=== PATIENT | female | born 1945 | race Caucasian/White ===

== ENCOUNTER → 2016-12-14 | Outpatient (CLI) | payer OTHER ==
[~2016-12-14] MED LIST: ATOR10TA88 PO; BENA-4 PO; CLX20 PO; HMLI SC; IBUP-1050 PO; INSUINJ SC; MELO7.5T5 PO; METF500T PO; ULT50 PO
--- NOTE | 2016-12-14 10:20 | DIAGNOSTIC IMAGING REPORT ---
CT OF THE ABDOMEN AND PELVIS WITHOUT CONTRAST CLINICAL HISTORY: Right flank pain. COMPARISON STUDY: CT of the abdomen and pelvis February 24, 2014 and right upper quadrant ultrasound July 19, 2015. TECHNIQUE: Axial images of the abdomen and pelvis were obtained without IV contrast. Images were reviewed in the axial, sagittal, and coronal planes. FINDINGS: A 5 mm perifissural nodule within the right middle lobe shown on image 10 of 516 is likely benign. No pneumatosis, free air or portal venous gas is present. Several left renal calculi measure up to 1.4 cm. The course of the ureters is difficult to follow on this exam but no ureteral calculi are identified. There is no hydronephrosis or hydroureter. Unenhanced images of liver, spleen, adrenal glands and pancreas are normal. There is no evidence for a bowel obstruction. There is extensive colonic diverticulosis. There is mild infiltration and a trace amount of fluid adjacent to the mid sigmoid colon, located within the right lower quadrant. There is no abscess or free air. The appendix is not visualized. Skeletal structures are unremarkable. IMPRESSION: 1. Mild acute sigmoid diverticulitis. No free air or abscess. 2. Left-sided nephrolithiasis. No ureteral calculi. Electronically signed by: Mirza Penn M.D. 12/14/2016 10:18 AM Dictated Date/Time: 12/14/2016 10:10 AM
== END | disposition home or self-care (01) ==
LOC: C.CTS 09:56
PROVIDERS: ATTEND Internal Medicine
DX: N20.0 Calculus of kidney (principal)

== ENCOUNTER → 2016-12-19 | Outpatient (CLI) | payer OTHER ==
[2016-12-19 13:45] LABS: ESTIMATED AVERAGE GLUCOSE 177 mg/dl; HA1C FLAG Normal (Normal)
[2016-12-19 13:50] LABS: ALT/SGPT 46 U/L (12-78); BLOOD UREA NITROGEN 17 mg/dl (7-18); BUN/CREATININE RATIO 15.5 (10-20); CALCIUM 9.3 mg/dl (8.5-10.1); CARBON DIOXIDE 25 mmol/L (21-32); CHLORIDE 105 mmol/L (98-107); CHOLESTEROL 133 mg/dl (0-200); GLUCOSE 128 mg/dl (70-99); POTASSIUM 3.4 mmol/L (3.5-5.1); SODIUM 142 mmol/L (136-145); TRIGLYCERIDES 175 mg/dl (0-150); VERY LOW DENSITY LIPOPROT CALC 35 mg/dl
[2016-12-19 14:01] LABS: ALB/GLOB RATIO 1.2 (0.9-2); ALKALINE PHOSPHATASE 81 U/L (45-117); AST/SGOT 40 U/L (15-37); CHOLESTEROL/HDL RATIO 3.3; HDL CHOLESTEROL 40 mg/dl; LDL CHOLESTEROL CALCULATED 58 mg/dl
== END | disposition home or self-care (01) ==
LOC: C.LABPBG 08:13
PROVIDERS: ATTEND Internal Medicine
DX: E11.42 Type 2 diabetes mellitus with diabetic polyneuropathy (principal)

== ENCOUNTER → 2017-06-15 | Outpatient (CLI) | payer OTHER ==
[2017-06-16 14:17] LABS: URINE APPEARANCE CLEAR (CLEAR); URINE BILIRUBIN NEG (NEG); URINE COLOR YELLOW; URINE EPITHELIAL CELL AUTO 20-30 /lpf (0-5); URINE NITRITE NEG (NEG); URINE SPECIFIC GRAVITY 1.025 (1.000-1.030); UROBILINOGEN NEG (NEG)
[2017-06-16 14:23] LABS: MANUAL MICROSCOPIC REQUIRED? NO; REVIEW REQ? YES
== END | disposition home or self-care (01) ==
LOC: C.LABSPEC 12:17
PROVIDERS: ATTEND Physician Assistant Medical
DX: R10.31 Right lower quadrant pain (principal)

== ENCOUNTER → 2017-06-26 | Outpatient (CLI) | payer OTHER ==
[2017-06-26 12:57] LABS: HEMATOCRIT 38.2 % (37-47); MEAN CELL VOLUME 91.8 fL (80-100); MEAN CORPUSCULAR HEMOGLOBIN 28.8 pg (25-34); MEAN CORPUSCULAR HGB CONC 31.4 g/dl (32-36); MEAN PLATELET VOLUME 10.1 fL (7.4-10.4); PLATELET COUNT 299 K/uL (130-400); RED BLOOD COUNT 4.16 M/uL (4.2-5.4); WHITE BLOOD COUNT 6.63 K/uL (4.8-10.8)
[2017-06-26 13:12] LABS: ALT/SGPT 33 U/L (12-78); AST/SGOT 19 U/L (15-37); BLOOD UREA NITROGEN 22 mg/dl (7-18); BUN/CREATININE RATIO 16.8 (10-20); CALCIUM 9.4 mg/dl (8.5-10.1); CARBON DIOXIDE 26 mmol/L (21-32); CHLORIDE 105 mmol/L (98-107); CHOLESTEROL 160 mg/dl (0-200); GLUCOSE 161 mg/dl (70-99); POTASSIUM 3.9 mmol/L (3.5-5.1); SODIUM 140 mmol/L (136-145); TRIGLYCERIDES 257 mg/dl (0-150); VERY LOW DENSITY LIPOPROT CALC 51 mg/dl
[2017-06-26 13:14] LABS: ALKALINE PHOSPHATASE 77 U/L (45-117); CHOLESTEROL/HDL RATIO 4.7; HDL CHOLESTEROL 34 mg/dl; LDL CHOLESTEROL CALCULATED 75 mg/dl
[2017-06-26 13:18] LABS: ESTIMATED AVERAGE GLUCOSE 194 mg/dl; HA1C FLAG Normal (Normal)
== END | disposition home or self-care (01) ==
LOC: C.LABPBG 08:14
PROVIDERS: ATTEND Physician Assistant Medical
DX: E11.9 Type 2 diabetes mellitus without complications (principal); E78.5 Hyperlipidemia, unspecified; I10 Essential (primary) hypertension

== ENCOUNTER → 2017-06-29 | Outpatient (CLI) | payer OTHER ==
[2017-06-29 13:05] LABS: BLOOD UREA NITROGEN 22 mg/dl (7-18); BUN/CREATININE RATIO 16.8 (10-20); CALCIUM 9.2 mg/dl (8.5-10.1); CARBON DIOXIDE 27 mmol/L (21-32); CHLORIDE 106 mmol/L (98-107); GLUCOSE 172 mg/dl (70-99); POTASSIUM 3.9 mmol/L (3.5-5.1); SODIUM 138 mmol/L (136-145)
== END | disposition home or self-care (01) ==
LOC: C.LABPBG 07:50
PROVIDERS: ATTEND Physician Assistant Medical
DX: R79.9 Abnormal finding of blood chemistry, unspecified (principal)

== ENCOUNTER → 2017-07-13 | Outpatient (CLI) | payer OTHER ==
[2017-07-13 18:01] LABS: BLOOD UREA NITROGEN 18 mg/dl (7-18); CARBON DIOXIDE 26 mmol/L (21-32); CHLORIDE 112 mmol/L (98-107); GLUCOSE 124 mg/dl (70-99); POTASSIUM 4.4 mmol/L (3.5-5.1); SODIUM 140 mmol/L (136-145)
== END | disposition home or self-care (01) ==
LOC: C.LABPBG 15:43
PROVIDERS: ATTEND Internal Medicine
DX: R79.9 Abnormal finding of blood chemistry, unspecified (principal)

== ENCOUNTER → 2017-09-08 | Outpatient (CLI) | payer OTHER ==
--- NOTE | 2017-09-08 15:57 | MAMMOGRAPHY REPORT ---
BILATERAL DIGITAL SCREENING MAMMOGRAM WITH CAD: 09/08/2017 CLINICAL HISTORY: Routine screening. TECHNIQUE: Current study was also evaluated with a Computer Aided Detection (CAD) system. Bilateral CC and MLO views were obtained. COMPARISON: Comparison is made to exams dated: 12/09/2015 mammogram - [facility], 1 12/14/2012 mammogram, 07/17/2012 mammogram, 01/13/2010 mammogram, and 01/12/2009 mammogram - [facility]. BREAST COMPOSITION: There are scattered areas of fibroglandular density in both breasts. FINDINGS: No suspicious masses, calcifications, or areas of architectural distortion are noted in ei ther breast. There has been no significant interval change compared to prior exams. Scattered bilater al benign-appearing calcifications are again noted. IMPRESSION: ACR BI-RADS CATEGORY 2: BENIGN There is no mammographic evidence of malignancy. A 1 year screening mammogram is recommended. The pa tient will receive written notification of the results. Approximately 10% of breast cancers are not detected with mammography. A negative mammographic report should not delay biopsy if a clinically suggestive mass is present. Macie Conde M.D. ah/:09/08/2017 15:19:10 Production Tool Engineer: Jonathan MCNULTY(Jenny)(M), [facility] letter sent: Normal 1/2 BI-RADS Code: ACR BI-RADS Category 2: Benign
== END | disposition home or self-care (01) ==
LOC: C.MAMM 14:14
PROVIDERS: ATTEND Internal Medicine
DX: Z12.31 Encounter for screening mammogram for malignant neoplasm of breast (principal)

== ENCOUNTER → 2018-01-05 | Outpatient (CLI) | payer OTHER ==
[~2018-01-05] MED LIST changes: +ATOR10TA82 PO; -ATOR10TA88 PO; +AZIT250T PO; -BENA-4 PO; +BENA20TA13 PO; +CITA40TA4 PO; -CLX20 PO; -HMLI SC; +HMLIS SC; +HYDR-4313 PO; +HYDR12.55 PO; -IBUP-1050 PO; +INSHNI SC; +INSU100I2 SC; -INSUINJ SC; -MELO7.5T5 PO; -METF500T PO; +METF500T5 PO; -ULT50 PO; +VLT/75 PO
[2018-01-05 13:30] LABS: HEMOGLOBIN A1C 8.5 % (4.5-5.6)
[2018-01-05 14:15] LABS: ALBUMIN 3.6 gm/dl (3.4-5.0); ALT/SGPT 39 U/L (12-78); AST/SGOT 22 U/L (15-37); BLOOD UREA NITROGEN 20 mg/dl (7-18); CALCIUM 9.2 mg/dl (8.5-10.1); CARBON DIOXIDE 25 mmol/L (21-32); CREATININE 1.24 mg/dl (0.60-1.20); GLUCOSE 227 mg/dl (70-99); POTASSIUM 3.4 mmol/L (3.5-5.1); SODIUM 136 mmol/L (136-145)
[2018-01-05 14:20] LABS: ALKALINE PHOSPHATASE 100 U/L (45-117); CHOLESTEROL 179 mg/dl (0-200); LDL CHOLESTEROL CALCULATED 72 mg/dl; TOTAL PROTEIN 7.5 gm/dl (6.4-8.2)
== END | disposition home or self-care (01) ==
LOC: C.LABPBG 08:26
PROVIDERS: ATTEND Physician Assistant Medical
DX: E11.42 Type 2 diabetes mellitus with diabetic polyneuropathy (principal); E78.5 Hyperlipidemia, unspecified

== ENCOUNTER 2018-03-27 16:49 | Inpatient (IN) | payer OTHER ==
[~2018-03-27] VITALS: Ht 157.5 cm; Wt 90.3 kg
[2018-03-27] MEDS ORDERED: ONDANSETRON INJ 2 MG/ML 2 ML VIAL IV STA (17:20)
[2018-03-27] MEDS ORDERED: SODIUM CHLORIDE 0.9% 1000ML 1,000 ML IV STA ×3 (17:20→20:17)
--- NOTE | 2018-03-27 17:38 | DIAGNOSTIC IMAGING REPORT ---
CHEST ONE VIEW PORTABLE CLINICAL HISTORY: vomiting nausea COMPARISON STUDY: 09/29/2017 FINDINGS: Mild stable cardiomegaly. Chronic elevation right hemidiaphragm. Lungs are clear. IMPRESSION: Mild stable cardiomegaly. No acute process. The above report was generated using voice recognition software. It may contain grammatical, syntax or spelling errors. Electronically signed by: Damien Sandy M.D. 03/27/2018 5:37 PM Dictated Date/Time: 03/27/2018 5:36 PM
--- NOTE | 2018-03-27 17:47 | EMERGENCY ROOM VISIT NOTE ---
History Report prepared by Ben: Rosas Hernandez Under the Supervision of: Mary MurphyO. First contact with patient: 17:10 Chief Complaint: VOMITING Stated Complaint: VOMITING, FEVER- DIABETIC History of Present Illness The patient is a 72 year old female who presents to the Emergency Room with complaints of persistent nausea and dry heaving starting last night that is worse with eating and drinking. The patient states that last night she started to get a fever, and then during the night she would get hot and then the chills , and she would be shaking and teeth chattering. She notes that she has been continuing to shake today. She states that she has tried to drink fluids, though she has been unable to drink much since she would immediately start dry heaving. She denies any diarrhea, abdominal pain, change in diet or medications , sick contacts, and trouble urinating. The patient states that she was feeling a little light headed this morning as well, and she has had a runny nose recently. She denies any cough or sore throat as well. The patient notes that she is a diabetic, though she states that her sugars have been doing well recently, and she has not taken any insulin this morning. Source of History: patient Onset: last night Position: other (global) Quality: other (nausea and dry heaving) Timing: other (persistent) Modifying Factors (Worsening): eating, drinking Associated Symptoms: + fevers, + chills, No sorethroat, No cough, No abdominal pain, No diarrhea Note: Associated symptoms: light headed Review of Systems See HPI for pertinent positives & negatives. A total of 10 systems reviewed and were otherwise negative. Past Medical & Surgical Medical Problems: (1) Bladder infection (2) Diabetes (3) Hypercholesteremia (4) Hypertension (5) Hypoxia (6) Kidney stones (7) Pneumonia (8) Sepsis due to urinary tract infection Surgical Problems: (1) S/P appendectomy Family History Cancer Diabetes mellitus Heart disease Hypertension Seizures Social History Smoking Status: Never Smoker Alcohol Use: none Marital Status: Housing Status: lives alone Occupation Status: retired Current/Historical Medications Scheduled Atorvastatin (Lipitor), 10 MG PO DAILY Atorvastatin (Lipitor), 20 MG PO DAILY Benazepril Hcl (Lotensin), 20 MG PO BID Citalopram (Citalopram Hydrobromide), 40 MG PO DAILY Diclofenac Sod (Diclofenac Sodium Dr), 75 MG PO BID Dulaglutide (Trulicity), 0.75 MG INJ WK Hydrochlorothiazide (Hydrochlorothiazide), 12.5 MG PO BID Insulin Human Lispro (Humalog Kwikpen), 20 UNITS SC DAILYBB Insulin Human NPH (Novolin N), 30-40 UNITS SQ QPM Insulin Lispro (Human) (Humalog Kwikpen), 25 UNITS SC DAILYBD Allergies Coded Allergies: No Known Allergies (Unverified , 09/01/16) Physical Exam Vital Signs Date Time Temp Pulse Resp B/P (MAP) Pulse Ox O2 Delivery O2 Flow Rate FiO2 03/27/18 21:57 98 20 113/62 94 Room Air 03/27/18 21:32 96 03/27/18 19:55 91 20 105/59 91 Room Air 03/27/18 18:33 94 91/49 90 Room Air 03/27/18 17:29 96 03/27/18 16:55 37.2 100 20 98/63 96 Room Air Physical Exam GENERAL: alert, well appearing, well nourished, no distress, non-toxic EYE EXAM: normal conjunctiva, PERRL and EOM's grossly intact OROPHARYNX: no exudate, no erythema, lips, buccal mucosa, and tongue normal and mucous membranes are dry NECK: supple, no nuchal rigidity, no adenopathy, non-tender LUNGS: Clear to auscultation. Normal chest wall mechanics, no w/r/r HEART: no murmurs, S1 normal and S2 normal ABDOMEN: abdomen soft, non-tender, normo-active bowel sounds, no masses, no rebound or guarding. BACK: Back is symmetrical on inspection and there is no deformity, no midline tenderness, no CVA tenderness. SKIN: no rashes and no bruising UPPER EXTREMITIES: upper extremities are grossly normal. FROM, nml pulses. LOWER EXTREMITIES: No pitting edema. FROM, nml pulses. NEURO EXAM: Normal sensorium, cranial nerves II-XII grossly intact, normal speech, no gross weakness of arms, no gross weakness of legs. Medical Decision & Procedures ER Provider Diagnostic Interpretation: Radiology results have been interpreted by the radiologist and reviewed by me. CHEST ONE VIEW PORTABLE CLINICAL HISTORY: vomiting nausea COMPARISON STUDY: 09/29/2017 FINDINGS: Mild stable cardiomegaly. Chronic elevation right hemidiaphragm. Lungs are clear. IMPRESSION: Mild stable cardiomegaly. No acute process. The above report was generated using voice recognition software. It may contain grammatical, syntax or spelling errors. Electronically signed by: Damien Sandy M.D. 03/27/2018 5:37 PM Dictated Date/Time: 03/27/2018 5:36 PM ANGIO ABD/PELVIS WITH CONTRAST CLINICAL HISTORY: 72 years-old Female with WITH ONLY PER DR SPENCE acute vomiting with history of atherosclerotic vascular disease. COMPARISON STUDY: CT abdomen and pelvis 12/14/2016 TECHNIQUE: Following the IV administration of 120 cc of Optiray 320, CT angiogram of the abdomen and pelvis was performed from the lung bases the proximal femora. Images are reviewed in the axial, sagittal, and coronal planes. 3-D MIPS images are created and assessed. IV contrast was administered without complication. All measurements were obtained according to NASCET criteria. A dose lowering technique was utilized adhering to the principles of ALARA. CT DOSE: 668.90 mGy.cm FINDINGS: CTA: Heart is normal in size with mitral annular calcifications noted. The opacified pulmonary artery is unremarkable. Aorta is mildly tortuous with mild degree of mixed atheromatous and atherosclerotic plaquing extends into the iliac bifurcation. No aortic aneurysm or dissection. The common, external and internal iliac arteries are widely patent. The common femoral and imaged superficial femoral arteries are widely patent as well. The inferior and inferior mesenteric arteries are widely patent. There is 50% luminal narrowing involving the origin of the celiac trunk with mild poststenotic dilation nicely seen on image 59 of series 302. The imaged bilateral renal arteries are widely patent. CT ABDOMEN/PELVIS: Mild dependent subsegmental bibasilar atelectasis. No pneumatosis or pneumoperitoneum identified. Hepatic steatosis with hepatomegaly. No intrahepatic biliary ductal dilation. 3 mm calcification of the hepatic dome. Spleen is mildly enlarged, 14.5 cm. Gallbladder, and pancreas are unremarkable. There is mild thickening of the adrenal glands bilaterally suggesting adrenal hyperplasia. 7 mm low attenuating lesion of the superior pole right kidney suggests renal cyst. There is moderate left-sided perinephric stranding with slightly decreased enhancement of the left kidney. No significant hydronephrosis, however there is mild dilation of the left ureter without ureteral calculus identified. There is a large calculus of the inferior pole left kidney measuring up to 1.4 x 0.9 x 1.4 cm. Additional punctate calculi of the inferior pole left kidney and superior pole are noted. No bladder calculus. Bladder, uterus and adnexa are unremarkable. Scattered nonenlarged periaortic lymph nodes measure up to 5 mm, nonspecific and likely physiologic. No bowel obstruction or focal bowel wall thickening. Colonic diverticulosis without CT evidence of acute diverticulitis. Soft tissues are unremarkable. Bones appear intact. Multilevel facet arthrosis of the lumbar spine. Chondrocalcinosis of the pubic symphysis. IMPRESSION: 1. Moderate left-sided perinephric inflammatory stranding with delayed left-sided nephrogram is noted in addition to mild dilation of the left ureter without significant hydronephrosis. These findings suggest sequela of recently passed calculus or ascending ureteritis with pyelonephritis. Correlate with urinalysis and patient symptoms. 2. Nonobstructing left-sided nephrolithiasis with 1.4 cm calculus of the inferior pole left kidney. 3. Unremarkable CTA without aneurysm, high-grade stenosis, dissection or proximal branch occlusion. 4. 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 5. Colonic diverticulosis without CT evidence of acute diverticulitis. 6. Hepatosplenomegaly with hepatic steatosis. The above report was generated using voice recognition software. It may contain grammatical, syntax or spelling errors. Electronically signed by: Dimitry Jain M.D. 03/27/2018 8:01 PM Dictated Date/Time: 03/27/2018 7:48 PM Laboratory Results 03/27/18 17:46 Red Blood Count 3.57, Mean Corpuscular Volume 90.5, Mean Corpuscular Hemoglobin 31.1, Mean Corpuscular Hemoglobin Concent 34.4, Mean Platelet Volume 10.4, Neutrophils (%) (Auto) 82.6, Lymphocytes (%) (Auto) 3.2, Monocytes (%) (Auto) 13.4, Eosinophils (%) (Auto) 0.1, Basophils (%) (Auto) 0.1, Neutrophils # (Auto ) 13.59, Lymphocytes # (Auto) 0.52, Monocytes # (Auto) 2.20, Eosinophils # (Auto ) 0.01, Basophils # (Auto) 0.02 03/27/18 17:46 Test 03/27/18 10:46 03/27/18 17:46 03/27/18 17:48 03/27/18 20:00 Influenza Type A Antigen Neg for Influ A (NEG) Influenza Type B Antigen Neg for Influ B (NEG) White Blood Count 16.44 K/uL (4.8-10.8) Red Blood Count 3.57 M/uL (4.2-5.4) Hemoglobin 11.1 g/dL (12.0-16.0) Hematocrit 32.3 % (37-47) Mean Corpuscular Volume 90.5 fL (80-100) Mean Corpuscular Hemoglobin 31.1 pg (25-34) Mean Corpuscular Hemoglobin Concent 34.4 g/dl (32-36) Platelet Count 186 K/uL (130-400) Mean Platelet Volume 10.4 fL (7.4-10.4) Neutrophils (%) (Auto) 82.6 % Lymphocytes (%) (Auto) 3.2 % Monocytes (%) (Auto) 13.4 % Eosinophils (%) (Auto) 0.1 % Basophils (%) (Auto) 0.1 % Neutrophils # (Auto) 13.59 K/uL (1.4-6.5) Lymphocytes # (Auto) 0.52 K/uL (1.2-3.4) Monocytes # (Auto) 2.20 K/uL (0.11-0.59) Eosinophils # (Auto) 0.01 K/uL (0-0.5) Basophils # (Auto) 0.02 K/uL (0-0.2) RDW Standard Deviation 62.9 fL (36.4-46.3) RDW Coefficient of Variation 19.4 % (11.5-14.5) Immature Granulocyte % (Auto) 0.6 % Immature Granulocyte # (Auto) 0.10 K/uL (0.00-0.02) Nucleated RBC Absolute Count (auto) 0.04 K/uL (0-0) Nucleated Red Blood Cells % 0.3 % Ovalocytes 1+ Prothrombin Time 11.4 SECONDS (9.0-12.0) Prothromb Time International Ratio 1.1 (0.9-1.1) Anion Gap 10.0 mmol/L (3-11) Est Creatinine Clear Calc Drug Dose 31.5 ml/min Estimated GFR () 35.3 Estimated GFR (Non- 30.5 BUN/Creatinine Ratio 11.8 (10-20) Calcium Level 9.1 mg/dl (8.5-10.1) Magnesium Level 1.5 mg/dl (1.8-2.4) Total Bilirubin 1.4 mg/dl (0.2-1) Aspartate Amino Transf (AST/SGOT) 25 U/L (15-37) Alanine Aminotransferase (ALT/SGPT) 36 U/L (12-78) Alkaline Phosphatase 100 U/L (45-117) Troponin I < 0.015 ng/ml (0-0.045) Pro-B-Type Natriuretic Peptide 1194 pg/ml (0-900) Total Protein 7.0 gm/dl (6.4-8.2) Albumin 3.3 gm/dl (3.4-5.0) Globulin 3.7 gm/dl (2.5-4.0) Albumin/Globulin Ratio 0.9 (0.9-2) Lipase 72 U/L (73-393) Thyroid Stimulating Hormone (TSH) 1.920 uIu/ml (0.300-4.500) Hepatitis C Antibody Screen NEG (NEG) Bedside Lactic Acid Venous 3.16 mmol/L (0.90-1.70) Urine Color YELLOW Urine Appearance CLOUDY (CLEAR) Urine pH 5.0 (4.5-7.5) Urine Specific [place] 1.032 (1.000-1.030) Urine Protein 2+ (NEG) Urine Glucose (UA) 3+ (NEG) Urine Ketones TRACE (NEG) Urine Occult Blood 1+ (NEG) Urine Nitrite POS (NEG) Urine Bilirubin NEG (NEG) Urine Urobilinogen NEG (NEG) Urine Leukocyte Esterase MODERATE (NEG) Urine WBC (Auto) >30 /hpf (0-5) Urine RBC (Auto) 0-4 /hpf (0-4) Urine Hyaline Casts (Auto) 1-5 /lpf (0-5) Urine Epithelial Cells (Auto) 5-10 /lpf (0-5) Urine Bacteria (Auto) 4+ (NEG) Laboratory results per my review. Medications Administered Medications (Trade) Dose Ordered Sig/Haresh Route Start Time Stop Time Status Last Admin Dose Admin Sodium Chloride 1,000 ml @ 999 mls/hr Q1H1M STAT IV 5/1/18 17:20 03/27/18 18:20 DC 03/27/18 17:40 999 MLS/HR Ondansetron HCl (Zofran Inj) 4 mg NOW STAT IV 03/27/18 17:20 03/27/18 17:22 DC 03/27/18 17:40 4 MG Sodium Chloride 1,000 ml @ 999 mls/hr Q1H1M STAT IV 03/27/18 18:38 03/27/18 19:38 DC 03/27/18 18:40 999 MLS/HR Piperacillin Sod/ Tazobactam Sod (Zosyn Iv) 3.375 gm NOW STAT IV 03/27/18 18:42 03/27/18 18:44 DC 03/27/18 19:50 3.375 GM Magnesium Sulfate (Magnesium Sulfate 1gm / D5W) 2 gm NOW STAT IV 03/27/18 18:42 03/27/18 18:44 DC 03/27/18 19:48 2 GM Sodium Chloride 1,000 ml @ 999 mls/hr Q1H1M STAT IV 03/27/18 20:17 03/27/18 21:17 DC 03/27/18 20:40 999 MLS/HR Acetaminophen (Tylenol Tab) 1,000 mg NOW STAT PO 03/27/18 21:06 03/27/18 21:07 DC 03/27/18 21:18 1,000 MG ECG Per My Interpretation Indication: nausea Rate (beats per minute): 92 Rhythm: sinus rhythm Findings: no acute ischemic change, left axis deviation, other (Normal QRS and QTc, Abberant baseline ) ED Course 0: The patient was evaluated in room C9. A complete history and physical exam was performed. 2105: I reevaluated the patient, and she was doing well. She will be evaluated for further management by the hospitalist. 2152: I reviewed the patient's case with Dr. Selina Burrell [facility] [place]. He will evaluate the patient for further management. Medical Decision Differential diagnosis: Etiologies such as gastroenteritis, food borne illness, infections, appendicitis , diverticulitis, inflammatory bowel disease, obstruction, GI bleed, biliary pathology, as well as others were entertained. Concerned given patient's description of fevers chills nausea and weakness. Patient concerned she may have contracted influenza. No other recent sick contacts or new foods. Patient with no other overt GI or symptoms, but had noticed hyperglycemia recently. Patient found to have an elevated white blood cell count as well as lactic acid, and given that she was a diabetic, was sent for CAT scan to rule out additional occult pathology. Patient initially found to be hypotensive but appeared clinically dehydrated, did respond to IV fluids and reported feeling improved. Patient covered with Zosyn after blood cultures were drawn prior to CAT scan due to concern for occult GI pathology. After this is found to be negative and UA found to be positive, EMR reviewed. No prior urine cultures available to check for sensitivities. Given local patterns of resistance, Zosyn should cover most typical organisms. Additional coverage may need to be added and this was discussed with the patient. Patient' s blood pressure was maintaining, did did briefly when patient's magnesium was repleted with IV mag sulfate. This was likely secondary to medication. Patient continued to report improvement with additional IV fluids and medication. Patient did have episode of chills again here and was given Tylenol. Discussed with patient my concern for evolving sepsis likely from a urinary tract infection, and she was agreeable with plan for additional evaluation. Pt received 3 L nss in the ER which is more than her calculated 30 mL/KG sepsis dosing. Case discussed with hospitalist for additional evaluation and treatment. Medication Reconcilliation Current Medication List: was personally reviewed by me Blood Pressure Screening Patient's blood pressure: Normal blood pressure Consults Time Called: 2105 Consulting Physician: Dr. Selina SANTANA Hospitalist Returned Call: 2152 I reviewed the patient's case with Dr. Selina SANTANA Hospitalist. He will evaluate the patient for further management. Impression Primary Impression: Sepsis Additional Impressions: UTI (urinary tract infection) Acute kidney injury Elevated brain natriuretic peptide (BNP) level Hypomagnesemia Hyperglycemia Critical Care I have personally spent greater than 40 minutes of critical care time in the direct management of this patient. This includes bedside care, interpretation of diagnostic studies, and testing, discussion with consultants, patient, and family members, and other required patient management activities. This 40 minutes is in excess of all separately billable procedures. Scribe Attestation The scribe's documentation has been prepared under my direction and personally reviewed by me in its entirety. I confirm that the note above accurately reflects all work, treatment, procedures, and medical decision making performed by me. Departure Information Dispostion Being Evaluated By Hospitalist Referrals Joaquin Esparza M.D. (PCP) Patient Instructions [facility] Problem Qualifiers Primary Impression: Sepsis Sepsis type: sepsis due to unspecified organism Qualified Codes: A41.9 - Sepsis, unspecified organism Additional Impressions: UTI (urinary tract infection) Urinary tract infection type: acute cystitis Hematuria presence: with hematuria Qualified Codes: N30.01 - Acute cystitis with hematuria
[2018-03-27 17:55] LABS: HEMATOCRIT 32.3 % (37-47); HEMOGLOBIN 11.1 g/dL (12.0-16.0); MEAN CELL VOLUME 90.5 fL (80-100); MEAN CORPUSCULAR HEMOGLOBIN 31.1 pg (25-34); MEAN CORPUSCULAR HGB CONC 34.4 g/dl (32-36); MEAN PLATELET VOLUME 10.4 fL (7.4-10.4); NUCLEATED RED BLOOD CELL ABS 0.04 K/uL (0-0); PLATELET COUNT 186 K/uL (130-400); RED CELL DISTRIBUTION WIDTH CV 19.4 % (11.5-14.5); RED CELL DISTRIBUTION WIDTH SD 62.9 fL (36.4-46.3); WHITE BLOOD COUNT 16.44 K/uL (4.8-10.8)
[2018-03-27 18:02] LABS: INR 1.1 (0.9-1.1)
[2018-03-27 18:11] LABS: ALBUMIN 3.3 gm/dl (3.4-5.0); ALT/SGPT 36 U/L (12-78); AST/SGOT 25 U/L (15-37); BLOOD UREA NITROGEN 20 mg/dl (7-18); CALCIUM 9.1 mg/dl (8.5-10.1); CARBON DIOXIDE 24 mmol/L (21-32); CREATININE 1.68 mg/dl (0.60-1.20); GLUCOSE 279 mg/dl (70-99); LIPASE 72 U/L (73-393); POTASSIUM 3.4 mmol/L (3.5-5.1); SODIUM 135 mmol/L (136-145)
[2018-03-27 18:13] LABS: BASO % 0.1 %; BASO ABS # 0.02 K/uL (0-0.2); EOS % 0.1 %; EOS ABS # 0.01 K/uL (0-0.5); LYMPH % 3.2 %; LYMPH ABS # 0.52 K/uL (1.2-3.4); MONO % 13.4 %; NEUT % 82.6 %; NEUT ABS # 13.59 K/uL (1.4-6.5)
[2018-03-27 18:21] LABS: ALKALINE PHOSPHATASE 100 U/L (45-117)
[2018-03-27 18:37] LABS: INFLUENZA B ANTIGEN Neg for Influ B (NEG)
[2018-03-27] MEDS ORDERED: PIPERACILLIN/TAZOBACTAM 3.375 GM/100ML D5W IV STA (18:42)
[2018-03-27] MEDS ORDERED: MAGNESIUM SULFATE 1GM / D5W 1 GM BAG IV STA (18:42)
[2018-03-27] MEDS ORDERED: OPTIRAY 320 IV PRN (18:45)
[2018-03-27] MEDS ORDERED: NVLNI SQ (19:59)
[2018-03-27] MEDS ORDERED: DULA1INJ INJ (19:59)
[2018-03-27] MEDS ORDERED: ATOR-22 PO (20:00)
--- NOTE | 2018-03-27 20:02 | DIAGNOSTIC IMAGING REPORT ---
ANGIO ABD/PELVIS WITH CONTRAST CLINICAL HISTORY: 72 years-old Female with WITH ONLY PER DR SPENCE acute vomiting with history of atherosclerotic vascular disease. COMPARISON STUDY: CT abdomen and pelvis 12/14/2016 TECHNIQUE: Following the IV administration of 120 cc of Optiray 320, CT angiogram of the abdomen and pelvis was performed from the lung bases the proximal femora. Images are reviewed in the axial, sagittal, and coronal planes. 3-D MIPS images are created and assessed. IV contrast was administered without complication. All measurements were obtained according to NASCET criteria. A dose lowering technique was utilized adhering to the principles of ALARA. CT DOSE: 668.90 mGy.cm FINDINGS: CTA: Heart is normal in size with mitral annular calcifications noted. The opacified pulmonary artery is unremarkable. Aorta is mildly tortuous with mild degree of mixed atheromatous and atherosclerotic plaquing extends into the iliac bifurcation. No aortic aneurysm or dissection. The common, external and internal iliac arteries are widely patent. The common femoral and imaged superficial femoral arteries are widely patent as well. The inferior and inferior mesenteric arteries are widely patent. There is 50% luminal narrowing involving the origin of the celiac trunk with mild poststenotic dilation nicely seen on image 59 of series 302. The imaged bilateral renal arteries are widely patent. CT ABDOMEN/PELVIS: Mild dependent subsegmental bibasilar atelectasis. No pneumatosis or pneumoperitoneum identified. Hepatic steatosis with hepatomegaly. No intrahepatic biliary ductal dilation. 3 mm calcification of the hepatic dome. Spleen is mildly enlarged, 14.5 cm. Gallbladder, and pancreas are unremarkable. There is mild thickening of the adrenal glands bilaterally suggesting adrenal hyperplasia. 7 mm low attenuating lesion of the superior pole right kidney suggests renal cyst. There is moderate left-sided perinephric stranding with slightly decreased enhancement of the left kidney. No significant hydronephrosis, however there is mild dilation of the left ureter without ureteral calculus identified. There is a large calculus of the inferior pole left kidney measuring up to 1.4 x 0.9 x 1.4 cm. Additional punctate calculi of the inferior pole left kidney and superior pole are noted. No bladder calculus. Bladder, uterus and adnexa are unremarkable. Scattered nonenlarged periaortic lymph nodes measure up to 5 mm, nonspecific and likely physiologic. No bowel obstruction or focal bowel wall thickening. Colonic diverticulosis without CT evidence of acute diverticulitis. Soft tissues are unremarkable. Bones appear intact. Multilevel facet arthrosis of the lumbar spine. Chondrocalcinosis of the pubic symphysis. IMPRESSION: 1. Moderate left-sided perinephric inflammatory stranding with delayed left-sided nephrogram is noted in addition to mild dilation of the left ureter without significant hydronephrosis. These findings suggest sequela of recently passed calculus or ascending ureteritis with pyelonephritis. Correlate with urinalysis and patient symptoms. 2. Nonobstructing left-sided nephrolithiasis with 1.4 cm calculus of the inferior pole left kidney. 3. Unremarkable CTA without aneurysm, high-grade stenosis, dissection or proximal branch occlusion. 4. 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 5. Colonic diverticulosis without CT evidence of acute diverticulitis. 6. Hepatosplenomegaly with hepatic steatosis. The above report was generated using voice recognition software. It may contain grammatical, syntax or spelling errors. Electronically signed by: Dimitry Jain M.D. 03/27/2018 8:01 PM Dictated Date/Time: 03/27/2018 7:48 PM
[2018-03-27] MEDS ORDERED: ACETAMINOPHEN 500 MG TAB PO STA (21:06)
[2018-03-27] MEDS ORDERED: VANCOMYCIN IV 1,000 MG in SODIUM CHLORIDE 0.9% 250ML 250 ML IV STA (22:58)
[2018-03-27] MEDS ORDERED: PIPERACILL/TAZOBAC CONSULT ACTIVE PRN (23:00)
[2018-03-27] MEDS ORDERED: VANCOMYCIN CONSULT ACTIVE PRN (23:00)
[2018-03-27] MEDS ORDERED: ONDANSETRON INJ 2 MG/ML 2 ML VIAL IV PRN (23:00)
--- NOTE | 2018-03-27 23:02 | History and Physical ---
History & Physical Date & Time of Service: March 27, 2018 at 23:01 Chief Complaint: Vomiting, Fever- Diabetic Primary Care Physician: Joaquin Esparza M.D. History of Present Illness Source: patient, hospital records The patient is a 72-year-old female who presents to the emergency department with nausea, dry heaving, generalized fatigue with intermittent fevers and chills that began the previous evening. She has not had any recent travels or sick exposures. She denies any questionable food intake. She did not take her insulin this morning due to poor oral intake anticipated today. She does have some generalized muscle aches, and was concerned that she might have the flu. Past Medical/Surgical History Medical Problems: (1) Acute bronchitis (2) Acute kidney injury (3) Anemia (4) Bladder infection (5) Diabetes (6) Fever (7) Hypercholesteremia (8) Hypertension (9) Hypoxia (10) Kidney stones (11) Near syncope (12) Orthostasis (13) Pneumonia (14) Pre-syncope (15) Right hip pain (16) Right hip pain (17) Sepsis due to urinary tract infection (18) UTI (urinary tract infection) Surgical Problems: (1) S/P appendectomy Family History Cancer Diabetes mellitus Heart disease Hypertension Seizures Social History Smoking Status: Never Smoker Smokeless Tobacco Use: No Alcohol Use: none Drug Use: none Marital Status: Housing status: lives alone Occupational Status: retired Immunizations History of Influenza Vaccine: Unknown History of Tetanus Vaccine?: Unknown History of Pneumococcal: Unknown History of Hepatitis B Vaccine: Unknown Allergies Coded Allergies: No Known Allergies (Unverified , 09/01/16) Home Medications Scheduled Atorvastatin (Lipitor), 10 MG PO DAILY Atorvastatin (Lipitor), 20 MG PO DAILY Benazepril Hcl (Lotensin), 20 MG PO BID Citalopram (Citalopram Hydrobromide), 40 MG PO DAILY Diclofenac Sod (Diclofenac Sodium Dr), 75 MG PO BID Dulaglutide (Trulicity), 0.75 MG INJ WK Hydrochlorothiazide (Hydrochlorothiazide), 12.5 MG PO BID Insulin Human Lispro (Humalog Kwikpen), 20 UNITS SC DAILYBB Insulin Human NPH (Novolin N), 30-40 UNITS SQ QPM Insulin Lispro (Human) (Humalog Kwikpen), 25 UNITS SC DAILYBD Review of Systems The patient denies chest pain, palpitations, shortness of breath, dyspnea on exertion, cough, lower extremity swelling, sore throat, diarrhea , constipation, abdominal pain, pelvic pain, blood in urine or stool, dysuria, urinary frequency or urgency, headache, memory loss, loss of consciousness, rash, abnormal bruising or bleeding, imbalance, focal weakness, numbness or tingling in arms or legs, back or neck pain, or night sweats. The review of systems is otherwise negative other than for that already noted above, and at least 10 systems have been reviewed. Physical Exam Vital Signs Date Time Temp Pulse Resp B/P (MAP) Pulse Ox O2 Delivery O2 Flow Rate FiO2 03/27/18 21:57 98 20 113/62 94 Room Air 03/27/18 21:32 96 03/27/18 19:55 91 20 105/59 91 Room Air 03/27/18 18:33 94 91/49 90 Room Air 03/27/18 17:29 96 03/27/18 16:55 37.2 100 20 98/63 96 Room Air The patient is awake, alert and oriented 3, normocephalic and atraumatic, looks unusually disheveled for her, lying in bed and in mild acute distress. HEENT--PERRL, EOMI, mucous membranes and oropharynx dry. Neck--supple. No JVD. No bruits. Thyroid normal, trachea midline, no adenopathy. Heart--normal S1 and S2. No murmurs, rubs or gallops. Lungs--decreased breath sounds at the bases bilaterally, no respiratory distress , no accessory muscle use. Abdomen--normal bowel sounds and soft. Nontender. Nondistended, no hernias or masses, no organomegaly. Extremities--no cyanosis or clubbing. No edema. There are good distal pulses b/ l. Dermatologic--normal skin turgor, normal color, no abnormal lymph nodes, no rash. Neurologic--cranial nerves II through XII grossly intact. Rheumatologic--normal range of motion. Psychiatric--normal affect. Diagnostics Laboratory Results Results Past 24 Hours Test 03/27/18 10:46 03/27/18 17:46 03/27/18 17:48 03/27/18 20:00 Range/Units Influenza Type A Antigen Neg for Influ A NEG Influenza Type B Antigen Neg for Influ B NEG White Blood Count 16.44 4.8-10.8 K/uL Red Blood Count 3.57 4.2-5.4 M/uL Hemoglobin 11.1 12.0-16.0 g/dL Hematocrit 32.3 37-47 % Mean Corpuscular Volume 90.5 80-100 fL Mean Corpuscular Hemoglobin 31.1 25-34 pg Mean Corpuscular Hemoglobin Concent 34.4 32-36 g/dl Platelet Count 186 130-400 K/uL Mean Platelet Volume 10.4 7.4-10.4 fL Neutrophils (%) (Auto) 82.6 % Lymphocytes (%) (Auto) 3.2 % Monocytes (%) (Auto) 13.4 % Eosinophils (%) (Auto) 0.1 % Basophils (%) (Auto) 0.1 % Neutrophils # (Auto) 13.59 1.4-6.5 K/uL Lymphocytes # (Auto) 0.52 1.2-3.4 K/uL Monocytes # (Auto) 2.20 0.11-0.59 K/uL Eosinophils # (Auto) 0.01 0-0.5 K/uL Basophils # (Auto) 0.02 0-0.2 K/uL RDW Standard Deviation 62.9 36.4-46.3 fL RDW Coefficient of Variation 19.4 11.5-14.5 % Immature Granulocyte % (Auto) 0.6 % Immature Granulocyte # (Auto) 0.10 0.00-0.02 K/uL Nucleated RBC Absolute Count (auto) 0.04 0-0 K/uL Nucleated Red Blood Cells % 0.3 % Ovalocytes 1+ Prothrombin Time 11.4 9.0-12.0 SECONDS Prothromb Time International Ratio 1.1 0.9-1.1 Sodium Level 135 136-145 mmol/L Potassium Level 3.4 3.5-5.1 mmol/L Chloride Level 101 98-107 mmol/L Carbon Dioxide Level 24 21-32 mmol/L Anion Gap 10.0 3-11 mmol/L Blood Urea Nitrogen 20 7-18 mg/dl Creatinine 1.68 0.60-1.20 mg/dl Est Creatinine Clear Calc Drug Dose 31.5 ml/min Estimated GFR () 35.3 Estimated GFR (Non- 30.5 BUN/Creatinine Ratio 11.8 10-20 Random Glucose 279 70-99 mg/dl Calcium Level 9.1 8.5-10.1 mg/dl Magnesium Level 1.5 1.8-2.4 mg/dl Total Bilirubin 1.4 0.2-1 mg/dl Aspartate Amino Transf (AST/SGOT) 25 15-37 U/L Alanine Aminotransferase (ALT/SGPT) 36 12-78 U/L Alkaline Phosphatase 100 45-117 U/L Troponin I < 0.015 0-0.045 ng/ml Pro-B-Type Natriuretic Peptide 1194 0-900 pg/ml Total Protein 7.0 6.4-8.2 gm/dl Albumin 3.3 3.4-5.0 gm/dl Globulin 3.7 2.5-4.0 gm/dl Albumin/Globulin Ratio 0.9 0.9-2 Lipase 72 73-393 U/L Thyroid Stimulating Hormone (TSH) 1.920 0.300-4.500 uIu/ml Bedside Lactic Acid Venous 3.16 0.90-1.70 mmol/L Urine Color YELLOW Urine Appearance CLOUDY CLEAR Urine pH 5.0 4.5-7.5 Urine Specific [place] 1.032 1.000-1.030 Urine Protein 2+ NEG Urine Glucose (UA) 3+ NEG Urine Ketones TRACE NEG Urine Occult Blood 1+ NEG Urine Nitrite POS NEG Urine Bilirubin NEG NEG Urine Urobilinogen NEG NEG Urine Leukocyte Esterase MODERATE NEG Urine WBC (Auto) >30 0-5 /hpf Urine RBC (Auto) 0-4 0-4 /hpf Urine Hyaline Casts (Auto) 1-5 0-5 /lpf Urine Epithelial Cells (Auto) 5-10 0-5 /lpf Urine Bacteria (Auto) 4+ NEG Microbiology Results 03/27/18 Blood Culture, Received Pending 03/27/18 Blood Culture, Received Pending 03/27/18 Urine Culture, Received Pending Diagnostic Radiology Patient Name: SARATH WANG Unit Number: [id number] Dictated: 03/27/181735 Transcribed: 03/27/181735 MS Printed Date/Time: [~ rep prt dt]/[~ rep prt tm] [~ rep ct labl] - [~ rep ct ivnm] [facility] [place] [address] Dictated: 05/01/18 1736 Transcribed: 03/27/18 1736 MS Printed Date/Time: [~ rep prt dt]/[~ rep prt tm] [~ rep ct labl] - [~ rep ct ivnm] [~ rep ct add3]] CHEST ONE VIEW PORTABLE CLINICAL HISTORY: vomiting nausea COMPARISON STUDY: 09/29/2017 FINDINGS: Mild stable cardiomegaly. Chronic elevation right hemidiaphragm. Lungs are clear. IMPRESSION: Mild stable cardiomegaly. No acute process. The above report was generated using voice recognition software. It may contain grammatical, syntax or spelling errors. Electronically signed by: Damien Sandy M.D. 03/27/2018 5:37 PM Dictated Date/Time: 03/27/2018 5:36 PM The status of this report is Signed. Draft = Not yet reviewed or approved by Radiologist. Signed = Reviewed and approved by Radiologist. <AttendingPhy></AttendingPhy> <FamilyPhy>Joaquin Esparza M.D.</FamilyPhy> < PrimaryPhy>Joaquin Esparza M.D.</PrimaryPhy> <UnitNumber>[id number]</UnitNumber > <VisitNumber>[id number]</VisitNumber> <PatientName>SARATH WANG</PatientName > <DateOfBirth>1945</DateOfBirth> <Location>[facility]</Location> <ServiceDate> 03/27/18</ServiceDate> <MNE>ESINDI</MNE> <OrderingPhy>Nila Specne DO</ OrderingPhy> <OrderingPhyMNE>f rep ord dr moe</OrderingPhyMNE> <DictatingPhyMNE> f rep dict dr moe</DictatingPhyMNE> <CCListMNE>f rep ct mne</CCListMNE> < AdmittingPhyMNE>f pt admit dr moe</AdmittingPhyMNE> <AttendingPhyMNE>f pt attend dr moe</AttendingPhyMNE> <ConsultingPhyMNE>f pt consult dr moe</ConsultingPhyMNE> <FamilyPhyMNE>f pt fam dr moe</FamilyPhyMNE> <OtherPhyMNE>f pt other dr moe</OtherPhyMNE> < PrimaryPhyMNE>f pt prim care dr moe</PrimaryPhyMNE> <ReferringPhyMNE>f pt referring dr moe</ReferringPhyMNE> Patient Name: SARATH WANG Unit Number: [id number] Dictated: 03/27/181947 Transcribed: 03/27/181947 JRB Printed Date/Time: [~ rep prt dt]/[~ rep prt tm] [~ rep ct labl] - [~ rep ct ivnm] [facility] Radiology Department [place], [place] [id number] Dictated: 03/27/181947 Transcribed: 03/27/181947 JRB Printed Date/Time: [~ rep prt dt]/[~ rep prt tm] [~ rep ct labl] - [~ rep ct ivnm] [~ rep ct add3]] ANGIO ABD/PELVIS WITH CONTRAST CLINICAL HISTORY: 72 years-old Female with WITH ONLY PER DR SPENCE acute vomiting with history of atherosclerotic vascular disease. COMPARISON STUDY: CT abdomen and pelvis 12/14/2016 TECHNIQUE: Following the IV administration of 120 cc of Optiray 320, CT angiogram of the abdomen and pelvis was performed from the lung bases the proximal femora. Images are reviewed in the axial, sagittal, and coronal planes. 3-D MIPS images are created and assessed. IV contrast was administered without complication. All measurements were obtained according to NASCET criteria. A dose lowering technique was utilized adhering to the principles of ALARA. CT DOSE: 668.90 mGy.cm FINDINGS: CTA: Heart is normal in size with mitral annular calcifications noted. The opacified pulmonary artery is unremarkable. Aorta is mildly tortuous with mild degree of mixed atheromatous and atherosclerotic plaquing extends into the iliac bifurcation. No aortic aneurysm or dissection. The common, external and internal iliac arteries are widely patent. The common femoral and imaged superficial femoral arteries are widely patent as well. The inferior and inferior mesenteric arteries are widely patent. There is 50% luminal narrowing involving the origin of the celiac trunk with mild poststenotic dilation nicely seen on image 59 of series 302. The imaged bilateral renal arteries are widely patent. CT ABDOMEN/PELVIS: Mild dependent subsegmental bibasilar atelectasis. No pneumatosis or pneumoperitoneum identified. Hepatic steatosis with hepatomegaly. No intrahepatic biliary ductal dilation. 3 mm calcification of the hepatic dome. Spleen is mildly enlarged, 14.5 cm. Gallbladder, and pancreas are unremarkable. There is mild thickening of the adrenal glands bilaterally suggesting adrenal hyperplasia. 7 mm low attenuating lesion of the superior pole right kidney suggests renal cyst. There is moderate left-sided perinephric stranding with slightly decreased enhancement of the left kidney. No significant hydronephrosis, however there is mild dilation of the left ureter without ureteral calculus identified. There is a large calculus of the inferior pole left kidney measuring up to 1.4 x 0.9 x 1.4 cm. Additional punctate calculi of the inferior pole left kidney and superior pole are noted. No bladder calculus. Bladder, uterus and adnexa are unremarkable. Scattered nonenlarged periaortic lymph nodes measure up to 5 mm, nonspecific and likely physiologic. No bowel obstruction or focal bowel wall thickening. Colonic diverticulosis without CT evidence of acute diverticulitis. Soft tissues are unremarkable. Bones appear intact. Multilevel facet arthrosis of the lumbar spine. Chondrocalcinosis of the pubic symphysis. IMPRESSION: 1. Moderate left-sided perinephric inflammatory stranding with delayed left-sided nephrogram is noted in addition to mild dilation of the left ureter without significant hydronephrosis. These findings suggest sequela of recently passed calculus or ascending ureteritis with pyelonephritis. Correlate with urinalysis and patient symptoms. 2. Nonobstructing left-sided nephrolithiasis with 1.4 cm calculus of the inferior pole left kidney. 3. Unremarkable CTA without aneurysm, high-grade stenosis, dissection or proximal branch occlusion. 4. 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 5. Colonic diverticulosis without CT evidence of acute diverticulitis. 6. Hepatosplenomegaly with hepatic steatosis. The above report was generated using voice recognition software. It may contain grammatical, syntax or spelling errors. Electronically signed by: Dimitry Jain M.D. 03/27/2018 8:01 PM Dictated Date/Time: 03/27/2018 7:48 PM The status of this report is Signed. Draft = Not yet reviewed or approved by Radiologist. Signed = Reviewed and approved by Radiologist. <AttendingPhy></AttendingPhy> <FamilyPhy>Joaquin Esparza M.D.</FamilyPhy> < PrimaryPhy>Joaquin Esparza M.D.</PrimaryPhy> <UnitNumber>[id number]</UnitNumber > <VisitNumber>[id number]</VisitNumber> <PatientName>SARATH WANG</PatientName > <DateOfBirth>1945</DateOfBirth> <Location>[facility]</Location> <ServiceDate> 03/27/18</ServiceDate> <MNE>ESINDI</MNE> <OrderingPhy>PheNila brooks S DO</ OrderingPhy> <OrderingPhyMNE>f rep ord dr moe</OrderingPhyMNE> <DictatingPhyMNE> f rep dict dr moe</DictatingPhyMNE> <CCListMNE>f rep ct mne</CCListMNE> < AdmittingPhyMNE>f pt admit dr moe</AdmittingPhyMNE> <AttendingPhyMNE>f pt attend dr moe</AttendingPhyMNE> <ConsultingPhyMNE>f pt consult dr moe</ConsultingPhyMNE> <FamilyPhyMNE>f pt fam dr moe</FamilyPhyMNE> <OtherPhyMNE>f pt other dr moe</OtherPhyMNE> < PrimaryPhyMNE>f pt prim care dr moe</PrimaryPhyMNE> <ReferringPhyMNE>f pt referring dr moe</ReferringPhyMNE> EKG SARATH WANG ID:[id number] 27-MAR-2018 17:52:09 [facility] Normal sinus rhythm Left axis deviation Low voltage QRS Cannot rule out Anterior infarct , age undetermined Marked ST abnormality, possible lateral subendocardial injury Abnormal ECG When compared with ECG of 29-SEP-2017 13:18, ST now depressed in Lateral leads T wave inversion now evident in Inferior leads 25mm/s 10mm/mV 150Hz 8.0 SP2 12SL 241 VENESSA: 13 Referred by: Referred Self Unconfirmed Vent. rate 92 BPM GA interval 162 ms QRS duration 90 ms QT/QTc 372/460 ms P-R-T axes 119 -36 143 1945 (72 yr) Female 1lb Room: Loc:15 Vehicle Return Associate:ZACK PAGE The computer is performing an over read due to baseline noise and PACs. The EKG shows normal sinus rhythm at 92 bpm, left axis deviation, PA-C, interpretation affected by noise and PACs. Impression Assessment and Plan Sepsis due to complicated UTI/left sided ascending ureteritis with pyelonephritis-- CT suggests the possibility of a recently passed stone however, the patient has had no abdominal or flank pain complaints. Her symptoms more suggestive of a lower urinary tract infection progressing to an upper urinary tract infection. The patient is also somewhat hypoxic secondary to her sepsis syndrome. Placed on vancomycin IV and Zosyn IV. Follow urine culture and sensitivity and blood cultures and sensitivities. NSS at 100 mils per hour. Zofran 4 mg IV every 6 hours as needed. Pantoprazole 40 mg IV daily. Hypoxia/question early pneumonia associated with atelectasis-- Antibiotics as above. Xopenex Atrovent nebulizers every 6 hours while awake and every 2 hours as needed. Nasal cannula 2 L oxygen titrate to keep pulse ox greater than recorded 92% Acute kidney injury/hypomagnesemia/hypertension-- Creatinine 1.68 upon admission with baseline 1.19. Normal saline at 100 mils per hour. Hold benazepril, HCTZ and diclofenac. Serial BMP and magnesium levels. She has already received 3 L of normal saline in the ED. For magnesium level of 1.5 she did receive 2 g of magnesium IV in the ED. Diabetes mellitus-- She has not given herself any insulin today, which is led to some mild hyper glycemia with glucose of 278. Reduce her usual NPH from 30-30/40 units every evening to 20 units every evening. Hold her standing order for Humalog of 20 units with breakfast and 25 units with dinner. Placed on Accu-Cheks before meals and at bedtime with NovoLog coverage per scale. Hold Trulicity. Hyperlipidemia-- Continue atorvastatin 30 mg daily. Anxiety with depression-- Continue citalopram 40 mg daily. Arthritis-- Hold diclofenac 75 mg p.o. twice daily due to acute kidney injury. Hepatomegaly/fatty liver-- Normal liver enzymes, likely secondary to diabetes, hyperlipidemia and weight. Advanced Directives Existing Advance Directive: No Existing Living Will: No Existing Power of Buffer Chrome: No Resuscitation Status VTE Prophylaxis Will order VTE Prophylaxis: Yes Social Service Consult None Apply
[2018-03-27] MEDS ORDERED: CARBOHYDRATES FOR HYPOGLYCEMIA PO PRN (23:30)
[2018-03-27] MEDS ORDERED: GLUCAGON FOR INJ 1 MG VIAL IM PRN (23:30)
[2018-03-27] MEDS ORDERED: GLUCOSE 10 TABS/TUBE PO PRN (23:30)
[2018-03-27] MEDS ORDERED: LEVALBUTEROL 1.25MG/0.5ML NEB INH PRN (23:30)
[2018-03-27] MEDS ORDERED: IPRATROPIUM BROMIDE NEB SOLN 0.02% 2.5 ML VIAL INH PRN (23:30)
[2018-03-27] MEDS ORDERED: DEXTROSE 50% 50 ML SYR IV PRN (23:30)
[2018-03-27] MEDS ORDERED: VANCOMYCIN IV 1,750 MG in SODIUM CHLORIDE 0.9% 500ML 500 ML IV SCH (23:30)
[2018-03-27] MEDS ORDERED: GLUCOSE 40% GEL 15 GM TUBE PO PRN (23:30)
[2018-03-27 23:40] VITALS: BP_SYST 101; BP_SYST 87; BP_DIAS 53; BP_DIAS 64; PULSE 85; TEMP 37.6; O2SAT 88; BMI 35.6
[2018-03-27] MEDS: SODIUM CHLORIDE 0.9% 1000ML 1,000 ML IV SCH (23:48)
[2018-03-28] VITALS (13 sets, daily range): BP systolic 91–153; BP diastolic 54–65; PULSE 71–97; TEMP 37–39.1; O2SAT 90–95; Ht 157.5 cm; Wt 90.3 kg
[2018-03-28] MEDS ORDERED: INSULIN HUMAN NPH SQ STA (01:05)
[2018-03-28] MEDS ORDERED: INSULIN ASPART 100 UNITS/ML 3 ML PEN SC STA ×2 (01:07→05:09)
[2018-03-28] MEDS ORDERED: PHARMACY GLYCEMIC MGMT CONSULT PRN (01:15)
[2018-03-28] MEDS: LEVALBUTEROL 1.25MG/0.5ML NEB INH SCH ×4 (01:45→18:48)
[2018-03-28] MEDS: IPRATROPIUM BROMIDE NEB SOLN 0.02% 2.5 ML VIAL INH SCH ×4 (01:45→18:48)
[2018-03-28] MEDS: ACETAMINOPHEN 325 MG TAB PO PRN ×3 (01:50→15:40)
[2018-03-28] MEDS ORDERED: LEVALBUTEROL/IPRATROPIUM NEB INH SCH (03:00)
[2018-03-28] MEDS: PIPERACILL/TAZOBAC IV 3.375 GM in DEXTROSE 5% 100ML 100 ML IV SCH ×4 (03:16→23:52)
[2018-03-28] MEDS ORDERED: INSULIN ASPART 100 UNITS/ML 3 ML PEN SC ONE (04:00)
[2018-03-28 04:02] LABS: CREATININE 1.8 mg/dl (0.60-1.20)
[2018-03-28] MEDS ORDERED: PHARMACY GLYCEMIC MGMT CONSULT STA (04:58)
[2018-03-28] MEDS ORDERED: INSULIN HUMAN REGULAR PER UNIT 5 UNITS in SYRINGE 4.95 ML IV SCH (05:15)
[2018-03-28 06:17] LABS: HEMOGLOBIN A1C 8.4 % (4.5-5.6)
[2018-03-28 06:45] LABS: HEMOGLOBIN 9.2 g/dL (12.0-16.0); MEAN CELL VOLUME 92.1 fL (80-100); MEAN CORPUSCULAR HEMOGLOBIN 30.3 pg (25-34); MEAN PLATELET VOLUME 9.6 fL (7.4-10.4); NUCLEATED RED BLOOD CELL ABS 0.03 K/uL (0-0); PLATELET COUNT 155 K/uL (130-400); RED CELL DISTRIBUTION WIDTH CV 19.9 % (11.5-14.5); RED CELL DISTRIBUTION WIDTH SD 66.2 fL (36.4-46.3); WHITE BLOOD COUNT 15.02 K/uL (4.8-10.8)
[2018-03-28 06:54] LABS: MEAN CORPUSCULAR HGB CONC 32.9 g/dl (32-36)
[2018-03-28] MEDS ORDERED: INSULIN ASPART 100 UNITS/ML 3 ML PEN SC SCH (07:30)
[2018-03-28] MEDS: ATORVASTATIN 20 MG TAB PO SCH (08:35)
[2018-03-28] MEDS: CITALOPRAM 40 MG TAB PO SCH (08:35)
[2018-03-28] MEDS: ATORVASTATIN 10 MG TAB PO SCH (08:35)
[2018-03-28] MEDS: INSULIN HUMAN NPH SQ SCH ×2 (08:47→18:16)
[2018-03-28] MEDS: HEPARIN SOD 5000 UNIT/0.5 ML CARP SQ SCH ×2 (08:48→21:00)
[2018-03-28 09:59] LABS: ALBUMIN 2.5 gm/dl (3.4-5.0); CALCIUM 7.8 mg/dl (8.5-10.1); CREATININE 1.69 mg/dl (0.60-1.20); POTASSIUM 3.5 mmol/L (3.5-5.1); TOTAL PROTEIN 5.9 gm/dl (6.4-8.2)
--- NOTE | 2018-03-28 10:16 | Pharmacy Progress Note ---
Glycemic Control Intl Consult Date of Service March 28, 2018. Scope Glycemic Pharmacist consulted by Dr Aguillon on 03/28/18 for glycemic control and to write orders per [facility] inpatient glycemic control protocol Objective Weight (Kilograms): 88.400 Accuchecks BSG (last 24hrs): Test 03/27/18 17:46 03/27/18 23:55 03/27/18 23:57 03/28/18 04:37 Random Glucose 279 mg/dl (70-99) Bedside Glucose 327 mg/dl (70-90) 326 mg/dl (70-90) 352 mg/dl (70-90) Test 03/28/18 06:27 03/28/18 06:28 03/28/18 06:33 03/28/18 07:46 Bedside Glucose 268 mg/dl (70-90) 259 mg/dl (70-90) 242 mg/dl (70-90) Random Glucose 232 mg/dl (70-99) Laboratory Data (last 24hrs) Test 03/27/18 17:46 03/28/18 03:31 03/28/18 06:28 03/28/18 06:33 Anion Gap 10.0 mmol/L 7.0 mmol/L BUN/Creatinine Ratio 11.8 12.3 Blood Urea Nitrogen 20 mg/dl 21 mg/dl Creatinine 1.68 mg/dl 1.80 mg/dl 1.69 mg/dl Potassium Level 3.4 mmol/L 3.5 mmol/L Sodium Level 135 mmol/L 133 mmol/L White Blood Count 16.44 K/uL 15.02 K/uL Red Blood Count 3.57 M/uL Hemoglobin 11.1 g/dL Hematocrit 32.3 % Mean Corpuscular Volume 90.5 fL Mean Corpuscular Hemoglobin 31.1 pg Mean Corpuscular Hemoglobin Concent 34.4 g/dl Platelet Count 186 K/uL Mean Platelet Volume 10.4 fL Neutrophils (%) (Auto) 82.6 % Lymphocytes (%) (Auto) 3.2 % Monocytes (%) (Auto) 13.4 % Eosinophils (%) (Auto) 0.1 % Basophils (%) (Auto) 0.1 % Neutrophils # (Auto) 13.59 K/uL Lymphocytes # (Auto) 0.52 K/uL Monocytes # (Auto) 2.20 K/uL Eosinophils # (Auto) 0.01 K/uL Basophils # (Auto) 0.02 K/uL Hemoglobin A1c 8.4 % HbA1c Test 03/28/18 03:31 Hemoglobin A1c 8.4 % (4.5-5.6) H Recent Pertinent Medications Outpatient Anti-diabetic Regimen: * Humalog 20 units w/ breakfast, 25 units w/ dinner * Humulin N 30-40 units qPM * Trulicity 0.75 mg once weekly The patient is currently receiving: * Basal insulin: NPH 20 units x 1 last night * Correctional Insulin: Novolog Correction per scale ACHS Goal Range: Low 120 mg/dL - High 160 mg/dL Correction Factor: 15 mg/dL/unit * Prandial insulin: Per carb ratio of 1 unit per 8 grams CHO consumed Risk Factors for Insulin Resistance: * Infection: on vanc/Zosyn for sepsis * Diet: type 2 diabetes Assessment & Plan ASSESSMENT: * 72 y/o female admitted with sepsis, maintained on basal/bolus insulin and GLP- 1 as an outpatient. A1c indicates acceptable outpatient control. * BSGs elevated due to infection and missed insulin yesterday AM * NPH + Novolog was initiated last evening, will continue with this but adjust regimen using total daily outpatient dose of ~85 units * Will substitute GLP-1 agent with bolus insulin as an inpatient PLAN FOR INPATIENT GLYCEMIC CONTROL: * Basal insulin with NPH 20 units SQ BID * Correctional Insulin with NOVOLOG per scale ACHS or Q6hrs while NPO * Goal Range: Low 120 mg/dL - High 160 mg/dL * Correction Factor: 15 mg/dL/unit this was loosened to 30 w/ breakfast today since Novolog was just given at 0530 * Nutritional / Prandial insulin per carb ratio of 1 unit per 6 grams CHO consumed Discharge recommendations: * A1c acceptable for patient age/comorbidities * Resume outpatient regimen on discharge Thank you.
[2018-03-28] MEDS: SODIUM CHLORIDE 0.9% 1000ML 1,000 ML IV SCH ×2 (10:36→19:59)
--- NOTE | 2018-03-28 11:11 | Pharmacy Progress Note ---
Pharmacy Abx Initial Consult Date of Service March 28, 2018. Pharmacy Dosing Scope Date of Consult: 03/28/18 Consultation requested by: Dr. Marks Pharmacy is consulted to initiate Vancomycin and Zosyn IV dosing therapy, order appropriate labs and adjust drug dose/frequency. Subjective The patient is a 72 year old female admitted on March 27, 2018 at 22:53. Objective Height (Feet): 5 Height (Inches): 2.00 Weight (Kilograms): 88.400 (BMI 35.6) Vital Signs (Past 12Hrs) Vital Signs Past 12 Hours Date Time Temp Pulse Resp B/P (MAP) Pulse Ox O2 Delivery O2 Flow Rate FiO2 03/28/18 08:05 37.6 97 22 153/65 (94) 91 Nasal Cannula 2.0 03/28/18 07:02 87 22 90 Nasal Cannula 2.0 03/28/18 04:00 Nasal Cannula 2.0 03/28/18 03:46 37.3 94 20 91/54 (66) 92 Nasal Cannula 2.0 03/28/18 01:48 71 20 91 Nasal Cannula 2.0 03/27/18 23:40 37.6 85 24 87/53 88 Room Air 101/64 03/27/18 23:28 89 20 92/61 93 Nasal Cannula 2.0 Lab Results (24Hrs) Laboratory Tests (24 Hours) Test 03/27/18 17:46 03/28/18 03:31 03/28/18 06:28 White Blood Count 16.44 K/uL (4.8-10.8) H 15.02 K/uL (4.8-10.8) H Red Blood Count 3.57 M/uL (4.2-5.4) L Hemoglobin 11.1 g/dL (12.0-16.0) L Hematocrit 32.3 % (37-47) L Mean Corpuscular Volume 90.5 fL (80-100) Mean Corpuscular Hemoglobin 31.1 pg (25-34) Mean Corpuscular Hemoglobin Concent 34.4 g/dl (32-36) Platelet Count 186 K/uL (130-400) Mean Platelet Volume 10.4 fL (7.4-10.4) Neutrophils (%) (Auto) 82.6 % Lymphocytes (%) (Auto) 3.2 % Monocytes (%) (Auto) 13.4 % Eosinophils (%) (Auto) 0.1 % Basophils (%) (Auto) 0.1 % Neutrophils # (Auto) 13.59 K/uL (1.4-6.5) H Lymphocytes # (Auto) 0.52 K/uL (1.2-3.4) L Monocytes # (Auto) 2.20 K/uL (0.11-0.59) H Eosinophils # (Auto) 0.01 K/uL (0-0.5) Basophils # (Auto) 0.02 K/uL (0-0.2) Lactic Acid Level 4.0 mmol/L (0.4-2.0) *H Micro Results Date/Time Source Procedure Growth Status 03/27/18 19:03 Blood Blood Culture Pending Received 03/27/18 18:52 Blood Blood Culture Pending Received 03/27/18 20:00 Urine , Clean Catch Urine Culture - Preliminary Gram Negative Bacilli Resulted Risk Factors for Resistance * Patient is diabetic Assessment & Plan Assessment 72 year old female for Vancomycin and Zosyn dosing based on renal function. Estimated p'kinetics: [place] ~0.031 hr-1; t1/2 ~ 22 hr; Vd ~0.7 L/kg Plan MRSA nasal swab pending for possible deescalation. Vancomycin & Zosyn for treatment of UTI complicated with ? pneumonia Vancomycin IV * Loading dose: 1750 mg ~ (20 mg/kg) * Maintenance dose: 1250 mg IV ~ (14 mg/kg) every 24 hours * Goal trough level for UTI/? pneumonia : 15 to 20 mcg/mL * Trough level ordered for 03/29/18 @1930 Piperacillin/tazobactam * 3.375 g bolus administered over 30 minutes, then 3.375 g IV extended infusion every 8 hours for CrCl greater than 20 mL/min OR every 12 hours for CrCl 20 mL/ min or less and dialysis. Pharmacy will continue to follow and will adjust dose/frequency as necessary. Thank you.
--- NOTE | 2018-03-28 12:39 | Family Medicine Progress Note ---
Progress Note Date of Service March 28, 2018. Subjective Pt evaluation today including: conversation w/ patient, physical exam, chart review, lab review Pain: myalgias reported PO Intake: not tolerating diet due to n/v Voiding: no voiding problems This AM pt reports f/c that started on monday along with hot spells. Then developed myalgias, nausea and dry heaves. Also vomited last night after having some lisandro aye. Unable to eat/drink anything aside from water due to n/v sensation. Associated with increased urinary freq. Denies any sob, cp, abdominal pain, dysuria, hematuria. Constitutional: + fever, + chills, + problem reported (myalgias) Respiratory: No shortness of breath Cardiovascular: No chest pain Abdomen: + nausea, No pain Female : + urinary frequency, No dysuria, No hematuria Medications Current Inpatient Medications Medications (Trade) Dose Ordered Sig/Haresh Route Start Time Stop Time Status Last Admin Dose Admin Ioversol (Optiray 320) 100 ml UD PRN IV 03/27/18 18:45 03/31/18 18:44 Heparin Sodium (Porcine) (Heparin Sq 5000 Unit/0.5ml) 5,000 unit Q12 SQ 03/28/18 09:00 04/27/18 08:59 03/28/18 08:48 5,000 UNIT Sodium Chloride 1,000 ml @ 100 mls/hr Q10H IV 03/27/18 23:59 04/26/18 23:58 03/28/18 10:36 100 MLS/HR Acetaminophen (Tylenol Tab) 650 mg Q4H PRN PO 03/27/18 23:00 04/26/18 22:59 03/28/18 15:40 650 MG Atorvastatin Calcium (Lipitor Tab) 10 mg DAILY PO 03/28/18 09:00 04/27/18 08:59 03/28/18 08:35 10 MG Atorvastatin Calcium (Lipitor Tab) 20 mg DAILY PO 03/28/18 09:00 04/27/18 08:59 03/28/18 08:35 20 MG Citalopram Hydrobromide (celeXA TAB) 40 mg DAILY PO 03/28/18 09:00 04/27/18 08:59 03/28/18 08:35 40 MG Piperacillin Sod/ Tazobactam Sod 3.375 gm/Dextrose 115 ml @ 28 mls/hr Q8H IV 03/28/18 00:00 04/07/18 00:00 03/28/18 08:35 28 MLS/HR Miscellaneous Information (Consult) 1 ea UD PRN N/A 03/27/18 23:00 04/26/18 22:59 Ipratropium [place] (Atrovent 0.02% 0.5MG/2.5ML Neb) 0.5 mg Q6R INH 03/28/18 03:00 04/27/18 02:59 03/28/18 07:02 0.5 MG Levalbuterol (Xopenex 1.25MG/ 0.5ML Neb) 1.25 mg Q6R INH 03/28/18 03:00 04/27/18 02:59 03/28/18 07:02 1.25 MG Ipratropium [place] (Atrovent 0.02% 0.5MG/2.5ML Neb) 0.5 mg Q2H PRN INH 03/27/18 23:30 04/26/18 23:29 Levalbuterol (Xopenex 1.25MG/ 0.5ML Neb) 1.25 mg Q2H PRN INH 03/27/18 23:30 04/26/18 23:29 Glucose (Glucose 40% Gel) 15-30 GRAMS 15 GRAMS... UD PRN PO 03/27/18 23:30 04/26/18 23:29 Glucose (Glucose Chew Tab) 4-8 Tablets 4 Tabl... UD PRN PO 03/27/18 23:30 04/26/18 23:29 Dextrose (Dextrose 50% 50ML Syringe) 25-50ML 25ML FOR ... UD PRN IV 03/27/18 23:30 04/26/18 23:29 Glucagon (Glucagon Inj) 1 mg UD PRN IM 03/27/18 23:30 04/26/18 23:29 Carbohydrates (Carbohydrates For Hypoglycemia) 15-30 GRAMS 15 grams... PRN PRN PO 03/27/18 23:30 04/26/18 23:29 Insulin Aspart (novoLOG ASPART) SLIDING SCALE ACHS SC 03/28/18 11:00 04/27/18 10:59 03/28/18 13:13 5 UNITS Insulin Human NPH (novoLIN-N NPH) 20 units BIDM SQ 03/28/18 08:00 04/27/18 07:59 03/28/18 08:47 20 UNITS Prochlorperazine Maleate (Compazine Tab) 5 mg Q6H PRN PO 03/28/18 13:15 04/27/18 13:14 Ondansetron HCl 6 mg/Dextrose 53 ml @ 216 mls/hr Q6H IV 03/28/18 17:00 04/27/18 16:59 Objective Vital Signs Date Time Temp Pulse Resp B/P (MAP) Pulse Ox O2 Delivery O2 Flow Rate FiO2 03/28/18 15:16 39.1 87 20 97/62 (74) 92 2.0 03/28/18 12:00 94 Nasal Cannula 2.0 03/28/18 11:48 37.1 85 22 94/54 (67) 95 2.0 03/28/18 08:05 37.6 97 22 153/65 (94) 91 Nasal Cannula 2.0 03/28/18 08:00 90 Nasal Cannula 2.0 03/28/18 07:02 87 22 90 Nasal Cannula 2.0 03/28/18 04:00 Nasal Cannula 2.0 03/28/18 03:46 37.3 94 20 91/54 (66) 92 Nasal Cannula 2.0 03/28/18 01:48 71 20 91 Nasal Cannula 2.0 03/27/18 23:40 37.6 85 24 87/53 88 Room Air 101/64 03/27/18 23:28 89 20 92/61 93 Nasal Cannula 2.0 03/27/18 21:57 98 20 113/62 94 Room Air 03/27/18 21:32 96 03/27/18 19:55 91 20 105/59 91 Room Air 03/27/18 18:33 94 91/49 90 Room Air 03/27/18 17:29 96 03/27/18 16:55 37.2 100 20 98/63 96 Room Air Physical Exam General Appearance: + mild distress Eyes: normal inspection Neck: supple Respiratory/Chest: lungs clear, normal breath sounds Cardiovascular: regular rate, rhythm, no murmur Abdomen: normal bowel sounds, non tender, soft, + pertinent finding (NO CVA tenderness) Extremities: non-tender, no pedal edema Neurologic/Psychiatric: alert, oriented x 3 Skin: warm/dry Laboratory Results 03/28/18 06:28 03/28/18 06:33 Test 03/27/18 17:46 03/27/18 17:48 03/27/18 20:00 03/28/18 03:31 Immature Granulocyte % (Auto) 0.6 % White Blood Count 16.44 K/uL (4.8-10.8) Red Blood Count 3.57 M/uL (4.2-5.4) Hemoglobin 11.1 g/dL (12.0-16.0) Hematocrit 32.3 % (37-47) Mean Corpuscular Volume 90.5 fL (80-100) Mean Corpuscular Hemoglobin 31.1 pg (25-34) Mean Corpuscular Hemoglobin Concent 34.4 g/dl (32-36) Platelet Count 186 K/uL (130-400) Mean Platelet Volume 10.4 fL (7.4-10.4) Neutrophils (%) (Auto) 82.6 % Lymphocytes (%) (Auto) 3.2 % Monocytes (%) (Auto) 13.4 % Eosinophils (%) (Auto) 0.1 % Basophils (%) (Auto) 0.1 % Neutrophils # (Auto) 13.59 K/uL (1.4-6.5) Lymphocytes # (Auto) 0.52 K/uL (1.2-3.4) Monocytes # (Auto) 2.20 K/uL (0.11-0.59) Eosinophils # (Auto) 0.01 K/uL (0-0.5) Basophils # (Auto) 0.02 K/uL (0-0.2) Immature Granulocyte # (Auto) 0.10 K/uL (0.00-0.02) Ovalocytes 1+ Prothrombin Time 11.4 SECONDS (9.0-12.0) Prothromb Time International Ratio 1.1 (0.9-1.1) Magnesium Level 1.5 mg/dl (1.8-2.4) Troponin I < 0.015 ng/ml (0-0.045) Pro-B-Type Natriuretic Peptide 1194 pg/ml (0-900) Lipase 72 U/L (73-393) Thyroid Stimulating Hormone (TSH) 1.920 uIu/ml (0.300-4.500) Hepatitis C Antibody Screen NEG (NEG) Bedside Lactic Acid Venous 3.16 mmol/L (0.90-1.70) Urine Color YELLOW Urine Appearance CLOUDY (CLEAR) Urine pH 5.0 (4.5-7.5) Urine Specific [place] 1.032 (1.000-1.030) Urine Protein 2+ (NEG) Urine Glucose (UA) 3+ (NEG) Urine Ketones TRACE (NEG) Urine Occult Blood 1+ (NEG) Urine Nitrite POS (NEG) Urine Bilirubin NEG (NEG) Urine Urobilinogen NEG (NEG) Urine Leukocyte Esterase MODERATE (NEG) Urine WBC (Auto) >30 /hpf (0-5) Urine RBC (Auto) 0-4 /hpf (0-4) Urine Hyaline Casts (Auto) 1-5 /lpf (0-5) Urine Epithelial Cells (Auto) 5-10 /lpf (0-5) Urine Bacteria (Auto) 4+ (NEG) Estimated Average Glucose 194 mg/dl Hemoglobin A1c 8.4 % (4.5-5.6) Lactic Acid Level 4.0 mmol/L (0.4-2.0) Test 03/28/18 06:28 03/28/18 06:33 03/28/18 11:42 Red Blood Count 3.04 M/uL (4.2-5.4) Mean Corpuscular Volume 92.1 fL (80-100) Mean Corpuscular Hemoglobin 30.3 pg (25-34) Mean Corpuscular Hemoglobin Concent 32.9 g/dl (32-36) RDW Standard Deviation 66.2 fL (36.4-46.3) RDW Coefficient of Variation 19.9 % (11.5-14.5) Mean Platelet Volume 9.6 fL (7.4-10.4) Nucleated RBC Absolute Count (auto) 0.03 K/uL (0-0) Nucleated Red Blood Cells % 0.2 % Anion Gap 7.0 mmol/L (3-11) Est Creatinine Clear Calc Drug Dose 32.0 ml/min Estimated GFR () 35.1 Estimated GFR (Non- 30.2 BUN/Creatinine Ratio 12.3 (10-20) Calcium Level 7.8 mg/dl (8.5-10.1) Total Bilirubin 1.0 mg/dl (0.2-1) Aspartate Amino Transf (AST/SGOT) 26 U/L (15-37) Alanine Aminotransferase (ALT/SGPT) 29 U/L (12-78) Alkaline Phosphatase 73 U/L (45-117) Total Protein 5.9 gm/dl (6.4-8.2) Albumin 2.5 gm/dl (3.4-5.0) Globulin 3.4 gm/dl (2.5-4.0) Albumin/Globulin Ratio 0.7 (0.9-2) Bedside Glucose 233 mg/dl (70-90) Assessment and Plan 72y/oF with hx of DM, HTN, HLD, anemia and kidney stones presents with f/c, myalgias, n/v, and increased urinary frequency. Concern for sepsis given febrile with low BP and hypoxia likely in the setting of UTI vs. ascending ureteritis with pyelonephritis. Sepsis likely in the setting of UTI vs. left sided ascending ureteritis with pyelonephritis (no abdominal/flank pain) Febrile with low BP and hypoxia with positive urine culture (growing gram neg bacilli) CT Angio - concerning for ascending ureteritis with pyelonephritis with recently passed stone; L sided nephrolithiasis (non-obstructing 1.4cm inferior pole) - Continued IV Zosyn - Dced vancomycin IV given UCx result of gram neg bacilli - Continue NSS at 100 mils per hour - Follow up BCx - Continue Zofran 6 mg IV Q6H Haresh - Continue Compazine 5mg Q6H PRN for n/v - Received Phenergan 12.5mg PO once with improvement in n/v - Continue Pantoprazole 40 mg IV daily Hypoxia/question early pneumonia associated with atelectasis Antibiotics as above Xopenex annd Atrovent nebulizers Q6H while awake, Q2H PRN O2 as needed for hypoxia to keep sat > 92% Elevated Cr - Creatinine 1.7, baseline 1.2 - On NS 100mls/hr - Hold diclofenac - Follow BMP Hypomagnesemia - 1.5 - received 2g mag sulphate - follow Mag HTN - Hold HCTZ for low BP Diabetes mellitus with hyperglycemia - Continue NPH 20 units BID - Continue ISS goal 120-160 CF: 15 and CHO ratio 1: 4 - Accu-Cheks before meals and at bedtime with NovoLog coverage per scale - Hold Trulicity Hyperlipidemia - Continue home atorvastatin 30 mg daily Anxiety with depression - Continue citalopram 40 mg daily Arthritis - Hold diclofenac 75 mg p.o. twice daily due to elevated Cr Hepatomegaly/fatty liver (on imaging) - LFT wnl - Likely secondary to diabetes, hyperlipidemia and weight DVT prophylaxis: Heparin SQ Code: full Dispo: pending clinical improvement Resident Physician Supervision Note: I interviewed and examined the patient. Discussed with Dr. Vaughan and agree with findings and plan as documented in the note. Any exceptions or clarifications are listed here: None Documented By: Ang Iglesias feeling terrible about the same nausea, chills vitals ntoed fatgiued, chills, breathing unlabored no pallor or icterus pyelonephritis w sepsis borderline ARF raising question of severe sepsis vs sepsis and dehydration - continue antibiotics and supportive care, IVF, antiemetics, follow cultures otherwise as above Resident Involvement: Resident Care Provided Care Provided: Adult Hospital Medicine
[2018-03-28] MEDS ORDERED: PROMETHAZINE HCL 25 MG TAB PO ONE (12:45)
[2018-03-28] MEDS: INSULIN ASPART 100 UNITS/ML 3 ML PEN SC SCH ×3 (13:13→21:00)
[2018-03-28] MEDS ORDERED: ONDANSETRON INJ 6 MG in DEXTROSE 5% 50ML 50 ML IV PRN (13:15)
[2018-03-28] MEDS: ONDANSETRON INJ 6 MG in DEXTROSE 5% 50ML 50 ML IV SCH ×2 (16:37→23:52)
[2018-03-28] MEDS ORDERED: ONDANSETRON INJ 2 MG/ML 2 ML VIAL IV SCH (17:00)
[2018-03-28] MEDS ORDERED: PROCHLORPERAZINE MALEATE 5 MG TAB PO SCH (18:00)
[2018-03-28] MEDS: PROCHLORPERAZINE MALEATE 5 MG TAB PO PRN (19:19)
[2018-03-28] MEDS ORDERED: VANCOMYCIN IV 1,250 MG in SODIUM CHLORIDE 0.9% 250ML 250 ML IV SCH (20:00)
[2018-03-28] MEDS ORDERED: INSULIN HUMAN NPH SQ SCH (21:00)
[2018-03-29] VITALS (14 sets, daily range): BP systolic 94–118; BP diastolic 58–79; PULSE 73–88; TEMP 36.6–37.5; O2SAT 77–96
[2018-03-29] MEDS: LEVALBUTEROL 1.25MG/0.5ML NEB INH SCH ×4 (01:58→19:10)
[2018-03-29] MEDS: IPRATROPIUM BROMIDE NEB SOLN 0.02% 2.5 ML VIAL INH SCH ×4 (01:58→19:10)
[2018-03-29] MEDS ORDERED: INSULIN ASPART 100 UNITS/ML 3 ML PEN SC ONE (04:00)
[2018-03-29] MEDS: ONDANSETRON INJ 6 MG in DEXTROSE 5% 50ML 50 ML IV SCH ×2 (05:16→11:31)
[2018-03-29] MEDS: SODIUM CHLORIDE 0.9% 1000ML 1,000 ML IV SCH ×2 (06:11→15:32)
--- NOTE | 2018-03-29 06:12 | Clinical Documentation Query ---
CLINICAL DOCUMENTATION QUERY 72 yo female admitted with possible ureteritis with pyelonephritis. In your clinical opinion is this patient being managed for: ( x ) Acute pyelonephritis ( ) Chronic pyelonephritis ( ) Not Agree ( ) Other explanation of clinical findings (Please Explain. If no explanation given, this would be considered a no response.) ( ) Unable to determine ( ) Need to Discuss (Please call CDS via extension or qliq. If no interaction occurs this is considered a no response.) The medical record reflects the following clinical findings, treatment, and risk factors. Clinical Indicators: As above Treatment: CT, IV Zosyn Risk Factors: Age, female, UTI, ARF Please clarify and document your clinical opinion in the progress notes and discharge summary. Terms such as "probable", "suspected", "likely", "questionable", "possible", or "still to be ruled out" are acceptable. IF IN AGREEMENT, YOU MUST DOCUMENT ABOVE DIAGNOSTIC STATEMENT IN DAILY PROGRESS NOTES AND DISCHARGE SUMMARY. This document is not part of the patient's record. Thank You, Mayi Banegas RN [phone]
[2018-03-29 06:27] LABS: CREATININE 1.54 mg/dl (0.60-1.20)
[2018-03-29 07:46] LABS: BASO % 0.2 %; BASO ABS # 0.02 K/uL (0-0.2); HEMATOCRIT 26.2 % (37-47); HEMOGLOBIN 8.7 g/dL (12.0-16.0); IG# 0.09 K/uL (0.00-0.02); LYMPH % 9.6 %; LYMPH ABS # 1.18 K/uL (1.2-3.4); MEAN CELL VOLUME 91.3 fL (80-100); MEAN CORPUSCULAR HEMOGLOBIN 30.3 pg (25-34); MEAN CORPUSCULAR HGB CONC 33.2 g/dl (32-36); MEAN PLATELET VOLUME 10.1 fL (7.4-10.4); MONO % 9.9 %; MONO ABS # 1.21 K/uL (0.11-0.59); NEUT % 79.6 %; NEUT ABS # 9.74 K/uL (1.4-6.5); PLATELET COUNT 150 K/uL (130-400); RED CELL DISTRIBUTION WIDTH CV 19.8 % (11.5-14.5); RED CELL DISTRIBUTION WIDTH SD 65.7 fL (36.4-46.3); WHITE BLOOD COUNT 12.24 K/uL (4.8-10.8)
[2018-03-29] MEDS: ATORVASTATIN 10 MG TAB PO SCH (08:16)
[2018-03-29] MEDS: ATORVASTATIN 20 MG TAB PO SCH (08:16)
[2018-03-29] MEDS: CITALOPRAM 40 MG TAB PO SCH (08:16)
[2018-03-29 08:19] LABS: CALCIUM 7.7 mg/dl (8.5-10.1); CREATININE 1.46 mg/dl (0.60-1.20); POTASSIUM 3.2 mmol/L (3.5-5.1)
[2018-03-29] MEDS: INSULIN ASPART 100 UNITS/ML 3 ML PEN SC SCH ×4 (08:25→21:06)
[2018-03-29] MEDS: INSULIN HUMAN NPH SQ SCH ×2 (08:25→17:39)
[2018-03-29] MEDS: HEPARIN SOD 5000 UNIT/0.5 ML CARP SQ SCH ×2 (08:26→21:00)
[2018-03-29] MEDS: PIPERACILL/TAZOBAC IV 3.375 GM in DEXTROSE 5% 100ML 100 ML IV SCH (08:27)
[2018-03-29] MEDS ORDERED: ONDANSETRON INJ 2 MG/ML 2 ML VIAL IV PRN (12:15)
[2018-03-29] MEDS: ACETAMINOPHEN 325 MG TAB PO PRN (12:41)
--- NOTE | 2018-03-29 13:53 | Family Medicine Progress Note ---
Progress Note Date of Service March 29, 2018. Subjective Pt evaluation today including: conversation w/ patient, physical exam, chart review, lab review Pain: improved myalgias PO Intake: regular diet - attempting Voiding: no voiding problems This AM pt reports improving myalgias. Improved fever, chills, urinary frequency and nausea. However appetite still decreased but pt will attempt to eat more today. Constitutional: No fever, No chills Respiratory: No shortness of breath Cardiovascular: No chest pain Abdomen: + problem reported (decreased appetite), No pain, No nausea, No vomiting Musculoskeletal: + problem reported (myalgias-improved) Female : No urinary frequency Medications Current Inpatient Medications Medications (Trade) Dose Ordered Sig/Haresh Route Start Time Stop Time Status Last Admin Dose Admin Ioversol (Optiray 320) 100 ml UD PRN IV 03/27/18 18:45 03/31/18 18:44 Heparin Sodium (Porcine) (Heparin Sq 5000 Unit/0.5ml) 5,000 unit Q12 SQ 03/28/18 09:00 04/27/18 08:59 03/29/18 08:26 5,000 UNIT Sodium Chloride 1,000 ml @ 100 mls/hr Q10H IV 03/27/18 23:59 04/26/18 23:58 03/29/18 06:11 100 MLS/HR Acetaminophen (Tylenol Tab) 650 mg Q4H PRN PO 03/27/18 23:00 04/26/18 22:59 03/29/18 12:41 650 MG Atorvastatin Calcium (Lipitor Tab) 10 mg DAILY PO 03/28/18 09:00 04/27/18 08:59 03/29/18 08:16 10 MG Atorvastatin Calcium (Lipitor Tab) 20 mg DAILY PO 03/28/18 09:00 04/27/18 08:59 03/29/18 08:16 20 MG Citalopram Hydrobromide (celeXA TAB) 40 mg DAILY PO 03/28/18 09:00 04/27/18 08:59 03/29/18 08:16 40 MG Ipratropium [place] (Atrovent 0.02% 0.5MG/2.5ML Neb) 0.5 mg Q6R INH 03/28/18 03:00 04/27/18 02:59 03/29/18 06:51 0.5 MG Levalbuterol (Xopenex 1.25MG/ 0.5ML Neb) 1.25 mg Q6R INH 03/28/18 03:00 04/27/18 02:59 03/29/18 06:51 1.25 MG Ipratropium [place] (Atrovent 0.02% 0.5MG/2.5ML Neb) 0.5 mg Q2H PRN INH 03/27/18 23:30 04/26/18 23:29 Levalbuterol (Xopenex 1.25MG/ 0.5ML Neb) 1.25 mg Q2H PRN INH 03/27/18 23:30 04/26/18 23:29 Glucose (Glucose 40% Gel) 15-30 GRAMS 15 GRAMS... UD PRN PO 03/27/18 23:30 04/26/18 23:29 Glucose (Glucose Chew Tab) 4-8 Tablets 4 Tabl... UD PRN PO 03/27/18 23:30 04/26/18 23:29 Dextrose (Dextrose 50% 50ML Syringe) 25-50ML 25ML FOR ... UD PRN IV 03/27/18 23:30 04/26/18 23:29 Glucagon (Glucagon Inj) 1 mg UD PRN IM 03/27/18 23:30 04/26/18 23:29 Carbohydrates (Carbohydrates For Hypoglycemia) 15-30 GRAMS 15 grams... PRN PRN PO 03/27/18 23:30 04/26/18 23:29 Insulin Aspart (novoLOG ASPART) SLIDING SCALE ACHS SC 03/28/18 11:00 04/27/18 10:59 03/29/18 12:45 6 UNITS Insulin Human NPH (novoLIN-N NPH) 20 units BIDM SQ 03/28/18 08:00 04/27/18 07:59 03/29/18 08:25 20 UNITS Prochlorperazine Maleate (Compazine Tab) 5 mg Q6H PRN PO 03/28/18 13:15 04/27/18 13:14 03/28/18 19:19 5 MG Ondansetron HCl (Zofran Inj) 4 mg Q6H PRN IV 03/29/18 12:15 04/28/18 12:14 Ciprofloxacin (Cipro Tab) 500 mg BID PO 03/29/18 21:00 04/05/18 20:59 Objective Vital Signs Date Time Temp Pulse Resp B/P (MAP) Pulse Ox O2 Delivery O2 Flow Rate FiO2 03/29/18 12:00 92 Room Air 03/29/18 11:38 36.6 88 18 118/79 (92) 93 3.0 03/29/18 08:00 94 Nasal Cannula 3.0 03/29/18 07:54 37.0 81 18 112/71 (85) 94 03/29/18 06:52 81 18 90 Nasal Cannula 3.0 03/29/18 04:19 37.3 84 18 94/58 (70) 90 Nasal Cannula 3.0 03/29/18 04:05 Nasal Cannula 3.0 03/29/18 01:58 85 18 94 Nasal Cannula 3.0 03/29/18 00:05 Nasal Cannula 3.0 03/28/18 22:42 37.9 86 22 96/60 (72) 90 Nasal Cannula 3.0 03/28/18 20:05 Nasal Cannula 3.0 03/28/18 19:36 37.0 81 18 99/63 (75) 94 Nasal Cannula 3.0 03/28/18 18:50 84 18 90 Nasal Cannula 3.0 03/28/18 16:55 37.0 03/28/18 16:00 91 Nasal Cannula 3.0 03/28/18 15:16 39.1 87 20 97/62 (74) 92 2.0 Physical Exam General Appearance: no apparent distress Eyes: normal inspection Neck: supple Respiratory/Chest: lungs clear, normal breath sounds Cardiovascular: regular rate, rhythm, no murmur Abdomen: normal bowel sounds, non tender, soft Extremities: non-tender, no pedal edema Neurologic/Psychiatric: alert, oriented x 3 Skin: warm/dry Laboratory Results 03/29/18 07:29 Red Blood Count 2.87, Mean Corpuscular Volume 91.3, Mean Corpuscular Hemoglobin 30.3, Mean Corpuscular Hemoglobin Concent 33.2, Mean Platelet Volume 10.1, Neutrophils (%) (Auto) 79.6, Lymphocytes (%) (Auto) 9.6, Monocytes (%) (Auto) 9.9, Eosinophils (%) (Auto) 0.0, Basophils (%) (Auto) 0.2, Neutrophils # (Auto) 9.74, Lymphocytes # (Auto) 1.18, Monocytes # (Auto) 1.21, Eosinophils # (Auto) 0.00, Basophils # (Auto) 0.02 03/29/18 07:29 Test 03/29/18 07:29 03/29/18 11:48 White Blood Count 12.24 K/uL (4.8-10.8) Red Blood Count 2.87 M/uL (4.2-5.4) Hemoglobin 8.7 g/dL (12.0-16.0) Hematocrit 26.2 % (37-47) Mean Corpuscular Volume 91.3 fL (80-100) Mean Corpuscular Hemoglobin 30.3 pg (25-34) Mean Corpuscular Hemoglobin Concent 33.2 g/dl (32-36) Platelet Count 150 K/uL (130-400) Mean Platelet Volume 10.1 fL (7.4-10.4) Neutrophils (%) (Auto) 79.6 % Lymphocytes (%) (Auto) 9.6 % Monocytes (%) (Auto) 9.9 % Eosinophils (%) (Auto) 0.0 % Basophils (%) (Auto) 0.2 % Neutrophils # (Auto) 9.74 K/uL (1.4-6.5) Lymphocytes # (Auto) 1.18 K/uL (1.2-3.4) Monocytes # (Auto) 1.21 K/uL (0.11-0.59) Eosinophils # (Auto) 0.00 K/uL (0-0.5) Basophils # (Auto) 0.02 K/uL (0-0.2) RDW Standard Deviation 65.7 fL (36.4-46.3) RDW Coefficient of Variation 19.8 % (11.5-14.5) Immature Granulocyte % (Auto) 0.7 % Immature Granulocyte # (Auto) 0.09 K/uL (0.00-0.02) Dohle Bodies 1+ Anisocytosis PRESENT Echinocytes 1+ Anion Gap 8.0 mmol/L (3-11) Est Creatinine Clear Calc Drug Dose 37.9 ml/min Estimated GFR () 41.8 Estimated GFR (Non- 36.1 BUN/Creatinine Ratio 15.1 (10-20) Calcium Level 7.7 mg/dl (8.5-10.1) Bedside Glucose 189 mg/dl (70-90) Assessment and Plan 72y/oF with hx of DM, HTN, HLD, anemia and kidney stones who presented with NOW improved f/c, myalgias, n/v, and increased urinary frequency. Concern for sepsis given initially febrile with low BP and hypoxia likely in the setting of UTI vs. ascending ureteritis with pyelonephritis. Afebrile now for > 12 hrs with improved BP and hypoxia. Sepsis likely in the setting of UTI vs. left sided ascending ureteritis with pyelonephritis (no abdominal/flank pain) - IMPROVING - Initially febrile with low BP and hypoxia with positive urine culture ( growing gram neg bacilli) - NOW afebrile with improved BP and hypoxia - CT Angio - concerning for ascending ureteritis with pyelonephritis with recently passed stone; L sided nephrolithiasis (non-obstructing 1.4cm inferior pole) - BCx NGTD - UCx E. coli [place]-sensitive - Started on Ciprofloxacin 500mg BID to complete 14 day course - Dced vancomycin IV 5/2 and IV Zosyn 5/3 - Continue NSS at 100 mils per hour - d/c once tolerating diet - Received Phenergan 12.5mg PO once with improvement in n/v and scheduled Zofran 6mg Q6H - Continue Zofran 4 mg IV Q6H PRN - Continue Pantoprazole 40 mg IV daily Hypoxia/question early pneumonia associated with atelectasis Antibiotics as above Xopenex annd Atrovent nebulizers Q6H while awake, Q2H PRN O2 as needed for hypoxia to keep sat > 92% Elevated Cr - improving - Creatinine 1.5, baseline 1.2 - On NS 100mls/hr - Hold diclofenac - Follow BMP Hypomagnesemia - 1.5 - received 2g mag sulphate - follow Mag HTN - Hold HCTZ for low BP Diabetes mellitus with hyperglycemia - improved to 188 this AM - Continue NPH 20 units BID - Continue ISS goal 120-160 CF: 15 and CHO ratio 1: 4 - Accu-Cheks before meals and at bedtime with NovoLog coverage per scale - Hold Trulicity Hyperlipidemia - Continue home atorvastatin 30 mg daily Anxiety with depression - Continue citalopram 40 mg daily Arthritis - Hold diclofenac 75 mg p.o. twice daily due to elevated Cr Hepatomegaly/fatty liver (on imaging) - LFT wnl - Likely secondary to diabetes, hyperlipidemia and weight DVT prophylaxis: Heparin SQ Code: full Dispo: pending tolerance of diet and clinical improvement Resident Physician Supervision Note: I interviewed and examined the patient. Discussed with Dr. Vaughan and agree with findings and plan as documented in the note. Any exceptions or clarifications are listed here: None Documented By: Ang martinez still present chills improved vitals noted fatigued no chills breathing unlabored no pallor or icterus pyelonephritis w sepsis borderline ARF raising question of severe sepsis vs sepsis and dehydration - improving - continue abx and supportive care appears to be slowly improving otherwise as above Resident Involvement: Resident Care Provided Care Provided: Adult Hospital Medicine
[2018-03-29] MEDS ORDERED: VANCOMYCIN TROUGH ONE (19:30)
[2018-03-29] MEDS: SIMETHICONE 80 MG CHEW PO PRN (20:11)
--- NOTE | 2018-03-29 20:40 | Discharge Instructions ---
Discharge Instructions Date of Service March 29, 2018. Admission Reason for Admission: Hypoxia, Sepsis Due To Urinary Tract Infection Discharge Discharge Diagnosis / Problem: Complicated UTI Discharge Goals Goal(s): Decrease discomfort, Diagnostic testing, Therapeutic intervention Activity Recommendations Activity Limitations: resume your previous activity . Instructions / Follow-Up Instructions / Follow-Up Ms. Smith you were admitted for body aches, fever, chills, nausea and dry heaves. You were found to have a urinary/bladder infection with was believed to be going up into your kidneys based on the CT scan of your abdomen. We gave you antibiotics, and medications to help with your nausea/vomiting. You were also requiring some oxygen to help you breath. You improved and were stable for discharge. Please follow the following instructions for further care: - Continue taking Ciprofloxacin 500mg twice a day for another 2 days to complete a 7 day antibiotic course - Please continue other home medications as prescribed prior to your hospitalization - Please follow up with your primary care doctor on Monday for further care - Please go to the nearest emergency room/call 911 or see your doctor if your nausea/vomiting or fever return or if your pain worsens Be Well Current Hospital Diet Patient's current hospital diet: AHA Diet (Heart Healthy), Diabetes Type 2 Diet Discharge Diet Recommended Diet: Diabetes Type 2 Diet Pending Studies Studies pending at discharge: no Laboratory Results Hemoglobin A1c Test 03/28/18 03:31 Range/Units Estimated Average Glucose 194 mg/dl Hemoglobin A1c 8.4 H 4.5-5.6 % Lipid Panel Test 01/05/18 08:30 Range/Units Triglycerides Level 346 H 0-150 mg/dl Cholesterol Level 179 0-200 mg/dl HDL Cholesterol 38 mg/dl Cholesterol/HDL Ratio 4.7 LDL Cholesterol, Calculated 72 mg/dl Medical Emergencies . Who to Call and When: Medical Emergencies: If at any time you feel your situation is an emergency, please call 911 immediately. . Non-Emergent Contact Non-Emergency issues call your: Primary Care Provider Call Non-Emergent contact if: temperature is above 101, your pain is worsening . . "Provider Documentation" section prepared by Isaias Vaughan. .
[2018-03-29] MEDS: CIPROFLOXACIN 500 MG TAB PO SCH (21:02)
[2018-03-29] MEDS: PROCHLORPERAZINE MALEATE 5 MG TAB PO PRN (22:34)
[2018-03-30] VITALS (15 sets, daily range): BP systolic 98–132; BP diastolic 58–78; PULSE 65–85; TEMP 36.5–36.8; O2SAT 90–96
[2018-03-30] MEDS: SODIUM CHLORIDE 0.9% 1000ML 1,000 ML IV SCH (01:47)
[2018-03-30] MEDS: SIMETHICONE 80 MG CHEW PO PRN (01:47)
[2018-03-30] MEDS: IPRATROPIUM BROMIDE NEB SOLN 0.02% 2.5 ML VIAL INH SCH ×4 (01:56→20:42)
[2018-03-30] MEDS: LEVALBUTEROL 1.25MG/0.5ML NEB INH SCH ×4 (01:56→20:42)
[2018-03-30 05:54] LABS: BASO % 0.1 %; BASO ABS # 0.01 K/uL (0-0.2); EOS % 0.5 %; EOS ABS # 0.05 K/uL (0-0.5); HEMATOCRIT 25.7 % (37-47); HEMOGLOBIN 8.5 g/dL (12.0-16.0); IG# 0.09 K/uL (0.00-0.02); LYMPH % 6.4 %; LYMPH ABS # 0.64 K/uL (1.2-3.4); MEAN CELL VOLUME 90.5 fL (80-100); MEAN CORPUSCULAR HEMOGLOBIN 29.9 pg (25-34); MEAN CORPUSCULAR HGB CONC 33.1 g/dl (32-36); MEAN PLATELET VOLUME 10.1 fL (7.4-10.4); MONO % 12.1 %; NEUT ABS # 7.96 K/uL (1.4-6.5); NUCLEATED RED BLOOD CELL ABS 0.02 K/uL (0-0); PLATELET COUNT 163 K/uL (130-400); RED CELL DISTRIBUTION WIDTH CV 19.7 % (11.5-14.5); RED CELL DISTRIBUTION WIDTH SD 64.8 fL (36.4-46.3); WHITE BLOOD COUNT 9.95 K/uL (4.8-10.8)
[2018-03-30 06:24] LABS: CREATININE 1.31 mg/dl (0.60-1.20); POTASSIUM 3.1 mmol/L (3.5-5.1)
[2018-03-30] MEDS ORDERED: POTASSIUM CHLORIDE 20 MEQ TABCR PO STA (07:27)
[2018-03-30] MEDS ORDERED: NURSING VERBAL MED ORDER ONE (08:30)
[2018-03-30] MEDS: CIPROFLOXACIN 500 MG TAB PO SCH ×2 (08:34→21:03)
[2018-03-30] MEDS: HEPARIN SOD 5000 UNIT/0.5 ML CARP SQ SCH ×2 (08:35→21:00)
[2018-03-30] MEDS: INSULIN ASPART 100 UNITS/ML 3 ML PEN SC SCH ×4 (08:38→21:00)
[2018-03-30] MEDS: INSULIN HUMAN NPH SQ SCH ×2 (08:39→17:31)
[2018-03-30] MEDS: ATORVASTATIN 10 MG TAB PO SCH (09:40)
[2018-03-30] MEDS: ATORVASTATIN 20 MG TAB PO SCH (09:40)
[2018-03-30] MEDS: CITALOPRAM 40 MG TAB PO SCH (09:40)
[2018-03-30] MEDS: POLYETHYLENE (MIRALAX) 17 GM PACK PO SCH (09:40)
[2018-03-30] MEDS ORDERED: MoRPHine SULFATE 4 MG/ML 1 ML CARP\\VIAL IV STA (13:51)
--- NOTE | 2018-03-30 14:57 | Family Medicine Progress Note ---
Progress Note Date of Service March 30, 2018. Subjective Pt evaluation today including: conversation w/ patient, physical exam, chart review, lab review Pain: R sided abdominal pain PO Intake: decreased appetite Voiding: no voiding problems This AM pt reported improved aches, f/c, nausea. Appetite decreased but will attempt to eat today Also reported bloating and R sided abdominal pain which she gets at home too and moving bowels help. Pain does not worsen with food. Reports looser stools today too but non-bloody and brown in color Constitutional: No fever, No chills Respiratory: No shortness of breath Cardiovascular: No chest pain Abdomen: + pain, No nausea, No vomiting Female : No dysuria Medications Current Inpatient Medications Medications (Trade) Dose Ordered Sig/Haresh Route Start Time Stop Time Status Last Admin Dose Admin Ioversol (Optiray 320) 100 ml UD PRN IV 03/27/18 18:45 03/31/18 18:44 Heparin Sodium (Porcine) (Heparin Sq 5000 Unit/0.5ml) 5,000 unit Q12 SQ 03/28/18 09:00 04/27/18 08:59 03/29/18 08:26 5,000 UNIT Acetaminophen (Tylenol Tab) 650 mg Q4H PRN PO 03/27/18 23:00 04/26/18 22:59 03/29/18 12:41 650 MG Atorvastatin Calcium (Lipitor Tab) 10 mg DAILY PO 03/28/18 09:00 04/27/18 08:59 03/30/18 09:40 10 MG Atorvastatin Calcium (Lipitor Tab) 20 mg DAILY PO 03/28/18 09:00 04/27/18 08:59 03/30/18 09:40 20 MG Citalopram Hydrobromide (celeXA TAB) 40 mg DAILY PO 03/28/18 09:00 04/27/18 08:59 03/30/18 09:40 40 MG Ipratropium [place] (Atrovent 0.02% 0.5MG/2.5ML Neb) 0.5 mg Q6R INH 03/28/18 03:00 04/27/18 02:59 03/30/18 14:06 0.5 MG Levalbuterol (Xopenex 1.25MG/ 0.5ML Neb) 1.25 mg Q6R INH 03/28/18 03:00 04/27/18 02:59 03/30/18 14:06 1.25 MG Ipratropium [place] (Atrovent 0.02% 0.5MG/2.5ML Neb) 0.5 mg Q2H PRN INH 03/27/18 23:30 04/26/18 23:29 Levalbuterol (Xopenex 1.25MG/ 0.5ML Neb) 1.25 mg Q2H PRN INH 03/27/18 23:30 04/26/18 23:29 Glucose (Glucose 40% Gel) 15-30 GRAMS 15 GRAMS... UD PRN PO 03/27/18 23:30 04/26/18 23:29 Glucose (Glucose Chew Tab) 4-8 Tablets 4 Tabl... UD PRN PO 03/27/18 23:30 04/26/18 23:29 Dextrose (Dextrose 50% 50ML Syringe) 25-50ML 25ML FOR ... UD PRN IV 03/27/18 23:30 04/26/18 23:29 Glucagon (Glucagon Inj) 1 mg UD PRN IM 03/27/18 23:30 04/26/18 23:29 Carbohydrates (Carbohydrates For Hypoglycemia) 15-30 GRAMS 15 grams... PRN PRN PO 03/27/18 23:30 04/26/18 23:29 Insulin Aspart (novoLOG ASPART) SLIDING SCALE ACHS SC 03/28/18 11:00 04/27/18 10:59 03/30/18 12:18 3 UNITS Insulin Human NPH (novoLIN-N NPH) 20 units BIDM SQ 03/28/18 08:00 04/27/18 07:59 03/30/18 08:39 20 UNITS Prochlorperazine Maleate (Compazine Tab) 5 mg Q6H PRN PO 03/28/18 13:15 04/27/18 13:14 03/29/18 22:34 5 MG Ondansetron HCl (Zofran Inj) 4 mg Q6H PRN IV 03/29/18 12:15 04/28/18 12:14 03/29/18 16:23 4 MG Ciprofloxacin (Cipro Tab) 500 mg BID PO 03/29/18 21:00 04/05/18 20:59 03/30/18 08:34 500 MG Simethicone (Mylicon Chew Tab) 80 mg Q6H PRN PO 03/29/18 18:00 04/28/18 17:59 03/30/18 01:47 80 MG Polyethylene (Miralax Powder Packet) 17 gm DAILY PO 03/30/18 09:00 04/29/18 08:59 03/30/18 09:40 17 GM Objective Vital Signs Date Time Temp Pulse Resp B/P (MAP) Pulse Ox O2 Delivery O2 Flow Rate FiO2 03/30/18 14:06 73 20 95 Nasal Cannula 3.5 03/30/18 11:50 Nasal Cannula 3.5 03/30/18 11:27 36.5 71 19 102/65 (77) 93 Nasal Cannula 3.0 03/30/18 07:45 Nasal Cannula 3.5 03/30/18 07:35 36.8 65 20 121/62 (81) 93 Nasal Cannula 3.0 03/30/18 07:16 65 18 93 Nasal Cannula 3.5 03/30/18 04:01 96 Nasal Cannula 3.5 03/30/18 04:00 36.6 77 20 126/74 (91) 92 3.5 03/30/18 01:56 72 18 92 Nasal Cannula 3.5 03/30/18 00:05 96 Nasal Cannula 3.5 03/30/18 00:04 36.8 73 20 115/76 (89) 92 Nasal Cannula 3.5 03/29/18 20:23 37.4 73 18 106/68 (81) 96 Nasal Cannula 3.5 03/29/18 20:00 96 Nasal Cannula 3.5 03/29/18 19:12 74 20 93 Nasal Cannula 3.5 03/29/18 16:54 36.7 03/29/18 16:00 90 Nasal Cannula 03/29/18 15:39 37.5 80 18 99/62 (74) 90 Physical Exam General Appearance: no apparent distress Eyes: normal inspection Neck: supple Respiratory/Chest: lungs clear, normal breath sounds Cardiovascular: regular rate, rhythm, no murmur Abdomen: normal bowel sounds, soft, + tenderness (R sided mild > over R lower and mid quadrants; neg skaggs's) Extremities: non-tender, no pedal edema Neurologic/Psychiatric: alert, oriented x 3 Skin: warm/dry Laboratory Results 03/30/18 05:11 Red Blood Count 2.84, Mean Corpuscular Volume 90.5, Mean Corpuscular Hemoglobin 29.9, Mean Corpuscular Hemoglobin Concent 33.1, Mean Platelet Volume 10.1, Neutrophils (%) (Auto) 80.0, Lymphocytes (%) (Auto) 6.4, Monocytes (%) (Auto) 12.1, Eosinophils (%) (Auto) 0.5, Basophils (%) (Auto) 0.1, Neutrophils # (Auto ) 7.96, Lymphocytes # (Auto) 0.64, Monocytes # (Auto) 1.20, Eosinophils # (Auto ) 0.05, Basophils # (Auto) 0.01 03/30/18 05:11 Test 03/30/18 05:11 03/30/18 11:32 White Blood Count 9.95 K/uL (4.8-10.8) Red Blood Count 2.84 M/uL (4.2-5.4) Hemoglobin 8.5 g/dL (12.0-16.0) Hematocrit 25.7 % (37-47) Mean Corpuscular Volume 90.5 fL (80-100) Mean Corpuscular Hemoglobin 29.9 pg (25-34) Mean Corpuscular Hemoglobin Concent 33.1 g/dl (32-36) Platelet Count 163 K/uL (130-400) Mean Platelet Volume 10.1 fL (7.4-10.4) Neutrophils (%) (Auto) 80.0 % Lymphocytes (%) (Auto) 6.4 % Monocytes (%) (Auto) 12.1 % Eosinophils (%) (Auto) 0.5 % Basophils (%) (Auto) 0.1 % Neutrophils # (Auto) 7.96 K/uL (1.4-6.5) Lymphocytes # (Auto) 0.64 K/uL (1.2-3.4) Monocytes # (Auto) 1.20 K/uL (0.11-0.59) Eosinophils # (Auto) 0.05 K/uL (0-0.5) Basophils # (Auto) 0.01 K/uL (0-0.2) RDW Standard Deviation 64.8 fL (36.4-46.3) RDW Coefficient of Variation 19.7 % (11.5-14.5) Immature Granulocyte % (Auto) 0.9 % Immature Granulocyte # (Auto) 0.09 K/uL (0.00-0.02) Nucleated RBC Absolute Count (auto) 0.02 K/uL (0-0) Nucleated Red Blood Cells % 0.2 % Dohle Bodies 1+ Anion Gap 7.0 mmol/L (3-11) Est Creatinine Clear Calc Drug Dose 42.2 ml/min Estimated GFR () 47.7 Estimated GFR (Non- 41.1 BUN/Creatinine Ratio 17.5 (10-20) Calcium Level 8.0 mg/dl (8.5-10.1) Magnesium Level 2.4 mg/dl (1.8-2.4) Bedside Glucose 118 mg/dl (70-90) Assessment and Plan 72y/oF with hx of DM, HTN, HLD, anemia and kidney stones who presented with NOW improved f/c, myalgias, n/v, and increased urinary frequency. Concern for sepsis given initially febrile with low BP and hypoxia likely in the setting of pyelonephritis. NOW afebrile with normalized BP. Continues to remain hypoxic on 3L NC likely from atelectasis. Also new onset abdominal pain and bloating likely in the setting of constipation. Sepsis likely in the setting of pyelonephritis (no abdominal/flank pain initially) - IMPROVING - Afebrile with improved BP - CT Angio - concerning for ascending ureteritis with pyelonephritis with recently passed stone; L sided nephrolithiasis (non-obstructing 1.4cm inferior pole) - BCx NGTD - UCx E. coli [place]-sensitive - Started on Ciprofloxacin 500mg BID to complete 14 day course - Dced vancomycin IV 5/2 and IV Zosyn 5/3 - Received IVF dced once tolerating diet - Received Phenergan 12.5mg PO once with improvement in n/v and scheduled Zofran 6mg Q6H - Continue Zofran 4 mg IV Q6H PRN Hypoxia atelectasis vs. pneumonia - Xopenex annd Atrovent nebulizers Q6H while awake, Q2H PRN - O2 as needed for hypoxia to keep sat > 92% - Incentive spirometer encouraged to use Abdominal pain likely secondary to constipation vs. pyelonephritis vs. cholecystitis - Started on Miralax 17g daily - Continue Simethicone 80mg PRN - Consider KUB vs. gallbladder US if worsens Elevated Cr - improving - Creatinine 1.3, baseline 1.2 - Received IVF NS - Hold diclofenac - Follow BMP Hypomagnesemia - improved 2.4 - received 2g mag sulphate HTN - Hold HCTZ for low BP Diabetes mellitus with hyperglycemia - improved to 125 this AM - Continue NPH 20 units BID - Continue ISS goal 120-160 CF: 15 and CHO ratio 1: 4 - Accu-Cheks before meals and at bedtime with NovoLog coverage per scale - Hold Trulicity Hyperlipidemia - Continue home atorvastatin 30 mg daily Anxiety with depression - Continue citalopram 40 mg daily Arthritis - Hold diclofenac 75 mg p.o. twice daily due to elevated Cr Hepatomegaly/fatty liver (on imaging) - LFT wnl - Likely secondary to diabetes, hyperlipidemia and weight DVT prophylaxis: Heparin SQ Code: full Dispo: pending tolerance of diet and clinical improvement Resident Physician Supervision Note: I interviewed and examined the patient. Discussed with Dr. Vaughan and agree with findings and plan as documented in the note. Any exceptions or clarifications are listed here: None Documented By: Ang Iglesias abdominal pain now - no BM for days. asked to revisit later - worse abdominal pain multipel little BMs through the day and heavy R sided pain no watery or bloody no vomiting vitals noted. earlier in the day nad just uncomfortable. later in the day distended w R sided fullness and tenderness but no guarding or rebound hyperactive bowel sounds, KUB nonspecific gas reviewed by me and radiology pyelonephritis w sepsis borderline ARF raising question of severe sepsis vs sepsis and dehydration - ok to hold fluids, continue abx, improving abdominal pain - strongly suspect constipation - miralax worsened but suspect this is cramping from meds - discussed enema vs further w/u - she's very frightened it might be something worse and cannot be reassured by exam/ discussion - CT to r/o other pathology signed out to night coverage otherwise as above Resident Involvement: Resident Care Provided Care Provided: Adult Hospital Medicine
--- NOTE | 2018-03-30 19:07 | DIAGNOSTIC IMAGING REPORT ---
KUB HISTORY: Acute right-sided abdominal pain right side abdominal pain COMPARISON: Acute abdominal series radiographs 12/23/2015, CT 03/27/2018 FINDINGS: The bowel gas pattern is non-obstructive. There is no organomegaly. 1.3 x 0.9 cm calcification of the left lower abdomen is again seen compatible with previously noted calculus of the inferior pole left kidney. No definite right-sided nephrolithiasis or ureteral calculi identified. Calcifications of the pelvis are again seen suggesting phleboliths. No pneumoperitoneum or pneumatosis. No fracture. Degenerative changes of the lumbar spine. Mild right hemidiaphragmatic elevation. IMPRESSION: 1. 1.3 cm calculus within the region of the inferior pole left kidney redemonstrated. No definite ureteral calculi. 2. Nonobstructive bowel gas pattern. Electronically signed by: Dimitry Jain M.D. 03/30/2018 7:06 PM Dictated Date/Time: 03/30/2018 7:04 PM
[2018-03-30] MEDS ORDERED: OPTIRAY 320 IV PRN (19:45)
--- NOTE | 2018-03-30 23:46 | DIAGNOSTIC IMAGING REPORT ---
ABDOMEN AND PELVIS CT WITH IV AND ORAL CONTRAST CT DOSE: 1222.88 mGy.cm HISTORY: Acute right-sided abdominal pain. R sided abdominal pain TECHNIQUE: Multiaxial CT images of the abdomen and pelvis were performed following the use of intravenous and oral contrast. A dose lowering technique was utilized adhering to the principles of ALARA. COMPARISON STUDY: CTA 03/27/2018. FINDINGS: Small bilateral pleural effusions with dependent bibasilar opacities suggesting compressive atelectasis. No pneumatosis or pneumoperitoneum. Imaged inferior cardiac chambers are unremarkable with trace pericardial effusion. Coronary arterial calcifications are noted. Hepatosplenomegaly with hepatic steatosis redemonstrated. Gallbladder is contracted. Pancreas and adrenal glands are unremarkable. Decreased patchy enhancement about the left kidney, notably with decreased enhancement of the superior pole left kidney suggests pyelonephritis. Mild left-sided perinephric inflammatory stranding. Mild urothelial enhancement is also noted on the left. No significant hydronephrosis. Nonobstructing calculi are seen within the inferior pole left kidney largest measuring up to 1.4 x 0.9 cm. Nonobstructing calculi of the superior pole left kidney also noted. Partial distention of the bladder. Uterus and adnexa are unremarkable. Mild atherosclerosis of the aorta without aneurysm. No bulky adenopathy. There is moderate wall thickening of the duodenum with mild duodenal inflammatory changes. There is trace right upper quadrant ascites with ascites tracking along the paracolic gutters. No bowel obstruction. Colonic diverticulosis without diverticulitis. There is a tubular structure suggesting foreign body with radiopaque margins measuring 2.6 cm in length nicely seen on image 290 series 3 present within the cecum. Phleboliths of the pelvis. Mild body wall edema. Facet arthrosis of the lumbar spine. Multilevel discogenic degenerative changes. IMPRESSION: 1. 2.6 cm tubular structure of the cecum with radiopaque margins suggests ingested foreign body. No bowel obstruction or pneumoperitoneum. 2. Moderate wall thickening with adjacent inflammatory stranding of the duodenum suggests duodenitis. 3. Patchy enhancement about the left kidney with urothelial enhancement and mild perinephric inflammatory stranding is most compatible with pyelonephritis. 4. Nonobstructing left-sided nephrolithiasis. 5. Interval development of small bilateral pleural effusions with trace abdominal pelvic ascites and mild body wall edema suggests fluid overload. 6. Hepatosplenomegaly with hepatic steatosis. 7. Colonic diverticulosis without diverticulitis. Electronically signed by: Dimitry Jain M.D. 03/30/2018 11:45 PM Dictated Date/Time: 03/30/2018 11:35 PM
[2018-03-31] VITALS (8 sets, daily range): BP systolic 110–137; BP diastolic 69–73; PULSE 64–86; TEMP 36.4–37; O2SAT 94–98
[2018-03-31] MEDS: IPRATROPIUM BROMIDE NEB SOLN 0.02% 2.5 ML VIAL INH SCH ×4 (01:42→19:36)
[2018-03-31] MEDS: LEVALBUTEROL 1.25MG/0.5ML NEB INH SCH ×4 (01:42→19:36)
[2018-03-31] MEDS: HEPARIN SOD 5000 UNIT/0.5 ML CARP SQ SCH ×2 (08:07→21:00)
[2018-03-31] MEDS: POLYETHYLENE (MIRALAX) 17 GM PACK PO SCH (08:07)
[2018-03-31] MEDS: CIPROFLOXACIN 500 MG TAB PO SCH ×2 (08:08→21:23)
[2018-03-31] MEDS: ATORVASTATIN 20 MG TAB PO SCH (08:08)
[2018-03-31] MEDS: ATORVASTATIN 10 MG TAB PO SCH (08:08)
[2018-03-31] MEDS: CITALOPRAM 40 MG TAB PO SCH (08:08)
[2018-03-31] MEDS: SIMETHICONE 80 MG CHEW PO PRN (08:08)
[2018-03-31] MEDS: INSULIN HUMAN NPH SQ SCH ×2 (08:11→17:46)
[2018-03-31] MEDS: INSULIN ASPART 100 UNITS/ML 3 ML PEN SC SCH ×4 (08:11→21:00)
[2018-03-31 09:15] LABS: HEMATOCRIT 27.7 % (37-47); HEMOGLOBIN 9.2 g/dL (12.0-16.0); MEAN CELL VOLUME 90.2 fL (80-100); MEAN CORPUSCULAR HGB CONC 33.2 g/dl (32-36); MEAN PLATELET VOLUME 9.7 fL (7.4-10.4); NUCLEATED RED BLOOD CELL ABS 0.03 K/uL (0-0); PLATELET COUNT 215 K/uL (130-400); RED CELL DISTRIBUTION WIDTH SD 65.6 fL (36.4-46.3); WHITE BLOOD COUNT 9.33 K/uL (4.8-10.8)
[2018-03-31] MEDS: PANTOprazole SOD 40 MG TAB PO SCH ×2 (09:40→21:23)
[2018-03-31 09:43] LABS: CALCIUM 8.4 mg/dl (8.5-10.1); CREATININE 1.16 mg/dl (0.60-1.20); POTASSIUM 3.1 mmol/L (3.5-5.1)
[2018-03-31] MEDS ORDERED: FUROSEMIDE INJ 40 MG in SYRINGE 0 ML IV ONE (09:45)
[2018-03-31 09:56] LABS: BASO % 0.3 %; BASO ABS # 0.03 K/uL (0-0.2); EOS % 1.4 %; EOS ABS # 0.13 K/uL (0-0.5); IG# 0.49 K/uL (0.00-0.02); LYMPH % 7.1 %; LYMPH ABS # 0.66 K/uL (1.2-3.4); MONO % 7.4 %; MONO ABS # 0.69 K/uL (0.11-0.59); NEUT % 78.5 %; NEUT ABS # 7.33 K/uL (1.4-6.5)
--- NOTE | 2018-03-31 10:47 | DIAGNOSTIC IMAGING REPORT ---
CHEST ONE VIEW PORTABLE CLINICAL HISTORY: 72 years-old Female presenting with persistent hypoxia. TECHNIQUE: Portable upright AP view of the chest was obtained. COMPARISON: 05/27/2018. FINDINGS: Cardiac silhouette enlarged, unchanged. Pulmonary vascular prominence. Mildly low lung volumes with hypoventilatory changes. Decreased aeration of the left lung base. No large effusion or pneumothorax. Osseous structures normal. Numerous external leads project over the right hemithorax degrading evaluation. IMPRESSION: 1. Mildly low lung volumes with hypoventilatory changes. This may in part account for cardiac silhouette enlargement and pulmonary vascular prominence though an element of congestive change cannot be excluded. Electronically signed by: Rishi Conn M.D. 03/31/2018 10:46 AM Dictated Date/Time: 03/31/2018 10:45 AM
--- NOTE | 2018-03-31 11:42 | Family Medicine Progress Note ---
Progress Note Date of Service March 31, 2018. Subjective Pt evaluation today including: conversation w/ patient, physical exam, chart review, lab review Pain: Still mild right sided abdominal pain Voiding: no voiding problems Notes overall feeling much better Was able to eat this morning; is having small bowel movements throughout the day. Thinks consistency is soft. No fevers, chills or sweats Urinating without pain or difficulty. No nursing concerns overnight Additional Comments: A 10 point review of systems was negative unless stated above. Medications Current Inpatient Medications Medications (Trade) Dose Ordered Sig/Haresh Route Start Time Stop Time Status Last Admin Dose Admin Ioversol (Optiray 320) 100 ml UD PRN IV 03/27/18 18:45 03/31/18 18:44 Heparin Sodium (Porcine) (Heparin Sq 5000 Unit/0.5ml) 5,000 unit Q12 SQ 03/28/18 09:00 04/27/18 08:59 03/29/18 08:26 5,000 UNIT Acetaminophen (Tylenol Tab) 650 mg Q4H PRN PO 03/27/18 23:00 04/26/18 22:59 03/29/18 12:41 650 MG Atorvastatin Calcium (Lipitor Tab) 10 mg DAILY PO 03/28/18 09:00 04/27/18 08:59 03/31/18 08:08 10 MG Atorvastatin Calcium (Lipitor Tab) 20 mg DAILY PO 03/28/18 09:00 04/27/18 08:59 03/31/18 08:08 20 MG Citalopram Hydrobromide (celeXA TAB) 40 mg DAILY PO 03/28/18 09:00 04/27/18 08:59 03/31/18 08:08 40 MG Ipratropium [place] (Atrovent 0.02% 0.5MG/2.5ML Neb) 0.5 mg Q6R INH 03/28/18 03:00 04/27/18 02:59 03/31/18 07:19 0.5 MG Levalbuterol (Xopenex 1.25MG/ 0.5ML Neb) 1.25 mg Q6R INH 03/28/18 03:00 04/27/18 02:59 03/31/18 07:19 1.25 MG Ipratropium [place] (Atrovent 0.02% 0.5MG/2.5ML Neb) 0.5 mg Q2H PRN INH 03/27/18 23:30 04/26/18 23:29 Levalbuterol (Xopenex 1.25MG/ 0.5ML Neb) 1.25 mg Q2H PRN INH 03/27/18 23:30 04/26/18 23:29 Glucose (Glucose 40% Gel) 15-30 GRAMS 15 GRAMS... UD PRN PO 03/27/18 23:30 04/26/18 23:29 Glucose (Glucose Chew Tab) 4-8 Tablets 4 Tabl... UD PRN PO 03/27/18 23:30 04/26/18 23:29 Dextrose (Dextrose 50% 50ML Syringe) 25-50ML 25ML FOR ... UD PRN IV 03/27/18 23:30 04/26/18 23:29 Glucagon (Glucagon Inj) 1 mg UD PRN IM 03/27/18 23:30 04/26/18 23:29 Carbohydrates (Carbohydrates For Hypoglycemia) 15-30 GRAMS 15 grams... PRN PRN PO 03/27/18 23:30 04/26/18 23:29 Insulin Aspart (novoLOG ASPART) SLIDING SCALE ACHS SC 03/28/18 11:00 04/27/18 10:59 03/31/18 08:11 12 UNITS Insulin Human NPH (novoLIN-N NPH) 20 units BIDM SQ 03/28/18 08:00 04/27/18 07:59 03/31/18 08:11 20 UNITS Prochlorperazine Maleate (Compazine Tab) 5 mg Q6H PRN PO 03/28/18 13:15 04/27/18 13:14 03/29/18 22:34 5 MG Ondansetron HCl (Zofran Inj) 4 mg Q6H PRN IV 03/29/18 12:15 04/28/18 12:14 03/29/18 16:23 4 MG Ciprofloxacin (Cipro Tab) 500 mg BID PO 03/29/18 21:00 04/05/18 20:59 03/31/18 08:08 500 MG Simethicone (Mylicon Chew Tab) 80 mg Q6H PRN PO 03/29/18 18:00 04/28/18 17:59 03/31/18 08:08 80 MG Polyethylene (Miralax Powder Packet) 17 gm DAILY PO 03/30/18 09:00 04/29/18 08:59 03/30/18 09:40 17 GM Ioversol (Optiray 320) 100 ml UD PRN IV 03/30/18 19:45 04/03/18 19:44 Pantoprazole Sodium (Protonix Tab) 40 mg BID PO 03/31/18 09:00 04/30/18 08:59 03/31/18 09:40 40 MG Objective Vital Signs Date Time Temp Pulse Resp B/P (MAP) Pulse Ox O2 Delivery O2 Flow Rate FiO2 03/31/18 07:45 Nasal Cannula 2.0 03/31/18 07:19 66 20 94 Nasal Cannula 3.5 03/31/18 06:55 36.4 65 20 132/73 (92) 95 Nasal Cannula 3.0 03/31/18 04:05 Nasal Cannula 2.0 03/31/18 03:24 36.8 69 20 110/70 (83) 96 Nasal Cannula 3.0 03/31/18 00:05 Nasal Cannula 2.0 03/30/18 23:42 36.6 71 20 128/73 (91) 96 Nasal Cannula 3.0 03/30/18 20:42 67 20 93 Nasal Cannula 3.5 03/30/18 20:00 91 Nasal Cannula 2.0 03/30/18 19:45 36.6 76 20 98/58 (71) 90 Room Air 03/30/18 16:00 91 Nasal Cannula 2.0 03/30/18 15:10 36.7 85 19 132/78 (96) 91 Nasal Cannula 2.0 03/30/18 14:06 73 20 95 Nasal Cannula 3.5 03/30/18 11:50 Nasal Cannula 3.5 Physical Exam General Appearance: WD/WN, no apparent distress Eyes: normal inspection, EOMI ENT: hearing grossly normal, pharynx normal Neck: supple, no adenopathy, no JVD Respiratory/Chest: no respiratory distress, no accessory muscle use, + pertinent finding (diminished breath sounds with bibasilar crackles) Cardiovascular: regular rate, rhythm, no gallop, no murmur Abdomen: normal bowel sounds, non tender, soft, + pertinent finding (feels more sensitive but no explicit pain in the right abdomen) Extremities: non-tender, no pedal edema Neurologic/Psychiatric: alert, normal mood/affect, oriented x 3 Skin: normal color, warm/dry, no rash Lymphatic: no adenopathy Laboratory Results Last 24 Hours Test 03/30/18 16:42 03/30/18 20:33 03/31/18 07:35 03/31/18 08:50 Bedside Glucose 98 mg/dl 112 mg/dl 116 mg/dl White Blood Count 9.33 K/uL Red Blood Count 3.07 M/uL Hemoglobin 9.2 g/dL Hematocrit 27.7 % Mean Corpuscular Volume 90.2 fL Mean Corpuscular Hemoglobin 30.0 pg Mean Corpuscular Hemoglobin Concent 33.2 g/dl Platelet Count 215 K/uL Mean Platelet Volume 9.7 fL Neutrophils (%) (Auto) 78.5 % Lymphocytes (%) (Auto) 7.1 % Monocytes (%) (Auto) 7.4 % Eosinophils (%) (Auto) 1.4 % Basophils (%) (Auto) 0.3 % Neutrophils # (Auto) 7.33 K/uL Lymphocytes # (Auto) 0.66 K/uL Monocytes # (Auto) 0.69 K/uL Eosinophils # (Auto) 0.13 K/uL Basophils # (Auto) 0.03 K/uL RDW Standard Deviation 65.6 fL RDW Coefficient of Variation 20.0 % Immature Granulocyte % (Auto) 5.3 % Immature Granulocyte # (Auto) 0.49 K/uL Nucleated RBC Absolute Count (auto) 0.03 K/uL Nucleated Red Blood Cells % 0.3 % Anisocytosis PRESENT Ovalocytes 1+ Sodium Level 135 mmol/L Potassium Level 3.1 mmol/L Chloride Level 105 mmol/L Carbon Dioxide Level 22 mmol/L Anion Gap 8.0 mmol/L Blood Urea Nitrogen 20 mg/dl Creatinine 1.16 mg/dl Est Creatinine Clear Calc Drug Dose 47.9 ml/min Estimated GFR () 55.2 Estimated GFR (Non- 47.7 BUN/Creatinine Ratio 17.1 Random Glucose 178 mg/dl Calcium Level 8.4 mg/dl Assessment and Plan 72 year old female with left sided pyelonephritis that is resolving. Did have some right abdominal discomfort yesterday and CT scan had some evidence of duodenitis. She may also have some constipation with overflow. Overall she is improving. - Left Pyelonephritis. Sepsis resolved. Continue Cipro PO BID. Cx growing pansensitive E.coli. Continue for total antibiotic course duration of 14 days. - Abdominal pain: like constipation. Evidence of duodenitis on CT, may be due to stress irritation from acute illness. Continue Miralax. Protonix BID for duodenitis. Continue current diet as tolerated. - Hypoxia: Ongoing still needing 2.5-3L. No home O2. Likely atelectasis + component of fluid overload. Net 5 L positive with crackles at bases. Will give Lasix IV one dose today. Will repeat CXR and check pro-calcitonin to rule- out PNA. Encouraged to continue using incentive spirometer - Acute Kidney Injury: Cr continues to impove down to 1.16 today. Avoid nephrotoxic agents - HTN: HCTZ on hold for relative hypotension. Will re-start as BP tolerates - Type 2 Diabetes Mellitus: Continue Novolog BID + SSSI. BSGs WNL. Home meds on hold - HLD: Continue Atorvastatin - Anxiety/Depression: Continue Citalopram - SHARP: Chronic - DVT prophylaxis: SCD, TEDs, Heparin SQ - Code Status: Level I Full - Dispo: Still hypoxic, requires ongoing hospitalization Resident Physician Supervision Note: I interviewed and examined the patient. Discussed with Dr. Vaughan and agree with findings and plan as documented in the note. Any exceptions or clarifications are listed here: None Documented By: Ang Iglesias feeling better belly still a little uncomfortable but better vitals noted. nad at rest calm and comfortable abdomen less distended R sided mild tender not nearly as full no guarding no rebound pyelonephritis w sepsis borderline ARF raising question of severe sepsis vs sepsis and dehydration - improving abdominal pain - constipation and duodenitis. bowel regimen and PPI hypoxia - acute pulmonary edema from fluid resuc and atelectasis. lasix, IS, time, mobility otherwise as above Continued [facility] stay due to: abnormal vital signs Discharge planning: uncertain
[2018-04-01] VITALS (7 sets, daily range): BP systolic 107–126; BP diastolic 60–81; PULSE 56–74; TEMP 36.3–37.1; O2SAT 94–97
[2018-04-01] MEDS: IPRATROPIUM BROMIDE NEB SOLN 0.02% 2.5 ML VIAL INH SCH ×2 (01:50→07:25)
[2018-04-01] MEDS: LEVALBUTEROL 1.25MG/0.5ML NEB INH SCH ×2 (01:51→07:25)
[2018-04-01 06:48] LABS: HEMATOCRIT 25.2 % (37-47); HEMOGLOBIN 8.5 g/dL (12.0-16.0); MEAN CELL VOLUME 89.7 fL (80-100); MEAN CORPUSCULAR HEMOGLOBIN 30.2 pg (25-34); MEAN CORPUSCULAR HGB CONC 33.7 g/dl (32-36); MEAN PLATELET VOLUME 9.4 fL (7.4-10.4); PLATELET COUNT 216 K/uL (130-400); RED CELL DISTRIBUTION WIDTH CV 19.5 % (11.5-14.5); RED CELL DISTRIBUTION WIDTH SD 63.9 fL (36.4-46.3); WHITE BLOOD COUNT 8.89 K/uL (4.8-10.8)
[2018-04-01 07:18] LABS: BASO % 0.8 %; BASO ABS # 0.07 K/uL (0-0.2); EOS ABS # 0.27 K/uL (0-0.5); IG# 0.75 K/uL (0.00-0.02); LYMPH % 13.5 %; MONO % 10.8 %; MONO ABS # 0.96 K/uL (0.11-0.59); NEUT % 63.5 %; NEUT ABS # 5.64 K/uL (1.4-6.5)
[2018-04-01 07:28] LABS: CALCIUM 8.4 mg/dl (8.5-10.1); CREATININE 1.09 mg/dl (0.60-1.20); POTASSIUM 3.4 mmol/L (3.5-5.1)
[2018-04-01] MEDS ORDERED: FUROSEMIDE INJ 40 MG in SYRINGE 0 ML IV ONE (08:00)
[2018-04-01] MEDS: POLYETHYLENE (MIRALAX) 17 GM PACK PO SCH (08:22)
[2018-04-01] MEDS: HEPARIN SOD 5000 UNIT/0.5 ML CARP SQ SCH ×2 (08:23→18:43)
[2018-04-01] MEDS: ATORVASTATIN 20 MG TAB PO SCH (08:23)
[2018-04-01] MEDS: CITALOPRAM 40 MG TAB PO SCH (08:23)
[2018-04-01] MEDS: PANTOprazole SOD 40 MG TAB PO SCH ×2 (08:23→20:37)
[2018-04-01] MEDS: ATORVASTATIN 10 MG TAB PO SCH (08:23)
[2018-04-01] MEDS: CIPROFLOXACIN 500 MG TAB PO SCH ×2 (08:23→20:37)
[2018-04-01] MEDS: INSULIN ASPART 100 UNITS/ML 3 ML PEN SC SCH ×4 (08:27→20:36)
[2018-04-01] MEDS: INSULIN HUMAN NPH SQ SCH ×2 (08:28→17:45)
[2018-04-01] MEDS ORDERED: IPRATROPIUM BROMIDE NEB SOLN 0.02% 2.5 ML VIAL INH PRN (09:15)
--- NOTE | 2018-04-01 09:50 | Family Medicine Progress Note ---
Progress Note Date of Service April 01, 2018. Subjective Pt evaluation today including: conversation w/ patient, physical exam, chart review, lab review Pain: None Voiding: no voiding problems, no incontinence Doing well this AM. No overnight complaints Still requiring O2 but feels this is improving Still doing incentive spirometry Notes good urine output with Lasix No nursing concerns overnight. Additional Comments: A 10 point review of systems was negative unless stated above. Medications Current Inpatient Medications Medications (Trade) Dose Ordered Sig/Haresh Route Start Time Stop Time Status Last Admin Dose Admin Heparin Sodium (Porcine) (Heparin Sq 5000 Unit/0.5ml) 5,000 unit Q12 SQ 03/28/18 09:00 04/27/18 08:59 03/29/18 08:26 5,000 UNIT Acetaminophen (Tylenol Tab) 650 mg Q4H PRN PO 03/27/18 23:00 04/26/18 22:59 03/29/18 12:41 650 MG Atorvastatin Calcium (Lipitor Tab) 10 mg DAILY PO 03/28/18 09:00 04/27/18 08:59 04/01/18 08:23 10 MG Atorvastatin Calcium (Lipitor Tab) 20 mg DAILY PO 03/28/18 09:00 04/27/18 08:59 04/01/18 08:23 20 MG Citalopram Hydrobromide (celeXA TAB) 40 mg DAILY PO 03/28/18 09:00 04/27/18 08:59 04/01/18 08:23 40 MG Levalbuterol (Xopenex 1.25MG/ 0.5ML Neb) 1.25 mg Q6R INH 03/28/18 03:00 04/27/18 02:59 04/01/18 07:25 1.25 MG Ipratropium Newborn (Atrovent 0.02% 0.5MG/2.5ML Neb) 0.5 mg Q2H PRN INH 03/27/18 23:30 04/26/18 23:29 Levalbuterol (Xopenex 1.25MG/ 0.5ML Neb) 1.25 mg Q2H PRN INH 03/27/18 23:30 04/26/18 23:29 Glucose (Glucose 40% Gel) 15-30 GRAMS 15 GRAMS... UD PRN PO 03/27/18 23:30 04/26/18 23:29 Glucose (Glucose Chew Tab) 4-8 Tablets 4 Tabl... UD PRN PO 03/27/18 23:30 04/26/18 23:29 Dextrose (Dextrose 50% 50ML Syringe) 25-50ML 25ML FOR ... UD PRN IV 03/27/18 23:30 04/26/18 23:29 Glucagon (Glucagon Inj) 1 mg UD PRN IM 03/27/18 23:30 04/26/18 23:29 Carbohydrates (Carbohydrates For Hypoglycemia) 15-30 GRAMS 15 grams... PRN PRN PO 03/27/18 23:30 04/26/18 23:29 Insulin Aspart (novoLOG ASPART) SLIDING SCALE ACHS SC 03/28/18 11:00 04/27/18 10:59 04/01/18 08:27 15 UNITS Insulin Human NPH (novoLIN-N NPH) 20 units BIDM SQ 03/28/18 08:00 04/27/18 07:59 04/01/18 08:28 20 UNITS Prochlorperazine Maleate (Compazine Tab) 5 mg Q6H PRN PO 03/28/18 13:15 04/27/18 13:14 03/29/18 22:34 5 MG Ondansetron HCl (Zofran Inj) 4 mg Q6H PRN IV 03/29/18 12:15 04/28/18 12:14 03/29/18 16:23 4 MG Ciprofloxacin (Cipro Tab) 500 mg BID PO 03/29/18 21:00 04/05/18 20:59 04/01/18 08:23 500 MG Simethicone (Mylicon Chew Tab) 80 mg Q6H PRN PO 03/29/18 18:00 04/28/18 17:59 03/31/18 08:08 80 MG Polyethylene (Miralax Powder Packet) 17 gm DAILY PO 03/30/18 09:00 04/29/18 08:59 03/30/18 09:40 17 GM Ioversol (Optiray 320) 100 ml UD PRN IV 03/30/18 19:45 04/03/18 19:44 Pantoprazole Sodium (Protonix Tab) 40 mg BID PO 03/31/18 09:00 04/30/18 08:59 04/01/18 08:23 40 MG Ipratropium Newborn (Atrovent 0.02% 0.5MG/2.5ML Neb) 0.5 mg Q6R PRN INH 04/01/18 09:15 04/27/18 02:59 Objective Vital Signs Date Time Temp Pulse Resp B/P (MAP) Pulse Ox O2 Delivery O2 Flow Rate FiO2 04/01/18 07:45 Nasal Cannula 1.0 04/01/18 07:26 74 16 94 Nasal Cannula 2.0 04/01/18 07:25 36.8 56 17 126/81 (96) 97 Nasal Cannula 1.5 04/01/18 04:46 36.4 59 19 107/65 (79) 95 Nasal Cannula 2.0 04/01/18 04:05 Nasal Cannula 2.0 04/01/18 01:51 68 16 96 Nasal Cannula 2.0 04/01/18 00:32 36.4 63 18 118/68 (85) 97 Nasal Cannula 2.0 04/01/18 00:05 Nasal Cannula 2.0 03/31/18 20:00 Nasal Cannula 2.0 03/31/18 19:37 78 16 98 Nasal Cannula 3.5 03/31/18 19:11 37.0 64 20 137/69 (91) 97 Nasal Cannula 3.0 03/31/18 16:00 Nasal Cannula 2.0 03/31/18 14:43 36.9 69 18 117/73 (88) 97 Nasal Cannula 2.0 03/31/18 14:33 71 16 96 Nasal Cannula 3.5 03/31/18 12:20 36.8 86 18 113/73 (86) 97 Nasal Cannula 2.0 03/31/18 12:00 Nasal Cannula 2.0 Physical Exam General Appearance: WD/WN, no apparent distress Eyes: normal inspection, EOMI ENT: hearing grossly normal, pharynx normal Neck: supple, no adenopathy, no JVD Respiratory/Chest: lungs clear, no respiratory distress Cardiovascular: regular rate, rhythm, no gallop, no murmur Abdomen: normal bowel sounds, non tender, soft Extremities: non-tender, no pedal edema Neurologic/Psychiatric: alert, normal mood/affect, oriented x 3 Skin: normal color, warm/dry, no rash Lymphatic: no adenopathy Laboratory Results Last 24 Hours Test 03/31/18 11:44 03/31/18 14:52 03/31/18 16:34 03/31/18 20:32 Bedside Glucose 114 mg/dl 71 mg/dl 154 mg/dl 72 mg/dl Test 04/01/18 06:35 04/01/18 07:48 White Blood Count 8.89 K/uL Red Blood Count 2.81 M/uL Hemoglobin 8.5 g/dL Hematocrit 25.2 % Mean Corpuscular Volume 89.7 fL Mean Corpuscular Hemoglobin 30.2 pg Mean Corpuscular Hemoglobin Concent 33.7 g/dl Platelet Count 216 K/uL Mean Platelet Volume 9.4 fL Neutrophils (%) (Auto) 63.5 % Lymphocytes (%) (Auto) 13.5 % Monocytes (%) (Auto) 10.8 % Eosinophils (%) (Auto) 3.0 % Basophils (%) (Auto) 0.8 % Neutrophils # (Auto) 5.64 K/uL Lymphocytes # (Auto) 1.20 K/uL Monocytes # (Auto) 0.96 K/uL Eosinophils # (Auto) 0.27 K/uL Basophils # (Auto) 0.07 K/uL RDW Standard Deviation 63.9 fL RDW Coefficient of Variation 19.5 % Immature Granulocyte % (Auto) 8.4 % Immature Granulocyte # (Auto) 0.75 K/uL Anisocytosis PRESENT Sodium Level 138 mmol/L Potassium Level 3.4 mmol/L Chloride Level 105 mmol/L Carbon Dioxide Level 28 mmol/L Anion Gap 5.0 mmol/L Blood Urea Nitrogen 18 mg/dl Creatinine 1.09 mg/dl Est Creatinine Clear Calc Drug Dose 50.2 ml/min Estimated GFR () 59.6 Estimated GFR (Non- 51.4 BUN/Creatinine Ratio 16.7 Random Glucose 89 mg/dl Calcium Level 8.4 mg/dl Bedside Glucose 103 mg/dl Assessment and Plan 72 year old female with left sided pyelonephritis that is resolving. Did have some right abdominal discomfort yesterday and CT scan had some evidence of duodenitis. She may also have some constipation with overflow. Overall she is improving. Continues to be hypoxic presumably from atelectasis and fluid congestion but is improving with incentive spirometry and diuresis - Left Pyelonephritis. Urine growth for pansensitive E coli. Sepsis resolved at this time. Continue Cipro PO BID, recommend total 14 day course given initial septic picture. - Abdominal pain: Constipation with component of stress duodenitis vs ulceration from acute illness. Continue Miralax. Protonix BID for duodenitis. Continue current diet as tolerated. - Acute Hypoxemic Respiratory Failure: Improved to 1 L NC with incentive spirometry and diuresis. 1.7 L urine output yesterday with 40 mg Lasix IV. Goal to wean to room as there is no home O2 requirement at baseline. Still congested today so will give additional 40 mg IV lasix today. Continue incentive spirometry Patient placed empirically on nebulizer therapy. Will D/C at this point at no evidence of bronchospasm either acutely or chronically. - Acute Kidney Injury: Resolved. Cr improved to 1.09 today. - HTN: HCTZ on hold for relative hypotension. Will re-start as BP tolerates - Type 2 Diabetes Mellitus: Continue Novolog BID + SSSI. BSGs WNL. Home meds on hold - HLD: Continue Atorvastatin - Anxiety/Depression: Continue Citalopram - SHARP: Chronic - DVT prophylaxis: SCD, TEDs, Heparin SQ - Code Status: Level I Full - Dispo: Transfer to Med/Surg today. PT and OT evaluations. Resident Physician Supervision Note: I interviewed and examined the patient. Discussed with Dr. Gutierrez and agree with findings and plan as documented in the note. Any exceptions or clarifications are listed here: None Documented By: Ang Iglesias feeling better overall, even 90% on room air vitals noted. nad breathing unlabored no pallor or icterus pyelonephritis w sepsis borderline ARF raising question of severe sepsis vs sepsis and dehydration - improving, continue abx abdominal pain - constipation and duodenitis. bowel regimen and PPI - improving hypoxia - acute pulmonary edema from fluid resuc and atelectasis. lasix, IS, time, mobility, improving otherwise as above, hopefully home 04/02 Continued [facility] stay due to: abnormal vital signs Discharge planning: home
[2018-04-01] MEDS ORDERED: POTASSIUM CHLORIDE 20 MEQ TABCR PO STA (09:53)
[2018-04-01] MEDS: ACETAMINOPHEN 325 MG TAB PO PRN (10:39)
[2018-04-02 06:50] LABS: HEMOGLOBIN 9.3 g/dL (12.0-16.0); MEAN CORPUSCULAR HEMOGLOBIN 29.9 pg (25-34); MEAN CORPUSCULAR HGB CONC 33.2 g/dl (32-36); MEAN PLATELET VOLUME 9.2 fL (7.4-10.4); PLATELET COUNT 259 K/uL (130-400); RED CELL DISTRIBUTION WIDTH CV 20.1 % (11.5-14.5); RED CELL DISTRIBUTION WIDTH SD 65.2 fL (36.4-46.3); WHITE BLOOD COUNT 10.95 K/uL (4.8-10.8)
[2018-04-02 07:18] VITALS: BP 136/83; PULSE 65; TEMP 36.7; O2SAT 95
[2018-04-02 07:19] LABS: CREATININE 1.14 mg/dl (0.60-1.20)
[2018-04-02 07:20] LABS: CALCIUM 8.3 mg/dl (8.5-10.1); POTASSIUM 3.4 mmol/L (3.5-5.1)
[2018-04-02] MEDS ORDERED: POTASSIUM CHLORIDE 20 MEQ TABCR PO STA (08:09)
[2018-04-02] MEDS: HEPARIN SOD 5000 UNIT/0.5 ML CARP SQ SCH (08:17)
[2018-04-02] MEDS: POLYETHYLENE (MIRALAX) 17 GM PACK PO SCH (08:17)
[2018-04-02] MEDS: ATORVASTATIN 10 MG TAB PO SCH (08:19)
[2018-04-02] MEDS: PANTOprazole SOD 40 MG TAB PO SCH (08:19)
[2018-04-02] MEDS: ATORVASTATIN 20 MG TAB PO SCH (08:19)
[2018-04-02] MEDS: CITALOPRAM 40 MG TAB PO SCH (08:19)
[2018-04-02] MEDS: CIPROFLOXACIN 500 MG TAB PO SCH (08:19)
[2018-04-02] MEDS: INSULIN ASPART 100 UNITS/ML 3 ML PEN SC SCH ×2 (08:24→12:06)
[2018-04-02] MEDS: INSULIN HUMAN NPH SQ SCH (08:25)
[2018-04-02] MEDS ORDERED: CPR500 PO (14:21)
[2018-04-02 14:24] VITALS: BP 136/83; PULSE 65; TEMP 36.7; O2SAT 95
--- NOTE | 2018-04-02 20:48 | Discharge Summary ---
Discharge Summary Date of Service April 02, 2018. Discharge Summary Admission Date: March 27, 2018 at 22:53 Discharge Date: April 02, 2018 Discharge Disposition: Home Principal Diagnosis: Complicated UTI Problems/Secondary Diagnoses: hypertension T2DM SHARP anxiety/depression hyperlipidemia Immunizations: Have You Had Influenza Vaccine: Unknown History of Tetanus Vaccine?: Unknown History of Pneumococcal: Unknown History of Hepatitis B Vaccine: Unknown Procedures: CT ANGIO ABD/PELVIS IMPRESSION: 1. Moderate left-sided perinephric inflammatory stranding with delayed left-sided nephrogram is noted in addition to mild dilation of the left ureter without significant hydronephrosis. These findings suggest sequela of recently passed calculus or ascending ureteritis with pyelonephritis. Correlate with urinalysis and patient symptoms. 2. Nonobstructing left-sided nephrolithiasis with 1.4 cm calculus of the inferior pole left kidney. 3. Unremarkable CTA without aneurysm, high-grade stenosis, dissection or proximal branch occlusion. 4. 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 5. Colonic diverticulosis without CT evidence of acute diverticulitis. 6. Hepatosplenomegaly with hepatic steatosis. The above report was generated using voice recognition software. It may contain grammatical, syntax or spelling errors. Electronically signed by: Dimitry Jain M.D. 03/27/2018 8:01 PM ABDOMEN AND PELVIS CT WITH IV AND ORAL CONTRAST IMPRESSION: 1. 2.6 cm tubular structure of the cecum with radiopaque margins suggests ingested foreign body. No bowel obstruction or pneumoperitoneum. 2. Moderate wall thickening with adjacent inflammatory stranding of the duodenum suggests duodenitis. 3. Patchy enhancement about the left kidney with urothelial enhancement and mild perinephric inflammatory stranding is most compatible with pyelonephritis. 4. Nonobstructing left-sided nephrolithiasis. 5. Interval development of small bilateral pleural effusions with trace abdominal pelvic ascites and mild body wall edema suggests fluid overload. 6. Hepatosplenomegaly with hepatic steatosis. 7. Colonic diverticulosis without diverticulitis. Electronically signed by: Dimitry Jain M.D. 03/30/2018 11:45 PM Dictated Date/Time: 03/30/2018 11:35 PM Medication Reconciliation New Medications: Ciprofloxacin (Ciprofloxacin HCl) 500 Mg Tab 500 MG PO BID for 2 Days, #4 TAB Continued Medications: Atorvastatin (Lipitor) 10 Mg Tab 10 MG PO DAILY, 0 Refills Daily @ 0800 Atorvastatin (Lipitor) 20 Mg Tab 20 MG PO DAILY Benazepril Hcl (Lotensin) 20 Mg Tab 20 MG PO BID Citalopram (Citalopram Hydrobromide) 40 Mg Tab 40 MG PO DAILY Diclofenac Sod (Diclofenac Sodium Dr) 75 Mg Tabcr 75 MG PO BID Dulaglutide (Trulicity) 0.75 Mg/0.5 Ml Inj 0.75 MG INJ WK TAKE EVERY SAT Hydrochlorothiazide (Hydrochlorothiazide) 12.5 Mg Tab 12.5 MG PO BID Insulin Human Lispro (Humalog Kwikpen) 100 Units/Ml Inj 20 UNITS SC DAILYBB Insulin Human NPH (Novolin N) 100 Units/Ml Susp 30-40 UNITS SQ QPM Insulin Lispro (Human) (Humalog Kwikpen) 100 Unit/Ml Inj 25 UNITS SC DAILYBD Discharge Exam Discussed at length pt's stay here and plans for discharge today. Answered all of pt's questions. Pt denies any complaints at this time, denies abdominal pain or dysuria or difficulty breathing. ROS See HPI for pertinent positives and negatives. Physical Exam GENERAL: Awake, alert, well-appearing, in no distress HENT: Normocephalic, atraumatic. EYES: Normal conjunctiva. Sclera non-icteric. NECK: Supple. FROM. RESPIRATORY: Clear to auscultation. CARDIAC: Regular rate, normal rhythm. Extremities warm and well perfused. Pulses equal. ABDOMEN: Soft, non-distended. No tenderness to palpation. No rebound or guarding. No masses. LOWER EXTREMITIES: Calves are equal size bilaterally and non-tender. No edema. No discoloration. NEURO: No motor deficits noted. SKIN: No rash or jaundice noted. Hospital Course Ms. Smith is a 72 year old female with past medical history as noted above who presented to the emergency room with constitutional symptoms and vague abdominal pain. On initial work up she was found to meet sepsis criteria, although not severe, and likely her dehydration likely contributory with source of infection being urinary. On CT imaging as noted above some evidence of perinephric stranding was present as well as non obstructing kidney stones. She responded well to IV fluids and IV antibiotics while here. There was some evidence of duodenitis as well, and this was treated with protonix here. Of note, there was an incidental finding of a possible foreign body on CT of abdomen "2.6 cm tubular structure of the cecum with radiopaque margins suggests ingested foreign body." But difficult to find clinical correlate while patient was here, and there is no recommendation to follow up with any additional imaging as patient is moving her bowels well. On day of discharge patient only requires 2 more days of ciprofloxacin. Her chronic medications remain the same. She has her follow up scheduled with her PCP this Monday. Total Time Spent: Greater than 30 minutes This includes examination of the patient, discharge planning, medication reconciliation, and communication with other providers. Discharge Instructions Please refer to the electronic Patient Visit Report (Discharge Instructions) for additional information. Additional Copies To Joaquin Esparza M.D. Resident Tracking Resident Involvement: Resident Care Provided Care Provided: Adult [facility] Medicine Reviewed: Pt Seen/Exam by Me History no concerns. Constitutional: denies: fever Respiratory: negative: short of breath Cardiovascular: denies chest pain Gastrointestinal/Abdominal: negative: abdominal pain General Appearance: no apparent distress Respiratory: lungs clear, no respiratory distress Neurologic/Psychiatric: alert, oriented x 3 Skin Characteristics: warm/dry Assessment/Plan Resident Physician Supervision Note: I independently interviewed and examined the patient and verified the garcia history and physical, reviewed labs and image studies, discussed the case with the resident Dr. Spencer and agree with the findings and care plan. Time spent in discharge 35 min
== END 2018-04-02 14:59 | disposition home or self-care (01) | DRG 871 ==
LOC: C.EDB 16:50 → C.MED 22:53 → ENRESERV 23:08
PROVIDERS: ADMIT Hospitalist; ATTEND Family Medicine
DX: A41.51 Sepsis due to Escherichia coli [E. coli] (principal); N39.0 Urinary tract infection, site not specified; J81.0 Acute pulmonary edema; J96.01 Acute respiratory failure with hypoxia; N12 Tubulo-interstitial nephritis, not specified as acute or chronic; N17.9 Acute kidney failure, unspecified; J98.11 Atelectasis; R09.02 Hypoxemia; E86.0 Dehydration; K29.80 Duodenitis without bleeding; E83.42 Hypomagnesemia; E11.65 Type 2 diabetes mellitus with hyperglycemia; K59.00 Constipation, unspecified; N20.0 Calculus of kidney; K76.0 Fatty (change of) liver, not elsewhere classified; I10 Essential (primary) hypertension; E78.5 Hyperlipidemia, unspecified; E78.00 Pure hypercholesterolemia, unspecified; F41.9 Anxiety disorder, unspecified; F32.9 Major depressive disorder, single episode, unspecified; Z51.81 Encounter for therapeutic drug level monitoring; Z79.899 Other long term (current) drug therapy; Z79.4 Long term (current) use of insulin; Z83.3 Family history of diabetes mellitus; Z82.49 Family history of ischemic heart disease and other diseases of the circulatory system; Z84.89 Family history of other specified conditions

== ENCOUNTER → 2018-04-04 | Outpatient (CLI) | payer OTHER ==
[~2018-04-04] MED LIST changes: +ATOR-22 PO; -AZIT250T PO; +CPR500 PO; +DULA1INJ INJ; -HYDR-4313 PO; -INSHNI SC; -METF500T5 PO; +NVLNI SQ
[2018-04-04 17:15] LABS: HEMOGLOBIN 10.2 g/dL (12.0-16.0); MEAN CELL VOLUME 93.6 fL (80-100); MEAN CORPUSCULAR HEMOGLOBIN 29.8 pg (25-34); MEAN CORPUSCULAR HGB CONC 31.9 g/dl (32-36); MEAN PLATELET VOLUME 9.6 fL (7.4-10.4); NUCLEATED RED BLOOD CELL ABS 0.05 K/uL (0-0); PLATELET COUNT 344 K/uL (130-400); RED CELL DISTRIBUTION WIDTH CV 20.2 % (11.5-14.5); RED CELL DISTRIBUTION WIDTH SD 67.8 fL (36.4-46.3); WHITE BLOOD COUNT 13.67 K/uL (4.8-10.8)
== END | disposition home or self-care (01) ==
LOC: C.LABBFT 11:43
PROVIDERS: ATTEND Physician Assistant Medical
DX: D64.9 Anemia, unspecified (principal)

== ENCOUNTER → 2018-04-18 | Outpatient (CLI) | payer OTHER ==
[~2018-04-18] MED LIST changes: -ATOR10TA82 PO; -CPR500 PO; +OPTIRAY 320 IV PRN
--- NOTE | 2018-04-18 11:10 | DIAGNOSTIC IMAGING REPORT ---
ABDOMEN AND PELVIS CT WITH IV AND ORAL CONTRAST CT DOSE: 1035.94 mGycm HISTORY: Right lower quadrant abdominal pain. TECHNIQUE: Multiaxial CT images of the abdomen and pelvis were performed following the use of intravenous and oral contrast. A dose lowering technique was utilized adhering to the principles of ALARA. COMPARISON STUDY: Abdomen and pelvis CT 03/30/2018. FINDINGS: Mild interstitial thickening at the lung bases. The pleural effusions have resolved. No pneumoperitoneum. No pneumatosis. No suspicious lytic or blastic osseous lesions. Trace pericardial fluid which is also improved. Prior left L4-L5 hemilaminectomies. The thickening within the second portion of the duodenum has significantly improved. There is only mild wall thickening and minimal surrounding fat stranding remaining. No evidence for bowel obstruction. Gallbladder wall thickening and inflammatory change has resolved. The gallbladder appears to be normal. The spleen, adrenal glands, and pancreas are unremarkable. Mild hepatic steatosis. Mild bilateral cortical renal scarring. The kidneys enhance normally. Left-sided pyelonephritis has resolved by CT. No change in the 14 mm stone within the lower pole of the left kidney. There is also a punctate stone within the upper pole the left kidney. No hydronephrosis. Normal bladder, uterus, and ovaries. No pelvic free fluid. Colonic diverticulosis. The questioned foreign body within the cecum is no longer present. The appendix is not identified and reportedly surgically absent. No retroperitoneal lymphadenopathy. IMPRESSION: 1. Overall, significant improvement compared to the prior study. 2. Near complete resolution of the thickening involving the second portion of the duodenum. Therefore, this suggests a resolving duodenitis. However, endoscopy is recommended to exclude an underlying mass. 3. Left-sided nephrolithiasis. No hydronephrosis. 4. Colonic diverticulosis. 5. No evidence for bowel obstruction. 6. Trace pericardial effusion has improved. Bilateral pleural effusions have resolved. Electronically signed by: Cristobal Ambrose M.D. 04/18/2018 11:09 AM Dictated Date/Time: 04/18/2018 10:57 AM
== END | disposition home or self-care (01) ==
LOC: C.CTS 07:53
PROVIDERS: ATTEND Physician Assistant
DX: R10.31 Right lower quadrant pain (principal); R93.3 Abnormal findings on diagnostic imaging of other parts of digestive tract; N20.0 Calculus of kidney; K57.30 Diverticulosis of large intestine without perforation or abscess without bleeding

== ENCOUNTER → 2018-04-19 | Outpatient (CLI) | payer OTHER ==
[~2018-04-19] MED LIST changes: -OPTIRAY 320 IV PRN
[2018-04-19 13:58] LABS: BASO % 0.7 %; BASO ABS # 0.04 K/uL (0-0.2); EOS % 3.3 %; EOS ABS # 0.19 K/uL (0-0.5); HEMATOCRIT 35.6 % (37-47); HEMOGLOBIN 11.5 g/dL (12.0-16.0); IG# 0.04 K/uL (0.00-0.02); LYMPH % 35.1 %; LYMPH ABS # 2.02 K/uL (1.2-3.4); MEAN CELL VOLUME 92.5 fL (80-100); MEAN CORPUSCULAR HEMOGLOBIN 29.9 pg (25-34); MEAN CORPUSCULAR HGB CONC 32.3 g/dl (32-36); MEAN PLATELET VOLUME 10.2 fL (7.4-10.4); MONO % 11.7 %; MONO ABS # 0.67 K/uL (0.11-0.59); NEUT % 48.5 %; NEUT ABS # 2.79 K/uL (1.4-6.5); PLATELET COUNT 237 K/uL (130-400); RED CELL DISTRIBUTION WIDTH CV 18.6 % (11.5-14.5); RED CELL DISTRIBUTION WIDTH SD 62.6 fL (36.4-46.3); WHITE BLOOD COUNT 5.75 K/uL (4.8-10.8)
== END | disposition home or self-care (01) ==
LOC: C.LABPBG 08:09
PROVIDERS: ATTEND Physician Assistant Medical
DX: D64.9 Anemia, unspecified (principal)

== ENCOUNTER 2018-06-21 06:22 | Inpatient (IN) | payer OTHER ==
--- NOTE | 2018-06-05 13:07 | HISTORY & PHYSICAL EXAMINATION ---
DATE OF ADMISSION: 06/21/2018 CHIEF COMPLAINT: Left knee pain. HISTORY OF PRESENT ILLNESS: The patient is a 72-year-old female who presents for surgical treatment of her left knee primarily. She is referred by my partner Dr. Wiggins. She has a fairly long history of bilateral knee pain and discomfort, left side greater than the right. He has been putting shots in her knees that helped intermittently. This has become less successful over time. Left knee bothers her more than right. Pain is increased with weightbearing. The more she walks, the more it hurts. She would like to proceed with knee replacement surgery. PAST MEDICAL HISTORY: Significant for: 1. Diabetes. 2. Hypertension. 3. Elevated cholesterol. 4. Sleep apnea. 5. Anxiety/depression. 6. Low back pain/sciatica. 7. Obesity. 8. Kidney stones. PREVIOUS SURGERIES: Include: 1. Appendectomy. 2. Minor back surgery. ALLERGIES: None. CURRENT MEDICINES: 1. Atorvastatin 2. Insulin. 3. Benazepril 20 mg. 4. Citalopram 40 mg. 5. Hydrochlorothiazide 12.5 mg. 6. Diclofenac. 7. Trulicity. SOCIAL HISTORY: A 72-year-old female. She does not smoke. No significant alcohol intake. FAMILY HISTORY: Noncontributory. REVIEW OF SYSTEMS: Significant for diabetes. Denies any chest pain or shortness of breath. No history of DVT or PE. PHYSICAL EXAMINATION: GENERAL: Reveals a pleasant elderly female. Looks to be in reasonably good health. HEENT: Benign. NECK: Supple. No lymphadenopathy. LUNGS: Clear to auscultation. HEART: Regular rate and rhythm. ABDOMEN: Soft, nontender, nondistended. EXTREMITIES: Grossly neurovascularly intact except as follows: Examination of the left knee reveals the patient who ambulates independently. Fairly thin soft tissue envelope. She has varus alignment to her knee. She is tender over her medial joint line. She has got bony hypertrophy medially. Range of motion is 5-10 degrees, show full extension to 120 degrees of flexion. No instability. No real pain with hip motion. X-RAYS: X-rays of the left knee reviewed. Shows advanced left knee DJD. She has complete loss of medial joint space. She had osteophytes off the medial femoral condyle and medial tibial plateau. ASSESSMENT: A 72-year-old female with diabetes and advanced bilateral knee DJD, left side more symptomatic than right. She has failed conservative treatment and would like to have her left knee replaced. PLAN: We will take her to the operating room and do a left total knee replacement. The risks and benefits of this procedure were explained to the patient including but not limited to DVT, PE, , infection, neurological injury, vascular injury, bleeding problem, pain, limited range of motion, stiffness, failure to relieve symptoms, incomplete relief of symptoms, need for further surgery in future, fracture, leg length inequality, nerve palsy, etc. The patient understands and desires to proceed. Informed consent was obtained. We did talk about holding her benazepril the morning of surgery and stopping diclofenac. She does live by herself and she will likely need to go to a care home facility or rehab. Her daughter lives next door, but I think it would be best for her to go to a care home facility or rehab if possible where she can qualify. Her creatinine is elevated, so we are going to have to be careful with NSAIDs use. Her hemoglobin A1c is relatively high as well and we will use a sliding scale insulin coverage. JENNIFERD
[2018-06-07 08:26] VITALS: BMI 33.0
--- NOTE | 2018-06-08 10:49 | PAT Medication Instructions ---
Service Date Jun 08, 2018. Current Home Medication List Acetaminophen (Sb Non-Aspirin Extra Stre), 1,000 MG PO Q8H Atorvastatin (Lipitor), 20 MG PO QPM Benazepril Hcl (Lotensin), 20 MG PO BID Citalopram (Citalopram Hydrobromide), 40 MG PO QPM Dulaglutide (Trulicity), 0.75 MG INJ WK Ferrous Gluconate (Ferrous Gluconate), 324 MG PO BIDM Hydrochlorothiazide (Hydrochlorothiazide), 12.5 MG PO BID Hydromorphone Hcl (Dilaudid), 2 MG PO Q4H Insulin Human Lispro (Humalog Kwikpen), 20 UNITS SC DAILYBB Insulin Human NPH (Novolin N), 40-50 UNITS SQ QPM Insulin Lispro (Human) (Humalog Kwikpen), 25 UNITS SC DAILYBD Pantoprazole (Protonix), 40 MG PO QAM Rivaroxaban (Xarelto), 10 MG PO Q24H Medication Instructions For Your Scheduled Surgery - Continue as directed: Dulaglutide (Trulicity), 0.75 MG INJ WK - Hold the following medications the morning of surgery: Benazepril Hcl (Lotensin), 20 MG PO BID Hydrochlorothiazide (Hydrochlorothiazide), 12.5 MG PO BID Insulin Human Lispro (Humalog Kwikpen), 20 UNITS SC DAILYBB - Take the following medications the morning of surgery with a sip of water: Pantoprazole (Protonix), 40 MG PO QAM Hydrocodone/Acetaminophen 5MG/325MG (Tarrs 5MG/325MG), 1 TAB PO BID PRN for Pain (okay to take up to 4 hours prior to surgery if needed) - Take the following medications as scheduled the night before surgery: Benazepril Hcl (Lotensin), 20 MG PO BID Insulin Human NPH (Novolin N), 40-50 UNITS SQ QPM Insulin Lispro (Human) (Humalog Kwikpen), 25 UNITS SC DAILYBD Hydrocodone/Acetaminophen 5MG/325MG (Tarrs 5MG/325MG), 1 TAB PO BID PRN for Pain (if needed) Hydrochlorothiazide (Hydrochlorothiazide), 12.5 MG PO BID Citalopram (Citalopram Hydrobromide), 40 MG PO QPM Atorvastatin (Lipitor), 20 MG PO QPM If you have any questions please call us at [phone] or [phone] or [phone]
--- NOTE | 2018-06-08 11:36 | DIAGNOSTIC IMAGING REPORT ---
CHEST 2 VIEWS ROUTINE CLINICAL HISTORY: Preoperative chest COMPARISON STUDY: 03/31/2018 FINDINGS: The heart is borderline enlarged. There is aortic tortuosity/ectasia. There is no failure. There is no focal pulmonary consolidation. There are no pleural effusions. There is borderline elevation right hemidiaphragm.[ IMPRESSION: No active disease in the chest. Electronically signed by: Augustin Gutierrez M.D. 06/08/2018 11:34 AM Dictated Date/Time: 06/08/2018 11:34 AM
[2018-06-08 12:23] LABS: PTT PATIENT 23.8 SECONDS (21.0-31.0)
[~2018-06-21] VITALS: Ht 160 cm; Wt 84.5 kg
[2018-06-21] VITALS (9 sets, daily range): BP systolic 107–138; BP diastolic 65–85; PULSE 65–78; TEMP 36.5–37.2; O2SAT 88–99; Ht 160 cm; Wt 84.5 kg
[~2018-06-21 06:22] MED LIST changes: +ACETAMINOPHEN 500 MG TAB PO SCH; +BUPIVACAINE LIPOSOME 266 MG, BUPIVACAINE/EPINEPHRINE INJ 50 ML, SODIUM CHLORIDE 0.9% PF... INFIL SCH; +CEFAZOLIN 2000MG IV PUSH 15 ML IV SCH; +FAMOTIDINE 20 MG TAB PO SCH; +GABAPENTIN 300 MG CAP PO SCH; +HYDR-5688 PO; +LACTATED RINGER'S 1000ML 1,000 ML IV SCH; +LACTATED RINGER'S 1000ML 500 ML IV SCH; +LACTATED RINGER'S 1000ML IV SCH; +METOCLOPRAMIDE HCL 10 MG TAB PO SCH; +PANT40TA PO; -VLT/75 PO
[2018-06-21] MEDS ORDERED: BUPIVACAINE 0.5 % 5 MG/1 ML PF 10ML VIAL ONE (06:36)
[2018-06-21] MEDS ORDERED: ROPIVACAINE 0.5% 5 MG/ML 30 ML VIAL ONE (06:36)
--- NOTE | 2018-06-21 06:49 | History & Physical Bridge Note ---
H&P Re-Evaluation Bridge Note: I have examined the patient, reviewed the History & Physical and in the interval since the performance of the History & Physical I have noted the following changes of clinical significance: No changes noted
[2018-06-21] MEDS ORDERED: FENTANYL CITRATE INJ 50 MCG/1 ML 2 ML VIAL ONE (08:24)
[2018-06-21] MEDS ORDERED: MIDAZOLAM HCL 1 MG/ML 2ML VIAL ONE (08:24)
[2018-06-21] MEDS ORDERED: SODIUM CHLORIDE 0.9% PF 50 ML VIAL ONE (09:39)
[2018-06-21] MEDS ORDERED: BACITRACIN 50000 UNIT VIAL ONE (09:40)
[2018-06-21] MEDS ORDERED: BUPIVACAINE LIPOSOME 1/3% 266 MG/20 ML VIAL ONE (09:40)
[2018-06-21] MEDS ORDERED: BUPIVACAINE 0.25% 30 ML VIAL ONE ×2 (09:50→09:53)
[2018-06-21] MEDS ORDERED: EpINEphrine INJ 1MG/ML AMP 1 MG/ML AMP ONE (09:50)
[2018-06-21] MEDS ORDERED: TRANEXAMIC ACID INJ 1,000 MG x 1 Bag Intra-Op IV SCH ×2 (10:15)
[2018-06-21] MEDS ORDERED: ONDANSETRON INJ 2 MG/ML 2 ML VIAL ONE (10:26)
[2018-06-21] MEDS ORDERED: LIDOCAINE HCL 2% 2 ML VIAL (20MG/ML) ONE (10:26)
[2018-06-21] MEDS ORDERED: PROPOFOL IV EMULSION 10 MG/ML 20 ML VIAL ONE (10:26)
[2018-06-21] MEDS ORDERED: EpHEDrine SULFATE INJ 50 MG/ML AMP IV PRN (11:15)
[2018-06-21] MEDS ORDERED: HYDROmorphone INJ 0.5 MG/0.5 ML SYR IV PRN (11:15)
[2018-06-21] MEDS ORDERED: ATROPINE SULFATE 0.1 MG/ML 5ML SYR IV PRN (11:15)
[2018-06-21] MEDS ORDERED: ONDANSETRON INJ 2 MG/ML 2 ML VIAL IV PRN ×2 (11:15→11:30)
[2018-06-21] MEDS ORDERED: PHENYLEPHRINE 100MCG/ML 5ML SYR IV PRN (11:15)
--- NOTE | 2018-06-21 11:29 | [facility] Post Operative Brief Note ---
Immediate Operative Summary Operative Date Jun 21, 2018. Pre-Operative Diagnosis Degenerative Joint Disease Left Knee Post-Operative Diagnosis Degenerative Joint Disease Left Knee Procedure(s) Performed Left Total Knee Arthroplasty Surgeon General Merchandise Manager Surgeon(s) DEYANIRA Meyers Estimated Blood Loss 50 ml Findings Consistent with Post-Op Diagnosis Fluids (cc crystalloids) 1800 cc Specimens A. left knee bone and tissue Drains None Complication(s) none Disposition Accompanied Pt To Recover: no Overlapping Procedure I was present for: the critical portions of procedure. I was immediately available: during the entire case
[2018-06-21] MEDS ORDERED: SILVER SULFADIAZINE 1% CR 50 GM JAR EXT PRN (11:30)
[2018-06-21] MEDS ORDERED: BISACODYL 10 MG SUPP PR PRN (11:30)
[2018-06-21] MEDS ORDERED: ALUMINUM/MAGNESIUM/SIMETH (MAALOX MAX) 30 ML UDC PO PRN (11:30)
[2018-06-21] MEDS ORDERED: DEXTROSE 50% 50 ML SYR IV PRN (11:30)
[2018-06-21] MEDS ORDERED: GLUCOSE 40% GEL 15 GM TUBE PO PRN (11:30)
[2018-06-21] MEDS ORDERED: CARBOHYDRATES FOR HYPOGLYCEMIA PO PRN (11:30)
[2018-06-21] MEDS ORDERED: METOCLOPRAMIDE HCL INJ 5 MG/ML 2 ML VIAL IV PRN (11:30)
[2018-06-21] MEDS ORDERED: NON-FORMULARY MEDICATION (Dulaglutide (Trulicity) 0.75 MG) INJ SCH (11:30)
[2018-06-21] MEDS ORDERED: MAGNESIUM HYDROXIDE SUSP 30 ML UDC PO PRN (11:30)
[2018-06-21] MEDS ORDERED: GLUCAGON FOR INJ 1 MG VIAL SQ PRN (11:30)
[2018-06-21] MEDS ORDERED: GLUCOSE 10 TABS/TUBE PO PRN (11:30)
[2018-06-21] MEDS ORDERED: ZOLPIDEM TARTRATE 5 MG TAB PO PRN (11:30)
--- NOTE | 2018-06-21 11:55 | DIAGNOSTIC IMAGING REPORT ---
L KNEE 1 OR 2 VIEWS ROUTINE HISTORY: 73 years-old Female AP/LATERAL IN PACU LEFT KNEE left knee total joint arthroplasty. Degenerative joint disease COMPARISON: Left knee radiographs 06/10/2018 TECHNIQUE: 2 views of the left knee FINDINGS: Left knee total joint arthroplasty with patellar resurfacing. Alignment is satisfactory without acute fracture or retained foreign body. Anterior midline skin sapphire are noted along with postsurgical soft tissue swelling and deep tissue air. Drainage catheter is noted. IMPRESSION: Left knee total joint arthroplasty and patella resurfacing with satisfactory alignment. The above report was generated using voice recognition software. It may contain grammatical, syntax or spelling errors. Electronically signed by: Dimitry Jain M.D. 06/21/2018 11:54 AM Dictated Date/Time: 06/21/2018 11:53 AM
--- NOTE | 2018-06-21 12:07 | Anesthesiology Progress Note ---
Anesthesia Post Op Note Date & Time Jun 21, 2018 at 12:06 Vital Signs Pain Intensity: 0 Vital Signs Past 12 Hours Date Time Temp Pulse Resp B/P (MAP) Pulse Ox O2 Delivery O2 Flow Rate FiO2 06/21/18 11:57 72 15 95 06/21/18 11:57 68 15 06/21/18 11:56 96/65 06/21/18 11:52 76 12 95 06/21/18 11:52 66 12 06/21/18 11:51 111/63 06/21/18 11:47 67 15 99 06/21/18 11:47 68 15 06/21/18 11:46 108/62 06/21/18 11:45 66 15 06/21/18 11:45 67 15 98 06/21/18 11:41 101/64 06/21/18 11:40 91 18 97 06/21/18 11:40 72 18 06/21/18 11:39 109/63 06/21/18 11:35 37.2 72 16 102/59 94 Oxymask 10 06/21/18 06:55 36.9 67 20 138/85 98 Room Air Notes Mental Status: alert / awake / arousable, participated in evaluation Pt Amnestic to Procedure: Yes Nausea / Vomiting: adequately controlled Pain: adequately controlled Airway Patency, RR, SpO2: stable & adequate BP & HR: stable & adequate Hydration State: stable & adequate Anesthetic Complications: no major complications apparent
[2018-06-21] MEDS ORDERED: PHARMACY GLYCEMIC MGMT CONSULT PRN (12:36)
[2018-06-21] MEDS: SODIUM CHLORIDE 0.9% 1000ML 1,000 ML IV SCH ×2 (12:54→21:18)
[2018-06-21] MEDS: FERROUS GLUCONATE 324 MG TAB PO SCH ×2 (13:10→17:59)
[2018-06-21] MEDS: ACETAMINOPHEN 500 MG TAB PO SCH ×2 (13:11→21:18)
[2018-06-21] MEDS: KETOROLAC TROMETHAMINE 15 MG/ML VIAL IV. SCH ×2 (13:11→19:21)
--- NOTE | 2018-06-21 14:03 | OPERATIVE REPORT ---
DATE OF OPERATION: 06/21/2018 SURGEON: Toy Carrasco MD SENIOR HADOOP DEVELOPER: DEYANIRA Selby PREOPERATIVE DIAGNOSIS: Left knee degenerative joint disease. POSTOPERATIVE DIAGNOSIS: Left knee degenerative joint disease PROCEDURE PERFORMED: Left cemented posterior stabilized total knee arthroplasty. COMPLICATIONS: None. ESTIMATED BLOOD LOSS: 50 mL. FLUID REPLACEMENT: 1800 mL crystalloid fluid replacement. TOURNIQUET TIME: 51 minutes at 300 mmHg. ANESTHESIA: Spinal with adductor canal block. DRAINS: None. SPECIMENS: Left knee sent for pathology. OPERATIVE INDICATIONS: Patient is a 73-year-old female who has had a long history of bilateral knee pain and discomfort, left side greater than the right. She has been through extensive conservative treatment provided by my partner Dr. Wiggins. This became less successful over time. Her knee is really limiting her activities and she elected to proceed with left total knee arthroplasty. OPERATIVE FINDINGS: Operative findings revealed advanced left knee DJD. She had grade 4 [id number] disease of the medial femoral condyle and medial tibial plateau with significant posterior osteophytes. She had a fixed varus deformity to her knee and a 10-degree flexion contracture. She had a moderate sized joint effusion. OPERATIVE IMPLANTS: Operative implants consisted of: 1. Biomet Vanguard size 65 left posterior stabilized femoral component. 2. Biomet size 71 tibial tray. 3. A 10 mm posterior stabilized polyethylene insert. 4. A 31 x 8 all poly patella. OPERATIVE PROCEDURE: Patient was taken to the operating room, identified and placed on the operating table in supine position. All contact areas were appropriately padded. IV antibiotics provided by anesthesia team. A spinal anesthetic and adductor canal block had been provided in the holding area. Cross catheter was placed in a sterile fashion. The left thigh tourniquet was then placed and left lower extremity was then prepped and draped in usual sterile fashion. Left leg was elevated and exsanguinated with an Esmarch and tourniquet placed at 300 mmHg. An anterior approach of the left knee was then performed through a longitudinal incision centered over the patella. Sharp dissection was carried through subcutaneous tissue down to the level of the extensor mechanism. A medial parapatellar arthrotomy incision was made. Some subperiosteal dissection was carried out medially. I did pretty extensive medial and posteromedial dissection due to her flexion contracture and a fixed varus deformity. The ACL and PCL released from the distal femur. The patella was everted. The knee was flexed. The osteophytes were taken off the distal femur. The ACL and PCL were then released from the distal femur and the tibia subluxated anteriorly. The external tibial alignment jig was then placed in the anterior face of the tibia and adjusted 14 mm medially. Proximal tibial cut was made to remove about a millimeter of bone from the most deficient aspect of the medial tibial plateau. Some osteophytes were taken off medial and posteromedially. Tibia sized to a size 71. Attention was then drawn to the femur. The distal femur was entered with a sharp drill. Intramedullary canal was suctioned. A left 5 degree valgus cutting guide was placed. Distal femoral cutting block was pinned in place. Distal femoral cut was made to take an additional 3 mm of bone off the distal femur. The femur was then sized and downsized to a size 65. The AP cutting block was pinned parallel to the epicondylar axis, which was 5 degrees of external rotation. The anterior cut, anterior chamfer cut, posterior cut, posterior chamfer cuts were made. Box cutting guide was placed and adjusted slightly lateral and the box cut was made. The knee was flexed. The remnants of the medial and lateral menisci were excised. The osteophytes were taken off the posterior aspect of the femur. Trial femoral component was placed. Tibial tray was pinned in maximum external rotation and drill and stem punch were used to create defect in proximal tibia for the tibial tray. The knee was then trialed and a 10 mm insert fit most appropriately. Attention was then drawn to the patella. The patella was cleaned of all soft tissues. Patella thickness measured 21 mm in thickness, cut down to 14. It was sized to a size 31 patella. Lug holes were drilled for a 31 patella. Lateral osteophyte was removed. Patella button was placed. Knee was taken through range of motion and patella tracked nicely with no thumbs test. Attention was then drawn toward placement of permanent components. All trial components were removed. A bone plug was placed in the distal femur to limit blood loss. A double batch of Palacos G cement was mixed. A Biomet Vanguard size 65 left posterior stabilized femoral component, size 71 tibial tray, 10 mm posterior stabilized polyethylene insert, and a 31 x 8 all poly patella then cemented in place. Knee was brought into full extension until cement hardened. A final cement check was then performed. Pericapsular tissues were injected with a total of 100 mL of combination of 20 mL of Exparel, 30 mL of normal saline, 50 mL of 0.25% Marcaine with epinephrine. Patient did receive 1 gram of tranexamic acid. The tourniquet was then let down for final tourniquet time of 51 minutes. Hemostasis was assured with use of electrocautery. The extensor mechanism was then closed with combination of #1 PDS suture and #1 Vicryl suture in a [id number] fashion. Extensor mechanism was checked and found to be intact. The subcutaneous tissues were then closed with #2 Dexon suture in a buried interrupted fashion. Skin was closed with skin sapphire. Leg was then cleaned and dried and a sterile dressing of Xeroform, 4 x 4, sterile cast padding and Sebastian bandage were applied. The patient then transferred to the recovery room in stable condition. The patient tolerated the procedure well with no complications. All needle and sponge counts were correct at the end of the operation. I attest to the content of the Intraoperative Record and any orders documented therein. Any exception s are noted below.
[2018-06-21] MEDS: INSULIN ASPART 100 UNITS/ML 3 ML PEN SC SCH ×4 (14:09→23:56)
--- NOTE | 2018-06-21 14:17 | Pharmacy Progress Note ---
Glycemic Control Intl Consult Date of Service Jun 21, 2018. Scope Glycemic Pharmacist consulted by Dr Carrasco on 06/21/18 for glycemic control and to write orders per [facility] inpatient glycemic control protocol Objective Weight (Kilograms): 84.550 Accuchecks BSG (last 24hrs): Test 06/21/18 06:46 06/21/18 11:38 06/21/18 12:49 Bedside Glucose 125 mg/dl (70-90) 91 mg/dl (70-90) 84 mg/dl (70-90) Recent Pertinent Medications Outpatient Anti-diabetic Regimen: * Trulicity .75mg QW, Humalog 20units BB & 25units BD, NPH 40units HS * A1c = 7.9 % 05/11/18 Risk Factors for Insulin Resistance: * Recent Surgery: POD: 0 Assessment & Plan ASSESSMENT: * Ms. Smith is a 73yo F s/p L TKA. BSGs after surgery look good, 91 & 84mg/dL. No post-operative steroids ordered at this point. I spoke with the pt myself, she hasn't received any insulin SUSTAINABILITY COORDINATOR. PLAN FOR INPATIENT GLYCEMIC CONTROL: * Holding outpatient oral diabetes medications * Basal insulin with NPH: Will continue with outpt metabolic coverage for ease at d/c. Will set scheduled NPH scale for HS: 30,35,40 units per order * Correctional Insulin with NOVOLOG / REGULAR per scale ACHS * Goal Range: Low 110 mg/dL - High 140 mg/dL * Correction Factor: 30 mg/dL/unit * Nutritional / Prandial insulin per carb ratio of 1 unit per 9 grams CHO consumed * adding 00,04 checks to ensure euglycemia s/p L TKA * Please note that the plan above was derived based on current level of insulin resistance and hospital stress. These recommendations are appropriate for inpatient admission only. Plan of care upon discharge will need to be reassessed to avoid potential outpatient hypo/hyperglycemia. Thank you.
[2018-06-21] MEDS ORDERED: INSULIN ASPART 100 UNITS/ML 3 ML PEN SC SCH (16:00)
[2018-06-21] MEDS ORDERED: INSULIN HUMAN REGULAR SC SCH (16:00)
[2018-06-21] MEDS: TRAMADOL HCL 50 MG TAB PO PRN (16:51)
[2018-06-21] MEDS ORDERED: TRANEXAMIC ACID INJ 1,000 MG in SODIUM CHLORIDE 0.9% 100ML 100 ML IV SCH (17:30)
[2018-06-21] MEDS: CEFAZOLIN IV 2,000 MG in SYRINGE 0 ML IV SCH (17:58)
[2018-06-21] MEDS: CITALOPRAM 40 MG TAB PO SCH (21:17)
[2018-06-21] MEDS: ATORVASTATIN 20 MG TAB PO SCH (21:17)
[2018-06-21] MEDS: DOCUSATE SODIUM 100 MG CAP PO SCH (21:17)
[2018-06-21] MEDS: SENNA 8.6 MG TAB PO SCH (21:17)
[2018-06-21] MEDS: HYDROCHLOROTHIAZIDE 25 MG TAB PO SCH (21:17)
[2018-06-21] MEDS: ENALAPRIL MALEATE 10 MG TAB PO SCH (21:18)
[2018-06-21] MEDS: INSULIN HUMAN NPH SC SCH (21:27)
[2018-06-22] VITALS: O2SAT 92
[2018-06-22] MEDS: CEFAZOLIN IV 2,000 MG in SYRINGE 0 ML IV SCH (02:19)
[2018-06-22] MEDS: KETOROLAC TROMETHAMINE 15 MG/ML VIAL IV. SCH ×2 (02:19→07:32)
[2018-06-22 03:49] VITALS: BP 129/87; PULSE 75; TEMP 37.1; O2SAT 92
[2018-06-22] MEDS: INSULIN ASPART 100 UNITS/ML 3 ML PEN SC SCH ×5 (04:00→21:52)
[2018-06-22 05:51] LABS: HEMOGLOBIN 8.9 g/dL (12.0-16.0); MEAN CELL VOLUME 87.5 fL (80-100); MEAN CORPUSCULAR HEMOGLOBIN 27.8 pg (25-34); MEAN CORPUSCULAR HGB CONC 31.8 g/dl (32-36); MEAN PLATELET VOLUME 9.3 fL (7.4-10.4); PLATELET COUNT 202 K/uL (130-400); RED CELL DISTRIBUTION WIDTH CV 18.2 % (11.5-14.5); RED CELL DISTRIBUTION WIDTH SD 57.3 fL (36.4-46.3); WHITE BLOOD COUNT 6.24 K/uL (4.8-10.8)
[2018-06-22] MEDS: ACETAMINOPHEN 500 MG TAB PO SCH ×3 (05:57→21:57)
[2018-06-22] MEDS: SODIUM CHLORIDE 0.9% 1000ML 1,000 ML IV SCH (06:01)
[2018-06-22 06:22] LABS: CALCIUM 7.9 mg/dl (8.5-10.1); CREATININE 1.2 mg/dl (0.60-1.20); POTASSIUM 3.3 mmol/L (3.5-5.1)
[2018-06-22 06:26] LABS: HEMOGLOBIN A1C 8.8 % (4.5-5.6)
[2018-06-22 06:34] VITALS: BP 119/76; PULSE 71; TEMP 37.3; O2SAT 94
--- NOTE | 2018-06-22 07:19 | Anesthesiology Progress Note ---
Anesthesia Post Op Note Date & Time Jun 22, 2018 at 07:18 Vital Signs Pain Intensity: 4.0 Vital Signs Past 12 Hours Date Time Temp Pulse Resp B/P (MAP) Pulse Ox O2 Delivery O2 Flow Rate FiO2 06/22/18 06:34 37.3 71 17 119/76 (90) 94 Nasal Cannula 2.0 06/22/18 03:49 37.1 75 16 129/87 (101) 92 Room Air 06/22/18 00:00 92 Nasal Cannula 2.0 06/21/18 23:57 37.2 78 18 113/73 (86) 88 Room Air 06/21/18 21:13 72 116/73 (87) 06/21/18 19:25 Room Air Notes Mental Status: alert / awake / arousable, participated in evaluation Pt Amnestic to Procedure: Yes Nausea / Vomiting: adequately controlled Pain: adequately controlled Airway Patency, RR, SpO2: stable & adequate BP & HR: stable & adequate Hydration State: stable & adequate Neuraxial Anesthesia: sensory block resolved Anesthetic Complications: no major complications apparent
[2018-06-22] MEDS ORDERED: POTASSIUM CHLORIDE 20 MEQ TABCR PO ONE ×2 (07:45→16:00)
--- NOTE | 2018-06-22 08:02 | PROGRESS NOTE ---
DATE: 06/22/2018 SUBJECTIVE: A 73-year-old white female postop day 1 from a left knee replacement. Pretty painful this morning. A little more than what she expected. Otherwise, no chest pain no shortness of breath. Not feeling dizzy or lightheaded. OBJECTIVE: VITAL SIGNS: Temperature is 37.7. Vital signs stable. PHYSICAL EXAMINATION: GENERAL: Reveals a pleasant elderly female. She was standing in the bathroom washing up this morning. LUNGS: Clear to auscultation. HEART: Has a regular rate and rhythm. ABDOMEN: Soft, nontender, nondistended. EXTREMITIES: Grossly neurovascularly intact except as follows: Examination of the left leg reveals the dressing to be clean, dry and intact. She can dorsiflex and plantarflex her foot appropriately. She is neurologically intact. LABORATORY DATA: Hemoglobin 8.9. Hematocrit 28.0. Electrolytes are stable. Potassium slightly low at 3.3. ASSESSMENT: A 73-year-old white female postoperative day 1 from a left knee replacement, doing pretty well. Some moderate amount of pain which is to be expected. She is anemic, but without symptomatic symptoms. PLAN: 1. DVT prophylaxis including thigh-high TEDs, SCDs, and she is on Xarelto given an inability to take aspirin. 2. PT/OT. Weightbear as tolerated. Left total knee protocol. 3. Pain control. Doing pretty well with current pain regimen. 4. Anemia. Will continue iron supplementation. 5. Hypokalemia. Will supplement her potassium. 6. Disposition: She is not concerning discharge to a rehab versus senior living facility as she lives by herself and I think that would be in her best interest if she qualifies.
[2018-06-22] MEDS: MULTIVITAMIN TAB PO SCH (08:50)
[2018-06-22] MEDS: ENALAPRIL MALEATE 10 MG TAB PO SCH ×2 (08:50→21:46)
[2018-06-22] MEDS: HYDROCHLOROTHIAZIDE 25 MG TAB PO SCH ×2 (08:51→21:47)
[2018-06-22] MEDS: DOCUSATE SODIUM 100 MG CAP PO SCH ×2 (08:52→21:46)
[2018-06-22] MEDS: FERROUS GLUCONATE 324 MG TAB PO SCH ×3 (08:52→18:26)
[2018-06-22] MEDS: PANTOprazole SOD 40 MG TAB PO SCH (08:52)
[2018-06-22] MEDS ORDERED: PANTOprazole SOD 40 MG TAB PO SCH (09:00)
[2018-06-22] MEDS: TRAMADOL HCL 50 MG TAB PO PRN ×4 (10:50→21:45)
[2018-06-22 11:06] VITALS: BP 117/72; PULSE 73; TEMP 36.9; O2SAT 97
[2018-06-22] MEDS: RIVAROXABAN 10 MG TAB PO SCH (12:16)
[2018-06-22] MEDS: HYDROmorphone INJ 0.5 MG/0.5 ML SYR IV PRN ×4 (13:07→23:23)
[2018-06-22 16:03] VITALS: BP 129/76; PULSE 84; TEMP 37.5; O2SAT 93
[2018-06-22] MEDS: ATORVASTATIN 20 MG TAB PO SCH (21:46)
[2018-06-22] MEDS: CITALOPRAM 40 MG TAB PO SCH (21:46)
[2018-06-22] MEDS: SENNA 8.6 MG TAB PO SCH (21:47)
[2018-06-22] MEDS: INSULIN HUMAN NPH SC SCH (21:53)
[2018-06-22 23:03] VITALS: BP 120/70; PULSE 95; TEMP 36.7; O2SAT 93
[2018-06-23] MEDS: TRAMADOL HCL 50 MG TAB PO PRN ×3 (02:26→11:47)
[2018-06-23 05:10] LABS: HEMATOCRIT 28.5 % (37-47)
[2018-06-23] MEDS: HYDROmorphone INJ 0.5 MG/0.5 ML SYR IV PRN (05:29)
[2018-06-23] MEDS: ACETAMINOPHEN 500 MG TAB PO SCH ×2 (05:52→13:32)
[2018-06-23 05:58] VITALS: BP 113/71; PULSE 85; TEMP 36.9; O2SAT 96
[2018-06-23] MEDS ORDERED: XRL10 PO (08:08)
[2018-06-23] MEDS ORDERED: FRRG PO (08:08)
[2018-06-23] MEDS ORDERED: HYDR2TAB48 PO (08:08)
[2018-06-23] MEDS ORDERED: ACET-24 PO (08:08)
--- NOTE | 2018-06-23 08:10 | Discharge Instructions ---
Discharge Instructions Date of Service Jun 23, 2018. Admission Reason for Admission: Left Knee Degenerative Joint Disease Discharge Discharge Diagnosis / Problem: Left Knee Replacement Discharge Goals Goal(s): Decrease discomfort, Improve function, Increase independence, Improve disease control, Therapeutic intervention Activity Recommendations Activity Level: Assistance Required Therapies: Physical Therapy, Occupational Therapy Weightbearing Status: Left weightbearing . Additional Information Patient informed of condition: Yes Advance Directives: No DNR: No Level of Care: Acute Rehab Communicable Disease: No Prognosis: Improving Instructions / Follow-Up Instructions / Follow-Up ACTIVITY RECOMMENDATIONS: Physical Therapy: * You will go to physical therapy three times each week for four to six weeks after your surgery in order to regain your knee range of motion and to retrain your knee to work properly. * It is just as important to make sure you are getting your knee perfectly straight as it is to regain your knee bend. * Taking a pain pill an hour before therapy can help you have a more productive and comfortable therapy session. Home Exercise: * You were shown a series of exercises (heel props, heel slides, etc.) in the hospital. Do these exercises three to four times each day including the exercises you were shown in physical therapy. Walking: * Get up and walk several times each day. For the first four weeks, try not to stand or walk for more than one hour at a time. If you do stand or walk for more than one hour, you will not hurt anything, but your knee and leg will likely swell. * As you feel comfortable, you may change from the walker or crutches to a cane and then to independent walking. MEDICATIONS: New Medicine: * You will likely be taking one or more of these medications: 1. Dilaudid - A quick and shorter-acting pain medication. Take one to two tablets every four to six hours to lessen your pain. 2. Iron Sulfate - Take two times each day for the month after surgery to help you replace the blood lost during surgery. 3. Aspirin - Thins your blood to lessen the chance of forming a blood clot. * The most common side effects of pain medicine and iron are nausea and constipation. If nausea or constipation is too much of a problem or if you have any questions about your new medicines or doses, call [facility] at . We will try to help you manage these issues. VERY IMPORTANT TO READ AND REVIEW" Pain: * The immediate post-operative period after knee replacement surgery is often quite painful. * You are given a prescription for pain medicine. You should take it, as directed, when you need it, especially before physical therapy and before going to bed. Pain that interferes with sleep is very common and can last several months. * You will likely need pain medicine for the first four to six weeks. It will not stop all of the pain. The pain will lessen and as you feel better, you may change to milder pain medicine such as Tylenol. * The most common side effects of pain medicine are nausea and constipation, so don't take more than you need. SPECIAL CARE INSTRUCTIONS: TEDs/Elastic Stockings: * The white elastic stockings help limit swelling and prevent blood clots from forming in your legs. The more you wear them, the more they work. * Wear them for six weeks after knee replacement surgery and four weeks after partial knee replacement. Prevention of Infection: * Take antibiotics one hour before any dental cleaning, dental work, urological procedure, gastrointestinal procedure or any invasive surgery in order to prevent your new joint from getting infected. * You may get the antibiotics from the doctor performing the procedure or you may call our office at before and we will call in a prescription to the pharmacy of your choice. Things to Watch For: * Drainage from the incision site that occurs more than one week after your surgery. * Severely increased knee/leg pain or swelling. * Increased redness at the incision site. * Fever above 102 degrees Fahrenheit. * Unusual chest pain or shortness of breath. * Unusual pain or burning with urination. Call [facility] at with any of the above problems or if you have any questions about your medicines or recovery. FOLLOW UP VISIT: Make an appointment to see your doctor for approximately two weeks after surgery for a progress check and staple removal by calling the office at . Current Hospital Diet Patient's current hospital diet: Diabetes Type 2 Diet Discharge Diet Recommended Diet: Diabetes Type 2 Diet Procedures Procedures Performed: Left Total Knee Arthroplasty Pending Studies Studies pending at discharge: no Laboratory Results Hemoglobin A1c Test 06/22/18 05:08 Range/Units Estimated Average Glucose 206 mg/dl Hemoglobin A1c 8.8 H 4.5-5.6 % Lipid Panel Test 05/11/18 09:07 Range/Units Triglycerides Level 219 H 0-150 mg/dl Cholesterol Level 133 0-200 mg/dl HDL Cholesterol 34 mg/dl Cholesterol/HDL Ratio 3.9 LDL Cholesterol, Calculated 55 mg/dl Medical Emergencies . Who to Call and When: Medical Emergencies: If at any time you feel your situation is an emergency, please call 911 immediately. . Non-Emergent Contact Non-Emergency issues call your: Surgeon . . "Provider Documentation" section prepared by Toy Carrasco. . Core Measure Problem Core Measures: None
[2018-06-23] MEDS ORDERED: HYDROmorphone HCL 2 MG TAB PO PRN (08:15)
--- NOTE | 2018-06-23 08:50 | PROGRESS NOTE ---
DATE: 06/23/2018 SUBJECTIVE: A 73-year-old white female postop day 2 from a left knee replacement. She is doing okay. Having more pain than what she expected. Seems to do best with the Dilaudid. No chest pain or shortness of breath. Not feeling dizzy or lightheaded. OBJECTIVE: VITAL SIGNS: Temperature 36.9. Vital signs stable. GENERAL: Physical examination reveals a pleasant, middle-aged female. She is sitting up in her bedside chair. She looks pretty comfortable. EXTREMITIES: Examination of left leg reveals the dressing to be clean, dry and intact. No significant drainage. Calf is soft and supple. She is neurologically intact. LABORATORY DATA: Hemoglobin 9.0. Hematocrit 28.5. Her potassium improved at 4.7. ASSESSMENT: A 73-year-old white female postop day 2 from a left knee replacement, doing reasonably well. A little bit more pain than what she expected, but not out of the ordinary by any sense. She looks pretty comfortable. She does best with the Dilaudid. PLAN: 1. DVT prophylaxis including thigh-high TEDs, SCDs, and Xarelto for 1 month. 2. PT and OT. Weight bear as tolerated. Left total knee protocol. 3. Pain control. We are going to change her to p.o. Dilaudid as she seems to be doing better with that. 4. Disposition: She is hoping to be discharged to [facility] for a brief rehab stay.
[2018-06-23] MEDS: FERROUS GLUCONATE 324 MG TAB PO SCH ×2 (08:54→11:47)
[2018-06-23] MEDS: HYDROCHLOROTHIAZIDE 25 MG TAB PO SCH (08:55)
[2018-06-23] MEDS: MULTIVITAMIN TAB PO SCH (08:55)
[2018-06-23] MEDS: DOCUSATE SODIUM 100 MG CAP PO SCH (08:55)
[2018-06-23] MEDS: PANTOprazole SOD 40 MG TAB PO SCH (08:56)
[2018-06-23] MEDS: ENALAPRIL MALEATE 10 MG TAB PO SCH (08:56)
[2018-06-23] MEDS: INSULIN ASPART 100 UNITS/ML 3 ML PEN SC SCH ×2 (09:00→13:36)
[2018-06-23] MEDS: RIVAROXABAN 10 MG TAB PO SCH (11:42)
[2018-06-23 17:11] VITALS: BP 113/71; PULSE 85; TEMP 36.9; O2SAT 96
== END 2018-06-23 13:49 | DRG 470 ==
LOC: C.ACU 06:22 → C.3E 06:30 → ENRESERV 11:46 → CMPBEDREQ 12:28
PROVIDERS: ADMIT Orthopaedic Surgery Sports Medicine; ATTEND Orthopaedic Surgery Sports Medicine
PROC: 0SRD0J9 Replacement of Left Knee Joint with Synthetic Substitute, Cemented, Open Approach (ICD-10-PCS; principal; 2018-06-21 09:15)
DX: M17.12 Unilateral primary osteoarthritis, left knee (principal); E11.9 Type 2 diabetes mellitus without complications; I10 Essential (primary) hypertension; G47.30 Sleep apnea, unspecified; F32.9 Major depressive disorder, single episode, unspecified; F41.9 Anxiety disorder, unspecified; E66.9 Obesity, unspecified; E87.6 Hypokalemia; D64.9 Anemia, unspecified; Z68.33 Body mass index [BMI] 33.0-33.9, adult; Z79.4 Long term (current) use of insulin; Z79.899 Other long term (current) drug therapy; Z88.6 Allergy status to analgesic agent

== ENCOUNTER → 2018-07-03 | Outpatient (CLI) | payer OTHER ==
[~2018-07-03] MED LIST changes: +ACET-24 PO; -ACETAMINOPHEN 500 MG TAB PO SCH; -BUPIVACAINE LIPOSOME 266 MG, BUPIVACAINE/EPINEPHRINE INJ 50 ML, SODIUM CHLORIDE 0.9% PF... INFIL SCH; -CEFAZOLIN 2000MG IV PUSH 15 ML IV SCH; -FAMOTIDINE 20 MG TAB PO SCH; +FRRG PO; -GABAPENTIN 300 MG CAP PO SCH; -HYDR-5688 PO; +HYDR2TAB48 PO; -LACTATED RINGER'S 1000ML 1,000 ML IV SCH; -LACTATED RINGER'S 1000ML 500 ML IV SCH; -LACTATED RINGER'S 1000ML IV SCH; -METOCLOPRAMIDE HCL 10 MG TAB PO SCH; +XRL10 PO
[2018-07-03 17:08] LABS: BASO % 1.1 %; BASO ABS # 0.07 K/uL (0-0.2); EOS % 3.3 %; EOS ABS # 0.22 K/uL (0-0.5); HEMATOCRIT 30.8 % (37-47); HEMOGLOBIN 9.4 g/dL (12.0-16.0); IG# 0.17 K/uL (0.00-0.02); LYMPH % 29.8 %; LYMPH ABS # 1.97 K/uL (1.2-3.4); MEAN CELL VOLUME 87.3 fL (80-100); MEAN CORPUSCULAR HEMOGLOBIN 26.6 pg (25-34); MEAN CORPUSCULAR HGB CONC 30.5 g/dl (32-36); MEAN PLATELET VOLUME 9.4 fL (7.4-10.4); MONO % 11.8 %; MONO ABS # 0.78 K/uL (0.11-0.59); NEUT % 51.4 %; NEUT ABS # 3.39 K/uL (1.4-6.5); PLATELET COUNT 328 K/uL (130-400); RED CELL DISTRIBUTION WIDTH CV 18.4 % (11.5-14.5); RED CELL DISTRIBUTION WIDTH SD 58.6 fL (36.4-46.3)
[2018-07-03 17:26] LABS: BLOOD UREA NITROGEN 24 mg/dl (7-18); CALCIUM 9.5 mg/dl (8.5-10.1); CARBON DIOXIDE 26 mmol/L (21-32); CREATININE 1.04 mg/dl (0.60-1.20); GLUCOSE 72 mg/dl (70-99); POTASSIUM 4.3 mmol/L (3.5-5.1); SODIUM 139 mmol/L (136-145)
== END | disposition home or self-care (01) ==
LOC: C.LABBFT 13:46
PROVIDERS: ATTEND Physician Assistant Medical
DX: D64.9 Anemia, unspecified (principal); N18.3 Chronic kidney disease, stage 3 (moderate)

== ENCOUNTER 2019-01-22 21:13 | Inpatient (IN) ==
[2019-01-22] MEDS ORDERED: cefTRIAXone SODIUM 1,000 MG/50 ML BAG IV STA (21:43)
[2019-01-22] MEDS ORDERED: SODIUM CHLORIDE 0.9% 1000ML 1,000 ML IV ONE ×2 (21:43→22:55)
[2019-01-22] MEDS ORDERED: ONDANSETRON INJ 2 MG/ML 2 ML VIAL IV STA (21:43)
[2019-01-22] MEDS ORDERED: fentaNYL citrate 100 MCG/2 ML VIAL IV STA (21:43)
[2019-01-22 22:46] LABS: Hematocrit (blood only) 36.3 % (37-47); Hemoglobin 12.1 g/dL (12.0-16.0); Mean Corpuscular Hgb Conc 33.3 g/dL (32-36); Mean Corpuscular Volume 87.5 fL (80-100); Mean Platelet Volume 10.6 fL (7.4-10.4); Nucleated RBC # (auto) 0.03 K/uL (0-0); Nucleated RBC % (auto) 0.2 %; Platelet Count 168 K/uL (130-400); RDW Coefficient of Variation 18.5 % (11.5-14.5); RDW Standard Deviation 59.1 fL (36.4-46.3); Red Blood Count 4.15 M/uL (4.2-5.4)
[2019-01-22 22:53] LABS: iSTAT Creatinine 1.6 mg/dl (0.6-1.3); iSTAT Hemoglobin 12.2 g/dl (12.0-16.0); iSTAT Ionized Calcium 1.16 mmol/l (1.12-1.32); iSTAT Potassium 3.7 mEq/L (3.3-5.0)
[2019-01-22 23:03] LABS: INR 1.1 (0.9-1.1); Partial Thromboplastin Ratio 1.1; Partial Thromboplastin Time 28.8 Seconds (21.0-31.0); Prothrombin Time 11.6 Seconds (9.0-12.0)
[2019-01-22 23:04] LABS: Albumin Globulin Ratio 0.9 (0.9-2); Albumin Level 3.4 gm/dl (3.4-5.0); BUN Creatinine Ratio 11.8 (10-20); Bilirubin,Total 1.6 mg/dl (0.2-1); Calcium 9.2 mg/dl (8.5-10.1); Creatinine Clr Calc Pharmacy 28.6 ml/min; Est GFR (African American) 31.6; Est GFR (Non-African American) 27.3; Globulin 3.9 gm/dl (2.5-4.0); Potassium 3.7 mmol/L (3.5-5.1); Total Protein 7.3 gm/dl (6.4-8.2)
[2019-01-22] MEDS ORDERED: SODIUM CHLORIDE 0.9% 1000ML 500 ML IV ONE (23:13)
--- NOTE | 2019-01-22 23:20 | Emergency Department Note ---
ED Visit Note Physician Evaluation Note: I have personally evaluated and examined this patient. I agree with assessment and plan of Pamela Rodriguez PA-C. UTI with findings consistent with right pyelo, sepsis though looks well on exam after fluid resus. Broad spec abx , fluid resus and hospitalization. Antonio Altman MD
[2019-01-22] MEDS ORDERED: VANCOMYCIN HCL 1,750 MG in SODIUM CHLORIDE 0.9% 500 ML IV ONE (23:23)
[2019-01-22] MEDS ORDERED: NovoLIN-R INSULIN PER UNIT CHARGE SC STA (23:23)
[2019-01-22] MEDS ORDERED: VANCOMYCIN CONSULT ACTIVE PRN (23:23)
--- NOTE | 2019-01-22 23:23 | Emergency Department Note ---
History of Present Illness General Chief complaint: Urinary Symptoms Stated complaint: VOMITING, UTI Source: patient Mode of arrival: ambulatory Limitations: no limitations History of Present Illness Provider Complaint: + "UTI" Onset (ago): day(s) 2 Severity: severe Maximum Pain Intensity: 10 Current Pain Intensity: 10 Quality: + Sharp Duration: constant Relieved By: + none Exacerbated By: + urination Urinary symptoms: + Burning, + Dysuria, + Flank Pain, + Frequency and + Incontinence Patient Confirmed : No This 73-year-old female patient presents emergency department today, ambulatory, accompanied by her family. She is complaining of not feeling well for the past 2-3 days. Patient states she saw her PCP earlier today and was diagnosed with a urinary tract infection. They were concerned that the infection could be going to her kidneys due to some right flank pain. The patient was given a prescription for ciprofloxacin. She took 1 dose of this at 4 PM. She continues to feel extremely weak, tired, nauseated, and has abdominal and flank pain. She states she continues to have a subjective fever. She has been taking Tylenol for the fever without relief. She reports associated dysuria, chills, and urinary frequency with incontinence, which is unusual for her. The patient reports similar symptoms a proximally 1 year ago when she was admitted to the hospital for sepsis. The patient has not taken her medications today. She debora cribes pain suprapubically as well as into the right flank. She rates this pain 10/10. Home Medications Home Medications Medication Instructions Recorded Confirmed Type atorvastatin 20 mg PO QPM 09/27/18 01/22/19 History benazepril 20 mg PO BID 09/27/18 01/22/19 History citalopram 40 mg PO QPM 09/27/18 01/22/19 History hydrochlorothiazide 12.5 mg PO HS 09/27/18 01/22/19 History insulin NPH isoph U-100 human 40 - 50 unit SUBCUT PM 09/27/18 01/22/19 History [Novolin N NPH U-100 Insulin] insulin lispro [Humalog KwikPen 20 unit SUBCUT QDB 09/27/18 01/22/19 History Insulin] insulin lispro [Humalog KwikPen 25 unit SUBCUT QDD 09/27/18 01/22/19 History Insulin] pantoprazole 40 mg PO QAM 09/27/18 01/22/19 History celecoxib [Celebrex] 200 mg PO BID PRN 01/22/19 01/22/19 History ciprofloxacin HCl [Cipro] 250 mg PO BID 01/22/19 01/22/19 History Allergies Allergy/AdvReac Type Severity Reaction Status Date / Time No Known Allergies Allergy Verified 01/22/19 23:05 Past Med/Surg History Medical History Anemia Depression Diabetes mellitus, type 2 IDDM Diverticular disease Hyperlipidemia Hypertension Peptic ulcer disease Family History Mother Family history of diabetes mellitus Social History Current Living Situation: Alone Feels Safe at Home: Yes Smoking Status: Never smoker Second Hand Exposure: No Hx Alcohol Use: No Hx Substance Use: No Beliefs That Will Affect Care: None Preferred Language: Icelandic Review of Systems A total of 10 systems reviewed and were otherwise negative Physical Exam Vital Signs: Vital Signs - 24 hr 01/22/19 21:18 01/22/19 22:10 Temperature 37.2 C 37.1 C Temperature Source Oral Oral Sepsis Recent Feve r Within 48 Hours No Sepsis Action Take n by Nursing No Action Required Pulse Rate 94 H Pulse Rate [Apical ] 93 H Respiratory Rate 18 18 Respiratory Effort / Characteristics Non-Labored Sponta neous Respiratory Depth Normal Respiratory Patter n Regular Blood Pressure 87/58 L Blood Pressure [Ri ght Arm] 99/59 L Blood Pressure Frieda n 67 Blood Pressure Frieda n [Right Arm] 72 Blood Pressure Pos ition Sitting Pulse Oximetry 96 97 Oxygen Delivery Me thod Room Air Room Air Physical Exam: VITALS: Vitals are noted on the nurse's note and reviewed by myself. Vital signs stable. GENERAL: This is a 73-year-old obese white female, in no acute distress, nondiaphoretic, well-developed well-nourished. SKIN: The skin was pale, but without rashes, erythema, edema, or bruising. There is no tenting of the skin. Capillary reflex less than 2 seconds. HEAD: Normocephalic atraumatic. EARS: External auditory canals clear, tympanic membranes pearly correa without erythema or effusion bilaterally. EYES: Pupils equal round and reactive to light and accommodation. Conjunctivae without injection, sclerae without icterus. Extraocular movements intact. NOSE: Patent, turbinates without inflammation or discharge. No sinus tenderness. MOUTH: Mucous membranes moist. Tonsils are not enlarged. Pharynx without erythema or exudate. Uvula midline. Airway patent. Tongue does not deviate. NECK: Supple without nuchal rigidity. No lymphadenopathy. No thyromegaly. Cervical spine is nontender. No JVD. HEART: Regular rate and rhythm without murmurs gallops or rubs. LUNGS: Clear to auscultation bilaterally without wheezes, rales or rhonchi. No dullness to percussion. No retractions or accessory muscle use. ABDOMEN: Positive bowel sounds x 4. Normal tympanic percussion. Suprapubic tenderness to palpation. The abdomen is otherwise soft, nontender, without masses or organomegaly. Cartagena sign negative. No guarding or rebound tenderness. Positive right-sided CVA tenderness. MUSCULOSKELETAL: No muscle atrophy, erythema, or edema noted. Full range of motion without joint tenderness in all extremities. No tenderness to palpation. Strength 5/5 throughout. NEURO: Patient was alert and oriented to person place and time. Normal sensation to light and sharp touch. No focal neurological deficits. Course The patient was seen and evaluated as above. IV access obtained, labs drawn. The patient was given 1 L normal saline solution, Rocephin, fentanyl, and Zofran. Labs reviewed by myself. I discussed the case with my attending. The patient was given 1500 cc normal saline solution. Initiated vancomycin and 8 units of insulin. I discussed the findings with the patient at bedside. Discussed the case with Dr. Melendrez. Pt. will require admission for sepsis. Imaging performed and reviewed by myself and radiologist as above. Please see hospitalist dictation regarding ongoing management and care. Administered Medications Vancomycin HCl 1,750 mg/ (Sodium Chloride) 535 mls @ 200 mls/hr IV NOW ONE Stop: 01/23/19 02:03 Last Admin: 01/22/19 23:44 Dose: 200 mls/hr Ioversol (Optiray 320 100ml) 94 ml IV ONCE PRN PRN Reason: Interaction Checking Stop: 01/26/19 23:43 Last Admin: 01/22/19 23:44 Dose: 94 ml Discontinued Medications Fentanyl Citrate (Fentanyl Citrate) 50 mcg IV NOW STA Stop: 01/22/19 21:44 Last Admin: 01/22/19 22:44 Dose: 50 mcg Ceftriaxone Sodium (Rocephin) 1,000 mg in 50 mls @ 100 mls/hr IV NOW STA Stop: 01/22/19 22:12 Last Infusion: 01/22/19 23:51 Dose: 0 mls/hr Admin: 01/22/19 22:44 Dose: 100 mls/hr Sodium Chloride (Nss 1000ml) 1,000 mls @ 999 mls/hr IV .Q1H1M ONE Stop: 01/22/19 22:43 Last Admin: 01/22/19 22:50 Dose: 999 mls/hr Insulin Human Regular (Novolin R U-100 Per Unit) 8 units SC NOW STA Stop: 01/22/19 23:24 Last Admin: 01/22/19 23:44 Dose: 8 units Ondansetron HCl (Zofran) 4 mg IV NOW STA Stop: 01/22/19 21:44 Last Admin: 01/22/19 22:44 Dose: 4 mg Medical Decision Making Differential Diagnosis + urinary tract infection, + bacterial vaginosis, + trichomoniasis, + cervicitis, + ovarian cyst, + vaginitis, + ruptured ovarian cyst, + Bartholin's abcess, + cystitis, + dysmenorrhea, + ovarian torsion, + endometriosis, + ectopic , + pelvic pain, + cystitis, + appendicitis, + diverticulitis, + mesenteric ischemia, + PID, + inflammatory bowel disease and + renal colic Etiologies such as viral syndrome, otitis, pharyngitis, pneumonia, urinary tract infection, sepsis, bacteremia, meningitis, as well as others were entertained. Home Medications Current Medication List: was personally reviewed by me Laboratory Data Attestation: I reviewed the patient's lab results. Leukocytosis of 15,000 with a shift. No significant anemia or thrombocytopenia. Coags normal. Lactic acid elevated at 3.0. Patient is slightly hyponatremic at 132. Creatinine elevated at 1.83. Glucose elevated at 358. Alk phosphatase and total bilirubin mildly elevated. Beta hydroxybutyric acid 3.7. Result diagrams: 01/22/19 22:20 01/22/19 22:20 Lab Results 01/22/19 01/22/19 01/22/19 Range/Units 22:20 22:20 22:20 WBC 15.80 H (4.8-10.8) K/uL RBC 4.15 L (4.2-5.4) M/uL Hgb 12.1 (12.0-16.0) g/dL POC Hgb (12.0-16.0) g/dl Hct 36.3 L (37-47) % POC Hct (37-47) % MCV 87.5 (80-100) fL MCH 29.2 (25-34) pg MCHC 33.3 (32-36) g/dL RDW Std Deviation 59.1 H (36.4-46.3) fL RDW Coeff of Meghann 18.5 H (11.5-14.5) % Plt Count 168 (130-400) K/uL MPV 10.6 H (7.4-10.4) fL Immature Gran % (Auto) 0.4 % Neut % (Auto) 86.7 % Lymph % (Auto) 3.5 % Twiggs % (Auto) 9.1 % Eos % (Auto) 0.1 % Baso % (Auto) 0.2 % Immature Gran # (Auto) 0.07 H (0.00-0.02) K/uL Neut # (Auto) 13.70 H (1.4-6.5) K/uL Lymph # (Auto) 0.56 L (1.2-3.4) K/uL Twiggs # (Auto) 1.43 H (0.11-0.59) K/uL Eos # (Auto) 0.01 (0-0.5) K/uL Baso # (Auto) 0.03 (0-0.2) K/uL Absolute Nucleated RBC 0.03 H (0-0) K/uL Nucleated RBC % (auto) 0.2 % Toxic Granulation 1+ Dohle Bodies Occasional PT 11.6 (9.0-12.0) Seconds INR 1.1 (0.9-1.1) APTT 28.8 (21.0-31.0) Seconds PTT Ratio 1.1 POC Sodium (135-144) mEq/L Sodium 132 L (136-145) mmol/L POC Potassium (3.3-5.0) mEq/L Potassium 3.7 (3.5-5.1) mmol/L POC Chloride (101-112) mEq/L Chloride 99 (98-107) mmol/L Carbon Dioxide 24 (21-32) mmol/L POC Total CO2 (24-31) mEq/l Anion Gap 9.0 (3-11) POC Anion Gap (16-25) mmol/L POC BUN (7-18) mg/dl BUN 22 H (7-18) mg/dl Creatinine 1.83 H (0.6-1.2) mg/dl POC Creatinine (0.6-1.3) mg/dl Est Cr Clr Drug Dosing 28.6 ml/min Est GFR ( Amer) 31.6 Est GFR (Non-Af Amer) 27.3 BUN/Creatinine Ratio 11.8 (10-20) Glucose 358 H* (70-99) mg/dl POC Glucose (other) (70-99) mg/dl Lactate (0.4-2.0) mmol/L Calcium 9.2 (8.5-10.1) mg/dl POC Ioniz Calcium Markell (1.12-1.32) mmol/l Total Bilirubin 1.6 H (0.2-1) mg/dl AST 21 (15-37) U/L ALT 25 (12-78) U/L Alkaline Phosphatase 145 H (45-117) U/L Total Protein 7.3 (6.4-8.2) gm/dl Albumin 3.4 (3.4-5.0) gm/dl Globulin 3.9 (2.5-4.0) gm/dl Albumin/Globulin Ratio 0.9 (0.9-2) Beta-Hydroxybutyric Acd 3.70 H (0.2-2.81) mg/dl 01/22/19 01/22/19 Range/Units 22:30 22:38 WBC (4.8-10.8) K/uL RBC (4.2-5.4) M/uL Hgb (12.0-16.0) g/dL POC Hgb 12.2 (12.0-16.0) g/dl Hct (37-47) % POC Hct 36 L (37-47) % MCV (80-100) fL MCH (25-34) pg MCHC (32-36) g/dL RDW Std Deviation (36.4-46.3) fL RDW Coeff of Meghnan (11.5-14.5) % Plt Count (130-400) K/uL MPV (7.4-10.4) fL Immature Gran % (Auto) % Neut % (Auto) % Lymph % (Auto) % Twiggs % (Auto) % Eos % (Auto) % Baso % (Auto) % Immature Gran # (Auto) (0.00-0.02) K/uL Neut # (Auto) (1.4-6.5) K/uL Lymph # (Auto) (1.2-3.4) K/uL Twiggs # (Auto) (0.11-0.59) K/uL Eos # (Auto) (0-0.5) K/uL Baso # (Auto) (0-0.2) K/uL Absolute Nucleated RBC (0-0) K/uL Nucleated RBC % (auto) % Toxic Granulation Dohle Bodies PT (9.0-12.0) Seconds INR (0.9-1.1) APTT (21.0-31.0) Seconds PTT Ratio POC Sodium 134 L (135-144) mEq/L Sodium (136-145) mmol/L POC Potassium 3.7 (3.3-5.0) mEq/L Potassium (3.5-5.1) mmol/L POC Chloride 97 L (101-112) mEq/L Chloride (98-107) mmol/L Carbon Dioxide (21-32) mmol/L POC Total CO2 23 L (24-31) mEq/l Anion Gap (3-11) POC Anion Gap 19.0 (16-25) mmol/L POC BUN 19 H (7-18) mg/dl BUN (7-18) mg/dl Creatinine (0.6-1.2) mg/dl POC Creatinine 1.6 H (0.6-1.3) mg/dl Est Cr Clr Drug Dosing ml/min Est GFR ( Amer) Est GFR (Non-Af Amer) BUN/Creatinine Ratio (10-20) Glucose (70-99) mg/dl POC Glucose (other) 365 H* (70-99) mg/dl Lactate 3.0 H* (0.4-2.0) mmol/L Calcium (8.5-10.1) mg/dl POC Ioniz Calcium Markell 1.16 (1.12-1.32) mmol/l Total Bilirubin (0.2-1) mg/dl AST (15-37) U/L ALT (12-78) U/L Alkaline Phosphatase (45-117) U/L Total Protein (6.4-8.2) gm/dl Albumin (3.4-5.0) gm/dl Globulin (2.5-4.0) gm/dl Albumin/Globulin Ratio (0.9-2) Beta-Hydroxybutyric Acd (0.2-2.81) mg/dl Imaging Data Attestation: I personally reviewed and interpreted this imaging study as follows: My Impression: CT ABD/PELVIS with IV Contrast: Stranding around the right kidney, concerning for pyelonephritis. No obvious stone. Radiologist's Impression: STATRAD interpretation: Right perinephric fat stranding with patchy hypoattenuation in the right kidney, concerning for pyelonephritis. Probable right-sided ureteritis. Prominence of the bladder wall may be at least in part accentuated by under distention. Please correlate with urinalysis to evaluate for cystitis. Small hypodensities in the kidneys are too small to definitively characterize. Nonobstructing left renal stone. No hydronephrosis or ureteral stone on the left. Right greater than left dependent atelectasis. Mild splenomegaly. Hepatomegaly versus Barney's lobe configuration. Atrophy of the pancreas. No acute inflammation. Multiple phleboliths in the pelvis. No bowel obstruction or inflammation. Prior appendectomy. Atherosclerotic changes of the vasculature. No aortic aneurysm or dissection. Nonspecific mildly prominent retroperitoneal lymph nodes may be reactive. Blood Pressure Blood Pressure Findings: Low blood pressure MDM Narrative This 73-year-old female patient presents emergency department today complaining of UTI, flank pain, and suprapubic pain. The patient reports a fever at home over the past 2-3 days and overall not feeling well with chills, body aches, fatigue. The patient states her family has been telling her she is acting abnormally. Workup here in the ED was concerning for pyelonephritis and sepsis. The patient has been hypotensive despite fluid resuscitation. She has been mildly tachycardic with a heart rate in the 90s. She has been afebrile, however does report a documented fever of 101 at home. She has been taking Tylenol for the discomfort and fever. CT scan, per my and Dr. Altman's interpretation does show evidence of pyelonephritis around the right kidney. The patient was given 2500 cc IV fluids, Rocephin, and vancomycin. She will be admitted to the hospitalist service for further evaluation and management of the sepsis. The chart was completed utilizing [employer] Speech voice recognition software. Grammatical errors, random word insertions, pronoun errors, and incomplete sentences are an occasional consequence of this system due to software limitations, ambient noise, and hardware issues. Any formal questions or concerns about the content, text, or information contained within the body of this dictation should be directly addressed to the provider for clarification. Impression & Plan Sepsis due to urinary tract infection Critical Care Time I have personally spent greater than 30 minutes of critical care time in the direct management of this patient. This includes bedside care, interpretation of diagnostic studies, and testing, discussion with consultants, patient, and family members, and other required patient management activities. This [] minutes is in excess of all separately billable procedures. Critical Care Time: Yes Total Critical Care Time: 30 Discharge Plan Visit Data Chief Complaint: Urinary Symptoms Stated Complaint: VOMITING, UTI ED Provider: Antonio Altman ED Midlevel Provider: Pamela Rodriguez Discharge Problem: Sepsis due to urinary tract infection Patient Disposition: Admitted As Inpatient Condition: Good Forms Stand Alone Forms: My [employer] Prescriptions Prescriptions: No Action hydrochlorothiazide 12.5 mg Tablet 12.5 mg PO HS RF: 0 pantoprazole 40 mg Tablet,Delayed Release (Dr/Ec) 40 mg PO QAM RF: 0 atorvastatin 20 mg Tablet 20 mg PO QPM RF: 0 citalopram 40 mg Tablet 40 mg PO QPM RF: 0 benazepril 20 mg Tablet 20 mg PO BID RF: 0 insulin NPH isoph U-100 human [Novolin N NPH U-100 Insulin] 100 unit/mL Suspension 40 - 50 unit SUBCUT PM RF: 0 insulin lispro [Humalog KwikPen Insulin] 100 unit/mL Insulin Pen 25 unit SUBCUT QDD RF: 0 insulin lispro [Humalog KwikPen Insulin] 100 unit/mL Insulin Pen 20 unit SUBCUT QDB RF: 0 celecoxib [Celebrex] 200 mg capsule 200 mg PO BID PRN (Reason: Pain) RF: 0 ciprofloxacin HCl [Cipro] 250 mg tablet 250 mg PO BID RF: 0 Referrals Referrals: Joaquin Esparza III, MD [Primary Care Provider] -
[2019-01-22 23:29] LABS: Beta-Hydroxybutyrate 3.7 mg/dl (0.2-2.81)
[2019-01-22 23:38] LABS: Basophils # (auto) 0.03 K/uL (0-0.2); Basophils % (auto) 0.2 %; Dohle Bodies Occasional; Eosinophils # (auto) 0.01 K/uL (0-0.5); Eosinophils % (auto) 0.1 %; Immature Granulocytes # (auto) 0.07 K/uL (0.00-0.02); Immature Granulocytes % (auto) 0.4 %; Lymphocytes # (auto) 0.56 K/uL (1.2-3.4); Lymphocytes % (auto) 3.5 %; Monocytes # (auto) 1.43 K/uL (0.11-0.59); Monocytes % (auto) 9.1 %; Neutrophils % (auto) 86.7 %; Toxic Granulation 1+
[2019-01-22] MEDS ORDERED: IOVERSOL 100ml IV PRN (23:44)
--- NOTE | 2019-01-23 01:22 | History & Physical Report ---
Date of Service January 23, 2019 Assessment & Plan (1) Pyelonephritis: 73 y/o F Hx DM, HTN, HLD, GERD, PUD, pyelonephritis 2018. Presents with R flank pain, generalized weakness, dry heaving and rigors. She had been to her primary MD earlier in the day and confirmed a UA. Due to her flank pain, she was directed to attend the hospital. A CT of the abdomen confirmed R sided pyelonephritis. The pt was borderline hypotensive on arrival to the ER. She responded to IVF. Initial labs are notable for YNSE, leukocytosis and an elevated lactic acid. 1) Pyelonephritis - considering her elevated lactic, hypotension and imaging demonstrating R pyelo, she has been placed on Cefepime pending culture results. She is receiving IVF and a re[eat lactic is pending. 2) YNES - consistent with dehydration and volume depletion - IVF provided - ARB and HCTZ held 3) HTN - meds held due to hypotension 4) DM II - placed on a SS 5) HLD - cont Statin 6) GERD, PUD - cont PPi Full code - Heparin prophylaxis Total time for this admit including review of labs, meds, imaging, records - discussion with pt and ER attending - 39 min History of Present Illness Chief Complaint: R flank pain, dysuria Primary Care Provider: Joaquin Esparza MD 73 y/o F Hx DM, HTN, HLD, GERD, PUD, pyelonephritis 2018. Presents with R flank pain, generalized weakness, dry heaving and rigors. She had been to her primary MD earlier in the day and confirmed a UA. Due to her flank pain, she was directed to attend the hospital. A CT of the abdomen confirmed R sided pyelonephritis. The pt was borderline hypotensive on arrival to the ER. She responded to IVF. Initial labs are notable for YNES, leukocytosis and an elevated lactic acid. PMH: 1) HTN 2) HLD 3) DM II 4) Pyelonephritis 2017 5) GERD 6) Gastric ulcer 7) Obese 8) Depression Surgical: R TKA, appendectomy Family: Mother at age 94 - CVA, DM Father owing to an [place] Allergies Allergy/AdvReac Type Severity Reaction Status Date / Time No Known Allergies Allergy Verified 01/22/19 23:05 Home Medications Home Medications Medication Instructions Recorded Confirmed Type atorvastatin 20 mg PO QPM 09/27/18 01/22/19 History benazepril 20 mg PO BID 09/27/18 01/22/19 History citalopram 40 mg PO QPM 09/27/18 01/22/19 History hydrochlorothiazide 12.5 mg PO HS 09/27/18 01/22/19 History insulin NPH isoph U-100 human 40 - 50 unit SUBCUT PM 09/27/18 01/22/19 History [Novolin N NPH U-100 Insulin] insulin lispro [Humalog KwikPen 20 unit SUBCUT QDB 09/27/18 01/22/19 History Insulin] insulin lispro [Humalog KwikPen 25 unit SUBCUT QDD 09/27/18 01/22/19 History Insulin] pantoprazole 40 mg PO QAM 09/27/18 01/22/19 History celecoxib [Celebrex] 200 mg PO BID PRN 01/22/19 01/22/19 History ciprofloxacin HCl [Cipro] 250 mg PO BID 01/22/19 01/22/19 History Past Med/Surg History Medical History Anemia Depression Diabetes mellitus, type 2 IDDM Diverticular disease Hyperlipidemia Hypertension Peptic ulcer disease Family History Mother Family history of diabetes mellitus Social History Current Living Situation: Alone Feels Safe at Home: Yes Smoking Status: Never smoker Second Hand Exposure: No Hx Alcohol Use: No Hx Substance Use: No Beliefs That Will Affect Care: None Preferred Language: Singaporean Review of Systems Gen: Rigors, weakness, generalized aches and pains. ENT: Denies congestion, throat pain, hearing loss Eyes: Denies acute visual changes CV: Denies CP, palpitations Pulmonary: Denies SOB, cough, wheezing GI: Denies diarrhea, constipation - nausea and dry heaves : Describes "pain in kidney", dysuria Neuro: Denies acute or unilateral weakness, acute gait impairment, headache or acute visual changes Musculoskeletal: Denies joint pain, inflammation Endocrine: Denies polydipsia, polyuria Skin: Denies acute rashes or ulcers Physical Exam 2 Vital Signs (Past 24 Hours): Last Vital Signs Temp 37.1 C 01/22/19 22:10 Pulse 83 01/23/19 01:00 Resp 18 01/23/19 01:00 BP 100/67 01/23/19 01:00 Pulse Ox 93 01/23/19 01:00 Physical Exam: General: PLeasant, elderly F, AAO x 3, no distress ENT: No erythema or exudates, no thrush Eyes: GALILEO, EOMI Head and neck: Normocephalic, atraumatic, neck is supple. Chest/heart: Nontender, S1,2, RRR, no murmurs, no gallops Lungs: CTAB, no wheezing or crackles Abdomen: There is mild R abdominal pain Neuro: AAO x 3, speech is clear, no unilateral weakness or loss of sensation, coordination intact Musculoskeletal: No joint inflammation, muscle tenderness, FROM Skin: No acute rashes or ulcers Extremities: No clubbing, cyanosis, edema
[2019-01-23] MEDS ORDERED: INSULIN GLARGINE SOLOSTAR 100 UNITS/ML 3 ML PEN SC ONE (01:40)
[2019-01-23] MEDS ORDERED: POLYETHYLENE (MIRALAX) 17 GM PACK PO PRN (01:40)
[2019-01-23] MEDS ORDERED: LACTATED RINGER'S 1,000 ML IV SCH (01:40)
[2019-01-23] MEDS ORDERED: TEMAZEPAM 7.5 MG CAPSULE PO ONE (01:40)
[2019-01-23] MEDS ORDERED: MAGNESIUM HYDROXIDE SUSP 30 ML UDC PO PRN (01:40)
[2019-01-23] MEDS ORDERED: ALUMINUM/MAGNESIUM SUSP 30 ML UDC PO PRN (01:40)
[2019-01-23] MEDS ORDERED: CARBOHYDRATES FOR HYPOGLYCEMIA PO PRN (01:48)
[2019-01-23] MEDS ORDERED: GLUCAGON FOR INJ 1 MG VIAL IM PRN (01:48)
[2019-01-23] MEDS ORDERED: GLUCOSE 40% GEL 15 GM TUBE PO PRN (01:48)
[2019-01-23] MEDS ORDERED: GLUCOSE 10 TABS/TUBE PO PRN (01:48)
[2019-01-23] MEDS ORDERED: DEXTROSE 50% 50 ML SYRINGE IV PRN (01:48)
[2019-01-23] MEDS ORDERED: PHARMACY GLYCEMIC MGMT CONSULT PRN (01:55)
[2019-01-23] MEDS: INSULIN ASPART 100 UNITS/ML 3 ML PEN SC SCH ×5 (02:40→20:41)
[2019-01-23] MEDS: ACETAMINOPHEN 325 MG TAB PO PRN ×3 (02:40→19:21)
[2019-01-23] MEDS: ONDANSETRON INJ 2 MG/ML 2 ML VIAL IV PRN ×2 (04:10→13:02)
[2019-01-23] MEDS: MAGNESIUM SULFATE / D5W 1 GM/100 ML BAG IV SCH ×2 (05:00→06:07)
[2019-01-23 05:25] LABS: Hematocrit (blood only) 32.1 % (37-47); Hemoglobin 10.6 g/dL (12.0-16.0); Mean Corpuscular Volume 87.7 fL (80-100); Mean Platelet Volume 10.2 fL (7.4-10.4); Platelet Count 156 K/uL (130-400); RDW Coefficient of Variation 18.7 % (11.5-14.5); RDW Standard Deviation 59.5 fL (36.4-46.3); Red Blood Count 3.66 M/uL (4.2-5.4); White Blood Count 16.65 K/uL (4.8-10.8)
[2019-01-23 05:31] LABS: BUN Creatinine Ratio 12.1 (10-20); Calcium 7.5 mg/dl (8.5-10.1); Creatinine Clr Calc Pharmacy 32.1 ml/min; Est GFR (African American) 36.4; Est GFR (Non-African American) 31.4; Magnesium 1.6 mg/dl (1.8-2.4)
[2019-01-23 05:31] LABS: Basophils # (auto) 0.01 K/uL (0-0.2); Basophils % (auto) 0.1 %; Dohle Bodies 1+; Eosinophils # (auto) 0.01 K/uL (0-0.5); Eosinophils % (auto) 0.1 %; Immature Granulocytes # (auto) 0.06 K/uL (0.00-0.02); Immature Granulocytes % (auto) 0.4 %; Lymphocytes # (auto) 0.77 K/uL (1.2-3.4); Lymphocytes % (auto) 4.6 %; Monocytes # (auto) 0.69 K/uL (0.11-0.59); Monocytes % (auto) 4.1 %; Neutrophils # (auto) 15.11 K/uL (1.4-6.5); Neutrophils % (auto) 90.7 %; Ovalocytes 1+; Toxic Vacuolation 1+
[2019-01-23] MEDS ORDERED: CEFEPIME CONSULT ACTIVE PRN (05:36)
[2019-01-23] MEDS ORDERED: CEFEPIME 1,000 MG in SYRINGE 0 ML IV SCH (06:00)
[2019-01-23] MEDS: HEPARIN SOD 5,000 UNIT/0.5 ML VIAL SQ SCH ×3 (06:09→20:41)
[2019-01-23 06:40] LABS: Potassium 4.5 mmol/L (3.5-5.1)
--- NOTE | 2019-01-23 06:46 | CT Scan Report ---
CT abd pelvis IV con only CT DOSE: 744.75 mGy.cm HISTORY: Flank pain right flank pain, UTI TECHNIQUE: Multiaxial CT images of the abdomen and pelvis were performed following the use of intrave nous contrast. A dose lowering technique was utilized adhering to the principles of ALARA. COMPARISON STUDY: 04/18/2018 FINDINGS: Mild bibasilar dependent atelectasis. The liver spleen and pancreas are unremarkable. No ev idence for gallbladder distention. Intrarenal glands are normal. Several nonobstructing lower pole le ft renal calcifications unchanged from the prior study. Mild perinephric fat stranding involving the right kidney represent interval change. The right kidney is slightly edematous compared to the prior exam raising the possibility of pyelonephritis No eviden ce for abscess or collection. Small 5 mm upper pole right renal cyst. Nonobstructive bowel pattern. The appendix has been surgically removed. Uterus is anteflexed. Slight bladder wall thickening IMPRESSION: 1. Mild right renal pelvic process. 2. Clinical findings of mild cystitis. 3. No evidence for abscess or collection. 4. Study is otherwise negative post appendectomy 5. Multiple nonobstructing lower pole left renal calcifications. The above report was generated using voice recognition software. It may contain grammatical, syntax or spelling errors. Electronically signed by: Damien Sandy M.D. 01/23/2019 6:45 AM
[2019-01-23 07:03] LABS: Beta-Hydroxybutyrate 2.02 mg/dl (0.2-2.81)
[2019-01-23 07:30] LABS: Appearance Urine Cloudy (Clear); Bacteria Urine Automated Negative (Negative); Bilirubin Urine Negative (Negative); Blood Urine 2+ (Negative); Color Urine Yellow; Epithelial Cell Urine Auto 20-30 /lpf (0-5); Glucose Urine UA 3+ (Negative); Ketones Urine Trace (Negative); Leukocyte Esterase Urine 1+ (Negative); Nitrite Urine Negative (Negative); Protein Urine 2+ (Negative); Specific Gravity Urine > 1.045 (1.000-1.030); Urobilinogen Urine Negative (Negative); WBC Urine Automated >30 /hpf (0-5)
[2019-01-23] MEDS: PANTOprazole 40 MG TAB PO SCH (07:43)
[2019-01-23] MEDS ORDERED: MAGNESIUM SULFATE / D5W 1 GM/100 ML BAG IV SCH (11:00)
[2019-01-23] MEDS ORDERED: MAGNESIUM SULFATE / D5W 1 GM/100 ML BAG IV ONE (11:15)
[2019-01-23] MEDS: MAGNESIUM OXIDE 400 MG TAB PO SCH ×2 (11:36→19:22)
--- NOTE | 2019-01-23 14:30 | Pharmacy Report ---
Glycemic Control Consultation - Date of Service January 23, 2019 - Scope Scope: Glycemic Pharmacist consulted by Dr Tabor on 01/23 for glycemic control and to write orders per [facility] inpatient glycemic control protocol - Objective Weight: 85.4 kg Accuchecks BSG (last 24hrs): 01/22/19 01/22/19 01/23/19 22:20 22:38 01:14 Glucose 358 H* POC Glucose 346 H POC Glucose (other) 365 H* 01/23/19 01/23/19 01/23/19 02:09 03:00 07:11 Glucose 344 H POC Glucose 344 H 320 H POC Glucose (other) 01/23/19 10:55 Glucose POC Glucose 252 H POC Glucose (other) Laboratory Data (last 24hrs): 01/22/19 01/23/19 22:20 03:00 Potassium 3.7 4.5 D Carbon Dioxide 24 21 Anion Gap 9.0 8.0 Creatinine 1.83 H 1.63 H Est Cr Clr Drug Dosing 28.6 32.1 Beta-Hydroxybutyric Acd 3.70 H 2.02 - Recent Pertinent Medications Outpatient Anti-diabetic Regimen: * NPH 40-50 units QPM, Humalog BID breakfast/dinner 20/25u * A1c = 8.8 % 10/04/18 The patient is currently receiving: * Basal insulin: Lantus 15 units x 1 * Correctional Insulin: Novolog Correction per scale ACHS Goal Range: Low 120 mg/dL - High 160 mg/dL Correction Factor: 20 mg/dL/unit * Prandial insulin: Per carb ratio of 1 unit per 6 grams CHO consumed Risk Factors for Insulin Resistance: * Infection: cefepime * Diet: T2DM - Assessment & Plan Assessment & Plan: ASSESSMENT: * 73 year old female presenting for pyelonephritis, urine culture currently growing gram negative bacilli, on cefepime * Presented with hyperglycemia, BSGs in the 300s, last A1c 8.8% * Patient was given 15 units of lantus x 1 and well as an 8 unit IV bolus, BSGs trending down but still elevated * Patient's home regimen NPH at night, humalog with breakfast and dinner. Per discussion with Dr. Garcia- would like to use NPH to ease patient transition to home * Novolog currently dosed at weight based stress of 3, may need to loosen with better control. PLAN FOR INPATIENT GLYCEMIC CONTROL: * Basal insulin * Will adjust NPH to be given with breakfast and dinner * Scale for this evening: * 15 units bsg <140 * 20 units bsg 140-250 * 25 units bsg >250 * Bolus insulin * NovoLog per scale ACHS or Q6hrs while NPO * Goal Range: Low 120 mg/dL - High 160 mg/dL * Correction Factor: 20 mg/dL/unit * Nutritional / Prandial insulin per carb ratio of 1 unit per 6 grams CHO consumed * Please note that the plan above was derived based on current level of insulin resistance and hospital stress. These recommendations are appropriate for inpatient admission only. Plan of care upon discharge will need to be reassessed to avoid potential outpatient hypo/hyperglycemia. Thank you.
--- NOTE | 2019-01-23 14:55 | Hospitalist Progress Note ---
Date of Service January 23, 2019 Assessment & Plan (1) Pyelonephritis: 73 y/o F Hx DM, HTN, HLD, GERD, PUD, pyelonephritis 2018 admitted on January 22, 2000 919 because of right pyelonephritis Reported patient with R flank pain, generalized weakness, dry heaving and rigors. A CT of the abdomen confirmed R sided pyelonephritis. The pt was borderline hypotensive on arrival to the ER. She responded to IVF. Initial labs are notable for YNES, leukocytosis and an elevated lactic acid. Acute pyelonephritis/mild sepsis upon admission/possible complicated UTI, Acute kidney injury with creatinine 1.6 from 1.8 Mild sepsis upon admission , which is evident because of mild hypotension, and elevated white blood cells and lactic acid level Continue cefepime pending culture results. YNES , improving, we will follow-up morning labs Diabetic, dyslipidemia, GERD, HTN , continue current medication Full code - Heparin prophylaxis Subjective Pleasant, sitting up to chair, conversational, no complaint, however was having chills yesterday No more confused, denies dysuria urgency or frequency, no fever Physical Exam Vital Signs (Past 24 Hours): Last Vital Signs Temp 36.9 C 01/23/19 10:57 Pulse 77 01/23/19 10:57 Resp 16 01/23/19 10:57 BP 91/57 L 01/23/19 10:57 Pulse Ox 90 01/23/19 10:57 Physical Exam: General: PLeasant, AAO x 3, no distress ENT: No erythema or exudates, no thrush Eyes: GALILEO, EOMI Head and neck: Normocephalic, atraumatic, neck is supple. Chest/heart: Nontender, S1,2, RRR, no murmurs, no gallops Lungs: CTAB, no wheezing or crackles Abdomen: right CVA tender Neuro: AAO x 3, speech is clear, no unilateral weakness or loss of sensation, coordination intact Musculoskeletal: No joint inflammation, muscle tenderness, FROM Skin: No acute rashes or ulcers Extremities: No clubbing, cyanosis, edema Results & Data Laboratory Results Laboratory Results - last 24 hr 01/22/19 01/22/19 01/22/19 22:20 22:20 22:20 WBC 15.80 H RBC 4.15 L Hgb 12.1 POC Hgb Hct 36.3 L POC Hct MCV 87.5 MCH 29.2 MCHC 33.3 RDW Std Deviation 59.1 H RDW Coeff of Megahnn 18.5 H Plt Count 168 MPV 10.6 H Immature Gran % (Auto) 0.4 Neut % (Auto) 86.7 Lymph % (Auto) 3.5 [place] % (Auto) 9.1 Eos % (Auto) 0.1 Baso % (Auto) 0.2 Immature Gran # (Auto) 0.07 H Neut # (Auto) 13.70 H Lymph # (Auto) 0.56 L [place] # (Auto) 1.43 H Eos # (Auto) 0.01 Baso # (Auto) 0.03 Absolute Nucleated RBC 0.03 H Nucleated RBC % (auto) 0.2 Toxic Granulation 1+ Toxic Vacuolation Dohle Bodies Occasional Ovalocytes PT 11.6 INR 1.1 APTT 28.8 PTT Ratio 1.1 POC Sodium Sodium 132 L POC Potassium Potassium 3.7 POC Chloride Chloride 99 Carbon Dioxide 24 POC Total CO2 Anion Gap 9.0 POC Anion Gap POC BUN BUN 22 H Creatinine 1.83 H POC Creatinine Est Cr Clr Drug Dosing 28.6 Est GFR ( Amer) 31.6 Est GFR (Non-Af Amer) 27.3 BUN/Creatinine Ratio 11.8 Glucose 358 H* POC Glucose POC Glucose (other) Lactate Calcium 9.2 POC Ioniz Calcium Markell Magnesium Total Bilirubin 1.6 H AST 21 ALT 25 Alkaline Phosphatase 145 H Total Protein 7.3 Albumin 3.4 Globulin 3.9 Albumin/Globulin Ratio 0.9 Beta-Hydroxybutyric Acd 3.70 H Urine Color Urine Appearance Urine pH Ur Specific [place] Urine Protein Urine Glucose (UA) Urine Ketones Urine Blood Urine Nitrite Urine Bilirubin Urine Urobilinogen Ur Leukocyte Esterase Urine WBC (Auto) Urine RBC (Auto) U Hyaline Cast (Auto) U Epithel Cells (Auto) Urine Bacteria (Auto) 01/22/19 01/22/19 01/23/19 22:30 22:38 01:14 WBC RBC Hgb POC Hgb 12.2 Hct POC Hct 36 L MCV MCH MCHC RDW Std Deviation RDW Coeff of Meghann Plt Count MPV Immature Gran % (Auto) Neut % (Auto) Lymph % (Auto) [place] % (Auto) Eos % (Auto) Baso % (Auto) Immature Gran # (Auto) Neut # (Auto) Lymph # (Auto) [place] # (Auto) Eos # (Auto) Baso # (Auto) Absolute Nucleated RBC Nucleated RBC % (auto) Toxic Granulation Toxic Vacuolation Dohle Bodies Ovalocytes PT INR APTT PTT Ratio POC Sodium 134 L Sodium POC Potassium 3.7 Potassium POC Chloride 97 L Chloride Carbon Dioxide POC Total CO2 23 L Anion Gap POC Anion Gap 19.0 POC BUN 19 H BUN Creatinine POC Creatinine 1.6 H Est Cr Clr Drug Dosing Est GFR ( Amer) Est GFR (Non-Af Amer) BUN/Creatinine Ratio Glucose POC Glucose 346 H POC Glucose (other) 365 H* Lactate 3.0 H* Calcium POC Ioniz Calcium Markell 1.16 Magnesium Total Bilirubin AST ALT Alkaline Phosphatase Total Protein Albumin Globulin Albumin/Globulin Ratio Beta-Hydroxybutyric Acd Urine Color Urine Appearance Urine pH Ur Specific [place] Urine Protein Urine Glucose (UA) Urine Ketones Urine Blood Urine Nitrite Urine Bilirubin Urine Urobilinogen Ur Leukocyte Esterase Urine WBC (Auto) Urine RBC (Auto) U Hyaline Cast (Auto) U Epithel Cells (Auto) Urine Bacteria (Auto) 01/23/19 01/23/19 01/23/19 01:40 01:51 02:09 WBC 16.65 H RBC 3.66 L Hgb 10.6 L POC Hgb Hct 32.1 L POC Hct MCV 87.7 MCH 29.0 MCHC 33.0 RDW Std Deviation 59.5 H RDW Coeff of Meghann 18.7 H Plt Count 156 MPV 10.2 Immature Gran % (Auto) 0.4 Neut % (Auto) 90.7 Lymph % (Auto) 4.6 [place] % (Auto) 4.1 Eos % (Auto) 0.1 Baso % (Auto) 0.1 Immature Gran # (Auto) 0.06 H Neut # (Auto) 15.11 H Lymph # (Auto) 0.77 L [place] # (Auto) 0.69 H Eos # (Auto) 0.01 Baso # (Auto) 0.01 Absolute Nucleated RBC Nucleated RBC % (auto) Toxic Granulation Toxic Vacuolation 1+ Dohle Bodies 1+ Ovalocytes 1+ PT INR APTT PTT Ratio POC Sodium Sodium POC Potassium Potassium POC Chloride Chloride Carbon Dioxide POC Total CO2 Anion Gap POC Anion Gap POC BUN BUN Creatinine POC Creatinine Est Cr Clr Drug Dosing Est GFR ( Amer) Est GFR (Non-Af Amer) BUN/Creatinine Ratio Glucose POC Glucose 344 H POC Glucose (other) Lactate Calcium POC Ioniz Calcium Markell Magnesium Total Bilirubin AST ALT Alkaline Phosphatase Total Protein Albumin Globulin Albumin/Globulin Ratio Beta-Hydroxybutyric Acd Urine Color Yellow Urine Appearance Cloudy H Urine pH 5.0 Ur Specific [place] > 1.045 H Urine Protein 2+ H Urine Glucose (UA) 3+ H Urine Ketones Trace H Urine Blood 2+ H Urine Nitrite Negative Urine Bilirubin Negative Urine Urobilinogen Negative Ur Leukocyte Esterase 1+ H Urine WBC (Auto) >30 H Urine RBC (Auto) 5-10 H U Hyaline Cast (Auto) 1-5 U Epithel Cells (Auto) 20-30 H Urine Bacteria (Auto) Negative 01/23/19 01/23/19 01/23/19 03:00 03:20 07:11 WBC RBC Hgb POC Hgb Hct POC Hct MCV MCH MCHC RDW Std Deviation RDW Coeff of Meghann Plt Count MPV Immature Gran % (Auto) Neut % (Auto) Lymph % (Auto) [place] % (Auto) Eos % (Auto) Baso % (Auto) Immature Gran # (Auto) Neut # (Auto) Lymph # (Auto) [place] # (Auto) Eos # (Auto) Baso # (Auto) Absolute Nucleated RBC Nucleated RBC % (auto) Toxic Granulation Toxic Vacuolation Dohle Bodies Ovalocytes PT INR APTT PTT Ratio POC Sodium Sodium 135 L POC Potassium Potassium 4.5 D POC Chloride Chloride 106 Carbon Dioxide 21 POC Total CO2 Anion Gap 8.0 POC Anion Gap POC BUN BUN 20 H Creatinine 1.63 H POC Creatinine Est Cr Clr Drug Dosing 32.1 Est GFR ( Amer) 36.4 Est GFR (Non-Af Amer) 31.4 BUN/Creatinine Ratio 12.1 Glucose 344 H POC Glucose 320 H POC Glucose (other) Lactate 3.0 H* Calcium 7.5 L D POC Ioniz Calcium Markell Magnesium 1.6 L Total Bilirubin AST ALT Alkaline Phosphatase Total Protein Albumin Globulin Albumin/Globulin Ratio Beta-Hydroxybutyric Acd 2.02 Urine Color Urine Appearance Urine pH Ur Specific [place] Urine Protein Urine Glucose (UA) Urine Ketones Urine Blood Urine Nitrite Urine Bilirubin Urine Urobilinogen Ur Leukocyte Esterase Urine WBC (Auto) Urine RBC (Auto) U Hyaline Cast (Auto) U Epithel Cells (Auto) Urine Bacteria (Auto) 01/23/19 10:55 WBC RBC Hgb POC Hgb Hct POC Hct MCV MCH MCHC RDW Std Deviation RDW Coeff of Meghann Plt Count MPV Immature Gran % (Auto) Neut % (Auto) Lymph % (Auto) [place] % (Auto) Eos % (Auto) Baso % (Auto) Immature Gran # (Auto) Neut # (Auto) Lymph # (Auto) [place] # (Auto) Eos # (Auto) Baso # (Auto) Absolute Nucleated RBC Nucleated RBC % (auto) Toxic Granulation Toxic Vacuolation Dohle Bodies Ovalocytes PT INR APTT PTT Ratio POC Sodium Sodium POC Potassium Potassium POC Chloride Chloride Carbon Dioxide POC Total CO2 Anion Gap POC Anion Gap POC BUN BUN Creatinine POC Creatinine Est Cr Clr Drug Dosing Est GFR ( Amer) Est GFR (Non-Af Amer) BUN/Creatinine Ratio Glucose POC Glucose 252 H POC Glucose (other) Lactate Calcium POC Ioniz Calcium Markell Magnesium Total Bilirubin AST ALT Alkaline Phosphatase Total Protein Albumin Globulin Albumin/Globulin Ratio Beta-Hydroxybutyric Acd Urine Color Urine Appearance Urine pH Ur Specific [place] Urine Protein Urine Glucose (UA) Urine Ketones Urine Blood Urine Nitrite Urine Bilirubin Urine Urobilinogen Ur Leukocyte Esterase Urine WBC (Auto) Urine RBC (Auto) U Hyaline Cast (Auto) U Epithel Cells (Auto) Urine Bacteria (Auto)
[2019-01-23] MEDS: INSULIN HUMAN NPH SC SCH (17:04)
[2019-01-23] MEDS: ATORVASTATIN 20 MG TAB PO SCH (19:22)
[2019-01-23] MEDS: CITALOPRAM 40 MG TAB PO SCH (19:22)
[2019-01-23] MEDS ORDERED: INSULIN ISOPHANE SQ SCH (21:00)
[2019-01-23] MEDS ORDERED: INSULIN HUMAN NPH SC SCH (21:00)
[2019-01-24] MEDS: INSULIN ASPART 100 UNITS/ML 3 ML PEN SC SCH ×6 (00:07→21:15)
[2019-01-24] MEDS ORDERED: CEFEPIME 2,000 MG in SYRINGE 0 ML IV SCH (06:00)
[2019-01-24] MEDS: HEPARIN SOD 5,000 UNIT/0.5 ML VIAL SQ SCH ×3 (06:05→21:14)
[2019-01-24 06:31] LABS: BUN Creatinine Ratio 15.7 (10-20); Creatinine Clr Calc Pharmacy 41.6 ml/min; Est GFR (African American) 48.2; Est GFR (Non-African American) 41.6; Magnesium 2.6 mg/dl (1.8-2.4)
[2019-01-24 07:05] LABS: Potassium 3.8 mmol/L (3.5-5.1)
[2019-01-24] MEDS: PANTOprazole 40 MG TAB PO SCH (07:35)
[2019-01-24] MEDS: INSULIN HUMAN NPH SC SCH ×2 (07:35→17:45)
[2019-01-24] MEDS: MAGNESIUM OXIDE 400 MG TAB PO SCH ×2 (07:36→21:13)
[2019-01-24 08:55] LABS: Basophils # (auto) 0.02 K/uL (0-0.2); Basophils % (auto) 0.2 %; Eosinophils # (auto) 0.09 K/uL (0-0.5); Hematocrit (blood only) 28.6 % (37-47); Hemoglobin 9.2 g/dL (12.0-16.0); Immature Granulocytes # (auto) 0.03 K/uL (0.00-0.02); Immature Granulocytes % (auto) 0.3 %; Lymphocytes # (auto) 0.75 K/uL (1.2-3.4); Lymphocytes % (auto) 8.7 %; Mean Corpuscular Volume 89.9 fL (80-100); Mean Platelet Volume 11.1 fL (7.4-10.4); Monocytes # (auto) 1.54 K/uL (0.11-0.59); Monocytes % (auto) 17.8 %; Neutrophils # (auto) 6.24 K/uL (1.4-6.5); Platelet Count 131 K/uL (130-400); RDW Coefficient of Variation 18.8 % (11.5-14.5); RDW Standard Deviation 61.6 fL (36.4-46.3); Red Blood Count 3.18 M/uL (4.2-5.4); White Blood Count 8.67 K/uL (4.8-10.8)
[2019-01-24 09:02] LABS: Mean Corpuscular Hgb Conc 32.2 g/dL (32-36)
[2019-01-24] MEDS: CIPROFLOXACIN 500 MG TAB PO SCH ×2 (09:14→21:13)
[2019-01-24 10:18] LABS: Estimated Average Glucose 212 mg/dl
--- NOTE | 2019-01-24 13:21 | Pharmacy Report ---
Pharmacy Glycemic Short Note 2 - Date of Service January 24, 2019 - Glycemic Short BSG Results (Last 24 hours): 01/23/19 01/23/19 01/24/19 16:27 20:17 00:03 Glucose POC Glucose 233 H 207 H 141 H 01/24/19 01/24/19 01/24/19 03:57 05:33 07:19 Glucose 168 H POC Glucose 164 H 209 H 01/24/19 11:12 Glucose POC Glucose 194 H OUTPATIENT ANTIDIABETIC REGIMEN: * NPH 40-50 units PM, Humalog BID breakfast and dinner 20-25 units ASSESSMENT: * Urine culture growing medina-sensitive E. coli, transitioned to oral ciprofloxacin. * YNES improving, SCr 1.29 today * Patient required 74 units of insulin yesterday * 15 units lantus, 20 units NPH, and 39 units of correction/prandial * BSGs improved overnight, trending down * Switched NPH to BIDM dosing yesterday- will continue scale with slightly tighter parameters * Continue current CF/CR- may need to tighten if BSGs continue to be above goal range PLAN FOR INPATIENT GLYCEMIC CONTROL: * Hold outpatient oral diabetes medications * Basal insulin * NPH scale BIDM: * 15 units BSG <110 * 20 units BSG 110-180 * 25 units BSG >180 * Bolus insulin * NovoLog per scale ACHS or Q6hrs while NPO * Goal Range: Low 120 mg/dL - High 160 mg/dL * Correction Factor: 20 mg/dL/unit * Nutritional / Prandial insulin per carb ratio of 1 unit per 6 grams CHO consumed PLAN FOR DISCHARGE: * Patient's A1c 9.0%, above goal. Per discussion with simulation educator, patient uses NPH due to cost and pays $150 for humalog which is currently dose twice daily at breakfast and dinner. Therefore may benefit (cost/coverage) in changing outpatient regimen to 70/30 dosed at breakfast/dinner (discontinuing current NPH/humalog combination).
--- NOTE | 2019-01-24 14:18 | Hospitalist Progress Note ---
Date of Service January 24, 2019 Assessment & Plan (1) Pyelonephritis: 73 y/o F Hx DM, HTN, HLD, GERD, PUD, pyelonephritis 2018 admitted on January 22, 2000 919 because of right pyelonephritis Reported patient with R flank pain, generalized weakness, dry heaving and rigors. A CT of the abdomen confirmed R sided pyelonephritis. The pt was borderline hypotensive on arrival to the ER. She responded to IVF. Initial labs are notable for YNES, leukocytosis and an elevated lactic acid. Acute pyelonephritis/mild sepsis upon admission/possible complicated UTI,Stable improving E. coli UTI Acute kidney injury with creatinineToday's 1.29 from 1.6 from 1.8, Improving and resolved Mild sepsis upon admission , which is evident because of mild hypotension, and elevated white blood cells and lactic acid level Stop cefepime, Started Cipro per sensitivity, We will give Cipro for 2-week Uncontrolled blood glucose withDiabetic, Has a lot discussion above diabetic control, medicine compliant with using insulin dyslipidemia, GERD, HTN , continue current medication Planning to discharge home tomorrow if able to tolerate oral antibiotic, And will continue follow-up renal function and monitor blood glucose Full code - Heparin prophylaxis Subjective Pleasant, sitting up to chair, conversational, However report no appetite, mild nausea aeration no vomiting,Not feeling wellAnd tired No more confused, denies dysuria urgency or frequency, no fever Other review of system was negative Physical Exam Vital Signs (Past 24 Hours): Last Vital Signs Temp 37.2 C 01/24/19 13:08 Pulse 70 01/24/19 13:08 Resp 18 01/24/19 13:08 BP 116/75 01/24/19 13:08 Pulse Ox 92 01/24/19 13:08 Physical Exam: General: pleasant, Looks tired,, AAO x 3, no distress ENT: No erythema or exudates, no thrush Eyes: GALILEO, EOMI Head and neck: Normocephalic, atraumatic, neck is supple. Chest/heart: Nontender, S1,2, RRR, no murmurs, no gallops Lungs: CTAB, no wheezing or crackles Abdomen: Mild right CVA, Abdomen soft nontender bowel sounds are positive Neuro: AAO x 3, speech is clear, no unilateral weakness or loss of sensation, coordination intact Musculoskeletal: No joint inflammation, muscle tenderness, FROM Skin: No acute rashes or ulcers Extremities: No clubbing, cyanosis, edema Results & Data Laboratory Results Laboratory Results - last 24 hr 01/23/19 01/23/19 01/24/19 16:27 20:17 00:03 WBC RBC Hgb Hct MCV MCH MCHC RDW Std Deviation RDW Coeff of Meghann Plt Count MPV Immature Gran % (Auto) Neut % (Auto) Lymph % (Auto) [place] % (Auto) Eos % (Auto) Baso % (Auto) Immature Gran # (Auto) Neut # (Auto) Lymph # (Auto) [place] # (Auto) Eos # (Auto) Baso # (Auto) Sodium Potassium Chloride Carbon Dioxide Anion Gap BUN Creatinine Est Cr Clr Drug Dosing Est GFR ( Amer) Est GFR (Non-Af Amer) BUN/Creatinine Ratio Glucose POC Glucose 233 H 207 H 141 H Estimat Average Glucose Hemoglobin A1c Calcium Magnesium 01/24/19 01/24/19 01/24/19 03:57 05:33 05:33 WBC RBC Hgb Hct MCV MCH MCHC RDW Std Deviation RDW Coeff of Meghann Plt Count MPV Immature Gran % (Auto) Neut % (Auto) Lymph % (Auto) [place] % (Auto) Eos % (Auto) Baso % (Auto) Immature Gran # (Auto) Neut # (Auto) Lymph # (Auto) [place] # (Auto) Eos # (Auto) Baso # (Auto) Sodium 136 Potassium 3.8 D Chloride 105 Carbon Dioxide 26 Anion Gap 5.0 BUN 20 H Creatinine 1.29 H D Est Cr Clr Drug Dosing 41.6 Est GFR ( Amer) 48.2 Est GFR (Non-Af Amer) 41.6 BUN/Creatinine Ratio 15.7 Glucose 168 H POC Glucose 164 H Estimat Average Glucose 212 Hemoglobin A1c 9.0 H Calcium 8.0 L Magnesium 2.6 H 01/24/19 01/24/19 01/24/19 05:33 07:19 11:12 WBC 8.67 RBC 3.18 L Hgb 9.2 L Hct 28.6 L MCV 89.9 MCH 28.9 MCHC 32.2 RDW Std Deviation 61.6 H RDW Coeff of Meghann 18.8 H Plt Count 131 MPV 11.1 H Immature Gran % (Auto) 0.3 Neut % (Auto) 72.0 Lymph % (Auto) 8.7 [place] % (Auto) 17.8 Eos % (Auto) 1.0 Baso % (Auto) 0.2 Immature Gran # (Auto) 0.03 H Neut # (Auto) 6.24 Lymph # (Auto) 0.75 L [place] # (Auto) 1.54 H Eos # (Auto) 0.09 Baso # (Auto) 0.02 Sodium Potassium Chloride Carbon Dioxide Anion Gap BUN Creatinine Est Cr Clr Drug Dosing Est GFR ( Amer) Est GFR (Non-Af Amer) BUN/Creatinine Ratio Glucose POC Glucose 209 H 194 H Estimat Average Glucose Hemoglobin A1c Calcium Magnesium Microbiology 01/22/19 22:30 Blood Blood Culture - Preliminary No growth to date. 01/22/19 22:20 Blood Blood Culture - Preliminary No growth to date.
[2019-01-24] MEDS: ACETAMINOPHEN 325 MG TAB PO PRN (15:16)
[2019-01-24 20:48] LABS: Sodium 24 Hour Urine 55; Urine Sodium 42 mmol/L
[2019-01-24] MEDS: CITALOPRAM 40 MG TAB PO SCH (21:13)
[2019-01-24] MEDS: ATORVASTATIN 20 MG TAB PO SCH (21:13)
[2019-01-25] MEDS: HEPARIN SOD 5,000 UNIT/0.5 ML VIAL SQ SCH (05:34)
[2019-01-25 06:17] LABS: Basophils # (auto) 0.02 K/uL (0-0.2); Basophils % (auto) 0.3 %; Eosinophils # (auto) 0.13 K/uL (0-0.5); Eosinophils % (auto) 1.8 %; Hematocrit (blood only) 29.4 % (37-47); Hemoglobin 9.5 g/dL (12.0-16.0); Immature Granulocytes # (auto) 0.05 K/uL (0.00-0.02); Immature Granulocytes % (auto) 0.7 %; Lymphocytes # (auto) 1.04 K/uL (1.2-3.4); Lymphocytes % (auto) 14.6 %; Mean Corpuscular Hgb Conc 32.3 g/dL (32-36); Mean Corpuscular Volume 88.3 fL (80-100); Mean Platelet Volume 10.3 fL (7.4-10.4); Monocytes # (auto) 1.26 K/uL (0.11-0.59); Monocytes % (auto) 17.7 %; Neutrophils # (auto) 4.63 K/uL (1.4-6.5); Neutrophils % (auto) 64.9 %; Platelet Count 158 K/uL (130-400); RDW Coefficient of Variation 18.5 % (11.5-14.5); RDW Standard Deviation 59.4 fL (36.4-46.3); Red Blood Count 3.33 M/uL (4.2-5.4); White Blood Count 7.13 K/uL (4.8-10.8)
[2019-01-25 06:49] LABS: BUN Creatinine Ratio 15.6 (10-20); Calcium 8.3 mg/dl (8.5-10.1); Creatinine Clr Calc Pharmacy 46.6 ml/min; Est GFR (African American) 55.4; Est GFR (Non-African American) 47.8; Magnesium 2.4 mg/dl (1.8-2.4); Phosphorus 2.8 mg/dl (2.5-4.9); Potassium 3.7 mmol/L (3.5-5.1)
--- NOTE | 2019-01-25 08:22 | Pharmacy Report ---
Pharmacy Glycemic Short Note 2 - Date of Service January 25, 2019 - Glycemic Short BSG Results (Last 24 hours): 01/24/19 01/24/19 01/24/19 11:12 16:46 20:17 Glucose POC Glucose 194 H 158 H 277 H 01/25/19 01/25/19 05:40 07:42 Glucose 125 H POC Glucose 145 H OUTPATIENT ANTIDIABETIC REGIMEN: * NPH 40-50 units PM, Humalog BID breakfast and dinner 20-25 units ASSESSMENT: 01/25/19 * Fasting BSG 125mg/dl at goal, continue current inpatient plan * Patient met with CDE and discussed changing to Humulin 70/30 for better cost benefit and to decrease injections to only twice daily, see recommendations below. 01/24/19 * Urine culture growing medina-sensitive E. coli, transitioned to oral ciprofloxacin. * YNES improving, SCr 1.29 today * Patient required 74 units of insulin yesterday * 15 units lantus, 20 units NPH, and 39 units of correction/prandial * BSGs improved overnight, trending down * Switched NPH to BIDM dosing yesterday- will continue scale with slightly tighter parameters * Continue current CF/CR- may need to tighten if BSGs continue to be above goal range PLAN FOR INPATIENT GLYCEMIC CONTROL: * Basal insulin * NPH scale BIDM: * 15 units BSG <110 * 20 units BSG 110-180 * 25 units BSG >180 * Bolus insulin * NovoLog per scale ACHS or Q6hrs while NPO * Goal Range: Low 120 mg/dL - High 160 mg/dL * Correction Factor: 20 mg/dL/unit * Nutritional / Prandial insulin per carb ratio of 1 unit per 6 grams CHO consumed PLAN FOR DISCHARGE: * Patient's A1c 9.0%, above goal. Per discussion with hematology nurse educator, patient uses NPH due to cost and pays $150 for humalog which is currently dose twice daily at breakfast and dinner. Therefore may benefit (cost/coverage) in changing outpatient regimen to Humullin 70/30 dosed at breakfast/dinner (discontinuing current NPH/humalog combination). * Currently recommend Humulin 70/30 - 30 units twice daily - give 30 minutes prior to breakfast and dinner, titrate per outpatient provider * Patient does report not eating regular meals, recommend trying to give prior to eating some sort of meal/snack
[2019-01-25] MEDS: INSULIN HUMAN NPH SC SCH (08:26)
[2019-01-25] MEDS: INSULIN ASPART 100 UNITS/ML 3 ML PEN SC SCH ×2 (08:28→12:12)
[2019-01-25] MEDS: MAGNESIUM OXIDE 400 MG TAB PO SCH (09:14)
[2019-01-25] MEDS: PANTOprazole 40 MG TAB PO SCH (09:14)
[2019-01-25] MEDS: CIPROFLOXACIN 500 MG TAB PO SCH (09:14)
--- NOTE | 2019-01-25 17:47 | Discharge Summary ---
Date of Service January 25, 2019 Admission HPI Per Admitting Provider 73 y/o F Hx DM, HTN, HLD, GERD, PUD, pyelonephritis 2018. Presents with R flank pain, generalized weakness, dry heaving and rigors. She had been to her primary MD earlier in the day and confirmed a UA. Due to her flank pain, she was directed to attend the hospital. A CT of the abdomen confirmed R sided pyelonephritis. The pt was borderline hypotensive on arrival to the ER. She responded to IVF. Initial labs are notable for YNES, leukocytosis and an elevated lactic acid. PMH: 1) HTN 2) HLD 3) DM II 4) Pyelonephritis 2017 5) GERD 6) Gastric ulcer 7) Obese 8) Depression Surgical: R TKA, appendectomy Family: Mother at age 94 - CVA, DM Father owing to an NM Principal Diagnosis no Discharge Data Allergies Allergy/AdvReac Type Severity Reaction Status Date / Time No Known Allergies Allergy Verified 01/22/19 23:05 Consultations 01/22/19 23:16 ED Decision to Admit Stat Ordered Studies 01/22/19 21:49 CT abd pelvis IV con only Urgent Hospital Course (1) Pyelonephritis: 73 y/o F Hx DM, HTN, HLD, GERD, PUD, pyelonephritis 2018 admitted on January 22, 2000 919 because of right pyelonephritis Reported patient with R flank pain, generalized weakness, dry heaving and rigors prior to admission A CT of the abdomen confirmed R sided pyelonephritis. The pt was borderline hypotensive on arrival to the ER. She responded to IVF. Initial labs are notable for YNES, leukocytosis and an elevated lactic acid. Acute pyelonephritis/mild sepsis upon admission/possible complicated UTI, Stable improving E. coli UTI Acute kidney injury with creatinineToday's 1.29 from 1.6 from 1.8, Improving and resolved Mild sepsis upon admission , which is evident because of mild hypotension, and elevated white blood cells and lactic acid level, blood culture negative, Stop cefepime, Started Cipro per sensitivity, We will give Cipro for 2-week Uncontrolled blood glucose with Diabetic, Has a lot discussion above diabetic control, medicine compliant with using insulin for the Uncontrolled blood glucose with Diabetic, we did stop NPH, start Humulin 70/30 , has adviced to use 30 unit sq, 15 - 30 minutes before breakfast, and 30 unit sq 15 - 30 minutes before dinner, 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 [place] law prohibits you from making any further disclosure of this information unless further disclosure is expressly permitted by the written consent of the person to whom it pertains or is authorized by law. A general authorization for the release of medical or other information is not sufficient for this purpose. Hospital accepts no responsibility if the information is made available to any other person, INCLUDING THE PATIENT. Date of Service January 24, 2019 Assessment & Plan (1) Pyelonephritis: 73 y/o F Hx DM, HTN, HLD, GERD, PUD, pyelonephritis 2018 admitted on January 22, 2000 919 because of right pyelonephritis Reported patient with R flank pain, generalized weakness, dry heaving and rigors. A CT of the abdomen confirmed R sided pyelonephritis. The pt was borderline hypotensive on arrival to the ER. She responded to IVF. Initial labs are notable for YNES, leukocytosis and an elevated lactic acid. Acute pyelonephritis/mild sepsis upon admission/possible complicated UTI,Stable improving E. coli UTI Acute kidney injury with creatinineToday's 1.29 from 1.6 from 1.8, Improving and resolved Mild sepsis upon admission , which is evident because of mild hypotension, and elevated white blood cells and lactic acid level Stop cefepime, Started Cipro per sensitivity, We will give Cipro for 2-week Uncontrolled blood glucose withDiabetic, Has a lot discussion above diabetic control, medicine compliant with using insulin dyslipidemia, GERD, HTN , continue current medication Planning to discharge home tomorrow if able to tolerate oral antibiotic, And will continue follow-up renal function and monitor blood glucose Full code - Heparin prophylaxis Subjective at discharge Pleasant, sitting up to chair, conversational, [place] better, no more nausea, no vomiting, No more confused, denies dysuria urgency or frequency, no fever Other review of system was negative Physical Exam at discharge, afebrile General: pleasant, Looks tired,, AAO x 3, no distress ENT: No erythema or exudates, no thrush Eyes: [place], EOMI Head and neck: Normocephalic, atraumatic, neck is supple. Chest/heart: Nontender, S1,2, RRR, no murmurs, no gallops Lungs: CTAB, no wheezing or crackles Abdomen: Mild right CVA, Abdomen soft nontender bowel sounds are positive Neuro: AAO x 3, speech is clear, no unilateral weakness or loss of sensation, coordination intact Musculoskeletal: No joint inflammation, muscle tenderness, FROM Skin: No acute rashes or ulcers Extremities: No clubbing, cyanosis, edema Lab data at discharge: Laboratory Results - last 24 hr 01/24/19 01/24/19 01/24/19 16:20 19:30 19:30 WBC RBC Hgb Hct MCV MCH MCHC RDW Std Deviation RDW Coeff of Meghann Plt Count MPV Immature Gran % (Auto) Neut % (Auto) Lymph % (Auto) [place] % (Auto) Eos % (Auto) Baso % (Auto) Immature Gran # (Auto) Neut # (Auto) Lymph # (Auto) [place] # (Auto) Eos # (Auto) Baso # (Auto) Sodium Potassium Chloride Carbon Dioxide Anion Gap BUN Creatinine Est Cr Clr Drug Dosing Est GFR ( Amer) Est GFR (Non-Af Amer) BUN/Creatinine Ratio Glucose POC Glucose Calcium Phosphorus Magnesium Urine Total Volume 1300 1300 Urine Creatinine 102.0 Ur Creatinine 24 Hour 1.3 Urine Sodium 42 Ur Sodium 24 Hour 55 Stl C. diff Tox B Gene Neg C.diff Toxin B 01/24/19 01/25/19 01/25/19 20:17 05:40 05:40 WBC 7.13 RBC 3.33 L Hgb 9.5 L Hct 29.4 L MCV 88.3 MCH 28.5 MCHC 32.3 RDW Std Deviation 59.4 H RDW Coeff of Meghann 18.5 H Plt Count 158 MPV 10.3 Immature Gran % (Auto) 0.7 Neut % (Auto) 64.9 Lymph % (Auto) 14.6 [place] % (Auto) 17.7 Eos % (Auto) 1.8 Baso % (Auto) 0.3 Immature Gran # (Auto) 0.05 H Neut # (Auto) 4.63 Lymph # (Auto) 1.04 L [place] # (Auto) 1.26 H Eos # (Auto) 0.13 Baso # (Auto) 0.02 Sodium 137 Potassium 3.7 Chloride 106 Carbon Dioxide 24 Anion Gap 7.0 BUN 18 Creatinine 1.15 Est Cr Clr Drug Dosing 46.6 Est GFR ( Amer) 55.4 Est GFR (Non-Af Amer) 47.8 BUN/Creatinine Ratio 15.6 Glucose 125 H POC Glucose 277 H Calcium 8.3 L Phosphorus 2.8 Magnesium 2.4 Urine Total Volume Urine Creatinine Ur Creatinine 24 Hour Urine Sodium Ur Sodium 24 Hour Stl C. diff Tox B Gene 01/25/19 01/25/19 07:42 11:29 WBC RBC Hgb Hct MCV MCH MCHC RDW Std Deviation RDW Coeff of Meghann Plt Count MPV Immature Gran % (Auto) Neut % (Auto) Lymph % (Auto) [place] % (Auto) Eos % (Auto) Baso % (Auto) Immature Gran # (Auto) Neut # (Auto) Lymph # (Auto) [place] # (Auto) Eos # (Auto) Baso # (Auto) Sodium Potassium Chloride Carbon Dioxide Anion Gap BUN Creatinine Est Cr Clr Drug Dosing Est GFR ( Amer) Est GFR (Non-Af Amer) BUN/Creatinine Ratio Glucose POC Glucose 145 H 240 H Calcium Phosphorus Magnesium Urine Total Volume Urine Creatinine Ur Creatinine 24 Hour Urine Sodium Ur Sodium 24 Hour Stl C. diff Tox B Gene Microbiology 01/24/19 16:20 Stool WBC Smear - Final 01/24/19 16:20 Stool Shiga Toxin Test - Preliminary 01/24/19 16:20 Stool Stool Culture - Preliminary No Salmonella isolated to date, No Shigella isolated to date, No Campylobacter jejuni isolated to date. Total Time Total Time Spent Total Time Spent (In Minutes): 35 Total Time Includes: Examination of the Patient, Discharge Planning, Medication Reconciliation and Communication With Other Providers Discharge Plan Discharge Items Patient Disposition: Home - Self-Care Reason For Visit: PYELONEPHRITIS, SEPSIS Discharge Diagnosis: PYELONEPHRITIS, SEPSIS Condition: Good Discharge Goals: Decrease discomfort, Diagnostic testing, Improve disease control and Improve function Activity: Resume your previous activity Non-emergency contact: Primary Care Provider Call non-emergency contact if: you have any medication questions and your temperature is above 100.5 Follow-up/Referrals: Joaquin Esparza III, MD [Primary Care Provider] - 02/01/19 9:00 am (Please, follow up at Dr. Esparza's office with his associate, Gloria LOVELL, on MondayFebruary 01 at 9:00 am. *If you need to change this appointment, call the office at [phone].) Diet: Heart Healthy Addtl Provider Instructions: you have pyelonephritis you need to continue cipro 250mg po twice daily for 12 days more I ordered probiotics , please take it you have Uncontrolled blood glucose with Diabetic, we did stop NPH, start Humulin 70/30 , please use 30 unit sq, 15 - 30 minutes before breakfast, and 30 unit sq 15 - 30 minutes before dinner you need to follow up with your primary care physician in 1 week, - take medication as instructed, never overdose or any misuse, or take with alcohol, because misuse of medicine may cause organ damage or , call me, or your primary care physician if have questions of discharge medicaitons. - call your primary care physician, or go to local emergency room if has any fever/chill, chest pain, shortness of breathing, nausea/vomiting/abdominal pain, facial droop/slurry speech/local weakness, or if has any questions. - fall precaution - diet as instructed Prescriptions: New Florastor 250 mg capsule 250 mg PO BID Qty: 10 RF: 0 Humulin 70/30 U-100 KwikPen 100 unit/mL (70-30) insulin pen 30 units SQ BID Qty: 3 RF: 0 Continued hydrochlorothiazide 12.5 mg Tablet 12.5 mg PO HS RF: 0 pantoprazole 40 mg Tablet,Delayed Release (Dr/Ec) 40 mg PO QAM RF: 0 atorvastatin 20 mg Tablet 20 mg PO QPM RF: 0 citalopram 40 mg Tablet 40 mg PO QPM RF: 0 benazepril 20 mg Tablet 20 mg PO BID RF: 0 insulin lispro [Humalog KwikPen Insulin] 100 unit/mL Insulin Pen 25 unit SUBCUT QDD RF: 0 insulin lispro [Humalog KwikPen Insulin] 100 unit/mL Insulin Pen 20 unit SUBCUT QDB RF: 0 celecoxib [Celebrex] 200 mg capsule 200 mg PO BID PRN (Reason: Pain) RF: 0 ciprofloxacin HCl [Cipro] 250 mg tablet 250 mg PO BID RF: 0 Discontinued Novolin N NPH U-100 Insulin 100 unit/mL Suspension 40 - 50 unit SUBCUT PM RF: 0 Stand-Alone Forms: [facility] Discharge Orders: Discharge Order (Routine); Ordered 01/25/19 Ordered By: Antonio Garcia Admission Data Admit Date/Time: 01/23/19 00:59 Attending Provider: Antonio Garcia Admit Provider: Matthieu Melendrez Primary Care Provider: Joaquin Esparza III Other Providers: Matthieu Melendrez Service: Medical Other Interventions: Discharge Summary Assessment (RN) Last Done: 01/25/19 12:55 DC Date/Time DO NOT enter until pt leaves facility: 01/25/19 14:15
== END 2019-01-25 14:15 | disposition home or self-care (01) ==
LOC: ED 21:13 → 2E 01-23 00:59 → SUATTDRO 01-23 00:59 → 2E 01-23 02:30 → 4E 01-24 12:51

== ENCOUNTER 2019-03-24 15:49 | Inpatient (IN) ==
[2019-03-24] MEDS ORDERED: SODIUM CHLORIDE 0.9% 1000ML 1,000 ML IV SCH (16:30)
[2019-03-24 16:37] LABS: Hematocrit (blood only) 39.5 % (37-47); Hemoglobin 13.2 g/dL (12.0-16.0); Mean Corpuscular Hgb Conc 33.4 g/dL (32-36); Mean Corpuscular Volume 84.8 fL (80-100); Platelet Count 256 K/uL (130-400); RDW Coefficient of Variation 18.2 % (11.5-14.5); RDW Standard Deviation 55.4 fL (36.4-46.3); Red Blood Count 4.66 M/uL (4.2-5.4)
[2019-03-24 16:48] LABS: Partial Thromboplastin Ratio 0.9; Partial Thromboplastin Time 24.2 Seconds (21.0-31.0); Prothrombin Time 10.5 Seconds (9.0-12.0)
[2019-03-24 16:53] LABS: Alanine Aminotransferase 33 U/L (12-78); Albumin Level 3.9 gm/dl (3.4-5.0); Aspartate Aminotransferase 28 U/L (15-37); Blood Urea Nitrogen 17 mg/dl (7-18); Carbon Dioxide 21 mmol/L (21-32); Chloride 106 mmol/L (98-107); Creatinine Clr Calc Pharmacy 40.3 ml/min; Est GFR (African American) 47.4; Est GFR (Non-African American) 40.9; Glucose 193 mg/dl (70-99); Potassium 4.3 mmol/L (3.5-5.1); Sodium 140 mmol/L (136-145)
[2019-03-24 16:58] LABS: Albumin Globulin Ratio 0.9 (0.9-2); Alkaline Phosphatase 158 U/L (45-117); Bilirubin,Total 0.7 mg/dl (0.2-1); Globulin 4.3 gm/dl (2.5-4.0); Total Protein 8.2 gm/dl (6.4-8.2); Troponin I < 0.015 ng/ml (0-0.045)
[2019-03-24 17:08] LABS: Basophils # (auto) 0.02 K/uL (0-0.2); Basophils % (auto) 0.1 %; Eosinophils # (auto) 0.05 K/uL (0-0.5); Eosinophils % (auto) 0.3 %; Immature Granulocytes # (auto) 0.12 K/uL (0.00-0.02); Immature Granulocytes % (auto) 0.6 %; Lymphocytes # (auto) 2.14 K/uL (1.2-3.4); Lymphocytes % (auto) 11.4 %; Monocytes # (auto) 1.78 K/uL (0.11-0.59); Monocytes % (auto) 9.5 %; Neutrophils # (auto) 14.69 K/uL (1.4-6.5); Neutrophils % (auto) 78.1 %
[2019-03-24] MEDS ORDERED: IOVERSOL 100ml IV PRN (17:29)
--- NOTE | 2019-03-24 17:48 | CT Scan Report ---
ABDOMEN AND PELVIS CT WITH IV CONTRAST CT DOSE: 755.64 mGy.cm HISTORY: Acute low abdominal pain abd pain and gi bleed TECHNIQUE: Multiaxial CT images of the abdomen and pelvis were performed following the use of intrave nous contrast. A dose lowering technique was utilized adhering to the principles of ALARA. COMPARISON STUDY: CT abdomen pelvis 01/22/2019. FINDINGS: Mild subsegmental bibasilar atelectasis/scarring. No pneumatosis or pneumoperitoneum. Imaged inferior cardiac chambers are unremarkable. Coronary arterial calcifications are noted. Spleen, gallbladder, liver, pancreas and adrenal glands appear unremarkable. No biliary ductal dilati on. Patency of the hepatic and portal veins. Left nephrolithiasis includes a 1.6 cm calculus of the i nferior pole left kidney. No ureteral calculi or obstructive uropathy. 8 mm hypodense lesion of the s uperior pole right kidney is unchanged suggestive of a probable cyst. Mild wall thickening of the concetta dder with partial distention. Endometrium is mildly thickened which appears to measure up to approxim ately 10 mm. No adnexal mass lesions. Multiple phleboliths of the pelvis. No aortic aneurysm. There is no small bowel obstruction. There is moderate wall thickening with pericolonic stranding whi ch extends from the hepatic flexure through the sigmoid. Prior appendectomy. Terminal ileum is unrema rkable. Mild colonic diverticulosis without CT evidence of acute diverticulitis. No evidence of perfo ration or drainable fluid collection. Soft tissues appear unremarkable. Degenerative changes of the s pine, pelvis and hips. Bones appear to be intact. IMPRESSION: 1. Acute nonspecific colitis extends from the hepatic flexure through the sigmoid. 2. No bowel obstruction, pneumatosis or pneumoperitoneum. 3. Colonic diverticulosis without CT evidence of acute diverticulitis. 4. Nonobstructing left nephrolithiasis. 5. Abnormally thickened endometrium for a postmenopausal patient. This could be correlated with a fol low-up nonemergent pelvic ultrasound. 6. Additional findings as above. Electronically signed by: Dimitry Jain M.D. 03/24/2019 5:46 PM
--- NOTE | 2019-03-24 18:29 | History & Physical Report ---
Date of Service March 24, 2019 Assessment & Plan (1) Colitis: started at 1am, several large, liquid BM in the first hour then had some small bloody BM a few hours later colitis seen on CT from sigmoid to hepatic flexure she admits to antibiotics in January for UTI will check for C diff, treat with Vanco PO in the meantime until results are back no recent undercooked chicken or beef no one else sick around her, no travel supportive care with NSS at 80cc/hr, clear liquid diet tonight, reassess tomorrow (2) Hematochezia: the bleeding started after several large liquid stools without bleed colitis on CT suspect it is either ischemic colitis from watershed regions or C diff low suspicion E coli or Camplylobacter or Shigella check C diff, check stool culture (3) Diabetes: cut Lantus dose in half to 29 units since PO intake suboptimal Novolog SS clear liquid diet (4) Hypertension: continue Norvasc and Imdur hold HCTZ History of Present Illness Chief Complaint: I had bloody diarrhea Primary Care Provider: Joaquin Esparza MD 73 yo female with history of recurrent UTI, most recently with right sided pyelonephritis in January, presents with some bloody diarrhea. She says she woke up in the morning, around 1am with cramping and urge to move her bowels. This was acute onset of symptoms, had no symptoms the day before. Denied eating any suspicious food and no one else around her was sick. From 1am to 2am she moved her bowels 4 times, large volume liquid stool. She was able to lay back down and slept for two hours but then woke up around 4am with more cramping and tenesmus. When she moved her bowels this time she noticed that it was mostly blood, bright red. She says she never had bright red bloody diarrhea before. She moved bowels a few more times and each time it was small volume bloody diarrhea. She did not have any vomiting. She had some chills and sweats over night. No dyspnea, no cough, no chest pain. She was alarmed by the bleeding so she came to the ED. Risk factors for diarrhea include recent antibiotic use in January for pyelonephritis. As mentioned above, no known sick contacts, no undercooked chicken or meat to her knowledge, no recent travel. WBC was 19k on admission. CT abd/pelvis showed colitis from sigmoid to the hepatic flexure. There was diverticular disease but no diverticulitis. Allergies Allergy/AdvReac Type Severity Reaction Status Date / Time No Known Allergies Allergy Verified 03/24/19 16:48 Home Medications Home Medications Medication Instructions Recorded Confirmed Type atorvastatin 20 mg PO HS 09/27/18 03/24/19 History benazepril 20 mg PO BID 09/27/18 03/24/19 History citalopram 40 mg PO HS 09/27/18 03/24/19 History insulin lispro [Humalog KwikPen 22 unit SUBCUT QDB 09/27/18 03/24/19 History Insulin] insulin lispro [Humalog KwikPen 22 unit SUBCUT QDD 09/27/18 03/24/19 History Insulin] pantoprazole 40 mg PO QAM 09/27/18 03/24/19 History celecoxib [Celebrex] 200 mg PO BID PRN 01/22/19 03/24/19 History dulaglutide [Trulicity] 0.75 mg SUBCUT WK 03/24/19 03/24/19 History insulin glargine [Lantus Solostar 58 unit SUBCUT HS 03/24/19 03/24/19 History U-100 Insulin] insulin lispro [Humalog KwikPen 18 units SUBCUT QDL 03/24/19 03/24/19 History Insulin] Past Med/Surg History Medical History Anemia Depression Diabetes mellitus, type 2 IDDM Diverticular disease Hyperlipidemia Hypertension Peptic ulcer disease Surgical History History of appendectomy History of colonoscopy History of discectomy History of esophagogastroduodenoscopy (EGD) History of total knee replacement LEFT Family History Mother Family history of diabetes mellitus Social History Preferred Language: [place] Citizen Communication Ability: Effective Sales And Marketing Assistant Required: No Beliefs That Will Affect Care: None Current Living Situation: Alone Current Living Situation Comment: Daughters live close. Able to assist w/care as needed. Other Information That Helps Us Care for You: No Feels Safe at Home: Yes Safety Concerns: Feels Safe At This Time Smoking Status: Never smoker Do You Dip or Chew Tobacco: No Second Hand Exposure: No Tobacco Cessation Education Requested by Patient: No Hx Alcohol Use: No Hx Substance Use: No Review of Systems Review of Systems: All systems reviewed & are unremarkable except as noted in HPI & below Constitutional: + chills, + sweats, + fatigue and + weakness; no fever, no malaise, no weight loss and no insomnia Respiratory: no cough and no dyspnea Cardiovascular: no chest pain Gastrointestinal: + abdominal pain (diffuse cramping), + cramping, + diarrhea/loose stools and + blood in stools; no nausea, no vomiting, no constipation and no melena Physical Exam Constitutional: WD/WN, vitals as above Eyes: PERRL, conjunctivae normal, anicteric sclerae ENMT: external ear and nose normal, oropharynx normal Neck: trachea midline, no thyromegaly Respiratory: normal respiratory effort, lungs clear to auscultation Cardiovascular: RRR, no murmur, no edema Gastrointestinal (Abdomen): Inspection/Auscultation: abdomen normal to inspection; abdomen not distended and + abnormal bowel sounds (hyperactive bowels) Percussion/Palpation: abdomen soft; abdomen nontender, no guarding and abdomen not rigid Musculoskeletal: no cyanosis or clubbing, extremities motor strength 5/5 Skin: no rashes, warm and dry Neurologic: patellar DTR's 2+ bilat, sensation intact and PERRL, EOMI, accommodation nl, no face palsy, no dysarthria Psychiatric: A+Ox3, euthymic affect Lymphatic: no cervical or axillary lymphadenopathy Results & Data Vital Signs (Past 12 Hours) Vital Signs Temp Pulse Resp BP Pulse Ox 03/24/19 17:39 99 H 26 H 142/73 H 96 03/24/19 15:52 36.7 C 98 H 20 161/100 H 98 Laboratory Results Laboratory Results - last 24 hr 03/24/19 03/24/19 03/24/19 16:26 16:26 16:26 WBC 18.80 H RBC 4.66 Hgb 13.2 Hct 39.5 MCV 84.8 MCH 28.3 MCHC 33.4 RDW Std Deviation 55.4 H RDW Coeff of Meghann 18.2 H Plt Count 256 MPV 10.0 Immature Gran % (Auto) 0.6 Neut % (Auto) 78.1 Lymph % (Auto) 11.4 [place] % (Auto) 9.5 Eos % (Auto) 0.3 Baso % (Auto) 0.1 Immature Gran # (Auto) 0.12 H Neut # (Auto) 14.69 H Lymph # (Auto) 2.14 [place] # (Auto) 1.78 H Eos # (Auto) 0.05 Baso # (Auto) 0.02 PT 10.5 INR 1.0 APTT 24.2 PTT Ratio 0.9 Sodium 140 Potassium 4.3 Chloride 106 Carbon Dioxide 21 Anion Gap 13.0 H BUN 17 Creatinine 1.31 H Est Cr Clr Drug Dosing 40.3 Est GFR ( Amer) 47.4 Est GFR (Non-Af Amer) 40.9 BUN/Creatinine Ratio 13.0 Glucose 193 H POC Glucose Calcium 10.0 Total Bilirubin 0.7 AST 28 ALT 33 Alkaline Phosphatase 158 H Troponin I < 0.015 Total Protein 8.2 Albumin 3.9 Globulin 4.3 H Albumin/Globulin Ratio 0.9 POC Stool Occult Blood Stl C. diff Tox B Gene Blood Type Antibody Screen 03/24/19 03/24/19 03/24/19 16:26 16:32 19:45 WBC RBC Hgb Hct MCV MCH MCHC RDW Std Deviation RDW Coeff of Meghann Plt Count MPV Immature Gran % (Auto) Neut % (Auto) Lymph % (Auto) [place] % (Auto) Eos % (Auto) Baso % (Auto) Immature Gran # (Auto) Neut # (Auto) Lymph # (Auto) [place] # (Auto) Eos # (Auto) Baso # (Auto) PT INR APTT PTT Ratio Sodium Potassium Chloride Carbon Dioxide Anion Gap BUN Creatinine Est Cr Clr Drug Dosing Est GFR ( Amer) Est GFR (Non-Af Amer) BUN/Creatinine Ratio Glucose POC Glucose 165 H Calcium Total Bilirubin AST ALT Alkaline Phosphatase Troponin I Total Protein Albumin Globulin Albumin/Globulin Ratio POC Stool Occult Blood Positive H Stl C. diff Tox B Gene Blood Type O Negative Antibody Screen NEGATIVE 03/24/19 03/25/19 03/25/19 20:50 06:04 06:04 WBC 11.63 H RBC 3.99 L Hgb 11.2 L Hct 34.3 L MCV 86.0 MCH 28.1 MCHC 32.7 RDW Std Deviation 56.0 H RDW Coeff of Meghann 18.3 H Plt Count 206 MPV 10.2 Immature Gran % (Auto) 0.5 Neut % (Auto) 69.2 Lymph % (Auto) 17.9 [place] % (Auto) 10.8 Eos % (Auto) 1.1 Baso % (Auto) 0.5 Immature Gran # (Auto) 0.06 H Neut # (Auto) 8.04 H Lymph # (Auto) 2.08 [place] # (Auto) 1.26 H Eos # (Auto) 0.13 Baso # (Auto) 0.06 PT INR APTT PTT Ratio Sodium 138 Potassium 4.0 Chloride 109 H Carbon Dioxide 24 Anion Gap 5.0 BUN 12 Creatinine 0.94 D Est Cr Clr Drug Dosing 56.2 Est GFR ( Amer) 70.7 Est GFR (Non-Af Amer) 61.0 BUN/Creatinine Ratio 12.6 Glucose 119 H POC Glucose Calcium 8.5 Total Bilirubin AST ALT Alkaline Phosphatase Troponin I Total Protein Albumin Globulin Albumin/Globulin Ratio POC Stool Occult Blood Stl C. diff Tox B Gene Blood Type Antibody Screen Diagnostic Findings CT ABDOMEN/PELVIS IMPRESSION: 1. Acute nonspecific colitis extends from the hepatic flexure through the sigmoid. 2. No bowel obstruction, pneumatosis or pneumoperitoneum. 3. Colonic diverticulosis without CT evidence of acute diverticulitis. 4. Nonobstructing left nephrolithiasis. 5. Abnormally thickened endometrium for a postmenopausal patient. This could be correlated with a follow-up nonemergent pelvic ultrasound. 6. Additional findings as above. Code Status & VTE Plan Code Status full code VTE Prophylaxis Plan VTE Prophylaxis will be ordered: Yes Reason for no VTE drug order: Contraindicated
[2019-03-24] MEDS ORDERED: ONDANSETRON INJ 2 MG/ML 2 ML VIAL IV PRN (19:08)
[2019-03-24] MEDS: SODIUM CHLORIDE 0.9% 1000ML 1,000 ML IV SCH (19:44)
[2019-03-24] MEDS: BENAZEPRIL HCL 10 MG TAB PO SCH (20:38)
[2019-03-24] MEDS: INSULIN GLARGINE SOLOSTAR 100 UNITS/ML 3 ML PEN SQ SCH (20:38)
[2019-03-24] MEDS: CITALOPRAM 40 MG TAB PO SCH (20:38)
[2019-03-24] MEDS: INSULIN ASPART 100 UNITS/ML 3 ML PEN SC SCH (20:40)
[2019-03-24] MEDS ORDERED: VANCOMYCIN HCL 125 MG/2.5ML SOLN PO SCH (21:00)
[2019-03-24] MEDS ORDERED: RASPBERRY SYRUP 5 ML UDP PO SCH (21:00)
--- NOTE | 2019-03-24 22:12 | Emergency Department Note ---
Entered by Seth Buitrago acting as a scribe for Ang Alvarez DO History of Present Illness General Chief complaint: Diarrhea Stated complaint: DIARRHEA,VOMITING, BLOOD IN STOOL Source: patient History of Present Illness Onset (ago): hour(s) (03:00-04:00 this morning) Location: buttocks (rectum) Pain Consistency: + intermittent Quality: + other (rectal bleeding) Associated symptoms: + nausea/vomiting and + other (lower abdominal cramping) The patient is a 73 year old female who presents to the Emergency Room with complaints of intermittent rectal bleeding. The patient reports that early this morning at 01:00 she had several loose bowel movements, and between 03:00-04:00 she started having about cup of bright red blood in the toilet bowl with each bowel movement. She states that this continued throughout the day. She also reports lower abdominal cramping this morning. She was also vomiting overnight, most recently at 08:00 this morning. She states that she has had hemorrhoids for several years. She denies urinary symptoms, recent travel, sick contact, contact with those who work in healthcare, or use of blood thinners. She reports that she was on Cipro last month for a UTI. She notes a history of appendectomy, pyelonephritis, and gastric ulcers. Her most recent EGD was unremarkable. Home Medications Home Medications Medication Instructions Recorded Confirmed Type atorvastatin 20 mg PO HS 09/27/18 03/24/19 History benazepril 20 mg PO BID 09/27/18 03/24/19 History citalopram 40 mg PO HS 09/27/18 03/24/19 History insulin lispro [Humalog KwikPen 22 unit SUBCUT QDB 09/27/18 03/24/19 History Insulin] insulin lispro [Humalog KwikPen 22 unit SUBCUT QDD 09/27/18 03/24/19 History Insulin] pantoprazole 40 mg PO QAM 09/27/18 03/24/19 History celecoxib [Celebrex] 200 mg PO BID PRN 01/22/19 03/24/19 History dulaglutide [Trulicity] 0.75 mg SUBCUT WK 03/24/19 03/24/19 History insulin glargine [Lantus Solostar 58 unit SUBCUT HS 03/24/19 03/24/19 History U-100 Insulin] insulin lispro [Humalog KwikPen 18 units SUBCUT QDL 03/24/19 03/24/19 History Insulin] Allergies Allergy/AdvReac Type Severity Reaction Status Date / Time No Known Allergies Allergy Verified 03/24/19 16:48 Past Med/Surg History Medical History Anemia Depression Diabetes mellitus, type 2 IDDM Diverticular disease Hyperlipidemia Hypertension Peptic ulcer disease Surgical History History of appendectomy History of colonoscopy History of discectomy History of esophagogastroduodenoscopy (EGD) History of total knee replacement LEFT Family History Mother Family history of diabetes mellitus Social History Preferred Language: Yoruba Communication Ability: Effective Christian Counselor Required: No Beliefs That Will Affect Care: None Current Living Situation: Alone Current Living Situation Comment: Daughters live close. Able to assist w/care as needed. Other Information That Helps Us Care for You: No Feels Safe at Home: Yes Safety Concerns: Feels Safe At This Time Smoking Status: Never smoker Do You Dip or Chew Tobacco: No Second Hand Exposure: No Tobacco Cessation Education Requested by Patient: No Hx Alcohol Use: No Hx Substance Use: No Review of Systems See HPI for pertinent positives & negatives. and A total of 10 systems reviewed and were otherwise negative Physical Exam Vital Signs Vital Signs - 24 hr 03/24/19 15:52 03/24/19 16:16 03/24/19 17:39 Temperature 36.7 C Temperature Source Oral Sepsis Recent Fever Within 48 Hours No Sepsis New/Unexplained Change in Mental Status No Sepsis Action Taken by Nursing No Action Required Pulse Rate 98 H 99 H Pulse Rate [Left Finger] Pulse Rate from SpO2 Sensor 100 H Pulse Rhythm Regular Pulse Rhythm [Left Finger] Pulse Strength Normal Pulse Strength [Left Finger] Respiratory Rate 20 26 H Respiratory Effort / Characteristics Non-Labored Spontaneous Respiratory Depth Normal Respiratory Pattern Regular Blood Pressure 161/100 H 142/73 H Blood Pressure [Left Arm] Blood Pressure Mean 120 96 Blood Pressure Mean [Left Arm] Blood Pressure Position Sitting Blood Pressure Position [Left Arm] Pulse Oximetry 98 96 Oxygen Delivery Method Room Air Room Air 03/24/19 18:30 03/24/19 19:20 03/24/19 20:36 Temperature 36.6 C Temperature Source Oral Sepsis Recent Fever Within 48 Hours Sepsis New/Unexplained Change in Mental Status Sepsis Action Taken by Nursing Pulse Rate Pulse Rate [Left Finger] 94 H 88 Pulse Rate from SpO2 Sensor Pulse Rhythm Pulse Rhythm [Left Finger] Regular Pulse Strength Pulse Strength [Left Finger] Normal Respiratory Rate 16 Respiratory Effort / Characteristics Spontaneous SOB on Exertion Non-Labored Spontaneous Respiratory Depth Normal Normal Respiratory Pattern Tachypnea Blood Pressure Blood Pressure [Left Arm] 125/85 132/85 Blood Pressure Mean Blood Pressure Mean [Left Arm] 98 100 Blood Pressure Position Blood Pressure Position [Left Arm] Lying Lying Pulse Oximetry 95 Oxygen Delivery Method Room Air Room Air GENERAL: sitting up in bed, alert, well appearing, well nourished, no distress, non-toxic EYE EXAM: normal conjunctiva OROPHARYNX: no exudate, no erythema, lips, buccal mucosa, and tongue normal and mucous membranes are moist NECK: supple, no nuchal rigidity, no adenopathy, non-tender LUNGS: Clear to auscultation. Normal chest wall mechanics HEART: no murmurs, S1 normal and S2 normal ABDOMEN: abdomen soft, non-tender, normo-active bowel sounds, no masses, no rebound or guarding. RECTAL: Bright red blood per rectum. BACK: Back is symmetrical on inspection and there is no deformity, no midline tenderness, no CVA tenderness. SKIN: no rashes and no bruising UPPER EXTREMITIES: upper extremities are grossly normal. LOWER EXTREMITIES: No pitting edema. NEURO EXAM: Normal sensorium, cranial nerves II-XII grossly intact, normal sp eech, no gross weakness of arms, no gross weakness of legs. Gross sensation intact. Course ED COURSE: Vital signs were reviewed and showed tachycardia The patients medical record was reviewed The above diagnostic studies were performed and reviewed. ED treatments and interventions as stated above. 1608: The patient was evaluated in room C5. A complete history and physical examination was performed. 1814: I consulted Dr. King [facility] Hospitalist. The patient will be reevaluated for hospitalization. Based on the patients age, coexisting illnesses, exam and lab findings the decision to treat as an [inpatient][outpatient] was made. The patient remained stable while under my care. The patient will be evaluated for further management. Administered Medications Benazepril HCl (Lotensin) 20 mg PO BID [facility] Stop: 04/23/19 20:59 Last Admin: 03/24/19 20:38 Dose: 20 mg Documented by: [id number] Citalopram Hydrobromide (Celexa) 40 mg PO HS [facility] Stop: 04/23/19 20:59 Last Admin: 03/24/19 20:38 Dose: 40 mg Documented by: [id number] Sodium Chloride (Nss 1000ml) 1,000 mls @ 80 mls/hr IV .[id number] [facility] Stop: 04/23/19 19:07 Last Admin: 03/24/19 19:44 Dose: 80 mls/hr Documented by: [id number] Insulin Aspart (Novolog Flexpen) 0 units SC ACHS [facility] Stop: 04/23/19 20:59 Last Admin: 03/24/19 20:40 Dose: 1 units Documented by: [id number] Cosigned by: [id number] Insulin Glargine (Lantus Solostar Pen) 29 units SQ HS [facility] Stop: 04/23/19 20:59 Last Admin: 03/24/19 20:38 Dose: 29 units Documented by: [id number] Cosigned by: [id number] Ondansetron HCl (Zofran) 4 mg IV Q6H PRN PRN Reason: Nausea Stop: 04/23/19 19:07 Last Admin: 03/24/19 21:24 Dose: 4 mg Documented by: [id number] Raspberry (Raspberry) 5 ml PO QID [facility] Stop: 04/07/19 20:59 Last Admin: 03/24/19 20:37 Dose: 5 ml Documented by: [id number] Vancomycin HCl (Vancomycin Hcl) 125 mg PO QID [facility] Stop: 04/03/19 20:59 Last Admin: 03/24/19 20:37 Dose: 125 mg Documented by: [id number] Discontinued Medications Sodium Chloride (Nss 1000ml) 1,000 mls @ 999 mls/hr IV .[id number] [facility] Stop: 03/24/19 17:30 Last Infusion: 03/24/19 17:45 Dose: 0 mls/hr Documented by: [id number] Admin: 03/24/19 16:43 Dose: 999 mls/hr Documented by: [id number] Ioversol (Optiray 320 100ml) 94 ml IV ONCE PRN PRN Reason: Interaction Checking Stop: 03/28/19 17:28 Last Admin: 03/24/19 17:29 Dose: 94 ml Documented by: [id number] Medical Decision Making Differential Diagnosis Differential diagnosis includes: diverticulosis, AVM, coagulopathy, colitis, inflammatory bowel disease, malignancy, Tina-Lua tear, esophagitis, peptic ulcer disease, variceal bleed, gastritis, epistaxis, fissure, hemorrhoids, as well as others were entertained. Medical Records Attestation: I reviewed the patient's medical records. Home Medications Current Medication List: was personally reviewed by me Laboratory Data Attestation: I reviewed the patient's lab results. Result diagrams: 03/24/19 16:26 03/24/19 16:26 Lab Results 03/24/19 03/24/19 03/24/19 Range/Units 16:26 16:26 16:26 WBC 18.80 H (4.8-10.8) K/uL RBC 4.66 (4.2-5.4) M/uL Hgb 13.2 (12.0-16.0) g/dL Hct 39.5 (37-47) % MCV 84.8 (80-100) fL MCH 28.3 (25-34) pg MCHC 33.4 (32-36) g/dL RDW Std Deviation 55.4 H (36.4-46.3) fL RDW Coeff of Meghann 18.2 H (11.5-14.5) % Plt Count 256 (130-400) K/uL MPV 10.0 (7.4-10.4) fL Immature Gran % (Auto) 0.6 % Neut % (Auto) 78.1 % Lymph % (Auto) 11.4 % Hyde % (Auto) 9.5 % Eos % (Auto) 0.3 % Baso % (Auto) 0.1 % Immature Gran # (Auto) 0.12 H (0.00-0.02) K/uL Neut # (Auto) 14.69 H (1.4-6.5) K/uL Lymph # (Auto) 2.14 (1.2-3.4) K/uL Hyde # (Auto) 1.78 H (0.11-0.59) K/uL Eos # (Auto) 0.05 (0-0.5) K/uL Baso # (Auto) 0.02 (0-0.2) K/uL PT 10.5 (9.0-12.0) Seconds INR 1.0 (0.9-1.1) APTT 24.2 (21.0-31.0) Seconds PTT Ratio 0.9 Sodium 140 (136-145) mmol/L Potassium 4.3 (3.5-5.1) mmol/L Chloride 106 (98-107) mmol/L Carbon Dioxide 21 (21-32) mmol/L Anion Gap 13.0 H (3-11) BUN 17 (7-18) mg/dl Creatinine 1.31 H (0.6-1.2) mg/dl Est Cr Clr Drug Dosing 40.3 ml/min Est GFR ( Amer) 47.4 Est GFR (Non-Af Amer) 40.9 BUN/Creatinine Ratio 13.0 (10-20) Glucose 193 H (70-99) mg/dl POC Glucose (70-99) Calcium 10.0 (8.5-10.1) mg/dl Total Bilirubin 0.7 (0.2-1) mg/dl AST 28 (15-37) U/L ALT 33 (12-78) U/L Alkaline Phosphatase 158 H (45-117) U/L Troponin I < 0.015 (0-0.045) ng/ml Total Protein 8.2 (6.4-8.2) gm/dl Albumin 3.9 (3.4-5.0) gm/dl Globulin 4.3 H (2.5-4.0) gm/dl Albumin/Globulin Ratio 0.9 (0.9-2) POC Stool Occult Blood (Negative) Stl C. diff Tox B Gene (Neg) Blood Type Antibody Screen 03/24/19 03/24/19 03/24/19 Range/Units 16:26 16:32 19:45 WBC (4.8-10.8) K/uL RBC (4.2-5.4) M/uL Hgb (12.0-16.0) g/dL Hct (37-47) % MCV (80-100) fL MCH (25-34) pg MCHC (32-36) g/dL RDW Std Deviation (36.4-46.3) fL RDW Coeff of Meghann (11.5-14.5) % Plt Count (130-400) K/uL MPV (7.4-10.4) fL Immature Gran % (Auto) % Neut % (Auto) % Lymph % (Auto) % Hyde % (Auto) % Eos % (Auto) % Baso % (Auto) % Immature Gran # (Auto) (0.00-0.02) K/uL Neut # (Auto) (1.4-6.5) K/uL Lymph # (Auto) (1.2-3.4) K/uL Hyde # (Auto) (0.11-0.59) K/uL Eos # (Auto) (0-0.5) K/uL Baso # (Auto) (0-0.2) K/uL PT (9.0-12.0) Seconds INR (0.9-1.1) APTT (21.0-31.0) Seconds PTT Ratio Sodium (136-145) mmol/L Potassium (3.5-5.1) mmol/L Chloride (98-107) mmol/L Carbon Dioxide (21-32) mmol/L Anion Gap (3-11) BUN (7-18) mg/dl Creatinine (0.6-1.2) mg/dl Est Cr Clr Drug Dosing ml/min Est GFR ( Amer) Est GFR (Non-Af Amer) BUN/Creatinine Ratio (10-20) Glucose (70-99) mg/dl POC Glucose 165 H (70-99) Calcium (8.5-10.1) mg/dl Total Bilirubin (0.2-1) mg/dl AST (15-37) U/L ALT (12-78) U/L Alkaline Phosphatase (45-117) U/L Troponin I (0-0.045) ng/ml Total Protein (6.4-8.2) gm/dl Albumin (3.4-5.0) gm/dl Globulin (2.5-4.0) gm/dl Albumin/Globulin Ratio (0.9-2) POC Stool Occult Blood Positive H (Negative) Stl C. diff Tox B Gene (Neg) Blood Type O Negative Antibody Screen NEGATIVE 03/24/19 Range/Units 20:50 WBC (4.8-10.8) K/uL RBC (4.2-5.4) M/uL Hgb (12.0-16.0) g/dL Hct (37-47) % MCV (80-100) fL MCH (25-34) pg MCHC (32-36) g/dL RDW Std Deviation (36.4-46.3) fL RDW Coeff of Meghann (11.5-14.5) % Plt Count (130-400) K/uL MPV (7.4-10.4) fL Immature Gran % (Auto) % Neut % (Auto) % Lymph % (Auto) % Hyde % (Auto) % Eos % (Auto) % Baso % (Auto) % Immature Gran # (Auto) (0.00-0.02) K/uL Neut # (Auto) (1.4-6.5) K/uL Lymph # (Auto) (1.2-3.4) K/uL Hyde # (Auto) (0.11-0.59) K/uL Eos # (Auto) (0-0.5) K/uL Baso # (Auto) (0-0.2) K/uL PT (9.0-12.0) Seconds INR (0.9-1.1) APTT (21.0-31.0) Seconds PTT Ratio Sodium (136-145) mmol/L Potassium (3.5-5.1) mmol/L Chloride (98-107) mmol/L Carbon Dioxide (21-32) mmol/L Anion Gap (3-11) BUN (7-18) mg/dl Creatinine (0.6-1.2) mg/dl Est Cr Clr Drug Dosing ml/min Est GFR ( Amer) Est GFR (Non-Af Amer) BUN/Creatinine Ratio (10-20) Glucose (70-99) mg/dl POC Glucose (70-99) Calcium (8.5-10.1) mg/dl Total Bilirubin (0.2-1) mg/dl AST (15-37) U/L ALT (12-78) U/L Alkaline Phosphatase (45-117) U/L Troponin I (0-0.045) ng/ml Total Protein (6.4-8.2) gm/dl Albumin (3.4-5.0) gm/dl Globulin (2.5-4.0) gm/dl Albumin/Globulin Ratio (0.9-2) POC Stool Occult Blood (Negative) Stl C. diff Tox B Gene (Neg) Blood Type Antibody Screen Imaging Data Radiologist's Impression: Radiology results as stated below per my review and the radiologist's i nterpretation: ABDOMEN AND PELVIS CT WITH IV CONTRAST CT DOSE: 755.64 mGy.cm HISTORY: Acute low abdominal pain abd pain and gi bleed TECHNIQUE: Multiaxial CT images of the abdomen and pelvis were performed following the use of intravenous contrast. A dose lowering technique was utilized adhering to the principles of ALARA. COMPARISON STUDY: CT abdomen pelvis 01/22/2019. FINDINGS: Mild subsegmental bibasilar atelectasis/scarring. No pneumatosis or pneumoperitoneum. Imaged inferior cardiac chambers are unremarkable. Coronary arterial calcifications are noted. Spleen, gallbladder, liver, pancreas and adrenal glands appear unremarkable. No biliary ductal dilation. Patency of the hepatic and portal veins. Left nephrolithiasis includes a 1.6 cm calculus of the inferior pole left kidney. No ureteral calculi or obstructive uropathy. 8 mm hypodense lesion of the superior pole right kidney is unchanged suggestive of a probable cyst. Mild wall thickening of the bladder with partial distention. Endometrium is mildly thickened which appears to measure up to approximately 10 mm. No adnexal mass lesions. Multiple phleboliths of the pelvis. No aortic aneurysm. There is no small bowel obstruction. There is moderate wall thickening with pericolonic stranding which extends from the hepatic flexure through the sigmoid. Prior appendectomy. Terminal ileum is unremarkable. Mild colonic diverticulosis without CT evidence of acute diverticulitis. No evidence of perforation or drainable fluid collection. Soft tissues appear unremarkable. Degenerative changes of the spine, pelvis and hips. Bones appear to be intact. IMPRESSION: 1. Acute nonspecific colitis extends from the hepatic flexure through the sigmoid. 2. No bowel obstruction, pneumatosis or pneumoperitoneum. 3. Colonic diverticulosis without CT evidence of acute diverticulitis. 4. Nonobstructing left nephrolithiasis. 5. Abnormally thickened endometrium for a postmenopausal patient. This could be correlated with a follow-up nonemergent pelvic ultrasound. 6. Additional findings as above. Electronically signed by: Dimitry Jain M.D. 03/24/2019 5:46 PM ECG Data Attestation: I personally reviewed and interpreted this ECG as follows: Indication: other (GI bleeding) Rate (beats per minute): 96 Rhythm: sinus rhythm Findings: + other (poor baseline), + Q waves (Septal) and + left axis deviation; no PVC Blood Pressure Blood Pressure Findings: Elevated blood pressure Blood Pressure Disposition: further management by hospitalist ARABELLA Narrative Patient is a 73-year-old female who presents the ER for nausea vomiting diarrhea. Patient has had bright red blood per rectum since earlier this morning. She is been going multiple times an hour. She has been losing about a fourth couple per bowel movement. Vomiting has stopped. Labs show leukocytosis of 18,000. No significant anemia. INR was unremarkable. BMP with LFTs bilir ubin was unremarkable. Stool is grossly heme positive. Patient was updated at bedside. Patient was given IV fluids. Patient is also given IV Zofran. CT abdomen pelvis shows a colitis. Does not have a significant amount of pain I favor very unlikely to be an ischemic cause. Patient was updated at bedside discussed with the hospitalist and patient will be observed. Impression & Plan Colitis, Bright red blood per rectum Discharge Plan Visit Data *Final* Discharge Date/Time: 03/24/19 18:38 Chief Complaint: Diarrhea Stated Complaint: DIARRHEA,VOMITING, BLOOD IN STOOL ED Provider: Ang Alvarez Discharge Problem: Colitis, Bright red blood per rectum Patient Disposition: Admitted As Inpatient Discharge Instructions Interventions: ED Discharge Assessment Last Done: 03/24/19 18:38 The scribe's documentation has been prepared under my direction and personally reviewed by me in its entirety. I confirm that the note above accurately reflects all work, treatment, procedures, and medical decision making performed by me.
[2019-03-25] MEDS: ACETAMINOPHEN 325 MG TAB PO PRN ×2 (06:13→20:38)
[2019-03-25 06:36] LABS: Basophils # (auto) 0.06 K/uL (0-0.2); Basophils % (auto) 0.5 %; Eosinophils # (auto) 0.13 K/uL (0-0.5); Eosinophils % (auto) 1.1 %; Hematocrit (blood only) 34.3 % (37-47); Hemoglobin 11.2 g/dL (12.0-16.0); Immature Granulocytes # (auto) 0.06 K/uL (0.00-0.02); Immature Granulocytes % (auto) 0.5 %; Lymphocytes # (auto) 2.08 K/uL (1.2-3.4); Lymphocytes % (auto) 17.9 %; Mean Corpuscular Hgb Conc 32.7 g/dL (32-36); Mean Platelet Volume 10.2 fL (7.4-10.4); Monocytes # (auto) 1.26 K/uL (0.11-0.59); Monocytes % (auto) 10.8 %; Neutrophils # (auto) 8.04 K/uL (1.4-6.5); Neutrophils % (auto) 69.2 %; Platelet Count 206 K/uL (130-400); RDW Coefficient of Variation 18.3 % (11.5-14.5); Red Blood Count 3.99 M/uL (4.2-5.4); White Blood Count 11.63 K/uL (4.8-10.8)
[2019-03-25 07:18] LABS: BUN Creatinine Ratio 12.6 (10-20); Calcium 8.5 mg/dl (8.5-10.1); Creatinine Clr Calc Pharmacy 56.2 ml/min; Est GFR (African American) 70.7
[2019-03-25] MEDS: SODIUM CHLORIDE 0.9% 1000ML 1,000 ML IV SCH ×2 (07:37→20:36)
[2019-03-25] MEDS: BENAZEPRIL HCL 10 MG TAB PO SCH ×2 (07:38→20:39)
[2019-03-25] MEDS: PANTOprazole 40 MG TAB PO SCH (07:38)
[2019-03-25] MEDS: INSULIN ASPART 100 UNITS/ML 3 ML PEN SC SCH ×4 (08:34→20:41)
--- NOTE | 2019-03-25 13:19 | Hospitalist Progress Note ---
Date of Service March 25, 2019 Assessment & Plan (1) Colitis: started at 1am day of admission, several large, liquid BM in the first hour then had some small bloody BM a few hours later colitis seen on CT from sigmoid to hepatic flexure she admits to antibiotics in January for UTI initial C diff negative, was not tested due to formed stool now stools liquid again, will repeat testing, continue Vanco PO for time being WBC down to 11k from 19k most likely etiology seems to be acute viral gastroenteritis given the patient's nausea today follow up repeat C diff and stool culture continue gentle fluids, ADAT (2) Hematochezia: the bleeding started after several large liquid stools without bleed colitis on CT suspect it is either ischemic colitis from watershed regions or C diff low suspicion E coli or Camplylobacter or Shigella repeat C diff, check stool culture Hb is stable today repeat CBC in the AM (3) Diabetes: cut Lantus dose in half to 29 units since PO intake suboptimal Novolog SS clear liquid diet, ADAT today no hypoglycemia, sugars 119-141 continue above regimen until diet improves (4) Hypertension: continue Benazapril BP stable Subjective patient feeling much better today, bleeding nearly gone stools were more solid last night but then today they have been more loose d/w RN that I wanted to repeat the C diff testing since the stool was more formed last night reviewed labs, Hb down very slightly WBC down a lot to 11k from 19k electrolytes stable patient still without much of an appetite but she might want to try some toast or crackers later discussed repeating labs and slowly advancing diet, may be ready for d/c tomorrow Review of Systems Review of Systems: All systems reviewed & are unremarkable except as noted in HPI & below Constitutional: + fatigue and + weakness; no fever, no chills and no sweats Gastrointestinal: + nausea, + cramping and + diarrhea/loose stools; no abdominal pain, no belching, no heartburn, no vomiting, no dysphagia, no constipation, no blood in stools and no melena Physical Exam Constitutional: WD/WN, vitals as above Eyes: PERRL, conjunctivae normal, anicteric sclerae ENMT: external ear and nose normal, oropharynx normal Neck: trachea midline, no thyromegaly Respiratory: normal respiratory effort, lungs clear to auscultation Cardiovascular: RRR, no murmur, no edema Gastrointestinal (Abdomen): Inspection/Auscultation: abdomen normal to inspection; abdomen not distended and + abnormal bowel sounds (hyperactive bowels) Percussion/Palpation: abdomen soft; abdomen nontender, no guarding and abdomen not rigid Musculoskeletal: no cyanosis or clubbing, extremities motor strength 5/5 Skin: no rashes, warm and dry Neurologic: patellar DTR's 2+ bilat, sensation intact and PERRL, EOMI, accommodation nl, no face palsy, no dysarthria Psychiatric: A+Ox3, euthymic affect Lymphatic: no cervical or axillary lymphadenopathy Results & Data Vital Signs (Past 12 Hours) Vital Signs Temp Pulse Resp BP Pulse Ox 03/25/19 07:24 36.9 C 76 16 119/68 96 Laboratory Results Laboratory Results - last 24 hr 03/25/19 03/25/19 03/25/19 06:04 06:04 08:32 WBC 11.63 H RBC 3.99 L Hgb 11.2 L Hct 34.3 L MCV 86.0 MCH 28.1 MCHC 32.7 RDW Std Deviation 56.0 H RDW Coeff of Meghann 18.3 H Plt Count 206 MPV 10.2 Immature Gran % (Auto) 0.5 Neut % (Auto) 69.2 Lymph % (Auto) 17.9 Craven % (Auto) 10.8 Eos % (Auto) 1.1 Baso % (Auto) 0.5 Immature Gran # (Auto) 0.06 H Neut # (Auto) 8.04 H Lymph # (Auto) 2.08 Craven # (Auto) 1.26 H Eos # (Auto) 0.13 Baso # (Auto) 0.06 Sodium 138 Potassium 4.0 Chloride 109 H Carbon Dioxide 24 Anion Gap 5.0 BUN 12 Creatinine 0.94 D Est Cr Clr Drug Dosing 56.2 Est GFR ( Amer) 70.7 Est GFR (Non-Af Amer) 61.0 BUN/Creatinine Ratio 12.6 Glucose 119 H POC Glucose 181 H Calcium 8.5 Stl C. diff Tox B Gene 03/25/19 03/25/19 03/25/19 11:38 14:00 16:43 WBC RBC Hgb Hct MCV MCH MCHC RDW Std Deviation RDW Coeff of Meghann Plt Count MPV Immature Gran % (Auto) Neut % (Auto) Lymph % (Auto) Craven % (Auto) Eos % (Auto) Baso % (Auto) Immature Gran # (Auto) Neut # (Auto) Lymph # (Auto) Craven # (Auto) Eos # (Auto) Baso # (Auto) Sodium Potassium Chloride Carbon Dioxide Anion Gap BUN Creatinine Est Cr Clr Drug Dosing Est GFR ( Amer) Est GFR (Non-Af Amer) BUN/Creatinine Ratio Glucose POC Glucose 132 H 124 H Calcium Stl C. diff Tox B Gene Negative Cdiff Gene 03/25/19 20:21 WBC RBC Hgb Hct MCV MCH MCHC RDW Std Deviation RDW Coeff of Meghann Plt Count MPV Immature Gran % (Auto) Neut % (Auto) Lymph % (Auto) Craven % (Auto) Eos % (Auto) Baso % (Auto) Immature Gran # (Auto) Neut # (Auto) Lymph # (Auto) Craven # (Auto) Eos # (Auto) Baso # (Auto) Sodium Potassium Chloride Carbon Dioxide Anion Gap BUN Creatinine Est Cr Clr Drug Dosing Est GFR ( Amer) Est GFR (Non-Af Amer) BUN/Creatinine Ratio Glucose POC Glucose 141 H Calcium Stl C. diff Tox B Gene Medications Administered Current Inpatient Medications Acetaminophen (Tylenol) 650 mg PO Q4H PRN PRN Reason: pain/fever Stop: 04/23/19 19:07 Last Admin: 03/25/19 06:13 Dose: 650 mg Documented by: Benazepril HCl (Lotensin) 20 mg PO BID [facility] Stop: 04/23/19 20:59 Last Admin: 03/25/19 07:38 Dose: 20 mg Documented by: Citalopram Hydrobromide (Celexa) 40 mg PO HS [facility] Stop: 04/23/19 20:59 Last Admin: 03/24/19 20:38 Dose: 40 mg Documented by: Sodium Chloride (Nss 1000ml) 1,000 mls @ 80 mls/hr IV .[id number] [facility] Stop: 04/23/19 19:07 Last Admin: 03/25/19 07:37 Dose: 80 mls/hr Documented by: Insulin Aspart (Novolog Flexpen) 0 units SC ACHS [facility] Stop: 04/23/19 20:59 Last Admin: 03/25/19 18:05 Dose: 5 units Documented by: Insulin Glargine (Lantus Solostar Pen) 29 units SQ HS [facility] Stop: 04/23/19 20:59 Last Admin: 03/24/19 20:38 Dose: 29 units Documented by: Ondansetron HCl (Zofran) 4 mg IV Q6H PRN PRN Reason: Nausea Stop: 04/23/19 19:07 Last Admin: 03/24/19 21:24 Dose: 4 mg Documented by: Pantoprazole [facility] ([facility]ix) [facility] Stop: 04/24/19 08:59 Last Admin: 03/25/19 07:38 Dose: 40 mg Documented by:
--- NOTE | 2019-03-25 14:38 | Medical Student Progress Note ---
Date of Service March 25, 2019 Assessment & Plan (1) Colitis: Acute colitis supported by CT findings as well as clinical presentation/patient history. Currently receiving Vancomycin for C. Difficile but etiology of colitis has not been confirmed. The patient's colitis symptoms are clinically improving, which would be unusual for C. Difficile/Campylobacter/Shigella/E. Coli. 1. Retest loose stool sample for C. Difficile. 2. Continue with supportive care and rehydration with NSS. 3. Upgrade to low fiber date as tolerated. (2) Hematochezia: Differential for acute hematochezia includes inflammatory bowel disease, C. Difficile colitis, ischemic colitis, viral colitis, bacterial colitis, diverticulosis, hemorrhoids. Given the acute presentation, inflammatory bowel disease seems unlikely. Diverticulosis is usually associated with painless re ctal bleeding and not necessarily with diarrhea. Hemorrhoids also do not fit the clinical picture of episodes of loose stools progressing to stools with blood. 1. Check for C. Difficile toxin again. 2. Stool cultures pending. 3. Trend hemoglobin and hematocrit for blood loss. Subjective The patient states that she is feeling slightly improved today compared to yesterday, although she notes that she was up multiple times throughout the night with loose stools. She states that there is significantly less blood in her stool compared to the amount at admission. She does not feel like her stools are more formed. She does not have much of an appetite but has tried clear broth/Jello/popsicles. She endorses a headache that she attributes to little food/water intake over the past 48 hours. Physical Exam Vital Signs (Past 24 Hours): Last Vital Signs Temp 36.9 C 03/25/19 07:24 Pulse 76 03/25/19 07:24 Resp 16 03/25/19 07:24 BP 119/68 03/25/19 07:24 Pulse Ox 96 03/25/19 07:24 Constitutional: Well-developed female who appears her stated age laying comfortably in bed. ENMT: Mucous membranes appeared dry. Respiratory: Lungs clear to auscultation bilaterally. Cardiovascular: Normal rate and rhythm with no murmurs, rubs, or gallops. Gastrointestinal (Abdomen): Hyperactive bowel sounds in all four quadrants. Diffuse tenderness to palpation. Skin: Skin is warm and well-perfused with good capillary refill. Results & Data Laboratory Results WBCs trending down from 18.8 to 11.6. Hemoglobin down to 11.2, hematocrit down to 34.3. Diagnostic Findings Stool occult blood positive. Lab did not perform C. Difficile test because stool was too formed. CT scan showed nonspecific colitis extending from hepatic flexure through the sigmoid with no evidence of diverticulitis.
[2019-03-25] MEDS: CITALOPRAM 40 MG TAB PO SCH (20:39)
[2019-03-25] MEDS: INSULIN GLARGINE SOLOSTAR 100 UNITS/ML 3 ML PEN SQ SCH (20:42)
--- OUTSIDE RECORDS SUMMARY | 2019-03-25 22:44 | External Medical Summary | Continuity of Care Document ---
:1945 Author Name Karie Franco, Provider Address Unavailable Unavailable , Care Team Providers Name Role Phone Linnette Romero Unavailable [email or web address] Baudilio Flores III, M.D. Unavailable [email or web address] Baudilio Yates PA-C Unavailable [email or web address] Trey SANON Unavailable [email or web address] Michelle SANON Unavailable [email or web address] JOSEFINA ESPARZA M.D., Gabi Unavailable Unavailable Jero Pearl Unavailable [email or web address] Unavailable Unavailable Unavailable Problems Gout (274.9) (M10.9) Pyelonephritis (590.80) (N12) Hyperlipidemia (272.4) (E78.5) YNES (acute kidney injury) (584.9) (N17.9) Renal insufficiency (593.9) (N28.9) Abnormal serum creatinine level (790.99) (R79.9) Low back pain, episodic (724.2) (M54.5) Abdominal pain, RUQ (right upper quadrant) (789.01) (R10.11) Abdominal pain, RLQ (right lower quadrant) (789.03) (R10.31) E. coli UTI (599.0) (N39.0) Acute bronchitis (466.0) (J20.9) Right flank pain (789.09) (R10.9) Fever (780.60) (R50.9) Need for hepatitis C screening test (V73.89) (Z11.59) Urinary frequency (788.41) (R35.0) Right hip pain (719.45) (M25.551) Right lower quadrant abdominal tenderness (789.63) (R10.813) Encounter for routine gynecological exam ination with Papanicolaou smear of cervix (V72.31) (Z01.419) Cutaneous skin tags (701.9) (L91.8) Grief counseling (V65.49) (Z71.89) Grief reaction (309.0) (F43.21) Chest pain (786.50) (R07.9) Micturition syncope (780.2) (R55) Snoring (786.09) (R06.83) Shortness of breath (786.05) (R06.02) Diverticulosis (562.10) (K57.90) Encounter for long-term (current) use of medications (V58.69 ) (Z79.899) Influenza vaccine needed (V04.81) (Z23) Problem with, limb, sensory (V49.3) (R20.9) Neoplasm of uncertain behavior of skin (238.2) (D48.5) Visit for screening mammogram (V76.12) (Z12.31) Diabetic peripheral neuropathy associate d with type 2 diabetes mellitus (250.60) (E11.42) Hypertension (401.9) (I10) Type 2 diabetes, uncontrolled, with renal manifestation (250 .42) (E11.29) Insulin dose changed (V58.69) (Z79.4) UTI (urinary tract infection) (599.0) (N39.0) Urinary symptom or sign (788.99) (R39.9) Chronic kidney disease, stage III (moderate) (585.3) (N18.3) Microalbuminuria (791.0) (R80.9) Vitamin D deficiency (268.9) (E55.9) Chronic gastritis (535.10) (K29.50) Gastric ulcer, unspecified chronicity, u nspecified whether gastric ulcer hemorrhage or perforation present (531.90) (K25.9) Arthritis (716.90) (M19.90) Need for influenza vaccination (V04.81) (Z23) Need for pneumococcal vaccination (V03.82) (Z23) Joint pain, knee (719.46) (M25.569) Anemia (285.9) (D64.9) Acute gastric ulcer without hemorrhage or perforation (531.3 0) (K25.3) Duodenitis (535.60) (K29.80) Abnormal CT scan, gastrointestinal tract (793.4) (R93.3) Acute upper respiratory infection (465.9) (J06.9) Myalgia or myositis (729.1) Polyarthritis (716.50) (M13.0) Acute diverticulitis (562.11) (K57.92) Allergies and Adverse Reactions No Known Drug Allergies (Allergy) Medications Accu-Chek Angie Plus In Vitro Strip; TEST 4 TIMES DAILY. Start: 22-Feb-2019 Refills: 0 Celecoxib 200 MG Oral Capsule; TAKE 1 CAPSULE BY MOUTH TWICE DAILY as needed Salvador Esparza III Start: 26-Feb-2019 Quantity: 60 A. Refills: 1 Atorvastatin Calcium 20 MG Oral Tablet; TAKE 1 TABLET AT BEDTIME. FAB Yates Start: 19-Feb-2015 Quantity: 90 A. Refills: 3 OneTouch Delica Lancets Fine; Check 4x a day. FAB Martinez Start: 18-Mar-2019 Quantity: 120 Refills: 5 OneTouch Verio In Vitro Strip; Check 4 x a day FAB Martinez Start: 18-Mar-2019 Quantity: 3 50 Strip Box Refills: 5 OneTouch Verio w/Device Kit; USE DIRECTED. FAB Martinez Start: 18-Mar-2019 Quantity: 1 Refills: 0 Trulicity 1.5 MG/0.5ML Subcutaneous Solu tion Pen-injector; inject 1.5mg once a week FAB Martienz Start: 01-Mar-2019 Quantity: 1 4 x 0.5 ML Pen Refills: 5 ReliOn Pen [place] 31G X 8 MM; use TID or as directed Salvador Morrow III Start: 20-Jun-2012 Quantity: 100 A. Refills: 5 BD Insulin Syringe Ultrafine 31G X 5/16" 0.5 ML; Use a s directed with FAB Yoder Start: 01-Aug-2012 Quantity: 1 A. 100 Miscellaneous Johnny x Refills: 5 Pantoprazole Sodium 40 MG Oral Tablet Delayed Release; TAKE 1 TABLET DAILY. FAB Yang Start: 25-Apr-2018 End: Quantity: 30 10-Oct-2019 Refills: 11 Benazepril HCl - 20 MG Oral Tablet; TAKE ONE TABLET BY MOUTH TWICE DAILY FAB Yates Start: 06-Aug-2014 Quantity: 180 A. Refills: 3 ReliOn Pen [place] 31G X 8 MM; use TID or as directed Salvador Morrow III Start: 07-Dec-2015 Quantity: 100 A. Refills: 5 Reli-On Insulin Syringe 30G 0.5 ML; once daily Salvador Esparza III Start: 07-Dec-2015 Quantity: 100 A. 1 Miscellaneous Syri nge Refills: 3 BD Insulin Syr Ultrafine II 31G X 5/16" 0.5 ML; USE DIRECTED with Novolin N/Humulin N insulin LILIYA Sanchez Start: 04-Sep-2015 Quantity: 100 Refills: 5 Edmundo Microlet Lancets; Testing BID. LILIYA Sanchez Start: 23-Sep-2013 Quantity: 1 100 EA Package Refills: 5 HumaLOG KwikPen 100 UNIT/ML Subcutaneous Solution Pen-injector; Inject 17 units plus sliding scale with breakfast and supper (50 units daily) FAB Martinez Start: 30-Nov-2015 Quantity: 1 5 x 3 ML Pen Refills: 5 Citalopram Hydrobromide 40 MG Oral Tablet; TAKE 1 TABL ET DAILY. Salvador Esparza III Start: 02-Jul-2018 Quantity: 30 A. Refills: 5 Lantus SoloStar 100 UNIT/ML Subcutaneous Solution Pen-injector; Inject 56 units once daily at bedtime FAB Martinez Start: 15-Feb-2019 Quantity: 3 5 x 3 ML Pen Refills: 3 Procedures Diabetic Eye Exam Date: 21-Mar-2019 Urine Protein/Creatinine Ratio Date: 15-Feb-2019 Urine rflx Micros+Cult if Ind Date: 15-Feb-2019 PTH, Intact Date: 15-Feb-2019 Vitamin D, 25-Hydroxy Date: 15-Feb-2019 CBC With DIFF Date: 21-Mar-2019 Comp Metabolic Panel Date: 21-Mar-2019 Lipid Profile - NON Fasting Date: 21-Mar-2019 Urine Culture Date: 01-Feb-2019 Hemoglobin A1C Date: 15-Feb-2019 Urine Culture Date: 19-Feb-2019 Renal Panel Date: 15-Feb-2019 Urine Culture Date: 19-Feb-2019 History of Appendectomy Status: Complete d Influenza vaccine needed History of Knee Surgery Status: Complete d Immunizations Pneumococcal polysaccharide vaccine, 23 valent On: 14-Sep-20 09 [employer] Fluzone INJ On: 18-Oct-2013 15:41 Lot #: [id number], SANOFI PASTEUR Influenza On: 09-Oct-2014 9:54 Lot #: [id number], SANOFI PASTEUR Fluzone High-Dose Intramuscular Suspension On: 22-Sep-2015 1 3:51 Lot #: [id number], SANOFI PASTEUR Fluzone High-Dose 0.5 ML Intramuscular Suspension Pref illed Syringe On: 26-Oct-2016 14:33 Lot #: [id number], SANOFI PASTEUR Prevnar 13 Intramuscular Suspension On: 01-Oct-2018 15:33 Lot #: [id number], PFIZER [employer].S. Fluzone High-Dose 0.5 ML Intramuscular Suspension Pref illed Syringe On: 01-Oct-2018 15:34 Lot #: [id number], SANOFI PASTEUR Family History Mother Family history of Breast Cancer (V16.3) Status: Active Family history of Diabetes Mellitus (V18.0) Status: Active Family history of Stroke Syndrome (V17.1) Status: Active Family history of Hyperlipidemia Status: Active Family history of Hypertension (V17.49) Status: Active Father Family history of Coronary Artery Disease (V17.49) Status: A ctive Social History - Smoking Status Never smoker Plan of Treatment Planned Encounters Appointment; Rosalee Yang PA-C Start: 16-Oct-2019 13:40 R equest Planned Observations Planned Goals not documented Results CT abd pelvis IV con only (Pending) Laboratory: [facility] Diagnostic Imaging [address] [place] DEYANIRA 24-Mar-2019 17:38 CT abd pelvis IV con only [facility] [place] [phone] CT Scan Repo rt Patient: SARATH WANG Admit Date: 03/24/19 MR#: [id number] Address1: [address] [place] [address] Acct ID:[id number] Address2: Date: 1945 [facility] Zip: [place] [address] Age: 73 Location: ED Sex: F Room/Bed: Att Phy: Diagnosis: DIARRHEA,VOMITI NG, BLOO D IN STOOL Radha Ph y: Joaquin Esparza, III, MD George ruano Date: 03/24/19 Fam Phy : JoseNabil DO Interpreting Phy : Quinten Garcia radha Phy: Ordering Phy: Ang Alvarez D O cc: ABDOMEN AND PELVIS CT WITH IV CONTRAST CT DOSE: 755.64 mGy.cm HISTORY: Acute low abdominal pain abd pain and gi bleed TECHNIQUE: Multiaxial CT images of the abdomen and pelvis were performed following the use of intr avenous contrast. A dose lowering technique was utilized adhering to the principles of A KOLE. COMPARISON STUDY: CT abdomen pelvis 01/22/2019. FINDINGS: Mild subseg mental bibasilar atelectasis/scarring. No pneum atosis or pneumoperitoneum. Imaged inferior car diac chambers are unremarkable. Coronary erika rial calcifications are noted. Spleen, gallbladder, liver, pancreas and adrenal glands appear unremarkable. No biliary ductal dilation. Patency of the hepatic and por pamela veins. Left nephrolithiasis includes a 1 .6 cm calculus of the inferior pole left kidne y. No ureteral calculi or obstructive uropathy . 8 mm hypodense lesionof the superior pole rig ht kidney is unchanged suggestive of a prob able cyst. Mild wall thickening of the bladde r with partial distention. Endometrium is mildl y thickened which appears to measure up to approximately 10 mm. No adnexal mass les ions. Multiple phleboliths of the pelvis. No a ortic aneurysm. There is no small bowel obstruction. There is moderate wall thic kening with pericolonic stranding which extends from the hepatic flexure through the sigmoid. Prior appendectomy. Terminal ileum is unremark able. Mild colonic diverticulosis without CT e vidence of acute diverticulitis. No evidence of perforation or drainable fluid collectio n. Soft tissues appear unremarkable. Degenerativ e changesof the spine, pelvis and hips. Johnny mer appear to be intact. IMPRESSION: 1. Acute nonspecific colitis extends from t he hepatic flexure through the sigmoid. 2 . No bowel obstruction, pneumatosis or pneumoperitoneum. 3. Colonic diverticu losis without CT evidence of acute diverticuli tis. 4. Nonobstructing left nephrolithiasis. 5. Abnormally thickened endometrium for a postmenopausal patient. This could be correlated with a follow-up nonemergent pelvic ultrasound. 6. Additional findings as above. Electronically signed by: Narciso Jain M.D. 03/24/2019 5:46 PM Dictated: 03/24/191737 Transcribed : 03/24/191737 Vital Signs 21-Mar-2019 13:56 Systolic 122 mm[Hg] Diastolic 84 mm[Hg] Weight 194 lb BSA Calculated 1.91 m2 BMI Calculated 34.37 kg/m2 Heart Rate 82 /min Respiration 16 /min Temperature 98.2 f O2 Saturation 97 % Encounters Appointment; Jessica Yates PA-C 21-Mar-2019 14:00 Encounter Diagnosis: Problem not documented Appointment; Jenn Sullivan R.D. 18-Mar-2019 15:00 Encounter Diagnosis: Problem not documented Appointment; Zee Martinez PA-C 22-Feb-2019 13:30 Encounter Diagnosis: Problem not documented Appointment; Samantha Jacobo M.D. 15-Feb-2019 14:00 Encounter Diagnosis: Problem not documented Appointment; Zee Martinez PA-C 15-Feb-2019 12:30 Encounter Diagnosis: Problem not documented Appointment; Gloria Middleton CRNP 01-Feb-2019 9:00 Encounter Diagnosis: Problem not documented Appointment; Aniyah Penn M.D. 22-Jan-2019 14:30 Encounter Diagnosis: Problem not documented Appointment; Rosalee Yang PA-C 15-Oct-2018 13:40 Encounter Diagnosis: Problem not documented Appointment; Joaquin Esparza III, M.D. 01-Oct-2018 14:20 Encounter Diagnosis: Problem not documented Appointment; Rosalee Yang PA-C 16-Aug-2018 15:00 Encounter Diagnosis: Problem not documented Appointment; Jessica Yates PA-C 03-Jul-2018 13:00 Encounter Diagnosis: Problem not documented Appointment; Samantha Jacobo M.D. 18-Jun-2018 13:45 Encounter Diagnosis: Problem not documented Appointment; Rosalee Yang PA-C 11-Jun-2018 14:00 Encounter Diagnosis: Problem not documented Appointment; [facility], Nurse 01-Jun-2018 14:00 Encounter Diagnosis: Problem not documented Appointment; Jsesica Yates PA-C 15-May-2018 15:30 Encounter Diagnosis: Problem not documented Appointment; Francheska Rayo PA-C 20-Apr-2018 15:30 Encounter Diagnosis: Problem not documented Appointment; Rosalee Yang PA-C 11-Apr-2018 14:40 Encounter Diagnosis: Problem not documented Appointment; Francheska Rayo PA-C 04-Apr-2018 11:00 Encounter Diagnosis: Problem not documented Appointment; Joaquin Esparza III, M.D. 08-Jan-2018 13:30 Encounter Diagnosis: Problem not documented Appointment; Francheska Rayo PA-C 10-Oct-2017 16:00 Encounter Diagnosis: Problem not documented Appointment; Jessica Yates PA-C 28-Sep-2017 13:15 Encounter Diagnosis: Problem not documented Appointment; Francheska Rayo PA-C 26-Sep-2017 14:30 Encounter Diagnosis: Problem not documented Appointment; [facility], Primary Care 26-Sep-2017 14:00 Encounter Diagnosis: Problem not documented Appointment; Francheska Rayo PA-C 14-Jul-2017 12:00 Encounter Diagnosis: Problem not documented Appointment; Francheska Rayo PA-C 30-Jun-2017 12:00 Encounter Diagnosis: Problem not documented Appointment; Francheska Rayo PA-C 19-Jun-2017 9:30 Encounter Diagnosis: Problem not documented Appointment; Francheska Rayo PA-C 15-Jun-2017 16:00 Encounter Diagnosis: Problem not documented Appointment; Rosalee Yang PA-C 16-Oct-2019 13:40 Encounter Diagnosis: Problem not documented
[2019-03-26] MEDS: ACETAMINOPHEN 325 MG TAB PO PRN (02:24)
[2019-03-26] MEDS ORDERED: KETOROLAC 30 MG/ML VIAL IV ONE (02:40)
[2019-03-26 06:21] LABS: Basophils # (auto) 0.02 K/uL (0-0.2); Basophils % (auto) 0.2 %; Eosinophils # (auto) 0.21 K/uL (0-0.5); Eosinophils % (auto) 2.4 %; Hematocrit (blood only) 33.2 % (37-47); Hemoglobin 10.8 g/dL (12.0-16.0); Immature Granulocytes # (auto) 0.06 K/uL (0.00-0.02); Immature Granulocytes % (auto) 0.7 %; Lymphocytes # (auto) 1.76 K/uL (1.2-3.4); Lymphocytes % (auto) 20.3 %; Mean Corpuscular Hgb Conc 32.5 g/dL (32-36); Mean Corpuscular Volume 86.2 fL (80-100); Monocytes # (auto) 0.74 K/uL (0.11-0.59); Monocytes % (auto) 8.5 %; Neutrophils % (auto) 67.9 %; Platelet Count 182 K/uL (130-400); RDW Coefficient of Variation 18.1 % (11.5-14.5); RDW Standard Deviation 56.7 fL (36.4-46.3); Red Blood Count 3.85 M/uL (4.2-5.4); White Blood Count 8.69 K/uL (4.8-10.8)
[2019-03-26 06:56] LABS: BUN Creatinine Ratio 9.3 (10-20); Calcium 8.4 mg/dl (8.5-10.1); Creatinine Clr Calc Pharmacy 56.2 ml/min; Est GFR (African American) 70.7
[2019-03-26] MEDS: BENAZEPRIL HCL 10 MG TAB PO SCH (07:39)
[2019-03-26] MEDS: PANTOprazole 40 MG TAB PO SCH (07:39)
[2019-03-26] MEDS: SODIUM CHLORIDE 0.9% 1000ML 1,000 ML IV SCH (08:38)
[2019-03-26] MEDS: INSULIN ASPART 100 UNITS/ML 3 ML PEN SC SCH ×2 (08:40→12:33)
[2019-03-26] MEDS ORDERED: LOPERAMIDE HCL 2 MG CAP PO STA (10:29)
--- NOTE | 2019-03-26 12:47 | Discharge Summary ---
Date of Service March 26, 2019 Admission HPI Per Admitting Provider 73 yo female with history of recurrent UTI, most recently with right sided pyelonephritis in January, presents with some bloody diarrhea. She says she woke up in the morning, around 1am with cramping and urge to move her bowels. This was acute onset of symptoms, had no symptoms the day before. Denied eating any suspicious food and no one else around her was sick. From 1am to 2am she moved her bowels 4 times, large volume liquid stool. She was able to lay back down and slept for two hours but then woke up around 4am with more cramping and tenesmus. When she moved her bowels this time she noticed that it was mostly blood, bright red. She says she never had bright red bloody diarrhea before. She moved bowels a few more times and each time it was small volume bloody diarrhea. She did not have any vomiting. She had some chills and sweats over night. No dyspnea, no cough, no chest pain. She was alarmed by the bleeding so she came to the ED. Risk factors for diarrhea include recent antibiotic use in January for pyelonephritis. As mentioned above, no known sick contacts, no undercooked chicken or meat to her knowledge, no recent travel. WBC was 19k on admission. CT abd/pelvis showed colitis from sigmoid to the hepatic flexure. There was diverticular disease but no diverticulitis. Admission Exam Per Admitting Provider Constitutional: WD/WN, vitals as above Eyes: PERRL, conjunctivae normal, anicteric sclerae ENMT: external ear and nose normal, oropharynx normal Neck: trachea midline, no thyromegaly Respiratory: normal respiratory effort, lungs clear to auscultation Cardiovascular: RRR, no murmur, no edema Gastrointestinal (Abdomen): Inspection/Auscultation: abdomen normal to inspection; abdomen not distended and + abnormal bowel sounds (hyperactive bowels) Percussion/Palpation: abdomen soft; abdomen nontender, no guarding and abdomen not rigid Musculoskeletal: no cyanosis or clubbing, extremities motor strength 5/5 Skin: no rashes, warm and dry Neurologic: patellar DTR's 2+ bilat, sensation intact and PERRL, EOMI, accommodation nl, no face palsy, no dysarthria Psychiatric: A+Ox3, euthymic affect Lymphatic: no cervical or axillary lymphadenopathy Principal Diagnosis Colitis with hematochezia Discharge Exam Constitutional WD/WN, vitals as above Eyes PERRL, conjunctivae normal, anicteric sclerae ENMT external ear and nose normal, oropharynx normal Neck trachea midline, no thyromegaly Respiratory normal respiratory effort, lungs clear to auscultation Cardiovascular RRR, no murmur, no edema Gastrointestinal (Abdomen) Inspection/Auscultation: abdomen normal to inspection; abdomen not distended and + abnormal bowel sounds (hyperactive bowels) Percussion/Palpation: abdomen soft; abdomen nontender, no guarding and abdomen not rigid Musculoskeletal no cyanosis or clubbing, extremities motor strength 5/5 Skin no rashes, warm and dry Neurologic patellar DTR's 2+ bilat, sensation intact and PERRL, EOMI, accommodation nl, no face palsy, no dysarthria Psychiatric A+Ox3, euthymic affect Lymphatic no cervical or axillary lymphadenopathy Discharge Data Allergies Allergy/AdvReac Type Severity Reaction Status Date / Time No Known Allergies Allergy Verified 03/24/19 16:48 Ordered Studies 03/24/19 16:17 CT abd pelvis IV con only Stat Hospital Course (1) Colitis: started at 1am day of admission, several large, liquid BM in the first hour then had some small bloody BM a few hours later colitis seen on CT from sigmoid to hepatic flexure she admits to antibiotics in January for UTI initial C diff negative, was not tested due to formed stool repeat C diff negative WBC down to 8k from 19k most likely etiology seems to be acute viral gastroenteritis given the patient's nausea and mild persistent diarrhea advancing diet slowly, no vomiting d/c to home with PCP follow up (2) Hematochezia: the bleeding started after several large liquid stools without bleed colitis on CT suspect it is either ischemic colitis from watershed regions or C diff low suspicion E coli or Camplylobacter or Shigella repeat C diff is negative Hb is down slightly to 10gm but no bleeding seen for two days (3) Diabetes: Lantus continued at half normal dose at 29 sugars stable, not high told patient to continue to use lower doses of Lantus and Humalog until eating well (4) Hypertension: BP stable continue JOHANNE inhibitor (5) GERD (gastroesophageal reflux disease): PPI Total Time Total Time Spent Total Time Spent (In Minutes): 35 minutes Total Time Includes: Examination of the Patient, Discharge Planning and Medication Reconciliation Discharge Plan Discharge Items Patient Disposition: Home - Self-Care Reason For Visit: COLITIS,HEMATOCHEZIA Discharge Diagnosis: Acute infectious colitis Hematochezia, resolved Condition: Good Discharge Goals: Decrease discomfort and Improve function Activity: Resume your previous activity Non-emergency contact: Primary Care Provider Call non-emergency contact if: you have any medication questions, your symptoms worsen and you have a fever Follow-up/Referrals: Joaquin Esparza III, MD [Primary Care Provider] - 04/04/19 11:00 am (Please, follow up at Dr. Esparza's office with his plumber assistant, Francheska Barber, on April 04 at 11:00 am. *If you need to change this appointment, call their office at [phone].) Diet: Carb Consistent or DM2 Addtl Provider Instructions: Medications: - IMODIUM AD: buy over the counter, take one capsule every 6 hours as needed for diarrhea - LANTUS: please note that while here we have been giving you half your normal dose at 29 units since you are not eating, see below Diarrhea with some bleeding, colitis seen on CT of the abdomen diarrhea slowly improving, bleeding resolved C diff testing was negative most likely etiology of the bleeding was some mild ischemic colitis due to the diarrhea, this is self limiting you should continue to advance your diet as tolerated use the Imodium AD as needed for diarrhea should resolve in the next few days FOLLOW UP - Dr. Esparza in one week Diabetes you should alter your insulin regimen until you are eating well/normal amounts Trulicity will be fine at your normal dose would continue the lower dose of Lantus at 29 units would also cut Humalog dose in half for the time being keep close eye on your sugars to make sure you are not getting borderline hypoglycemic if sugars are lower than normal for you than cut back on insulin further Prescriptions: Continued pantoprazole 40 mg Tablet,Delayed Release (Dr/Ec) 40 mg PO QAM RF: 0 atorvastatin 20 mg Tablet 20 mg PO HS RF: 0 citalopram 40 mg Tablet 40 mg PO HS RF: 0 benazepril 20 mg Tablet 20 mg PO BID RF: 0 insulin lispro [Humalog KwikPen Insulin] 100 unit/mL Insulin Pen 22 unit SUBCUT QDD RF: 0 insulin lispro [Humalog KwikPen Insulin] 100 unit/mL Insulin Pen 22 unit SUBCUT QDB RF: 0 celecoxib [Celebrex] 200 mg capsule 200 mg PO BID PRN (Reason: Pain) RF: 0 insulin lispro [Humalog KwikPen Insulin] 100 unit/mL insulin pen 18 units subcut QDL RF: 0 Lantus Solostar U-100 Insulin 100 unit/mL (3 mL) insulin pen 58 unit subcut HS RF: 0 Trulicity 0.75 mg/0.5 mL pen injector 0.75 mg subcut WK RF: 0 Stand-Alone Forms: [facility] Discharge Orders: Discharge Order (Routine); Ordered 03/26/19 Ordered By: El King Admission Data Admit Date/Time: 03/24/19 18:13 Attending Provider: El King Admit Provider: El King Primary Care Provider: Joaquin Esparza III Service: Medical Other Interventions: Discharge Summary Assessment (RN) Last Done: 03/26/19 12:10
== END 2019-03-26 13:20 | disposition home or self-care (01) | DRG 392 ==
LOC: ED 15:49 → 4E 18:13

== ENCOUNTER 2019-12-11 10:34 | Inpatient (IN) ==
[2019-12-11] MEDS ORDERED: SODIUM CHLORIDE 0.9% 500 ML IV STA (10:49)
[2019-12-11 11:03] LABS: POC Urine Bilirubin Negative (Negative); POC Urine Blood 250 (Negative); POC Urine Glucose 1000 (Normal); POC Urine Ketones Negative (Negative); POC Urine Leukocytes Negative (Negative); POC Urine Nitrite Negative (Negative); POC Urine Protein 1+ (Negative); POC Urine Urobilinogen Normal (Normal); POC Urine pH 5 (4.5-7.5)
[2019-12-11] MEDS ORDERED: ONDANSETRON INJ 2 MG/ML 2 ML VIAL IV STA ×2 (11:06→14:20)
[2019-12-11 11:14] LABS: Appearance Urine Clear (Clear); Bacteria Urine Automated Negative (Negative); Bilirubin Urine Negative (Negative); Blood Urine 2+ (Negative); Color Urine Dark Yellow; Epithelial Cell Urine Auto >30 /lpf (0-5); Glucose Urine UA 3+ (Negative); Ketones Urine Negative (Negative); Leukocyte Esterase Urine Negative (Negative); Nitrite Urine Negative (Negative); Protein Urine 2+ (Negative); Urobilinogen Urine Negative (Negative)
[2019-12-11] MEDS: fentaNYL citrate 100 MCG/2 ML VIAL IV PRN ×2 (11:14→12:20)
[2019-12-11 11:18] LABS: Hematocrit (blood only) 40.6 % (37-47); Hemoglobin 13.5 g/dL (12.0-16.0); Mean Corpuscular Hemoglobin 28.9 pg (25-34); Mean Corpuscular Hgb Conc 33.3 g/dL (32-36); Mean Corpuscular Volume 86.9 fL (80-100); Mean Platelet Volume 10.7 fL (7.4-10.4); Platelet Count 225 K/uL (130-400); RDW Coefficient of Variation 18.5 % (11.5-14.5); RDW Standard Deviation 57.4 fL (36.4-46.3); Red Blood Count 4.67 M/uL (4.2-5.4); White Blood Count 14.51 K/uL (4.8-10.8)
[2019-12-11 11:35] LABS: BUN Creatinine Ratio 9.9 (10-20); Calcium 9.3 mg/dl (8.5-10.1); Est GFR (African American) 38.7; Est GFR (Non-African American) 33.4; Potassium 4.2 mmol/L (3.5-5.1)
--- NOTE | 2019-12-11 11:46 | XRay Report ---
KUB HISTORY: Follow up study in a patient with kidney stones left kidney stone? seen on prior CT COMPARISON: CT abdomen and pelvis 03/24/2019 FINDINGS: The bowel gas pattern is non-obstructive. There is no organomegaly. 2.0 cm calcification o f the left midabdomen projects over the left L3 transverse process. This is suggestive of a calculus which is migrated into the left renal pelvis/ureteropelvic junction. Additional calculi of the inferi or pole left kidney are noted measuring up to 7 mm. No right nephrolithiasis. Multiple phleboliths of the pelvis redemonstrated. No pneumoperitoneum or pneumatosis. Degenerative changes of the spine, pe lvis and hips. No fracture. IMPRESSION: 1. 2.0 cm calcification of the abdominal left upper quadrant is suggestive of calculus within the reg ion of the left renal pelvis or ureteropelvic junction. Correlate with urinalysis. 2. Nonobstructing nephrolithiasis of the inferior pole left kidney. ACT 112: Negative or not required by law. The above report was generated using voice recognition software. It may contain grammatical, syntax o r spelling errors. Electronically signed by: Dimitry Jain M.D. 12/11/2019 11:45 AM
--- NOTE | 2019-12-11 14:16 | CT Scan Report ---
CT abd pelvis wo con CLINICAL HISTORY: 74 years-old Female presenting with left kidney stone, left flank pain. TECHNIQUE: Multidetector CT of the abdomen and pelvis was performed without the use of intravenous co ntrast. IV contrast: None. One or more dose lowering techniques were used consistent with the princip les of ALARA (as low as reasonably achievable), including automatic exposure control, mA or kV adjust ment to individual patient size, and/or use of iterative reconstruction. COMPARISON: 03/24/2019. CT DOSE (mGy.cm): The estimated cumulative dose is 901.87 mGy.cm. FINDINGS: Inspector And Tester topogram: Unremarkable. Lung bases: Normal heart size. Coronary artery calcification. No pericardial or pleural effusion. Min imal dependent changes likely atelectasis. Liver: Normal morphology. Density consistent with hepatic steatosis. Biliary: No gross biliary ductal dilatation allowing for noncontrast technique. Normal gallbladder. Pancreas: Mild parenchymal atrophy. Spleen: Normal noncontrast appearance. Adrenal glands: Normal noncontrast appearance. Kidneys and ureters: Multiple left renal calculi including a dominant obstructing 12 mm calculus in t he left renal pelvis. Mild left pelvocaliectasis. The remainder of the left ureter is nondilated beyo nd the ureteropelvic junction. Punctate nonobstructing right nephrolithiasis. No right hydronephrosis . Right ureter nondistended. Bladder: Normal noncontrast appearance. No bladder calculi. Pelvic organs: Normal noncontrast appearance. Multiple pelvic phleboliths. Bowel: Diverticulosis of the mid to distal sigmoid colon without wall thickening or pericolonic infla mmatory change. Few scattered additional colonic diverticula throughout the remainder of the colon. T he appendix is absent. No bowel obstruction. Peritoneal cavity: No free fluid or intraperitoneal gas. Lymph nodes: No gross lymphadenopathy allowing for noncontrast technique. Vasculature: Atherosclerosis of the normal caliber abdominal aorta. Abdominal wall: Minimal infiltration of the subcutaneous fat of the anterior abdominal wall, possibly from medication administration. The appearance is similar to prior. Musculoskeletal: Degenerative changes of the spine. IMPRESSION: 1. Obstructing 4 mm calculus at the left ureteropelvic junction with resultant mild left hydronephro sis. 2. Additionally, nonobstructing left nephrolithiasis. 3. Punctate nonobstructing right nephrolithiasis. 4. Hepatic steatosis. 5. Diverticulosis coli. No diverticulitis. ACT 112: Negative or not required by law. Electronically signed by: Rishi Conn M.D. 12/11/2019 2:14 PM
[2019-12-11] MEDS ORDERED: HYDROmorphone INJ 0.5 MG/0.5 ML SYR IV STA (14:20)
--- NOTE | 2019-12-11 14:36 | History & Physical Report ---
Date of Service December 11, 2019 Assessment & Plan (1) Nephrolithiasis: 12mm obstructive left calculus at the left uteropelvic junction. (Of note impression of CT report says 4mm but I believe this is a typo based on the body of report and images reviewed by myself). Consult Urology. Plan for intervention in AM. NPO after midnight LR 150ml/hr Current does not appear to be infected but if spike a temperature overnight will need to start ceftriaxone, if septic start Zosyn and call urology. (2) Left flank pain: Renal colic secondary to above. Pain management with dilaudid 1mg IV and 0.5mg IV (3) YNES (acute kidney injury): Baseline Cr 0.94, now up to 1.54. Will Give 2L bolus LR then place on 150 ml/hr. Hold enalapril Will avoid use of Toradol at present pending stability of Cr. (4) Controlled type 2 diabetes mellitus with chronic kidney disease, with long- term current use of insulin: Hba1C 7.9 in July. HbA1C in AM. Total daily outpatient dose insulin 112 units. Basal usually 50 units which she took as usual last night. Currently not eating or drinking significant amounts and will be NPO @ midnight therefore will reduce her lantus to 10 units BID with a humalog correction and carb ratio. Lantus will have to be increased post operatively once eating. (5) Renal colic: (6) Hypertension: Prefer her to be a little hypertensive at present and will d/c her usual ACEi. (7) DVT prophylaxis: Deferred chemical prophylaxis pending procedure SCDs (8) Discharge planning issues: Defer possible PT/OT after lithotripsy History of Present Illness Chief Complaint: Renal colic Primary Care Provider: Joaquin Esparza MD Keely Smith is a 74 year old female who presents with left flank pain. The pain woke her up around 3:30am this morning. Severity 10/10 on arrival in the ER, currently 7/10 which improved to 3/10 after dilaudid given in ER. Pain from left flank radiating to LLQ abdomen. She reports prior history of kidney stones and was wondering whether to stay home to see if she could pass this one but the pain became so intense she had to come to the ER. In the ER her workup included KUB XR which showed 2cm calcification within the region of the left renal pelvis or uteropelvic junction. Subsequent CT confirmed 12mm obstructing stone at uteropelvic junction. Dr Mckinnon discussed with Dr Ba and advised to bring the patient in under medicine due to significant co-morbidities. No antibiotics recommended. Allergies Allergy/AdvReac Type Severity Reaction Status Date / Time No Known Allergies Allergy Verified 12/11/19 12:05 Home Medications Home Medications Medication Instructions Recorded Confirmed Type insulin lispro [Humalog KwikPen 22 unit SUBCUT QDB 09/27/18 12/11/19 History Insulin] insulin lispro [Humalog KwikPen 22 unit SUBCUT QDD 09/27/18 12/11/19 History Insulin] Lantus Solostar U-100 Insulin 50 unit SUBCUT HS 03/24/19 12/11/19 History insulin lispro [Humalog KwikPen 18 units SUBCUT QDL 03/24/19 12/11/19 History Insulin] atorvastatin 20 mg tablet 20 mg PO HS #90 tab 07/12/19 12/11/19 Rx blood sugar diagnostic #10 ea 07/24/19 09/25/19 History insulin syringe-needle U-100 0.3 #10 ea 07/24/19 09/25/19 History mL 29 gauge x 1/2" lancets 30 gauge #25 ea 07/24/19 09/25/19 History pen needle, diabetic 32 gauge x #10 ea 07/24/19 09/25/19 History 5/32" citalopram 40 mg tablet 40 mg PO DAILY #30 tab 07/31/19 12/11/19 Rx benazepril 20 mg tablet 20 mg PO BID #180 tab 08/22/19 12/11/19 Rx glucosamine-chondroitin 250 mg-200 2 tab PO BID tab 10/16/19 12/11/19 History mg tablet Trulicity 1.5 mg/0.5 mL 1.5 mg SUBCUT WEEKLY 90 Days ml NS 11/06/19 12/11/19 Rx subcutaneous pen injector Past Med/Surg History Medical History Anemia Depression Diabetes mellitus, type 2 IDDM Diverticular disease Hyperlipidemia Hypertension Peptic ulcer disease Surgical History History of appendectomy History of colonoscopy History of discectomy History of esophagogastroduodenoscopy (EGD) History of total knee replacement LEFT Family History Mother Family history of diabetes mellitus Social History Preferred Language: Bulgarian Communication Ability: Effective [employer] Required: No Beliefs That Will Affect Care: None Current Living Situation: Alone Current Living Situation Comment: Daughters live close. Able to assist w/care as needed. Other Information That Helps Us Care for You: No Feels Safe at Home: Yes Safety Concerns: Feels Safe At This Time Smoking Status: Never smoker Second Hand Exposure: No ; Hx Alcohol Use: No Hx Substance Use: No Review of Systems Review of Systems: All systems reviewed & are unremarkable except as noted in HPI & below Physical Exam Constitutional: + acute distress (left flank pain) and + obese Eyes: + anicteric sclerae; normal pupil size ENMT: Ears: no external ear abnormality Nose: no external nose abnormality Mouth: + dry oral mucous membranes; no lip abnormality Neck: trachea midline Respiratory: normal respiratory effort, lungs clear to auscultation Cardiovascular: RRR, no murmur, no edema Extremities: normal capillary refill; no calf tenderness Gastrointestinal (Abdomen): normal bowel sounds, soft, nontender, no hepatosplenomegaly Musculoskeletal: no cyanosis or clubbing, extremities motor strength 5/5 Skin: no rashes, warm and dry Neurologic: moves all extremities and awake; no focal motor deficits and not confused Speech / Cognition: normal speech Motor/Sensory: no tremor and no pronator drift Psychiatric: A+Ox3, euthymic affect Lymphatic: no cervical or axillary lymphadenopathy Results & Data Vital Signs (Past 12 Hours) Vital Signs Temp Pulse Pulse Resp BP BP Pulse Ox 12/11/19 12:59 82 20 148/95 H 94 12/11/19 12:25 82 20 150/88 H 94 12/11/19 11:45 82 20 154/91 H 94 12/11/19 10:37 36.4 C L 82 18 170/96 H 94 Medications Administered NSS 500 ml bolus Fentanyl 50 mcg x2 Zofran 4mg IV Dilaudid 0.5mg IV Code Status & VTE Plan Code Status Full VTE Prophylaxis Plan VTE Prophylaxis will be ordered: Yes PG Care Time/CCT Total # of Minutes Spent Total Time Spent with Patient: Total time spent is greater than 50% in coordination of care (as documented) at patient's floor/unit and/or counseling patient: (1) Controlled type 2 diabetes mellitus with chronic kidney disease, with long- term current use of insulin Chronic kidney disease stage: stage 3 (moderate) Qualified Code(s): E11.22 - Type 2 diabetes mellitus with diabetic chronic kidney disease; N18.3 - Chronic kidney disease, stage 3 (moderate); Z79.4 - shelter (current) use of insulin (2) Hypertension Hypertension type: essential hypertension Qualified Code(s): I10 - Essential (primary) hypertension
[2019-12-11] MEDS ORDERED: HYDROmorphone INJ 0.5 MG/0.5 ML SYR IV PRN (14:53)
[2019-12-11] MEDS ORDERED: LACTATED RINGER'S 1,000 ML IV ONE ×2 (14:53→17:54)
[2019-12-11] MEDS ORDERED: DEXTROSE 50% 50 ML SYRINGE IV PRN (17:47)
[2019-12-11] MEDS ORDERED: GLUCOSE 40% GEL 15 GM TUBE PO PRN (17:47)
[2019-12-11] MEDS ORDERED: GLUCOSE 10 TABS/TUBE PO PRN (17:47)
[2019-12-11] MEDS ORDERED: CARBOHYDRATES FOR HYPOGLYCEMIA PO PRN (17:47)
[2019-12-11] MEDS ORDERED: GLUCAGON FOR INJ 1 MG VIAL SQ PRN (17:47)
[2019-12-11] MEDS: HYDROmorphone INJ 1 MG/ML SYRINGE IV PRN ×2 (18:41→22:15)
[2019-12-11] MEDS: ONDANSETRON INJ 2 MG/ML 2 ML VIAL IV PRN (18:48)
[2019-12-11] MEDS: LACTATED RINGER'S 1,000 ML IV SCH (19:49)
[2019-12-11] MEDS: INSULIN ASPART 100 UNITS/ML 3 ML PEN SC SCH (20:20)
[2019-12-11] MEDS: ATORVASTATIN 20 MG TAB PO SCH (20:21)
[2019-12-11] MEDS: CITALOPRAM 40 MG TAB PO SCH (20:21)
[2019-12-11] MEDS ORDERED: ENALAPRIL MALEATE 10 MG TAB PO SCH (21:00)
[2019-12-12] MEDS: INSULIN ASPART 100 UNITS/ML 3 ML PEN SC SCH ×5 (00:34→20:36)
[2019-12-12] MEDS: HYDROmorphone INJ 1 MG/ML SYRINGE IV PRN ×2 (02:10→09:15)
[2019-12-12] MEDS: ONDANSETRON INJ 2 MG/ML 2 ML VIAL IV PRN ×2 (02:23→09:21)
[2019-12-12] MEDS: LACTATED RINGER'S 1,000 ML IV SCH ×4 (02:39→20:56)
[2019-12-12 06:26] LABS: Basophils # (auto) 0.03 K/uL (0-0.2); Basophils % (auto) 0.3 %; Eosinophils # (auto) 0.02 K/uL (0-0.5); Eosinophils % (auto) 0.2 %; Hematocrit (blood only) 36.8 % (37-47); Hemoglobin 11.7 g/dL (12.0-16.0); Immature Granulocytes # (auto) 0.08 K/uL (0.00-0.02); Immature Granulocytes % (auto) 0.8 %; Lymphocytes # (auto) 1.27 K/uL (1.2-3.4); Lymphocytes % (auto) 12.4 %; Mean Corpuscular Hemoglobin 28.8 pg (25-34); Mean Corpuscular Hgb Conc 31.8 g/dL (32-36); Mean Corpuscular Volume 90.6 fL (80-100); Monocytes # (auto) 1.02 K/uL (0.11-0.59); Neutrophils # (auto) 7.83 K/uL (1.4-6.5); Neutrophils % (auto) 76.3 %; Platelet Count 176 K/uL (130-400); RDW Coefficient of Variation 18.8 % (11.5-14.5); RDW Standard Deviation 61.1 fL (36.4-46.3); Red Blood Count 4.06 M/uL (4.2-5.4); White Blood Count 10.25 K/uL (4.8-10.8)
[2019-12-12 06:59] LABS: Albumin Level 3.2 gm/dl (3.4-5.0); Calcium 8.5 mg/dl (8.5-10.1); Est GFR (African American) 35.6; Est GFR (Non-African American) 30.7; Partial Thromboplastin Ratio 0.9; Partial Thromboplastin Time 25.4 Seconds (21.0-31.0); Potassium 4.6 mmol/L (3.5-5.1); Prothrombin Time 10.7 Seconds (9.0-12.0)
[2019-12-12 07:02] LABS: Albumin Globulin Ratio 0.9 (0.9-2); Bilirubin,Total 0.7 mg/dl (0.2-1); Globulin 3.4 gm/dl (2.5-4.0); Total Protein 6.6 gm/dl (6.4-8.2)
[2019-12-12 07:07] LABS: Estimated Average Glucose 186 mg/dl; Hemoglobin A1C 8.1 % (4.5-5.6)
--- NOTE | 2019-12-12 08:21 | Urology Consultation ---
Date of Consultation December 12, 2019 Assessment & Plan (1) YNES (acute kidney injury): (2) Left ureteral calculus: (3) Left flank pain: 74 yo F admitted with left renal colic and YNES secondary to 12 mm obstructing left ureteral stone. - Keep NPO - Strain all urine Findings reviewed with Dr. White. Given her YNES and renal colic in the context of an obstructing 12 mm left ureteral stone, will proceed with OR for cystoscopy, Left retrograde pyelogram and Left stent placement, possible ureteroscopy, laser lithotripsy, stone basketing, possible ureteral dilation depending on findings. Risks and benefits to be reviewed with patient by Dr. White. OR notified. Preoperative CXR and EKG ordered. Will cover with IV Ciprofloxacin preoperatively. Attending Note: Plan for left stent. History of Present Illness Attending Physician: Carmelina Moore MD History of Present Illness 74 yo F with history of nephrolithiasis admitted with left flank pain secondary to obstructing 12 mm left UPJ stone. Pt admitted through [facility] ED on 12/11/19. Reports onset of severe left flank and abdominal pain around 3:30 am on 12/11/19 which prompted her to go to the ED. Chart review: Afebrile Cr - 1.65 WBC - 10.25 CT abd/pelvis demonstrates multiple left renal calculi including a dominant obstructing 12 mm calculus in the left renal pelvis. Mild left pelvocaliectasis. The remainder of the left ureter is nondilated beyond the ureteropelvic junction. Punctate nonobstructing right nephrolithiasis. No right hydronephrosis. Right ureter nondistended. Pt awake, sitting up in bed. Complains of intermittent left flank pain radiating to groin requiring IV Dilaudid at regular intervals for pain relief. Nausea, dry heaves over night. No fevers. NPO since midnight. Voiding spontaneously. Denies dysuria, frequency, urgency, or gross hematuria. History of nephrolithiasis. Followed with Dr. Felder in the remote past. Reports no prior intervention for stones. Allergies Allergy/AdvReac Type Severity Reaction Status Date / Time No Known Allergies Allergy Verified 12/11/19 12:05 Home Medications Home Medications Medication Instructions Recorded Confirmed Type insulin lispro [Humalog KwikPen 22 unit SUBCUT QDB 09/27/18 12/11/19 History Insulin] insulin lispro [Humalog KwikPen 22 unit SUBCUT QDD 09/27/18 12/11/19 History Insulin] Lantus Solostar U-100 Insulin 50 unit SUBCUT HS 03/24/19 12/11/19 History insulin lispro [Humalog KwikPen 18 units SUBCUT QDL 03/24/19 12/11/19 History Insulin] atorvastatin 20 mg tablet 20 mg PO HS #90 tab 07/12/19 12/11/19 Rx blood sugar diagnostic #10 ea 07/24/19 09/25/19 History insulin syringe-needle U-100 0.3 #10 ea 07/24/19 09/25/19 History mL 29 gauge x 1/2" lancets 30 gauge #25 ea 07/24/19 09/25/19 History pen needle, diabetic 32 gauge x #10 ea 07/24/19 09/25/19 History 5/32" citalopram 40 mg tablet 40 mg PO DAILY #30 tab 07/31/19 12/11/19 Rx benazepril 20 mg tablet 20 mg PO BID #180 tab 08/22/19 12/11/19 Rx glucosamine-chondroitin 250 mg-200 2 tab PO BID tab 10/16/19 12/11/19 History mg tablet Trulicity 1.5 mg/0.5 mL 1.5 mg SUBCUT WEEKLY 90 Days ml NS 11/06/19 12/11/19 Rx subcutaneous pen injector Patient History Medical History Anemia Depression Diabetes mellitus, type 2 IDDM Diverticular disease Hyperlipidemia Hypertension Peptic ulcer disease Surgical History History of appendectomy History of colonoscopy History of discectomy History of esophagogastroduodenoscopy (EGD) History of total knee replacement LEFT Family History Mother Family history of diabetes mellitus Social History Preferred Language: Korean Communication Ability: Effective [employer] Required: No Beliefs That Will Affect Care: None Current Living Situation: Alone Current Living Situation Comment: Daughters live close. Able to assist w/care as needed. Other Information That Helps Us Care for You: No Feels Safe at Home: Yes Safety Concerns: Feels Safe At This Time Smoking Status: Never smoker Second Hand Exposure: No ; Hx Alcohol Use: No Hx Substance Use: No Review of Systems Review of Systems: All systems reviewed & are unremarkable except as noted in HPI & below Physical Exam Physical Exam: Obese, NAD, nontoxic appearance AOx3 Respiratory effort normal Abd soft, nontender, nondistended No pedal edema Results & Data Vital Signs (Past 12 Hours) Vital Signs Temp Pulse Pulse Resp BP BP Pulse Ox 12/12/19 08:00 37.0 C 79 18 122/78 91 12/12/19 03:32 36.9 C 81 18 111/70 90 12/12/19 03:14 84 12/12/19 00:03 36.7 C 90 20 117/74 90 PG Care Time/CCT Total # of Minutes Spent Total Time Spent with Patient: Total time spent is greater than 50% in coordination of care (as documented) at patient's floor/unit and/or counseling patient:
--- NOTE | 2019-12-12 08:29 | XRay Report ---
XR chest 1V portable CLINICAL HISTORY: 74 years-old Female presenting with pre-op. TECHNIQUE: Portable upright AP view of the chest was obtained. COMPARISON: 03/31/2018. FINDINGS: Cardiac silhouette enlarged as on prior exam. Pulmonary vascular prominence. Mildly low lung volumes with elevation of the right hemidiaphragm, unchanged. No focal opacity. No large effusion or pneumoth orax. External leads project over the right upper quadrant. Osseous structures normal. Upper abdomen normal. IMPRESSION: 1. Cardiomegaly with volume overload. No advanced congestive change or pulmonary edema. 2. Mildly low lung volumes with persistent elevation of the right hemidiaphragm. ACT 112: Negative or not required by law. Electronically signed by: Rishi Conn M.D. 12/12/2019 8:27 AM
[2019-12-12] MEDS ORDERED: CIPROFLOXACIN 400 MG/200 ML BAG IV SCH (08:45)
[2019-12-12] MEDS ORDERED: CITALOPRAM 40 MG TAB PO SCH (09:00)
[2019-12-12] MEDS: INSULIN GLARGINE SOLOSTAR 100 UNITS/ML 3 ML PEN SC SCH ×2 (09:03→20:53)
--- NOTE | 2019-12-12 09:47 | Anesthesiology Consultation ---
Date of Service December 12, 2019 Assessment & Plan (1) Encounter for pre-operative examination: Chart Review Chart Review: Acceptable Risk for Surgery Consults Requested none ASA ASA3 Proposed Anesthesia Anesthesia Type: MAC Risk / Benefits Reviewed With: PT / POA / Parent / Guardian, Accepts Plan and Informed Consent Obtained History Surgery Operation Date: 12/12/19 10:00 Proposed Procedures p Cystoscopy, Left Retrograde Pyelogram, Left Stent Placement - Prince White, DO Height/Weight Height: 5 ft 2 in Weight: 89.1 kg Allergies Allergy/AdvReac Type Severity Reaction Status Date / Time No Known Allergies Allergy Verified 12/11/19 12:05 Medications Home Medications Medication Instructions Recorded Confirmed Last Taken insulin lispro [Humalog KwikPen 22 unit SUBCUT QDB 09/27/18 12/11/19 12/10/19 Insulin] insulin lispro [Humalog KwikPen 22 unit SUBCUT QDD 09/27/18 12/11/19 12/10/19 Insulin] Lantus Solostar U-100 Insulin 50 unit SUBCUT HS 03/24/19 12/11/19 12/10/19 insulin lispro [Humalog KwikPen 18 units SUBCUT QDL 03/24/19 12/11/19 12/10/19 Insulin] atorvastatin 20 mg tablet 20 mg PO HS #90 tab 07/12/19 12/11/19 12/10/19 blood sugar diagnostic #10 ea 07/24/19 09/25/19 Unknown insulin syringe-needle U-100 0.3 #10 ea 07/24/19 09/25/19 Unknown mL 29 gauge x 1/2" lancets 30 gauge #25 ea 07/24/19 09/25/19 Unknown pen needle, diabetic 32 gauge x #10 ea 07/24/19 09/25/19 Unknown 5/32" citalopram 40 mg tablet 40 mg PO DAILY #30 tab 07/31/19 12/11/19 12/10/19 benazepril 20 mg tablet 20 mg PO BID #180 tab 08/22/19 12/11/19 12/10/19 glucosamine-chondroitin 250 mg-200 2 tab PO BID tab 10/16/19 12/11/19 12/10/19 mg tablet Trulicity 1.5 mg/0.5 mL 1.5 mg SUBCUT WEEKLY 90 Days ml NS 11/06/19 12/11/19 12/10/19 subcutaneous pen injector Active Medications Generic Name Dose Route Start Last Admin Trade Name Freq PRN Reason Stop Dose Admin Atorvastatin Calcium 20 mg 12/11/19 21:00 12/11/19 20:21 Lipitor PO 01/10/20 20:59 20 mg HS BRODERICK Administration Citalopram Hydrobromide 40 mg 12/11/19 21:00 12/11/19 20:21 Celexa PO 01/10/20 20:59 40 mg HS BRODERICK Administration Hydromorphone HCl 1 mg 12/11/19 14:53 12/12/19 09:15 Dilaudid IV 12/25/19 14:52 1 mg Q4H PRN Administration Severe Pain Lactated Ringer's 1,000 mls @ 150 mls/hr 12/11/19 18:55 12/12/19 09:08 Lr IV 01/10/20 18:54 150 mls/hr .Q6H40M BRODERICK Administration Insulin Aspart 0 units 12/11/19 21:00 12/12/19 05:54 Novolog Flexpen SC 01/10/20 20:59 4 units Q6 BRODERICK Administration Insulin Glargine 10 units 12/12/19 09:00 12/12/19 09:03 Lantus Solostar Pen SC 01/11/20 08:59 10 units BID BRODERICK Administration Miscellaneous 1 ea 12/12/19 00:00 12/12/19 09:00 Order Awaiting Action N/A 01/11/20 00:00 Not Given QS BRODERICK Ondansetron HCl 4 mg 12/11/19 14:53 12/12/19 09:21 Zofran IV 01/10/20 14:52 4 mg Q4H PRN Administration Nausea NPO Date Last Intake of Fluids: 12/12/19 Time Last Intake of Fluids: 00:00 Date Last Intake of Solids: 12/11/19 Time Last Intake of Solids: 17:00 Past Medical History Medical History Anemia Depression Diabetes mellitus, type 2 IDDM Diverticular disease Hyperlipidemia Hypertension Peptic ulcer disease Exercise / Class Metabolic Activity III < 4 Walking/Shop/Light housework Past Family History Family History Mother Family history of diabetes mellitus Past Surgical History Surgical History History of appendectomy History of colonoscopy History of discectomy History of esophagogastroduodenoscopy (EGD) History of total knee replacement LEFT Past Anesthesia History No Hx of Anesthesia Complications and No Family Hx of Anesthesia Complications History of PONV No Hx of PONV and No Hx of Motion Sickness Social History Smoking Status: Never smoker Hx Alcohol Use: No Hx Substance Use: No substance use type: does not use Physical Exam Vital Signs Last Vital Signs Temp 98.6 F 12/12/19 08:00 Pulse 77 12/12/19 10:31 Resp 18 12/12/19 10:31 BP 116/72 12/12/19 10:31 Pulse Ox 92 12/12/19 10:31 ENMT Mouth: no dentition abnormality Thyromental Distance: > or= 3.5 Finger Breadths Mallampati Class: III Neck normal visual inspection Respiratory normal respiratory effort Auscultation: lungs clear to auscultation bilaterally Cardiovascular Rate/Rhythm: regular rate and regular rhythm Testing Laboratory Results 12/12/19 06:00 12/12/19 06:00 PT 10.7 Seconds (9.0-12.0) 12/12/19 06:00 INR 1.0 (0.9-1.1) 12/12/19 06:00 APTT 25.4 Seconds (21.0-31.0) 12/12/19 06:00 Hemoglobin A1c 8.1 % (4.5-5.6) H 12/12/19 06:00 Urine Color Dark Yellow 12/11/19 10:52 Urine Appearance Clear (Clear) 12/11/19 10:52 Urine pH 5.0 (4.5-7.5) 12/11/19 10:52 Ur Specific [place] 1.030 (1.000-1.030) 12/11/19 10:52 Urine Protein 2+ (Negative) H 12/11/19 10:52 Urine Glucose (UA) 3+ (Negative) H 12/11/19 10:52 Urine Ketones Negative (Negative) 12/11/19 10:52 Urine Nitrite Negative (Negative) 12/11/19 10:52 Ur Leukocyte Esterase Negative (Negative) 12/11/19 10:52 Urine WBC (Auto) 10-30 /hpf (0-5) H 12/11/19 10:52 Urine RBC (Auto) 5-10 /hpf (0-4) H 12/11/19 10:52 U Hyaline Cast (Auto) 5-10 /lpf (0-5) H 12/11/19 10:52 U Epithel Cells (Auto) >30 /lpf (0-5) H 12/11/19 10:52 Urine Bacteria (Auto) Negative (Negative) 12/11/19 10:52 12/12/19 12/12/19 12/12/19 07:45 06:28 05:51 POC Glucose 165 H 177 H 180 H 12/12/19 00:31 POC Glucose 136 H Electrocardiogram Date: 12/12/19 Findings: + NSR @ (74 bpm) Left axis deviation Chest X-Ray Date: 12/12/19 IMPRESSION: 1. Cardiomegaly with volume overload. No advanced congestive change or pulmonary edema. 2. Mildly low lung volumes with persistent elevation of the right hemidiaphragm.
[2019-12-12] MEDS ORDERED: ONDANSETRON INJ 2 MG/ML 2 ML VIAL IV PRN (09:49)
[2019-12-12] MEDS ORDERED: fentaNYL citrate 100 MCG/2 ML VIAL IV PRN (09:49)
[2019-12-12] MEDS ORDERED: ePHEDrine sulfate 50 MG/ML AMP IV PRN (09:49)
[2019-12-12] MEDS ORDERED: ATROPINE SULFATE 0.1 MG/ML 10ML SYR IV PRN (09:49)
[2019-12-12] MEDS ORDERED: IOTHALAMATE MEGLUMINE II 17.2% 250 ML VIAL ONE (10:42)
[2019-12-12] MEDS ORDERED: MIDAZOLAM HCL 1 MG/ML 2ML VIAL ONE (10:44)
[2019-12-12] MEDS ORDERED: PROPOFOL IV EMULSION 10 MG/ML 20 ML VIAL IV ONE (10:44)
[2019-12-12] MEDS ORDERED: DEXAMETHASONE SOD INJ 4 MG/ML VIAL ONE (10:44)
[2019-12-12] MEDS ORDERED: fentaNYL citrate 100 MCG/2 ML VIAL ONE (10:44)
[2019-12-12] MEDS ORDERED: LIDOCAINE HCL 2% 2 ML VIAL/AMP(20MG/ML) INFIL ONE (10:44)
[2019-12-12] MEDS ORDERED: ONDANSETRON INJ 2 MG/ML 2 ML VIAL ONE (10:44)
[2019-12-12] MEDS ORDERED: GLYCOPYRROLATE 0.2 MG/ML VIAL ONE (10:59)
[2019-12-12] MEDS ORDERED: KETAMINE HCL INJ 50 MG/ML 10 ML VIAL ONE (10:59)
--- NOTE | 2019-12-12 11:06 | Operative Report ---
PG Post Operative Report Pre & Post Diagnosis Operation Date: 12/12/19 10:00 Pre-Op Diagnosis: RENAL COLIC, OBSTRUCTING STONE Post-Op Diagnosis: RENAL COLIC, OBSTRUCTING STONE I identified the patient and participated in the time-out.: Yes Procedure Operation Date: 12/12/19 10:00 Actual Procedures p Cystoscopy, Left Retrograde Pyelogram, Left Stent Placement(Left) - Prince White DO Surgeon Prince White, II, DO Agile Qa Tester None Estimated Blood Loss 1 Findings Consistent with Post-Op Diagnosis Stent placed in good position. Specimens None Drains 6 Fr Multilength Anesthesia Type MAC Complications none Disposition Disposition: Recovery Room Indications Patient with obstruction. Risks and benefits discussed at length. Description of Procedure Patient was consented and brought back to the operating room. Patient was placed under anesthesia in the supine position and moved to the dorsal lithotomy position. Patient was prepped and draped in the regular sterile fashion. A time out was completed. A 30degree Cystoscope was placed into the bladder and the entire bladder was examined. The UO's were identified. The UO was cannulized with a catheter and a retrograde pyelogram was completed. A wire was then placed. With the wire in place, a 6 Fr Double J stent was placed. It was confirmed with fluoroscopy. With the stent in place, the bladder was emptied. The scope was removed. The patient was cleaned, aroused from anesthesia, and transferred to the pacu in stable condition having tolerated the procedure well with no complications. I was present and participated in all aspects of the procedure. The patient will be monitored in the PACU until transferred. I attest to the content of the Intraoperative Record and any orders documented therein. Any exceptions are noted below.
--- NOTE | 2019-12-12 11:31 | Fluoroscopy Report ---
FL retrograde includes kub CLINICAL HISTORY: 74 years-old Female presenting with CYSTO. TECHNIQUE: 2 fluoroscopic image(s) recorded as part of an intraoperative procedure. COMPARISON: CT from 12/11/2019. FINDINGS/IMPRESSION: Interval placement of a left ureteral stent. Residual injected contrast in the left urinary collectin g system suspected. Please see surgical report for further details. Fluoroscopy dosage (mGy): 3.46. Fluoroscopy time: 9.3 seconds. Number or time of high level fluoroscopy (HLF), digital spot, or digital subtraction images: 0. ACT 112: Negative or not required by law. Electronically signed by: Rishi Conn M.D. 12/12/2019 11:30 AM
--- NOTE | 2019-12-12 13:01 | Anesthesiology Progress Note ---
Date of Service December 12, 2019 Anesthesia Post Procedure Vital Signs Vital Signs: Temp Pulse Pulse Pulse Resp BP BP 12/12/19 12:30 83 20 114/59 L 12/12/19 12:20 98.1 F 83 20 109/59 L 12/12/19 12:10 79 16 105/52 L 12/12/19 12:00 80 18 112/82 12/12/19 11:50 87 20 110/75 12/12/19 11:40 95 H 20 123/76 12/12/19 11:30 89 15 127/68 12/12/19 11:21 98.8 F 91 H 16 107/72 12/12/19 10:31 77 18 116/72 12/12/19 09:14 73 116/72 12/12/19 08:00 98.6 F 74 79 18 122/78 12/12/19 03:32 98.4 F 81 18 111/70 12/12/19 03:14 84 12/12/19 00:03 98.1 F 90 20 117/74 12/11/19 18:55 98.1 F 89 18 128/85 12/11/19 17:43 79 12/11/19 15:32 86 18 157/87 H 12/11/19 15:22 89 18 145/91 H 12/11/19 14:44 86 20 163/97 H Pulse Ox 12/12/19 12:30 91 12/12/19 12:20 90 12/12/19 12:10 93 12/12/19 12:00 94 12/12/19 11:50 92 12/12/19 11:40 90 12/12/19 11:30 91 12/12/19 11:21 89 L 12/12/19 10:31 92 12/12/19 09:14 94 12/12/19 08:00 91 12/12/19 03:32 90 12/12/19 03:14 12/12/19 00:03 90 12/11/19 18:55 92 12/11/19 17:43 12/11/19 15:32 94 12/11/19 15:22 94 12/11/19 14:44 96 Pain Intensity Left Flank: Pain Intensity: 8 Transfer of Care Handoff Completed per policy Notes Mental Status: alert / awake / arousable and participated in evaluation Patient Amnestic to Procedure: Yes Nausea / Vomiting: adequately controlled Pain: adequately controlled Airway Patency, RR, SpO2: stable & adequate BP & HR: stable & adequate Hydration State: stable & adequate Anesthetic Complications: no major complications apparent and Pt Satisfied with anesthetic care Notes: Pt is awake. Her O2 saturations are in the mid 90s with incentive spirometer. The plan is to have the patient on a continuous pulse oximeter on the floors.
--- NOTE | 2019-12-12 17:11 | Emergency Department Note ---
Entered by Vahid Pisano acting as a scribe for Nila Mckinnon DO History of Present Illness General Chief complaint: Kidney Stone Stated complaint: KIDNEY STONE PROBLEM Time Seen by Provider: 12/11/19 10:49 Source: patient Limitations: no limitations History of Present Illness Onset (ago): hour(s) (7.5) Location: back (low) Severity: similar to prior episodes Pain Consistency: + constant Maximum Pain Intensity: 9 Quality: + constant Associated symptoms: + denies other symptoms (change in urine), + fever/chills (chills. No fever), + nausea/vomiting (nausea) and + other (dry heaves, frequent bowel movements) The patient is a 74 year old female who presents to the Emergency Room with complaints of constant left-sided low back pain starting 7.5 hours ago. The patient states she woke up with the pain. She states she has been having dry heaves. She notes she has been having multiple bowel movements. She states she felt fine before going to sleep last night. She notes she has been having chills and feels shaky. She states she has a history of kidney stones and states this feels like that. She states she has been nauseous. She notes the pain is severe. She states she took Tylenol today. She states she has had previous UTIs. The patient denies having fevers, change in her urine in the past couple days, and recent falls. Home Medications Home Medications Medication Instructions Recorded Confirmed Type insulin lispro [Humalog KwikPen 22 unit SUBCUT QDB 09/27/18 12/11/19 History Insulin] insulin lispro [Humalog KwikPen 22 unit SUBCUT QDD 09/27/18 12/11/19 History Insulin] Lantus Solostar U-100 Insulin 50 unit SUBCUT HS 03/24/19 12/11/19 History insulin lispro [Humalog KwikPen 18 units SUBCUT QDL 03/24/19 12/11/19 History Insulin] atorvastatin 20 mg tablet 20 mg PO HS #90 tab 07/12/19 12/11/19 Rx blood sugar diagnostic #10 ea 07/24/19 09/25/19 History insulin syringe-needle U-100 0.3 #10 ea 07/24/19 09/25/19 History mL 29 gauge x 1/2" lancets 30 gauge #25 ea 07/24/19 09/25/19 History pen needle, diabetic 32 gauge x #10 ea 07/24/19 09/25/19 History 5/32" citalopram 40 mg tablet 40 mg PO DAILY #30 tab 07/31/19 12/11/19 Rx benazepril 20 mg tablet 20 mg PO BID #180 tab 08/22/19 12/11/19 Rx glucosamine-chondroitin 250 mg-200 2 tab PO BID tab 10/16/19 12/11/19 History mg tablet Trulicity 1.5 mg/0.5 mL 1.5 mg SUBCUT WEEKLY 90 Days ml NS 11/06/19 12/11/19 Rx subcutaneous pen injector Allergies Allergy/AdvReac Type Severity Reaction Status Date / Time No Known Allergies Allergy Verified 12/11/19 12:05 Past Med/Surg History Medical History Anemia Depression Diabetes mellitus, type 2 IDDM Diverticular disease Hyperlipidemia Hypertension Peptic ulcer disease Surgical History History of appendectomy History of colonoscopy History of discectomy History of esophagogastroduodenoscopy (EGD) History of total knee replacement LEFT Family History Mother Family history of diabetes mellitus Social History Preferred Language: Korean Communication Ability: Effective Resident Services Manager Required: No Beliefs That Will Affect Care: None Current Living Situation: Alone Current Living Situation Comment: Daughters live close. Able to assist w/care as needed. Other Information That Helps Us Care for You: No Feels Safe at Home: Yes Safety Concerns: Feels Safe At This Time Smoking Status: Never smoker Second Hand Exposure: No ; Hx Alcohol Use: No Hx Substance Use: No Review of Systems See HPI for pertinent positives & negatives. and A total of 10 systems reviewed and were otherwise negative Physical Exam Vital Signs Vital Signs - 24 hr 12/11/19 10:37 12/11/19 11:45 12/11/19 12:25 Temperature 97.5 F L Temperature Source Oral Pulse Rate 82 Pulse Rate [Right Finger] 82 82 Respiratory Rate 18 20 20 Respiratory Effort / Characteristics Non-Labored Spontaneous Non-Labored Non-Labored Respiratory Depth Normal Normal Normal Respiratory Pattern Regular Blood Pressure 170/96 H Blood Pressure [Right Arm] 154/91 H 150/88 H Blood Pressure Mean 120 Blood Pressure Mean [Right Arm] 112 108 Blood Pressure Position Sitting Pulse Oximetry 94 94 94 Oxygen Delivery Method Room Air Room Air Room Air Sepsis Recent Fever Within 48 Hours No Sepsis New/Unexplained Change in Mental Status No Sepsis Action Taken by Nursing No Action Required 12/11/19 12:59 Temperature Temperature Source Pulse Rate Pulse Rate [Right Finger] 82 Respiratory Rate 20 Respiratory Effort / Characteristics Respiratory Depth Respiratory Pattern Blood Pressure Blood Pressure [Right Arm] 148/95 H Blood Pressure Mean Blood Pressure Mean [Right Arm] 112 Blood Pressure Position Pulse Oximetry 94 Oxygen Delivery Method Room Air Sepsis Recent Fever Within 48 Hours Sepsis New/Unexplained Change in Mental Status Sepsis Action Taken by Nursing GENERAL: alert, uncomfortable appearing, well nourished, mild distress, non- toxic EYE EXAM: normal conjunctiva, PERRL and EOM's grossly intact OROPHARYNX: no exudate, no erythema, lips, buccal mucosa, and tongue normal and mucous membranes are moist NECK: supple, no nuchal rigidity, no adenopathy, non-tender LUNGS: Clear to auscultation. Normal chest wall mechanics, no w/r/r HEART: no murmurs, S1 normal and S2 normal ABDOMEN: abdomen soft, non-tender, normo-active bowel sounds, no masses, no rebound or guarding. BACK: Back is symmetrical on inspection and there is no deformity, no midline tenderness, no CVA tenderness. No reproducible left low back pain. SKIN: no rashes and no bruising UPPER EXTREMITIES: upper extremities are grossly normal. FROM, nml pulses b/l. LOWER EXTREMITIES: No pitting edema. FROM, nml pulses b/l. NEURO EXAM: Normal sensorium, cranial nerves II-XII grossly intact, normal speech, no gross weakness of arms, no gross weakness of legs. Course Course 1056 The patient was evaluated in room B11B, and a complete history and physical examination were performed. 1112: I reevaluated the patient. I updated the patient on her prior CT imaging which showed a 1.6 cm stone. 1251: I reevaluated the patient. She states the pain medications helped. She notes her urologist is Dr. Felder. 1319: I spoke to Alison - Nurse practitioner with urology. She states she is going to discuss the patient's case with her attending, Dr. Ba. 1335: I spoke with Yana Bliss - Nurse practitioner with urology. She recommends repeating the CT without contrast and have hospital admit the patient. Patient should be kept n.p.o. after midnight for likely operative intervention tomorrow. 1422: I discussed the patient's case with Dr. Gamez - [facility] ist. He will evaluate the patient for further management. Administered Medications Atorvastatin Calcium (Lipitor) 20 mg PO [facility] Stop: 01/10/20 20:59 Last Admin: 12/11/19 20:21 Dose: 20 mg Documented by: [id number] Citalopram Hydrobromide (Celexa) 40 mg PO [facility] Stop: 01/10/20 20:59 Last Admin: 12/11/19 20:21 Dose: 40 mg Documented by: [id number] Hydromorphone HCl (Dilaudid) 1 mg IV Q4H PRN PRN Reason: Severe Pain Stop: 12/25/19 14:52 Last Admin: 12/12/19 09:15 Dose: 1 mg Documented by: [id number] Admin: 12/12/19 02:10 Dose: 1 mg Documented by: [id number] Admin: 12/11/19 22:15 Dose: 1 mg Documented by: [id number] Admin: 12/11/19 18:41 Dose: 1 mg Documented by: [id number] Lactated Ringer's (Lr) 1,000 mls @ 150 mls/hr IV .Q6H40M [facility] Stop: 01/10/20 18:54 Last Admin: 12/12/19 14:30 Dose: 150 mls/hr Documented by: [id number] Infusion: 12/12/19 14:30 Dose: 150 mls/hr Documented by: [id number] Admin: 12/12/19 09:08 Dose: 150 mls/hr Documented by: [id number] Infusion: 12/12/19 09:08 Dose: 150 mls/hr Documented by: [id number] Admin: 12/12/19 02:39 Dose: 150 mls/hr Documented by: [id number] Infusion: 12/12/19 02:30 Dose: 150 mls/hr Documented by: [id number] Admin: 12/11/19 19:49 Dose: 150 mls/hr Documented by: [id number] Insulin Glargine (Lantus Solostar Pen) 10 units SC BID [facility] Stop: 01/11/20 08:59 Last Admin: 12/12/19 09:03 Dose: 10 units Documented by: [id number] Cosigned by: [id number] Miscellaneous (Order Awaiting Action) 1 ea N/A QS [facility] Stop: 01/11/20 00:00 Last Admin: 12/12/19 15:58 Dose: Not Given Documented by: [id number] Admin: 12/12/19 09:00 Dose: Not Given Documented by: [id number] Admin: 12/12/19 00:40 Dose: Not Given Documented by: [id number] Ondansetron HCl (Zofran) 4 mg IV Q4H PRN PRN Reason: Nausea Stop: 01/10/20 14:52 Last Admin: 12/12/19 09:21 Dose: 4 mg Documented by: [id number] Admin: 12/12/19 02:23 Dose: 4 mg Documented by: [id number] Admin: 12/11/19 18:48 Dose: 4 mg Documented by: [id number] Discontinued Medications Fentanyl Citrate (Fentanyl Citrate) 50 mcg IV Q15M PRN PRN Reason: Pain Stop: 12/25/19 11:05 Last Admin: 12/11/19 12:20 Dose: 50 mcg Documented by: [id number] Admin: 12/11/19 11:14 Dose: 50 mcg Documented by: [id number] Hydromorphone HCl (Dilaudid) 0.5 mg IV NOW STA Stop: 12/11/19 14:21 Last Admin: 12/11/19 14:37 Dose: 0.5 mg Documented by: [id number] Sodium Chloride (Nss) 500 mls @ 999 mls/hr IV .Q31M [facility] Stop: 12/11/19 11:19 Last Infusion: 12/11/19 11:47 Dose: 0 mls/hr Documented by: [id number] Admin: 12/11/19 11:14 Dose: 999 mls/hr Documented by: [id number] Lactated Ringer's (Lr) 1,000 mls @ 999 mls/hr IV .Q1H1M ONE Stop: 12/11/19 15:53 Last Infusion: 12/11/19 16:24 Dose: 0 mls/hr Documented by: [id number] Admin: 12/11/19 15:23 Dose: 999 mls/hr Documented by: [id number] Lactated Ringer's (Lr) 1,000 mls @ 999 mls/hr IV .Q1H1M ONE Stop: 12/11/19 18:54 Last Infusion: 12/11/19 19:50 Dose: 0 mls/hr Documented by: [id number] Admin: 12/11/19 18:43 Dose: 999 mls/hr Documented by: [id number] Ciprofloxacin (Cipro) 400 mg in 200 mls @ 100 mls/hr IV PREOP [facility]; Protocol Stop: 12/12/19 10:44 Last Infusion: 12/12/19 14:41 Dose: 0 mls/hr Documented by: [id number] Admin: 12/12/19 10:50 Dose: 100 mls/hr Documented by: [id number] Insulin Aspart (Novolog Flexpen) 0 units SC Q6 [facility] Stop: 01/10/20 20:59 Last Admin: 12/12/19 14:40 Dose: Not Given Documented by: [id number] Cosigned by: [id number] Admin: 12/12/19 05:54 Dose: 4 units Documented by: [id number] Cosigned by: [id number] Admin: 12/12/19 00:34 Dose: Not Given Documented by: [id number] Cosigned by: [id number] Admin: 12/11/19 20:20 Dose: 3 units Documented by: [id number] Cosigned by: [id number] Iothalamate Meglumine (Cysto-Conray Ii) Confirm Administered Dose 250 ml .ROUTE .STK-MED ONE Stop: 12/12/19 10:43 Last Admin: 12/12/19 11:06 Dose: 10 ml Documented by: [id number] Ondansetron HCl (Zofran) 4 mg IV NOW STA Stop: 12/11/19 11:07 Last Admin: 12/11/19 11:13 Dose: 4 mg Documented by: [id number] Ondansetron HCl (Zofran) 4 mg IV NOW STA Stop: 12/11/19 14:21 Last Admin: 12/11/19 14:37 Dose: 4 mg Documented by: [id number] Medical Decision Making Differential Diagnosis Differential Diagnosis includes but is not limited to etiologies such as renal colic, appendicitis, diverticulitis, mesenteric ischemia, aortic pathology, infections, inflammatory bowel disease, PUD, biliary pathology, UTI, as well as others were entertained. Medical Records Attestation: I reviewed the patient's medical records. Patient had a CT done in February which showed 1.6 cm stone in the left kidney. Home Medications Current Medication List: was personally reviewed by me Laboratory Data Attestation: I reviewed the patient's lab results. Result diagrams: 12/12/19 06:00 12/12/19 06:00 Lab Results 12/11/19 12/11/19 12/11/19 Range/Units 10:52 10:52 11:00 WBC 14.51 H (4.8-10.8) K/uL RBC 4.67 (4.2-5.4) M/uL Hgb 13.5 (12.0-16.0) g/dL Hct 40.6 (37-47) % MCV 86.9 (80-100) fL MCH 28.9 (25-34) pg MCHC 33.3 (32-36) g/dL RDW Std Deviation 57.4 H (36.4-46.3) fL RDW Coeff of Meghann 18.5 H (11.5-14.5) % Plt Count 225 (130-400) K/uL MPV 10.7 H (7.4-10.4) fL Sodium (136-145) mmol/L Potassium (3.5-5.1) mmol/L Chloride (98-107) mmol/L Carbon Dioxide (21-32) mmol/L Anion Gap (3-11) BUN (7-18) mg/dl Creatinine (0.6-1.2) mg/dl Est Cr Clr Drug Dosing ml/min Est GFR ( Amer) Est GFR (Non-Af Amer) BUN/Creatinine Ratio (10-20) Glucose (70-99) mg/dl Calcium (8.5-10.1) mg/dl Urine Color Dark Yellow Urine Appearance Clear (Clear) Urine pH 5.0 (4.5-7.5) POC Urine pH 5 (4.5-7.5) Ur Specific [employer] 1.030 (1.000-1.030) Urine Protein 2+ H (Negative) POC Urine Protein 1+ H (Negative) Urine Glucose (UA) 3+ H (Negative) POC Ur Glucose (UA) 1000 H (Normal) Urine Ketones Negative (Negative) POC Urine Ketones Negative (Negative) Urine Blood 2+ H (Negative) POC Urine Blood 250 H (Negative) Urine Nitrite Negative (Negative) POC Urine Nitrite Negative (Negative) Urine Bilirubin Negative (Negative) POC Urine Bilirubin Negative (Negative) Urine Urobilinogen Negative (Negative) POC Urine Urobilinogen Normal (Normal) Ur Leukocyte Esterase Negative (Negative) POC U Leukocyte Esteras Negative (Negative) Urine WBC (Auto) 10-30 H (0-5) /hpf Urine RBC (Auto) 5-10 H (0-4) /hpf U Hyaline Cast (Auto) 5-10 H (0-5) /lpf U Epithel Cells (Auto) >30 H (0-5) /lpf Urine Bacteria (Auto) Negative (Negative) 12/11/19 Range/Units 11:00 WBC (4.8-10.8) K/uL RBC (4.2-5.4) M/uL Hgb (12.0-16.0) g/dL Hct (37-47) % MCV (80-100) fL MCH (25-34) pg MCHC (32-36) g/dL RDW Std Deviation (36.4-46.3) fL RDW Coeff of Meghann (11.5-14.5) % Plt Count (130-400) K/uL MPV (7.4-10.4) fL Sodium 138 (136-145) mmol/L Potassium 4.2 (3.5-5.1) mmol/L Chloride 108 H (98-107) mmol/L Carbon Dioxide 24 (21-32) mmol/L Anion Gap 6.0 (3-11) BUN 15 (7-18) mg/dl Creatinine 1.54 H (0.6-1.2) mg/dl Est Cr Clr Drug Dosing 34.0 ml/min Est GFR ( Amer) 38.7 Est GFR (Non-Af Amer) 33.4 BUN/Creatinine Ratio 9.9 L (10-20) Glucose 237 H (70-99) mg/dl Calcium 9.3 (8.5-10.1) mg/dl Urine Color Urine Appearance (Clear) Urine pH (4.5-7.5) POC Urine pH (4.5-7.5) Ur Specific [employer] (1.000-1.030) Urine Protein (Negative) POC Urine Protein (Negative) Urine Glucose (UA) (Negative) POC Ur Glucose (UA) (Normal) Urine Ketones (Negative) POC Urine Ketones (Negative) Urine Blood (Negative) POC Urine Blood (Negative) Urine Nitrite (Negative) POC Urine Nitrite (Negative) Urine Bilirubin (Negative) POC Urine Bilirubin (Negative) Urine Urobilinogen (Negative) POC Urine Urobilinogen (Normal) Ur Leukocyte Esterase (Negative) POC U Leukocyte Esteras (Negative) Urine WBC (Auto) (0-5) /hpf Urine RBC (Auto) (0-4) /hpf U Hyaline Cast (Auto) (0-5) /lpf U Epithel Cells (Auto) (0-5) /lpf Urine Bacteria (Auto) (Negative) Imaging Data Radiologist's Impression: Radiology results as stated below per my review and the radiologist's interpretation: KUB HISTORY: Follow up study in a patient with kidney stones left kidney stone? seen on prior CT COMPARISON: CT abdomen and pelvis 03/24/2019 FINDINGS: The bowel gas pattern is non-obstructive. There is no organomegaly. 2.0 cm calcification of the left midabdomen projects over the left L3 transverse process. This is suggestive of a calculus which is migrated into the left renal pelvis/ureteropelvic junction. Additional calculi of the inferior pole left kidney are noted measuring up to 7 mm. No right nephrolithiasis. Multiple phleboliths of the pelvis redemonstrated. No pneumoperitoneum or pneumatosis. Degenerative changes of the spine, pelvis and hips. No fracture. IMPRESSION: 1. 2.0 cm calcification of the abdominal left upper quadrant is suggestive of calculus within the region of the left renal pelvis or ureteropelvic junction. Correlate with urinalysis. 2. Nonobstructing nephrolithiasis of the inferior pole left kidney. ACT 112: Negative or not required by law. The above report was generated using voice recognition software. It may contain grammatical, syntax or spelling errors. Electronically signed by: Dimitry Jain M.D. 12/11/2019 11:[address] abd pelvis wo con CLINICAL HISTORY: 74 years-old Female presenting with left kidney stone, left flank pain. TECHNIQUE: Multidetector CT of the abdomen and pelvis was performed without the use of intravenous contrast. IV contrast: None. One or more dose lowering techniques were used consistent with the principles of ALARA (as low as reasonably achievable), including automatic exposure control, mA or kV adjustment to individual patient size, and/or use of iterative reconstruction. COMPARISON: 03/24/2019. CT DOSE (mGy.cm): The estimated cumulative dose is 901.87 mGy.cm. FINDINGS: [employer] topogram: Unremarkable. Lung bases: Normal heart size. Coronary artery calcification. No pericardial or pleural effusion. Minimal dependent changes likely atelectasis. Liver: Normal morphology. Density consistent with hepatic steatosis. Biliary: No gross biliary ductal dilatation allowing for noncontrast technique. Normal gallbladder. Pancreas: Mild parenchymal atrophy. Spleen: Normal noncontrast appearance. Adrenal glands: Normal noncontrast appearance. Kidneys and ureters: Multiple left renal calculi including a dominant obstructing 12 mm calculus in the left renal pelvis. Mild left pelvocaliectasis. The remainder of the left ureter is nondilated beyond the ureteropelvic junction. Punctate nonobstructing right nephrolithiasis. No right hydronephrosis. Right ureter nondistended. Bladder: Normal noncontrast appearance. No bladder calculi. Pelvic organs: Normal noncontrast appearance. Multiple pelvic phleboliths. Bowel: Diverticulosis of the mid to distal sigmoid colon without wall thickening or pericolonic inflammatory change. Few scattered additional colonic diverticula throughout the remainder of the colon. The appendix is absent. No bowel obstruction. Peritoneal cavity: No free fluid or intraperitoneal gas. Lymph nodes: No gross lymphadenopathy allowing for noncontrast technique. Vasculature: Atherosclerosis of the normal caliber abdominal aorta. Abdominal wall: Minimal infiltration of the subcutaneous fat of the anterior abdominal wall, possibly from medication administration. The appearance is similar to prior. Musculoskeletal: Degenerative changes of the spine. IMPRESSION: 1. Obstructing 4 mm calculus at the left ureteropelvic junction with resultant mild left hydronephrosis. 2. Additionally, nonobstructing left nephrolithiasis. 3. Punctate nonobstructing right nephrolithiasis. 4. Hepatic steatosis. 5. Diverticulosis coli. No diverticulitis. ACT 112: Negative or not required by law. Electronically signed by: Rishi Conn M.D. 12/11/2019 2:14 PM Blood Pressure Blood Pressure Findings: Elevated blood pressure Blood Pressure Disposition: further management by hospitalist MDM Narrative Patient here uncomfortable appearing with likely renal colic. Patient found to have a large kidney stone on the left. No evidence of urinary tract infection. Patient does have YNES, likely secondary to the large stone. Patient did require multiple doses of IV pain medication for her renal colic. No Toradol was given due to elevated creatinine. Patient was hydrated, nausea medications given as well. Patient afebrile and hemodynamically stable. Case discussed with urology and due to size of stone, as well as patient's other comorbidities they requested inpatient management by the hospitalist service and they will see in consult with anticipated operative intervention tomorrow. Patient was kept aware of all results and plan was in agreement. No evidence of bacteremia/sepsis. No evidence of DKA. Impression & Plan Left flank pain, YNES (acute kidney injury), Renal colic, Hematuria Discharge Plan Visit Data *Final* Discharge Date/Time: 12/11/19 16:22 Chief Complaint: Kidney Stone Stated Complaint: KIDNEY STONE PROBLEM ED Provider: Nila Mckinnon Discharge Problem: Left flank pain, YNES (acute kidney injury), Renal colic, Hematuria Patient Disposition: Admitted As Inpatient Discharge Instructions Interventions: ED Discharge Assessment Last Done: 12/11/19 16:22 Discharge Problem: Hematuria Qualifiers: Hematuria type: unspecified type Qualified Code(s): R31.9 - Hematuria, unspecified The scribe's documentation has been prepared under my direction and personally reviewed by me in its entirety. I confirm that the note above accurately reflects all work, treatment, procedures, and medical decision making performed by me.
--- NOTE | 2019-12-12 17:25 | Hospitalist Progress Note ---
Date of Service December 12, 2019 Assessment & Plan (1) Nephrolithiasis: * Imaging with 12mm obstructive left calculus at the left uteropelvic junction. * Cr elevated at 1.54 on admission, elevated to 1.65 this morning. Baseline Cr 1.2-1.4 based on nephrology outpatient notes. Pt CKD III. Continue to monitor * Urology on consult * POD #0 s/p Cystoscopy, Left Retrograde Pyelogram, Left Stent Placement(Left) by Dr. White * Pain control -- had been receiving IV Dilaudid. Added PO oxycodone prn * Continue IVF --reduce LR rate to 100 mL's per hour * Received IV cipro preop * Post-op hypotension down to 91/53,. Patient denies shortness of breath. CXR this AM with evidence of volume overload, likely secondary to 2L bolus received for YNES. No shortness of breath, however is currently also requiring 4L NC to maintain O2 sat 92% * Repeat CXR in AM, BNP * Continuous pulse ox (2) Left flank pain: * Improving * Renal colic secondary to above. * Pain management with dilaudid 1mg IV and 0.5mg IV. Added PO oxy as above (3) YNES (acute kidney injury): * Baseline Cr 1.2-1.4. 1.5 on admission, up to 1.65 this morning. Given total of 2L bolus LR then continued on 100 ml/hr. * Continue to hold benazepril * Continue to monitor (4) Acute on chronic kidney failure: * Chronic kidney disease, stage 3 * Acute kidney injury as above (5) Controlled type 2 diabetes mellitus with chronic kidney disease, with long- term current use of insulin: * Hba1C 7.9 in July. Repeat A1c worsened slightly to 8.1 * Total daily outpatient dose insulin 112 units. Basal usually 50 units which she took as usual last night. Currently not eating or drinking significant amounts and was NPO after MN for procedure -- lantus was reduced to 10 units BID -- will need increased once eating post-op * BSGs acceptable, running 111-180 today * Continue to monitor (6) Renal colic: * Secondary to 12mm obstructing stone as above (7) Hypertension: * Hypotensive post-op, currently 108/67 * Will continue to hold home benazepril * Continue to monitor (8) Depression: Stable -Continue citalopram 40 mg p.o. at bedtime (9) DVT prophylaxis: * Deferred chemical prophylaxis pending procedure -- will start Heparin SQ following procedure * SCDs Supervising Physician Co-Signing Physician Notes PA Supervision Note: I did not personally see or examine the patient today, but I verified all garcia points of DEYANIRA Winston's assessment and plan with the following exceptions/additions: Lowered fluids to 100 mL's per hour as had improvement of blood pressure and remains on 4 L nasal cannula Subjective Patient to OR this morning with Dr. White for L ureteral stent. Patient states her pain is currently an 8/10, located left back and flank, which is improved from the 10/10 on admission. Associated nausea, but better than admission. States she had been dry heaving for three hours prior to coming to ER. She states she feels like she has to void but has been unsuccessful with bed medina. She believes if she can make it to the bathroom that she would be able to go but was told she is not allowed to get out of bed just yet after getting back from PACU. She states she felt a little out of it but feels a little better now. Her pain diminishes with Dilaudid. Denies any fever, chills, shortness of breath, chest pain, abdominal pain. Review of Systems Review of Systems: All systems reviewed & are unremarkable except as noted in HPI & below Constitutional: no fever and no chills Eyes: no diplopia and no problem reported Ear, Nose, Mouth, Throat: no sore throat and no dysphagia Respiratory: no cough and no dyspnea Cardiovascular: no chest pain and no dyspnea Gastrointestinal: + nausea; no abdominal pain, no vomiting, no constipation and no diarrhea/loose stools Genitourinary: + urinary urgency; no urinary incontinence Musculoskeletal: left back Physical Exam Constitutional: WD/WN, vitals as above + obese; no acute distress Eyes: + anicteric sclerae and PERRL Neck: trachea midline, no thyromegaly Respiratory: normal respiratory effort and able to speak in complete sentences; no respiratory distress and no labored breathing Auscultation: lungs clear to auscultation bilaterally, + diminished lung sounds (r base) and + crackles (bibasilar) Cardiovascular: Rate/Rhythm: regular rate and regular rhythm Heart Sounds: normal S1 and normal S2; no murmur Extremities: + edema (1+) Gastrointestinal (Abdomen): normal bowel sounds, soft, nontender, no hepatosplenomegaly Musculoskeletal: no cyanosis or clubbing, extremities motor strength 5/5 Skin: no rashes, warm and dry Neurologic: PERRL, EOMI, accommodation nl, no face palsy, no dysarthria Psychiatric: A+Ox3, euthymic affect Genitourinary: L CVA tenderness on palpation Lymphatic: no cervical or axillary lymphadenopathy Results & Data Vital Signs (Past 12 Hours) Vital Signs Temp Pulse Pulse Pulse Resp BP BP 12/12/19 15:19 37.1 C 76 20 108/67 12/12/19 14:45 37.2 C 77 18 103/45 L 12/12/19 14:21 37.1 C 77 18 112/66 12/12/19 14:00 36.6 C 71 18 105/61 12/12/19 13:45 36.6 C 68 16 95/61 L 12/12/19 13:10 75 18 101/55 L 12/12/19 13:00 37.2 C 73 15 93/73 L 12/12/19 12:50 72 17 91/57 L 12/12/19 12:40 74 16 109/66 12/12/19 12:30 83 20 114/59 L 12/12/19 12:20 36.7 C 83 20 109/59 L 12/12/19 12:10 79 16 105/52 L 12/12/19 12:00 80 18 112/82 12/12/19 11:50 87 20 110/75 12/12/19 11:40 95 H 20 123/76 12/12/19 11:30 89 15 127/68 12/12/19 11:21 37.1 C 91 H 16 107/72 12/12/19 10:31 77 18 116/72 12/12/19 09:14 73 116/72 12/12/19 08:00 37.0 C 74 79 18 122/78 Pulse Ox 12/12/19 15:19 92 12/12/19 14:45 92 12/12/19 14:21 92 12/12/19 14:00 96 12/12/19 13:45 95 12/12/19 13:10 94 12/12/19 13:00 93 12/12/19 12:50 93 12/12/19 12:40 93 12/12/19 12:30 91 12/12/19 12:20 90 12/12/19 12:10 93 12/12/19 12:00 94 12/12/19 11:50 92 12/12/19 11:40 90 12/12/19 11:30 91 12/12/19 11:21 89 L 12/12/19 10:31 92 12/12/19 09:14 94 12/12/19 08:00 91 Laboratory Results 12/12/19 12/12/19 12/12/19 Range/Units 16:51 14:35 11:32 WBC (4.8-10.8) K/uL RBC (4.2-5.4) M/uL Hgb (12.0-16.0) g/dL Hct (37-47) % MCV (80-100) fL MCH (25-34) pg MCHC (32-36) g/dL RDW Std Deviation (36.4-46.3) fL RDW Coeff of Meghann (11.5-14.5) % Plt Count (130-400) K/uL MPV (7.4-10.4) fL Immature Gran % (Auto) % Neut % (Auto) % Lymph % (Auto) % [place] % (Auto) % Eos % (Auto) % Baso % (Auto) % Immature Gran # (Auto) (0.00-0.02) K/uL Neut # (Auto) (1.4-6.5) K/uL Lymph # (Auto) (1.2-3.4) K/uL [place] # (Auto) (0.11-0.59) K/uL Eos # (Auto) (0-0.5) K/uL Baso # (Auto) (0-0.2) K/uL PT (9.0-12.0) Seconds INR (0.9-1.1) APTT (21.0-31.0) Seconds PTT Ratio Sodium (136-145) mmol/L Potassium (3.5-5.1) mmol/L Chloride (98-107) mmol/L Carbon Dioxide (21-32) mmol/L Anion Gap (3-11) BUN (7-18) mg/dl Creatinine (0.6-1.2) mg/dl Est Cr Clr Drug Dosing ml/min Est GFR ( Amer) Est GFR (Non-Af Amer) BUN/Creatinine Ratio (10-20) Glucose (70-99) mg/dl POC Glucose 111 H 131 H 172 H (70-99) mg/dl Estimat Average Glucose mg/dl Hemoglobin A1c (4.5-5.6) % Calcium (8.5-10.1) mg/dl Total Bilirubin (0.2-1) mg/dl AST (15-37) U/L ALT (12-78) U/L Alkaline Phosphatase (45-117) U/L Total Protein (6.4-8.2) gm/dl Albumin (3.4-5.0) gm/dl Globulin (2.5-4.0) gm/dl Albumin/Globulin Ratio (0.9-2) 12/12/19 12/12/19 12/12/19 Range/Units 07:45 06:28 06:00 WBC (4.8-10.8) K/uL RBC (4.2-5.4) M/uL Hgb (12.0-16.0) g/dL Hct (37-47) % MCV (80-100) fL MCH (25-34) pg MCHC (32-36) g/dL RDW Std Deviation (36.4-46.3) fL RDW Coeff of Meghann (11.5-14.5) % Plt Count (130-400) K/uL MPV (7.4-10.4) fL Immature Gran % (Auto) % Neut % (Auto) % Lymph % (Auto) % [place] % (Auto) % Eos % (Auto) % Baso % (Auto) % Immature Gran # (Auto) (0.00-0.02) K/uL Neut # (Auto) (1.4-6.5) K/uL Lymph # (Auto) (1.2-3.4) K/uL [place] # (Auto) (0.11-0.59) K/uL Eos # (Auto) (0-0.5) K/uL Baso # (Auto) (0-0.2) K/uL PT (9.0-12.0) Seconds INR (0.9-1.1) APTT (21.0-31.0) Seconds PTT Ratio Sodium (136-145) mmol/L Potassium (3.5-5.1) mmol/L Chloride (98-107) mmol/L Carbon Dioxide (21-32) mmol/L Anion Gap (3-11) BUN (7-18) mg/dl Creatinine (0.6-1.2) mg/dl Est Cr Clr Drug Dosing ml/min Est GFR ( Amer) Est GFR (Non-Af Amer) BUN/Creatinine Ratio (10-20) Glucose (70-99) mg/dl POC Glucose 165 H 177 H (70-99) mg/dl Estimat Average Glucose 186 mg/dl Hemoglobin A1c 8.1 H (4.5-5.6) % Calcium (8.5-10.1) mg/dl Total Bilirubin (0.2-1) mg/dl AST (15-37) U/L ALT (12-78) U/L Alkaline Phosphatase (45-117) U/L Total Protein (6.4-8.2) gm/dl Albumin (3.4-5.0) gm/dl Globulin (2.5-4.0) gm/dl Albumin/Globulin Ratio (0.9-2) 12/12/19 12/12/19 12/12/19 Range/Units 06:00 06:00 06:00 WBC 10.25 (4.8-10.8) K/uL RBC 4.06 L (4.2-5.4) M/uL Hgb 11.7 L (12.0-16.0) g/dL Hct 36.8 L (37-47) % MCV 90.6 (80-100) fL MCH 28.8 (25-34) pg MCHC 31.8 L (32-36) g/dL RDW Std Deviation 61.1 H (36.4-46.3) fL RDW Coeff of Meghann 18.8 H (11.5-14.5) % Plt Count 176 (130-400) K/uL MPV 10.0 (7.4-10.4) fL Immature Gran % (Auto) 0.8 % Neut % (Auto) 76.3 % Lymph % (Auto) 12.4 % [place] % (Auto) 10.0 % Eos % (Auto) 0.2 % Baso % (Auto) 0.3 % Immature Gran # (Auto) 0.08 H (0.00-0.02) K/uL Neut # (Auto) 7.83 H (1.4-6.5) K/uL Lymph # (Auto) 1.27 (1.2-3.4) K/uL [place] # (Auto) 1.02 H (0.11-0.59) K/uL Eos # (Auto) 0.02 (0-0.5) K/uL Baso # (Auto) 0.03 (0-0.2) K/uL PT 10.7 (9.0-12.0) Seconds INR 1.0 (0.9-1.1) APTT 25.4 (21.0-31.0) Seconds PTT Ratio 0.9 Sodium 139 (136-145) mmol/L Potassium 4.6 (3.5-5.1) mmol/L Chloride 108 H (98-107) mmol/L Carbon Dioxide 27 (21-32) mmol/L Anion Gap 4.0 (3-11) BUN 18 (7-18) mg/dl Creatinine 1.65 H (0.6-1.2) mg/dl Est Cr Clr Drug Dosing 32.0 ml/min Est GFR ( Amer) 35.6 Est GFR (Non-Af Amer) 30.7 BUN/Creatinine Ratio 11.0 (10-20) Glucose 163 H (70-99) mg/dl POC Glucose (70-99) mg/dl Estimat Average Glucose mg/dl Hemoglobin A1c (4.5-5.6) % Calcium 8.5 (8.5-10.1) mg/dl Total Bilirubin 0.7 (0.2-1) mg/dl AST 21 (15-37) U/L ALT 26 (12-78) U/L Alkaline Phosphatase 107 (45-117) U/L Total Protein 6.6 (6.4-8.2) gm/dl Albumin 3.2 L (3.4-5.0) gm/dl Globulin 3.4 (2.5-4.0) gm/dl Albumin/Globulin Ratio 0.9 (0.9-2) 12/12/19 12/12/19 12/11/19 Range/Units 05:51 00:31 20:07 WBC (4.8-10.8) K/uL RBC (4.2-5.4) M/uL Hgb (12.0-16.0) g/dL Hct (37-47) % MCV (80-100) fL MCH (25-34) pg MCHC (32-36) g/dL RDW Std Deviation (36.4-46.3) fL RDW Coeff of Meghann (11.5-14.5) % Plt Count (130-400) K/uL MPV (7.4-10.4) fL Immature Gran % (Auto) % Neut % (Auto) % Lymph % (Auto) % [place] % (Auto) % Eos % (Auto) % Baso % (Auto) % Immature Gran # (Auto) (0.00-0.02) K/uL Neut # (Auto) (1.4-6.5) K/uL Lymph # (Auto) (1.2-3.4) K/uL [place] # (Auto) (0.11-0.59) K/uL Eos # (Auto) (0-0.5) K/uL Baso # (Auto) (0-0.2) K/uL PT (9.0-12.0) Seconds INR (0.9-1.1) APTT (21.0-31.0) Seconds PTT Ratio Sodium (136-145) mmol/L Potassium (3.5-5.1) mmol/L Chloride (98-107) mmol/L Carbon Dioxide (21-32) mmol/L Anion Gap (3-11) BUN (7-18) mg/dl Creatinine (0.6-1.2) mg/dl Est Cr Clr Drug Dosing ml/min Est GFR ( Amer) Est GFR (Non-Af Amer) BUN/Creatinine Ratio (10-20) Glucose (70-99) mg/dl POC Glucose 180 H 136 H 163 H (70-99) mg/dl Estimat Average Glucose mg/dl Hemoglobin A1c (4.5-5.6) % Calcium (8.5-10.1) mg/dl Total Bilirubin (0.2-1) mg/dl AST (15-37) U/L ALT (12-78) U/L Alkaline Phosphatase (45-117) U/L Total Protein (6.4-8.2) gm/dl Albumin (3.4-5.0) gm/dl Globulin (2.5-4.0) gm/dl Albumin/Globulin Ratio (0.9-2) PG Care Time/CCT Total # of Minutes Spent Total Time Spent with Patient: Total time spent is greater than 50% in coordination of care (as documented) at patient's floor/unit and/or counseling patient: (1) Controlled type 2 diabetes mellitus with chronic kidney disease, with long- term current use of insulin Chronic kidney disease stage: stage 3 (moderate) Qualified Code(s): E11.22 - Type 2 diabetes mellitus with diabetic chronic kidney disease; N18.3 - Chronic kidney disease, stage 3 (moderate); Z79.4 - [facility] (current) use of insulin (2) Hypertension Hypertension type: essential hypertension Qualified Code(s): I10 - Essential (primary) hypertension
--- NOTE | 2019-12-12 17:29 | Electrocardiogram Report ---
Test Reason : Blood Pressure : / mmHG Vent. Rate : 074 BPM Atrial Rate : 074 BPM P-R Int : 156 ms QRS Dur : 094 ms QT Int : 382 ms P-R-T Axes : 028 -31 020 degrees QTc Int : 424 ms Normal sinus rhythm Left axis deviation Abnormal ECG When compared with ECG of 24-MAR-2019 16:27, No significant change was found Confirmed by Brandon Estevez ([id number]) on 12/12/2019 5:29:08 PM Referred By: REFERRED SELF Confirmed By:Barndon Estevez
[2019-12-12] MEDS: OXYCODONE/ACETAMINOPHEN 5mg/325mg TAB PO PRN (20:00)
[2019-12-12] MEDS: HEPARIN SOD 5,000 UNIT/0.5 ML VIAL SQ SCH (20:52)
[2019-12-12] MEDS: CITALOPRAM 40 MG TAB PO SCH (20:52)
[2019-12-12] MEDS: ATORVASTATIN 20 MG TAB PO SCH (20:52)
[2019-12-13] MEDS: OXYCODONE/ACETAMINOPHEN 5mg/325mg TAB PO PRN (04:27)
--- NOTE | 2019-12-13 08:15 | XRay Report ---
XR chest 2V PA/lateral CLINICAL HISTORY: hypoxia COMPARISON STUDY: 12/12/2019 FINDINGS: The heart is borderline enlarged. There is aortic tortuosity/ectasia. There is stable mild elevation right hemidiaphragm. There is no focal pulmonary consolidation. There are no significant pl eural effusions. There is minor central vascular prominence without evidence of overt failure.[ IMPRESSION: 1. Borderline cardiomegaly with mild central vascular prominence but no evidence of overt failure 2. Elevation of the right hemidiaphragm 3. No evidence of acute parenchymal consolidation ACT 112: Negative or not required by law. Electronically signed by: Augustin Gutierrez M.D. 12/13/2019 8:13 AM
[2019-12-13 08:16] LABS: BUN Creatinine Ratio 14.6 (10-20); Calcium 8.7 mg/dl (8.5-10.1); Creatinine Clr Calc Pharmacy 44.6 ml/min; Est GFR (African American) 52.3; Est GFR (Non-African American) 45.1
--- NOTE | 2019-12-13 08:32 | Anesthesiology Progress Note ---
Date of Service December 13, 2019 Anesthesia Post Procedure Vital Signs Vital Signs: Temp Pulse Pulse Pulse Resp BP BP 12/13/19 07:00 36.5 C 59 L 20 123/77 12/13/19 03:31 37.1 C 62 18 118/67 12/12/19 23:14 37.3 C 74 20 118/75 12/12/19 23:00 70 12/12/19 19:35 37.3 C 73 18 124/71 12/12/19 18:50 77 12/12/19 18:17 37.5 C 82 19 108/74 12/12/19 16:17 37.1 C 78 20 129/74 12/12/19 15:19 37.1 C 76 20 108/67 12/12/19 14:45 37.2 C 77 18 103/45 L 12/12/19 14:21 37.1 C 77 18 112/66 12/12/19 14:00 36.6 C 71 18 105/61 12/12/19 13:45 36.6 C 68 16 95/61 L 12/12/19 13:10 75 18 101/55 L 12/12/19 13:00 37.2 C 73 15 93/73 L 12/12/19 12:50 72 17 91/57 L 12/12/19 12:40 74 16 109/66 12/12/19 12:30 83 20 114/59 L 12/12/19 12:20 36.7 C 83 20 109/59 L 12/12/19 12:10 79 16 105/52 L 12/12/19 12:00 80 18 112/82 12/12/19 11:50 87 20 110/75 12/12/19 11:40 95 H 20 123/76 12/12/19 11:30 89 15 127/68 12/12/19 11:21 37.1 C 91 H 16 107/72 12/12/19 10:31 77 18 116/72 12/12/19 09:14 73 116/72 Pulse Ox 12/13/19 07:00 98 12/13/19 03:31 97 12/12/19 23:14 93 12/12/19 23:00 12/12/19 19:35 92 12/12/19 18:50 12/12/19 18:17 90 12/12/19 16:17 93 12/12/19 15:19 92 12/12/19 14:45 92 12/12/19 14:21 92 12/12/19 14:00 96 12/12/19 13:45 95 12/12/19 13:10 94 12/12/19 13:00 93 12/12/19 12:50 93 12/12/19 12:40 93 12/12/19 12:30 91 12/12/19 12:20 90 12/12/19 12:10 93 12/12/19 12:00 94 12/12/19 11:50 92 12/12/19 11:40 90 12/12/19 11:30 91 12/12/19 11:21 89 L 12/12/19 10:31 92 12/12/19 09:14 94 Pain Intensity Left Flank: Pain Intensity: 8 Notes Mental Status: alert / awake / arousable and participated in evaluation Patient Amnestic to Procedure: Yes Nausea / Vomiting: adequately controlled Pain: adequately controlled Airway Patency, RR, SpO2: stable & adequate BP & HR: stable & adequate Hydration State: stable & adequate Anesthetic Complications: no major complications apparent and Pt Satisfied with anesthetic care
[2019-12-13] MEDS ORDERED: DOCUSATE SODIUM/SENNA 50/8.6MG TAB PO SCH (09:00)
--- NOTE | 2019-12-13 09:10 | Urology Progress Note ---
Date of Service December 13, 2019 Assessment & Plan (1) Left ureteral calculus: 74 yo F POD#1 s/p left stent placement secondary to obstructing 12 mm left UPJ stone and YNES. - Creatinine improved to 1.2 today - Patient feeling better today, tolerating stent - Reviewed expected clinical course with stent, questions answered - Will arrange follow-up outpatient with our service for definitive stone management Thank you for allowing us to participate in the acute care of Mrs. Smith. Please reconsult us with additional questions, concerns or changes in patient status. Subjective 74 yo F POD #1 s/p left stent placement secondary to obstructing 12 mm left UPJ stone and YNES. Sitting up at the side of bed eating breakfast. No issues overnight. Pain is much improved today. Some mild back discomfort, attributes to the dry heaving from previous day. Relieved with PO pain medication. Tolerating stent. No f/c/n/v. Voiding spontaneously, some urgency symptoms. Hematuria yesterday, improved today. Review of Systems Review of Systems: All systems reviewed & are unremarkable except as noted in HPI & below Physical Exam Physical Exam: Obese, NAD AOx3 Normal respiratory effort Abd soft, nondistended, nontender No CVA tenderness No pedal edema Results & Data Vital Signs (Past 12 Hours) Vital Signs Temp Pulse Pulse Resp BP Pulse Ox 12/13/19 07:00 36.5 C 59 L 20 123/77 98 12/13/19 03:31 37.1 C 62 18 118/67 97 12/12/19 23:14 37.3 C 74 20 118/75 93 12/12/19 23:00 70 PG Care Time/CCT Total # of Minutes Spent Total Time Spent with Patient: Total time spent is greater than 50% in coordination of care (as documented) at patient's floor/unit and/or counseling patient:
[2019-12-13] MEDS: HEPARIN SOD 5,000 UNIT/0.5 ML VIAL SQ SCH (09:26)
[2019-12-13] MEDS: INSULIN ASPART 100 UNITS/ML 3 ML PEN SC SCH ×3 (09:27→17:43)
[2019-12-13] MEDS: INSULIN GLARGINE SOLOSTAR 100 UNITS/ML 3 ML PEN SC SCH (09:27)
[2019-12-13] MEDS: FUROSEMIDE 20 MG in SYRINGE 0 ML IV ONE ×2 (12:45→13:39)
[2019-12-13] MEDS ORDERED: FUROSEMIDE 40 MG TAB PO ONE (13:01)
[2019-12-13] MEDS ORDERED: CIPROFLOXACIN 500 MG TAB PO SCH (13:30)
--- NOTE | 2019-12-13 15:34 | Hospitalist Progress Note ---
Date of Service December 13, 2019 Assessment & Plan (1) Nephrolithiasis: * Imaging with 12mm obstructive left calculus at the left uteropelvic junction. * Cr elevated at 1.54 on admission, elevated to 1.65 on 12/12 prior to OR. Baseline Cr 1.2-1.4 based on nephrology outpatient notes. Pt CKD III. Continue to monitor * Urology on consult * POD #1 s/p Cystoscopy, Left Retrograde Pyelogram, Left Stent Placement(Left) by Dr. White * Pain control -- had been receiving IV Dilaudid. Added PO oxycodone prn * D/C IV fluids, as Cr normalized to 1.2 and patient with evidence of volume overload on initial CXR. CXR 12/13 with improvement, no evidence of overt failure or evidence of consolidation * Received IV cipro preop -- per conversation with Urology today, will continue Cipro 500mg BID x 3 days and follow up with Urology as outpatient (2) Hypoxia: * Patient requiring 4L post operatively to maintain O2 sat >90% * CXR on admission with evidence of volume overload, likely secondary to 2L bolus received for YNES. * Patient denies shortness of breath, however is currently also requiring 4L NC to maintain O2 sat 92% * Continuous pulse ox with improvement of O2 sats this morning. BNP 1100. Was 97% on RA early AM, however with ambulation patient dropped to 88%. Given 1x dose Lasix 40mg PO * Home JOHANNE hold secondary to post-op hypotension * Continue to monitor (3) Left flank pain: * Improved * Renal colic secondary to above. * Pain management with dilaudid 1mg IV and 0.5mg IV. * PO oxy as above (4) YNES (acute kidney injury): * Baseline Cr 1.2-1.4. 1.5 on admission, up to 1.65 prior to OR, as above. Given total of 2L bolus LR then continued on 100 ml/hr with eventual d/c evening of 12/12 * JOHANNE, Hctz on hold secondary to hypotension and YNES * Cr improved to 1.2 today * Resume home BP meds at discharge (5) Acute on chronic kidney failure: * Chronic kidney disease, stage 3 * Acute kidney injury as above (6) Controlled type 2 diabetes mellitus with chronic kidney disease, with long- term current use of insulin: * Hba1C 7.9 in July. Repeat A1c worsened slightly to 8.1 * Total daily outpatient dose insulin 112 units. Basal usually 50 units. Lantus was reduced to 10 units BID secondary to patient being NPO for procedure on 12/12. Diet advanced to full liquids for breakfast and then to DM II * BSGs 109-172 , acceptable * Continue to monitor * Patient may need to keep reduced dose until taking adequate PO food (7) Renal colic: * Secondary to 12mm obstructing stone as above (8) Hypertension: * Hypotensive post-op as low as 91/57 * Home benazepril on hold * Currently 144/88, but given Lasix 40mg PO x 1 * Home benazepril to be resumed this evening if able to tolerate * Continue to monitor (9) Depression: * Stable * Continue citalopram 40 mg p.o. at bedtime (10) DVT prophylaxis: * Heparin SQ following procedure * SCDs Dispo: possible discharge this afternoon pending O2 sat Subjective Patient states she is no longer nauseous. Pain drastically improved today 0/10, although she does have some left back pain that she thinks is from previous dry heaving. Able to tolerate full diet this morning. Voiding without difficulty, although she states there is some minimal discomfort but demonstrates understanding of typical post stent placement irritation. Denies chest pain, shortness of breath, abdominal pain, vomiting, fever, chills, headache, dizziness, blurred vision, syncope. States she feels significantly better than she did following the procedure. This afternoon, patient with some nausea. Plan for PO zofran. Lasix 40mg PO ordered this morning in order to ensure resolution of occasional drop in O2 sat. Patient ambulated in [place] with nursing this morning. Pulse ox dropped to 88% for approximately 30 seconds but rebounded quickly. Review of Systems Review of Systems: All systems reviewed & are unremarkable except as noted in HPI & below Constitutional: no fever and no chills Eyes: no diplopia and no problem reported Ear, Nose, Mouth, Throat: no sore throat and no dysphagia Respiratory: no cough and no dyspnea Cardiovascular: no chest pain, no palpitations and no edema Gastrointestinal: no abdominal pain, no nausea, no vomiting, no constipation and no diarrhea/loose stools Genitourinary: no urinary incontinence pressure with urination Musculoskeletal: + back pain (left lower back); no stiffness left back pain Integumentary: no rash and no lesions Neurologic: no numbness, no paresthesia and no headache(s) Physical Exam Constitutional: WD/WN, vitals as above + obese; no acute distress Eyes: + anicteric sclerae and PERRL Neck: trachea midline, no thyromegaly Respiratory: normal respiratory effort and able to speak in complete se ntences; no respiratory distress and no labored breathing Auscultation: lungs clear to auscultation bilaterally and + diminished lung sounds (r base) Cardiovascular: Rate/Rhythm: regular rate and regular rhythm Heart Sounds: normal S1 and normal S2; no murmur Gastrointestinal (Abdomen): normal bowel sounds, soft, nontender, no hepatosplenomegaly Musculoskeletal: no cyanosis or clubbing, extremities motor strength 5/5 left lower back minimally tender to palpation. reproducible Skin: no rashes, warm and dry Neurologic: PERRL, EOMI, accommodation nl, no face palsy, no dysarthria Psychiatric: A+Ox3, euthymic affect Lymphatic: no cervical or axillary lymphadenopathy Results & Data Vital Signs (Past 12 Hours) Vital Signs Temp Pulse Pulse Resp BP Pulse Ox 12/13/19 10:46 36.8 C 60 18 144/88 H 97 12/13/19 08:00 60 12/13/19 07:00 36.5 C 59 L 20 123/77 98 PG Care Time/CCT Total # of Minutes Spent Total Time Spent with Patient: Total time spent is greater than 50% in coordination of care (as documented) at patient's floor/unit and/or counseling patient: (1) Controlled type 2 diabetes mellitus with chronic kidney disease, with long- term current use of insulin Chronic kidney disease stage: stage 3 (moderate) Qualified Code(s): E11.22 - Type 2 diabetes mellitus with diabetic chronic kidney disease; N18.3 - Chronic kidney disease, stage 3 (moderate); Z79.4 - [facility] (current) use of insulin (2) Hypertension Hypertension type: essential hypertension Qualified Code(s): I10 - Essential (primary) hypertension
[2019-12-13] MEDS ORDERED: ONDANSETRON 4 MG OD TAB PO PRN (15:36)
--- NOTE | 2019-12-13 16:27 | Discharge Summary ---
Date of Service December 13, 2019 Admission HPI Per Admitting Provider Keely Smith is a 74 year old female who presents with left flank pain. The pain woke her up around 3:30am this morning. Severity 10/10 on arrival in the ER, currently 7/10 which improved to 3/10 after dilaudid given in ER. Pain from left flank radiating to LLQ abdomen. She reports prior history of kidney stones and was wondering whether to stay home to see if she could pass this one but the pain became so intense she had to come to the ER. In the ER her workup included KUB XR which showed 2cm calcification within the region of the left renal pelvis or uteropelvic junction. Subsequent CT confirmed 12mm obstructing stone at uteropelvic junction. Dr Mckinnon discussed with Dr Ba and advised to bring the patient in under medicine due to significant co-morbidities. No antibiotics recommended. Admission Exam Per Admitting Provider Constitutional: + acute distress (left flank pain) and + obese Eyes: + anicteric sclerae; normal pupil size ENMT: Ears: no external ear abnormality Nose: no external nose abnormality Mouth: + dry oral mucous membranes; no lip abnormality Neck: trachea midline Respiratory: normal respiratory effort, lungs clear to auscultation Cardiovascular: RRR, no murmur, no edema Extremities: normal capillary refill; no calf tenderness Gastrointestinal (Abdomen): normal bowel sounds, soft, nontender, no hepatosplenomegaly Musculoskeletal: no cyanosis or clubbing, extremities motor strength 5/5 Skin: no rashes, warm and dry Neurologic: moves all extremities and awake; no focal motor deficits and not confused Speech / Cognition: normal speech Motor/Sensory: no tremor and no pronator drift Psychiatric: A+Ox3, euthymic affect Lymphatic: no cervical or axillary lymphadenopathy Principal Diagnosis 12mm Obstructive Left Sided Nephrolithiasis with Mild Left Hydronephrosis Discharge Exam Constitutional WD/WN, vitals as above + obese; no acute distress Eyes + anicteric sclerae and PERRL Neck trachea midline, no thyromegaly Respiratory normal respiratory effort and able to speak in complete sentences; no respiratory distress and no labored breathing Auscultation: lungs clear to auscultation bilaterally and + diminished lung sounds (r base) Cardiovascular Rate/Rhythm: regular rate and regular rhythm Heart Sounds: normal S1 and normal S2; no murmur Gastrointestinal (Abdomen) normal bowel sounds, soft, nontender, no hepatosplenomegaly Musculoskeletal no cyanosis or clubbing, extremities motor strength 5/5 Skin no rashes, warm and dry Neurologic PERRL, EOMI, accommodation nl, no face palsy, no dysarthria Psychiatric A+Ox3, euthymic affect Lymphatic no cervical or axillary lymphadenopathy Discharge Data Allergies Allergy/AdvReac Type Severity Reaction Status Date / Time No Known Allergies Allergy Verified 12/11/19 12:05 Consultations 12/11/19 14:25 ED Decision to Admit Stat 12/11/19 14:30 Consult Urology Routine Procedures Performed Operation Date: 12/12/19 10:00 Actual Procedures p Cystoscopy, Left Retrograde Pyelogram, Left Stent Placement(Left) - Prince White, Ordered Studies 12/11 CXR KUB 12/11/19 13:34 CT abd pelvis wo con Stat 12/12/19 10:00 FL retrograde includes kub Routine 12/13 CXR Hospital Course (1) Nephrolithiasis: * Imaging with 12mm obstructive left calculus at the left uteropelvic junction. * Cr elevated at 1.54 on admission, elevated to 1.65 on 12/12 prior to OR. Baseline Cr 1.2-1.4 based on nephrology outpatient notes. Pt CKD III. * Urology consult * S/p Cystoscopy, Left Retrograde Pyelogram, Left Stent Placement(Left) by Dr. White on 12/12/19 * Pain control -- initially received IV dilaudid while NPO. Added PO oxycodone prn with decreased pain. Sent short rx of oral pain medication at discharge * Cr normalized to 1.2 prior to d/c * Patient with evidence of volume overload on initial CXR. CXR 12/13 with improvement, no evidence of overt failure or evidence of consolidation * Received IV cipro preop -- per conversation with Urology on morning of discharge, continued Cipro 500mg BID x 3 days and follow up with Urology as outpatient (2) Hypoxia: * Patient requiring 4L post operatively to maintain O2 sat >90% * CXR on admission with evidence of volume overload, likely secondary to 2L bolus received for YNES. * Patient denies shortness of breath, however is currently also requiring 4L NC to maintain O2 sat 92% * Continuous pulse ox with improvement of O2 sats this morning. BNP 1100. Was 97% on RA early AM, however with ambulation patient dropped to 88%. Given 1x dose Lasix 40mg PO * Home JOHANNE held secondary to post-op hypotension * Resumed at discharge (3) Left flank pain: * Improved * Renal colic secondary to above. * Pain management with dilaudid 1mg IV and 0.5mg IV during hospital stay as well as Percocet PO. Sent small prescription of pain medication at discharge. (4) YNES (acute kidney injury): * Baseline Cr 1.2-1.4. 1.5 on admission, sharlene to 1.65 prior to OR, as above. Given total of 2L bolus LR then continued on 100 ml/hr with eventual d/c evening of 12/12 * JOHANNE, Hctz held secondary to hypotension and YNES * Cr improved to baseline, 1.2 * Resumed home Benazepril at discharge (5) Acute on chronic kidney failure: * Chronic kidney disease, stage 3 * Acute kidney injury as above (6) Controlled type 2 diabetes mellitus with chronic kidney disease, with long- term current use of insulin: * Hba1C 7.9 in July. Repeat A1c worsened slightly to 8.1 . Of note, hepatic steatosis on imaging. Encouraged diet/exercise/weight management. * Total daily outpatient dose insulin 112 units. Basal usually 50 units. Lantus was reduced to 10 units BID secondary to patient being NPO for procedure on 12/12. Diet advanced to full liquids for breakfast and then to DM II * BSGs 109-172 , acceptable but lower, given patient not eating much secondary to nausea afternoon of 12/13 * Instructed to only take 10 units of Lantus night of discharge, check sugars at home, and increase to usual dose as she is able to eat more. Also instructed to hold Lispro for today. * Follow up with PCP as outpatient with recommendation to repeat A1c in 3 months. (7) Renal colic: * Secondary to 12mm obstructing stone as above (8) Hypertension: * Hypotensive post-op as low as 91/57 * Home benazepril held in setting of YNES as above. Resolution day of discharge. * 144/88 morning of discharge -- given Lasix 40mg PO x 1 (on 12/13) to improve O2 sat * 129/74 and 97% on RA prior to discharge * Home benazepril to be resumed at discharge (9) Depression: * Chronic. Stable * Continued citalopram 40 mg PO (10) DVT prophylaxis: * Heparin SQ following procedure * SCDs Discharged home with Cipro for total of 3 days, Zofran for nausea, and short course of pain meds Total Time Total Time Spent Total Time Spent (In Minutes): 65 Discharge Plan Discharge Items Patient Disposition: Home - Self-Care Reason For Visit: RENAL COLIC, OBSTRUCTING STONE Discharge Diagnosis: Obstructing Left Sided Kidney Stone Condition on Discharge: Good Goals: You have been hospitalized for an urgent problem which required surgery. During your stay at [facility], we have made an effort to correct the problem that brought you to the hospital while keeping you as comfortable as possible. Surgery and medications were used to bring your condition under control and your discharge instructions will include directions for any medicat ions you should take after leaving the hospital. Please make sure to follow the advice of your surgeon regarding follow up with the surgeon and with your primary care provider. Activity: Resume your previous activity Non-emergency contact: Primary Care Provider Call non-emergency contact if: you have any medication questions, your symptoms worsen, your pain is not controlled and you have a fever Follow-up/Referrals: Joaquin Esparza III, MD [Primary Care Provider] - 12/19/19 1:45 pm (Please, follow up with Dr. Esparza on December 19 at 1:45 pm. * If you need to change this appointment, call the office at [phone].) Prince White, DO [Physician] - Diet: Carb Consistent or DM2 Addtl Attending Provider Instructions: VERY IMPORTANT: * Please ONLY TAKE 10 UNITS of LANTUS at night tonight. Check your sugars at home. As you are able to eat more, you may increase to your usual dose. * Also, DO NOT TAKE YOUR LISPRO FOR TODAY. Please follow up with Urology (Dr. Prince White) regarding the left sided stent that you had placed for your kidney stone during this admission. They will be contacting you regarding an appointment in the next two weeks. * If you do not hear from them, please call their office at . * Please continue to remain well hydrated. You are being discharged with a prescription for Ciprofloxacin (an antibiotic) for prevention of infection, per Urology. You received this medication pre- operatively during your stay. You received the oral form of this medication earlier today, and should take the next dose this evening. * You will have two additional days of treatment, to be completed on 12/15/19. You are being sent with a short course of pain medication, Percocet (oxycodone/acetaminophen). You may take this ever 4-6 hours as needed for BREAKTHROUGH pain ONLY. * You may use tylenol as needed for mild discomfort, but make sure to not exceed 3,000mg in a 24 hour period of time (this is six 500mg tablets). * Of note, the Percocet has tylenol (acetaminophen) in it, at 325mg per pill. Please make sure to take this into consideration when using tylenol. * While taking opioid pain medication, you may develop constipation. Make sure to stay well hydrated, and if needed, you may use an over the counter stool softener such as miralax in addition to colace in order to prevent this constipation. * You have also been provided with a prescription of zofran to take for nausea. You also received this during your hospital stay. It dissolves under your tongue. You may resume your home benazepril (blood pressure medication) this evening as prescribed. Follow up with your primary care provider as scheduled above. Please return to the emergency department if you have worsening or uncontrolled pain, fever, inability to urinate, or for any symptoms that are concerning for you. It has been a pleasure being a part of the medical team providing for you during your hospital stay. Take care! Pending Studies at Discharge: No Stand-Alone Forms: My [facility], Opioid Pain Management, Work/School Release (Inpt) Medications and DC Order Prescriptions: New oxycodone-acetaminophen [Percocet] 5-325 mg Tablet 1 tab PO Q4H PRN (Reason: pain) Qty: 8 RF: 0 ondansetron 4 mg Tablet,Disintegrating 4 mg PO Q4H PRN (Reason: nausea and vomiting) Qty: 12 RF: 0 ciprofloxacin HCl [Cipro] 500 mg tablet 500 mg PO BID Qty: 5 RF: 0 Continued atorvastatin 20 mg tablet 20 mg PO HS Qty: 90 RF: 3 citalopram 40 mg tablet 40 mg PO DAILY Qty: 30 RF: 5 benazepril 20 mg tablet 20 mg PO BID Qty: 180 RF: 3 Trulicity 1.5 mg/0.5 mL pen injector 1.5 mg subcut WEEKLY 90 Days RF: 3 (DME) lancets [OneTouch Delica Lancets] 30 gauge misc See Dose Instructions .ROUTE .MEDSUPPLY Qty: 25 RF: 0 (DME) OneTouch Verio strip See Dose Instructions .ROUTE .MEDSUPPLY Qty: 10 RF: 0 (DME) pen needle, diabetic [ReliOn Pen [place]] 32 gauge x 5/32" needle See Dose Instructions .ROUTE .MEDSUPPLY Qty: 10 RF: 0 (DME) insulin syringe-needle U-100 [BD Insulin Syringe] 0.3 mL 29 gauge x 1/2" syringe See Dose Instructions .ROUTE .MEDSUPPLY Qty: 10 RF: 0 glucosamine-chondroitin [Osteo Bi-Flex] 250-200 mg tablet 2 tab PO BID RF: 0 insulin lispro [Humalog KwikPen Insulin] 100 unit/mL Insulin Pen 22 unit SUBCUT QDD RF: 0 insulin lispro [Humalog KwikPen Insulin] 100 unit/mL Insulin Pen 22 unit SUBCUT QDB RF: 0 insulin lispro [Humalog KwikPen Insulin] 100 unit/mL insulin pen 18 units subcut QDL RF: 0 Lantus Solostar U-100 Insulin 100 unit/mL (3 mL) insulin pen 50 unit subcut HS RF: 0 Discharge Orders: Discharge Order (Routine); Ordered 12/13/19 Ordered By: Carmelina Maher/Other Patient Handouts: Cystoscopy, Diabetes Manage A1C Test Admission Data Admit Date/Time: 12/11/19 14:30 Attending Provider: Carmelina Moore Admit Provider: Shawn Gamez Primary Care Provider: Joaquin Esparza III Other Providers: Shawn Gamez ; Shaun Ba I. Other Interventions: Discharge Summary Assessment (RN) Last Done: 12/13/19 17:59
== END 2019-12-13 18:17 | disposition home or self-care (01) | DRG 661 ==
LOC: ED 10:34 → SUATTDRO 14:30 → 2W 14:30

== ENCOUNTER 2022-09-05 08:31 | Inpatient (IN) ==
--- NOTE | 2022-07-18 12:15 | PAT Medication Instructions ---
Medication Instructions Date of Service July 18, 2022 Home Medications Medication Instructions Recorded atorvastatin 20 mg tablet (Lipitor) 20 mg PO HS #90 tabs 08/18/21 duloxetine 60 mg capsule,delayed 60 mg PO QPM #30 caps 01/18/22 release Trulicity 1.5 mg/0.5 mL 1.5 mg (0.5 mL) subcut WEEKLY 90 02/02/22 subcutaneous pen injector days #6 mL (dulaglutide) benazepril 20 mg tablet (Lotensin) 20 mg PO BID #180 tabs 03/04/22 gabapentin 400 mg capsule 400 mg PO TID #90 caps 03/04/22 oxycodone 5 mg tablet 5 mg PO Q6H PRN pain #14 tabs 07/02/22 atorvastatin 20 mg tablet (Lipitor) 20 mg PO HS duloxetine 60 mg capsule,delayed release 60 mg PO QPM Trulicity 1.5 mg/0.5 mL subcutaneous pen injector (dulaglutide) 1.5 mg (0.5 mL) subcut WEEKLY benazepril 20 mg tablet (Lotensin) 20 mg PO BID gabapentin 400 mg capsule 400 mg PO TID oxycodone 5 mg tablet 5 mg PO Q6H PRN pain insulin glargine 100 unit/mL (3 mL) subcutaneous pen (Basaglar KwikPen U-100 Insulin) 40 unit subcut PM insulin lispro 100 unit/mL subcutaneous pen (Humalog KwikPen (U-100) Insulin) 50 unit subcut AMPM metformin 500 mg tablet,extended release 24 hr 1,000 mg PO QPM cefdinir 300 mg capsule 300 mg PO BID uti cyanocobalamin (vitamin B-12) 1,000 mcg tablet (Vitamin B-12) 1,000 mcg PO QPM Continue as directed Trulicity 1.5 mg/0.5 mL subcutaneous pen injector (dulaglutide) 1.5 mg (0.5 mL) subcut WEEKLY cefdinir 300 mg capsule 300 mg PO BID uti DO NOT take the morning of surgery benazepril 20 mg tablet (Lotensin) 20 mg PO BID insulin lispro 100 unit/mL subcutaneous pen (Humalog KwikPen (U-100) Insulin) 50 unit subcut AMPM Take morning of surgery With a small sip of water, OTHERWISE NOTHING TO EAT OR DRINK AFTER MIDNIGHT: gabapentin 400 mg capsule 400 mg PO TID oxycodone 5 mg tablet 5 mg PO Q6H PRN pain (if needed) Take evening before surgery atorvastatin 20 mg tablet (Lipitor) 20 mg PO HS duloxetine 60 mg capsule,delayed release 60 mg PO QPM benazepril 20 mg tablet (Lotensin) 20 mg PO BID gabapentin 400 mg capsule 400 mg PO TID oxycodone 5 mg tablet 5 mg PO Q6H PRN pain (if needed) insulin glargine 100 unit/mL (3 mL) subcutaneous pen (Basaglar KwikPen U-100 Insulin) 40 unit subcut PM insulin lispro 100 unit/mL subcutaneous pen (Humalog KwikPen (U-100) Insulin) 50 unit subcut AMPM metformin 500 mg tablet,extended release 24 hr 1,000 mg PO QPM cyanocobalamin (vitamin B-12) 1,000 mcg tablet (Vitamin B-12) 1,000 mcg PO QPM Other Notes If you have any questions please call us at [phone] or [phone] or [phone] or [phone]
--- NOTE | 2022-07-22 14:27 | Anesthesiology Consultation ---
Date of Service July 22, 2022 Assessment & Plan (1) Encounter for pre-operative examination: - check BSG am DOS. - COVID screening: Per assessment on 07/22/2022: Travel screen negative, no known COVID-19 positive contacts or current COVID-19 related symptoms in past 2 weeks. Pre-op COVID testing to surgeon's discretion. Chart Review Chart Review: Acceptable Risk for Surgery and Patient seen in Pre Admission Testing Teaching & Discussion Pre-Anesthesia Teaching/Discussion Notes: Instructed NPO after midnight before surgery, except medications with 15 cc of water. Medication instructions provided according to the PAT guidelines. History Surgery Operation Date: 08/05/22 11:55 Proposed Procedures p L4-S1 Decompression and Fusion, Spinal Cord Monitoring - Myke Pérez DO Height/Weight Height: 5 ft 3 in Weight: 87.9 kg Allergies Allergy/AdvReac Type Severity Reaction Status Date / Time tramadol AdvReac Severe itchy Verified 07/25/22 08:03 Medications Home Medications Medication Instructions Recorded Confirmed Last Taken blood-glucose sensor (Dexcom G6 #3 ea 04/12/21 07/25/22 Unknown Sensor device) atorvastatin 20 mg tablet (Lipitor) 20 mg PO HS #90 tabs 08/18/21 07/25/22 07/11/22 blood sugar diagnostic (OneTouch 03/02/22 07/25/22 Unknown Verio test strips) benazepril 20 mg tablet (Lotensin) 20 mg PO BID #180 tabs 03/04/22 07/25/22 07/12/22 gabapentin 400 mg capsule 400 mg PO TID #90 caps 03/04/22 07/25/22 07/12/22 insulin glargine 100 unit/mL (3 40 unit subcut PM 07/12/22 07/25/22 07/11/22 mL) subcutaneous pen (Basaglar KwikPen U-100 Insulin) insulin lispro 100 unit/mL 50 unit subcut AMPM 07/12/22 07/25/22 07/12/22 subcutaneous pen (Humalog KwikPen (U-100) Insulin) metformin 500 mg tablet,extended 1,000 mg PO QPM 07/12/22 07/25/22 07/12/22 release 24 hr cyanocobalamin (vitamin B-12) 1,000 mcg PO QPM 07/14/22 07/25/22 Unknown 1,000 mcg tablet (Vitamin B-12) duloxetine 60 mg capsule,delayed 60 mg PO QPM #30 caps 07/20/22 07/25/22 Unknown release Trulicity 1.5 mg/0.5 mL 1.5 mg (0.5 mL) subcut WEEKLY 90 07/21/22 07/25/22 Unknown subcutaneous pen injector days #6 mL (dulaglutide) Past Medical History Medical History (Updated 07/22/22 @ 14:41 by Tatum Juarez PA-C) Anemia hx Chronic kidney disease, stage III (moderate) Degenerative disc disease hx Depression Diabetes mellitus, type 2 IDDM Diverticular disease Falls with neuropathy per pt, last fall 05/2022, denies LOC/hitting head GERD (gastroesophageal reflux disease) controlled Gout remote hx Headache History of frequent urinary tract infections remote hx resulting in sepsis (most recent early 2018) History of hepatitis possible as child/jaundiced/no formal dx Hyperlipidemia Hypertension controlled, stable per pt Kidney stone Muscle pain Peptic ulcer disease remote hx Peripheral neuropathy b/l feet Patient denies h/o stroke, seizures, heart attack, heart failure, blood clots or blood transfusions. Exercise / Class Metabolic Activity II 4-5 Yardwork/Stairs/Walk up hill (denies CP or SOB with 1 FOS) Past Family History Family History Mother Family history of diabetes mellitus Breast cancer Hypertension Hyperlipidemia Stroke Father Coronary heart disease Other Heart disease No family history of adverse response to anesthesia No family history of bleeding disorder Denies family history of Ovarian cancer Prostate cancer Myocardial infarction Colorectal cancer Past Surgical History Surgical History (Updated 07/22/22 @ 14:24 by Tatum Juarez PA-C) History of appendectomy History of colonoscopy diverticuli, random colon biopsies (benign/no pathological findings) last in 2020 History of discectomy lumbar area History of esophagogastroduodenoscopy (EGD) (~03/2018) gastric ulcer History of left knee replacement 06/22/18: SAB at L3-L4 1 attempt + PNB. History of lithotripsy X2; Left ESWL: 02/07/20: LMA#4 [place] [facility] [place] S/P cystoscopy with ureteral stent placement X 3 S/P epidural steroid injection Past Anesthesia History No Hx of Anesthesia Complications and No Family Hx of Anesthesia Complications History of PONV No Hx of PONV and No Hx of Motion Sickness Social History Smoking Status: Never smoker Do You Dip or Chew Tobacco: No Hx Alcohol Use: No Hx Substance Use: No substance use type: does not use Review of Systems Snoring, denies witnessed apneas. Patient denies chest pain, shortness of breath, dyspnea on exertion, fever, chills, cough, wheezing, or palpitations. Physical Exam Vital Signs Vitals BP 109/72 P 90 TEMP 98.9 SP02 94% on RA RESP 17 Physical Full cervical extension range of motion without pain TMD 3.5 finger breadths Mallampati Score 3 Dentition: intact, partial upper denture; denies loose or chipped teeth (she reports upcoming dental appt tomorrow and is aware she needs to discuss if acceptable with surgeon's office); denies caps/crowns or implants Lungs: normal respiratory effort. Clear throughout to auscultation, no adventitious breath sounds Cardiac: regular rate and rhythm, no murmurs noted Carotid arteries: negative bruit bilat Lab Results Anesthesia Preop Results Results Anesthesia Widget: WBC 9.17 K/ul (4.8-10.8) 07/22/22 Hgb 12.7 g/dl (12.0-16.0) 07/22/22 Hct 38.8 % (34.1-44.9) 07/22/22 Plt 230 K/uL (130-400) 07/22/22 Na 139 mmol/L (136-145) 07/22/22 K 4.4 mmol/L (3.5-5.1) 07/22/22 Cl 104 mmol/L (98-107) 07/22/22 CO2 24 mmol/L (21-32) 07/22/22 BUN 19 mg/dl (6-23) 07/22/22 Creat 1.05 mg/dl (0.6-1.2) 07/22/22 Glucose Level 287 mg/dl (70-99(Fasting)) H 07/22/22 PT 10.6 Seconds (9.0-12.0) 07/22/22 PTT 25.7 Seconds (21.0-31.0) 07/22/22 INR 1.0 (0.9-1.1) 07/22/22 HA1c 8.4 % (4.5-5.6) H 07/22/22 Urine Color Yellow 07/22/22 Urine Appearance Clear (Clear) 07/22/22 Urine pH 5.0 (4.5-7.5) 07/22/22 Urine Specific [place] 1.027 (1.000-1.030) 07/22/22 Urine Protein 1+ (Negative) H 07/22/22 Urine Glucose (UA) 2+ (Negative) H 07/22/22 Urine Ketones Trace (Negative) H 07/22/22 Urine Blood Negative (Negative) 07/22/22 Urine Nitrite Negative (Negative) 07/22/22 Urine Bilirubin Negative (Negative) 07/22/22 Urine Urobilinogen Negative (Negative) 07/22/22 Urine Leukocyte Esterase Trace (Negative) H 07/22/22 Urine WBC (Auto) 5-10 /hpf (0-5) H 07/22/22 Urine RBC (Auto) 0-4 /hpf (0-4) 07/22/22 Urine Hyaline Casts (Auto) 1-5 /lpf (0-5) 07/22/22 Urine Epithelial Cells (Auto) >30 /lpf (0-5) H 07/22/22 Urine Bacteria (Auto) Negative (Negative) 07/22/22 COVID-19 PCR NEGATIVE (Negative) 07/12/22 Blood Type O Negative 07/22/22 Antibody Screen NEGATIVE 07/22/22 Testing Laboratory Results Surgeon's office made aware. Electrocardiogram Date: 08/31/21 NSR, rate 83 bpm Left axis deviation Poor R wave progression, consider anterior [place] vs lead placement vs LVH Chest X-Ray Date: 07/12/22 *1 view* 1. Mild cardiomegaly without radiographic evidence of congestive failure. 2. Low lung volumes with bibasilar airspace opacities. This likely represents scarring/atelectasis and clinical correlation will be required. Other Testing Pelvis CT 07/02/22 1. No fracture or dislocation within the pelvis or hips. 2. Mild degenerative changes. Abdomen pelvis CT 08/31/21 Diverticulitis in the sigmoid and distal descending colon without evidence of perforation or abscess formation.
[~2022-09-05 08:31] MED LIST changes: -ACET-24 PO; +ACETAMINOPHEN 500 MG TAB PO SCH; -ATOR-22 PO; -BENA20TA13 PO; -CITA40TA4 PO; +CeleBREX 200 MG CAP PO SCH; -DULA1INJ INJ; -FRRG PO; +GABAPENTIN 300 MG CAP PO SCH; -HMLIS SC; -HYDR12.55 PO; -HYDR2TAB48 PO; -INSU100I2 SC; +LR 15ML/HR IV SCH; -NVLNI SQ; -PANT40TA PO; -XRL10 PO; +ceFAZolin 2000MG 2,000 MG/15 ML SYR IV SCH
[2022-09-05] MEDS ORDERED: NEOSTIGMINE METHYLSULFATE 1 MG/ML 10ML VIAL ONE (09:23)
[2022-09-05] MEDS ORDERED: MIDAZOLAM HCL 1 MG/ML 2ML VIAL ONE (09:23)
[2022-09-05] MEDS ORDERED: DEXAMETHASONE SOD INJ 4 MG/ML VIAL ONE (09:23)
[2022-09-05] MEDS ORDERED: ONDANSETRON INJ 2 MG/ML 2 ML VIAL ONE (09:23)
[2022-09-05] MEDS ORDERED: fentaNYL citrate 100 MCG/2 ML VIAL ONE ×2 (09:23→12:12)
[2022-09-05] MEDS ORDERED: PROPOFOL IV EMULSION 10 MG/ML 20 ML VIAL IV ONE (09:23)
[2022-09-05] MEDS ORDERED: GLYCOPYRROLATE 0.2 MG/ML VIAL ONE (09:23)
--- NOTE | 2022-09-05 09:33 | History & Physical Bridge Note ---
Date of Service September 05, 2022 History & Physical Bridge Note I have examined the patient, reviewed the History & Physical and in the interval since the performance of the History & Physical I have noted the following changes of clinical significance: no changes noted
--- NOTE | 2022-09-05 09:34 | History & Physical Report ---
Date of Service September 05, 2022 Assessment & Plan (1) Neurogenic claudication due to lumbar spinal stenosis: Plan: L4-S1 decompression and fusion History of Present Illness Chief Complaint: Back and leg pain Primary Care Provider: LILIYA Regan This is a 76-year-old female who presents with chronic persistent back and leg pain after failing course of nonoperative care she is here for surgical invention. Allergies Allergy/AdvReac Type Severity Reaction Status Date / Time tramadol AdvReac Severe itchy Verified 09/05/22 09:15 Home Medications Medication Instructions Recorded Confirmed Type blood-glucose sensor (Dexcom G6 #3 ea 04/12/21 08/25/22 History Sensor device) blood sugar diagnostic (OneTouch 03/02/22 08/25/22 History Verio test strips) insulin glargine 100 unit/mL (3 40 unit subcut PM 07/12/22 09/05/22 History mL) subcutaneous pen (Basaglar KwikPen U-100 Insulin) insulin lispro 100 unit/mL 50 unit subcut AMPM 07/12/22 09/05/22 History subcutaneous pen (Humalog KwikPen (U-100) Insulin) metformin 500 mg tablet,extended 1,000 mg PO QPM 07/12/22 09/05/22 History release 24 hr cyanocobalamin (vitamin B-12) 1,000 mcg PO QPM 07/14/22 09/05/22 History 1,000 mcg tablet (Vitamin B-12) duloxetine 60 mg capsule,delayed 60 mg PO QPM #30 caps 07/20/22 08/25/22 Rx release Trulicity 1.5 mg/0.5 mL 1.5 mg (0.5 mL) subcut WEEKLY 90 07/25/22 08/25/22 Rx subcutaneous pen injector days #6 mL (dulaglutide) atorvastatin 20 mg tablet (Lipitor) 20 mg PO HS #90 tabs 08/25/22 08/25/22 Rx benazepril 20 mg tablet (Lotensin) 20 mg PO BID #180 tabs 08/25/22 08/25/22 Rx gabapentin 400 mg capsule 400 mg PO TID #90 caps 08/25/22 08/25/22 Rx Past Med/Surg History Medical History Anemia Chronic kidney disease, stage III (moderate) Degenerative disc disease Depression Diabetes mellitus, type 2 Diverticular disease Falls GERD (gastroesophageal reflux disease) Gout Headache History of frequent urinary tract infections History of hepatitis Hyperlipidemia Hypertension Kidney stone Muscle pain Peptic ulcer disease Peripheral neuropathy Surgical History History of appendectomy History of colonoscopy History of discectomy History of esophagogastroduodenoscopy (EGD) (~03/2018) History of left knee replacement History of lithotripsy S/P cystoscopy with ureteral stent placement S/P epidural steroid injection Family History Mother Family history of diabetes mellitus Breast cancer Hypertension Hyperlipidemia Stroke Father Coronary heart disease Other Heart disease No family history of adverse response to anesthesia No family history of bleeding disorder Denies family history of Ovarian cancer Prostate cancer Myocardial infarction Colorectal cancer Social History Smoking Status: Never smoker Second Hand Exposure: No; Do You Dip or Chew Tobacco: No; Tobacco Cessation Education Requested by Patient: No Hx Alcohol Use: No Hx Substance Use: No Preferred Language: Andorran Communication Ability: Effective Visual Impairment: No Limitations Hearing Ability: Normal Survey Field Technician Required: No Beliefs That Will Affect Care: None marital status: / Current Living Situation: Alone Current Living Situation Comment: Daughters live close. Able to assist w/care as needed. current occupational status: retired Other Information That Helps Us Care for You: No Feels Safe at Home: Yes Safety Concerns: Feels Safe At This Time Dental Care, Regularly: Yes Physical Activity Frequency: Does not Exercise Seatbelt Use: always Sunscreen Use: No Assistive Devices: Denture - Upper and Glasses Physical Exam Physical Exam: Patient is alert and oriented Heart regular rhythm Lungs clear Results & Data Results & Data ([facility]) Vital Signs (Past 12 Hours) Vital Signs Temp Pulse Resp BP Pulse Ox O2 Del Method 09/05/22 09:09 36.8 C 77 20 168/94 H 96 Room Air
[2022-09-05] MEDS ORDERED: ATROPINE SULFATE 0.1 MG/ML 10ML SYR IV PRN (09:37)
[2022-09-05] MEDS ORDERED: ONDANSETRON INJ 2 MG/ML 2 ML VIAL IV PRN ×2 (09:37→16:15)
[2022-09-05] MEDS ORDERED: ePHEDrine sulfate 50 MG/ML AMP IV PRN (09:37)
[2022-09-05] MEDS ORDERED: HYDROmorphone INJ 1 MG/ML SYRINGE IV PRN ×2 (09:37→16:15)
[2022-09-05] MEDS ORDERED: fentaNYL citrate 100 MCG/2 ML VIAL IV PRN (09:37)
[2022-09-05] MEDS ORDERED: ceFAZolin 330 MG/ML 1 GM VIAL ONE (09:56)
[2022-09-05] MEDS ORDERED: BUPIVACAINE/EPINEPHRINE 0.25% 1:200,000 30 ML VIAL ONE (09:56)
[2022-09-05] MEDS ORDERED: FLOSEAL HEMOSTATIC MATRIX 10ML TOP ONE (10:53)
--- NOTE | 2022-09-05 12:04 | Operative Report ---
Post Operative Report Pre & Post Diagnosis Operation Date: 09/05/22 10:05 Pre-Op Diagnosis: Neurogenic claudication due to lumbar spinal stenosis Post-Op Diagnosis: Neurogenic claudication due to lumbar spinal stenosis I identified the patient and participated in the time-out.: Yes Procedure Operation Date: 09/05/22 10:05 Actual Procedures Revision decompression with bilateral medial facetectomies and foraminotomies L3-L4, L4-5 and L5-S1. #2 posterior spinal fusion L4-S1. #3 placement posterior instrumentation L4-S1. #4 interbody fusion L4-L5. #5 placement of Spira 13 x 26 mm at L4-5 per #6 placement locally harvested morselized autograft in the posterior gutters. #7 placement of I factor model V toss interbody space and posterior lateral gutters. Surgeon Myke Pérez, DO Shirring Tender Yadira Davis Estimated Blood Loss 150 Findings See Below The patient is 5 foot 2 inches tall weighing over 87 kg with a BMI in excess of 35. The patient's body habitus did contribute to significant technical difficulty requiring her deepest retractors and longer instruments in order to perform her procedure. This had at least 50% increased operative time. Specimens None Indications This is a 77-year-old female who presents above-mentioned diagnosis after failed course of nonoperative care she is here for surgical invention. Description of Procedure Patient met with identified informed consent obtained. Patient was then taken to the operative suite underwent ablation placed in a prone position the [place] table top Shane frame. All bony prominences well-padded eyes inspected to ensure no external pressure placed upon the. This point the lumbar spine was prepped and draped no sterile fashion. Sharp dissection with the assistance of Bovie cautery was performed down to and exposing the remaining lamina and transverse processes of L4-L5 and sacral ala bilaterally. From caudal to cephalad fashion revision complete laminectomy of L4-5 L4 and partial laminectomy of L3 was performed including bilateral medial facetectomies and foraminotomies addressing severe spinal stenosis. Pedicle screws then placed in L4-L5 and S1 levels bilaterally with assistance of fluoroscopy and the proper sized aamir placed. By way of a transforaminal approach on the right a complete discectomy of L4-L5 was performed endplates curetted to subcortical bleeding bone and a 13 x 26 mm spiral cage with I factor tapped in position. The rods were then locked in final position bilaterally. The transverse processes of L4- L5 and the sacral ala burred to subcortical bleeding bone. I factor combined with V toss and locally harvested morselized autograft was placed in the posterior gutters. 15 round ASHOK drain inserted. The incision was then closed with 1 Vicryl the fascia 2-0 Vicryl subcutaneously and 4 Monocryl for final skin closure. Steri-Strip sterile dressings placed. Patient waken taken to PACU in a stable condition. Please note spinal cord monitoring was utilized at the procedure no changes noted. Lastly Yadira Davis was present at the entire surgery involved the patient positioning complex portions of the surgery and final skin closure. I attest to the content of the Intraoperative Record and any orders documented therein. Any exceptions are noted below.
--- NOTE | 2022-09-05 13:44 | Fluoroscopy Report ---
FL lumbar spine 2-3V CLINICAL HISTORY: L4-S1 DFI COMPARISON STUDY: None. FLUOROSCOPY TIME: 25 seconds. FINDINGS: 2 fluoroscopic spot images of the lumbar spine demonstrate posterior decompression and fusi on from L4 through S1 with pedicle screws and rods. There is also a disc spacer at L4-L5. The hardwar e appears intact. IMPRESSION: Fluoroscopic assistance provided for L4-S1 posterior decompression and fusion. ACT 112: Negative or not required by law. Electronically signed by: Cristobal Ambrose M.D. 09/05/2022 1:43 PM
--- NOTE | 2022-09-05 14:01 | Anesthesiology Progress Note ---
Date of Service September 05, 2022 Anesthesia Post Procedure Vital Signs Vital Signs: Temp Pulse Pulse Resp BP Pulse Ox O2 Del Method 09/05/22 13:55 96 H 15 122/80 92 Nasal Cannula 09/05/22 13:45 96 H 12 152/91 H 92 Nasal Cannula 09/05/22 13:35 96 H 20 148/83 H 95 Nasal Cannula 09/05/22 13:25 96 H 18 156/89 H 93 Room Air 09/05/22 13:15 97.3 F L 94 H 17 158/91 H 94 Room Air 09/05/22 13:05 95 H 19 146/93 H 94 Oxymask 09/05/22 12:55 95 H 12 167/91 H 95 Oxymask 09/05/22 12:45 95 H 17 149/88 H 95 Oxymask 09/05/22 12:35 95 H 15 191/94 H 96 Oxymask 09/05/22 12:25 97.3 F L 94 H 14 178/104 H 95 Oxymask 09/05/22 09:09 98.2 F 77 20 168/94 H 96 Room Air O2 Flow Rate 09/05/22 13:55 3 09/05/22 13:45 3 09/05/22 13:35 3 09/05/22 13:25 3 09/05/22 13:15 09/05/22 13:05 4 09/05/22 12:55 5 09/05/22 12:45 6 09/05/22 12:35 10 09/05/22 12:25 15 09/05/22 09:09 Transfer of Care Handoff Completed per policy Notes Mental Status: alert / awake / arousable and participated in evaluation Patient Amnestic to Procedure: Yes Nausea / Vomiting: adequately controlled Pain: adequately controlled Airway Patency, RR, SpO2: stable & adequate BP & HR: stable & adequate Hydration State: stable & adequate Anesthetic Complications: no major complications apparent and Pt Satisfied with anesthetic care
[2022-09-05] MEDS ORDERED: MAGNESIUM HYDROXIDE SUSP 30 ML UDC PO PRN (16:15)
[2022-09-05] MEDS ORDERED: PHARMACY GLYCEMIC MGMT CONSULT PRN (16:15)
[2022-09-05] MEDS ORDERED: HYDROmorphone INJ 0.5 MG/0.5 ML SYR IV PRN (16:15)
[2022-09-05] MEDS ORDERED: ACETAMINOPHEN 1,000 MG/100 ML VIAL IV PRN (16:15)
[2022-09-05] MEDS ORDERED: ONDANSETRON 4 MG OD TAB PO PRN (16:15)
[2022-09-05] MEDS ORDERED: bisacodyL 10 MG SUPP PR PRN (16:15)
[2022-09-05] MEDS ORDERED: ALUMINUM/MAGNESIUM SUSP 30 ML UDC PO PRN (16:15)
[2022-09-05] MEDS ORDERED: NALOXONE HCL 0.4 MG/1 ML VIAL/CARP IV PRN (16:15)
[2022-09-05] MEDS ORDERED: FAMOTIDINE 20 MG TAB PO PRN (16:15)
[2022-09-05] MEDS ORDERED: diphenhydrAMINE Capsule 25 MG CAP PO PRN (16:15)
[2022-09-05] MEDS ORDERED: SOD PHOSPHATE/SOD BIPHOSPHATE ENEMA 132 ML BTL PR PRN (16:15)
[2022-09-05] MEDS ORDERED: PROMETHAZINE HCL 12.5 MG in SODIUM CHLORIDE 0.9% 50 ML IV PRN (16:15)
[2022-09-05] MEDS ORDERED: LORazepam 0.5 MG in SYRINGE 0 ML IV PRN (16:15)
[2022-09-05] MEDS ORDERED: hydrOXYzine HCl 25 MG TAB PO PRN (16:15)
[2022-09-05] MEDS ORDERED: METOCLOPRAMIDE HCL INJ 5 MG/ML 2 ML VIAL IV PRN (16:15)
[2022-09-05] MEDS: SODIUM CHLORIDE 0.9% 1000ML 1,000 ML IV SCH (16:30)
[2022-09-05] MEDS ORDERED: DEXTROSE 50% 50 ML SYRINGE IV PRN (17:00)
[2022-09-05] MEDS ORDERED: LANTUS PER UNIT CHARGE SQ ONE (17:00)
[2022-09-05] MEDS ORDERED: CARBOHYDRATES FOR HYPOGLYCEMIA PO PRN (17:00)
[2022-09-05] MEDS ORDERED: GLUCOSE 40% GEL 15 GM TUBE PO PRN (17:00)
[2022-09-05] MEDS ORDERED: GLUCOSE 10 TAB/TUBE PO PRN (17:00)
[2022-09-05] MEDS ORDERED: GLUCAGON FOR INJ 1 MG VIAL IM PRN (17:00)
[2022-09-05] MEDS: ceFAZolin 2000MG 2,000 MG/15 ML SYR IV SCH (17:37)
[2022-09-05] MEDS: GABAPENTIN 400 MG CAP PO SCH ×2 (17:37→21:38)
[2022-09-05] MEDS: INSULIN ASPART PER UNIT SC SCH ×3 (17:47→23:58)
--- NOTE | 2022-09-05 18:12 | Hospitalist Consultation ---
Date of Consultation September 05, 2022 Assessment & Plan (1) Neurogenic claudication due to lumbar spinal stenosis: Patient is status post L4 S1 lumbar decompression with cage insertion L4-L5 on 09/[address] Deny Pérez (2) Controlled type 2 diabetes mellitus, with long-term current use of insulin: Patient typically takes insulin Trulicity and metformin for diabetes. She will be on basal bolus with glycemic consultation. He likely is on gabapentin for neuropathy and rosmery inhibitor for renal protective effects to prevent diabetic nephropathy (3) Depression: Patient is on Cymbalta (4) Chronic kidney disease, stage III (moderate): Noted follow postoperatively for worsening with volume shifts (5) Hypertension: Continue on enalapril as a substitute for benazepril as mentioned (6) Hyperlipidemia: Remains on atorvastatin History of Present Illness Attending Physician: Myke Pérez, DO History of Present Illness Preoperative management consult requested from Dr. Pérez for an L4 S1 decompression and fusion with cage at L4-L5. Patient's medical problems include diabetes chronic kidney disease stage III hypertension dyslipidemia anemia and depression. For diabetic management she is typically on glargine lispro metformin and Trulicity plus takes gabapentin for neuropathy Pt seen in the company of her son, she has no complaints Allergies Allergy/AdvReac Type Severity Reaction Status Date / Time tramadol AdvReac Severe itchy Verified 09/05/22 09:15 Home Medications Medication Instructions Recorded Confirmed Type blood-glucose sensor (Dexcom G6 #3 ea 04/12/21 09/05/22 History Sensor device) insulin glargine 100 unit/mL (3 40 unit subcut PM 07/12/22 09/05/22 History mL) subcutaneous pen (Basaglar KwikPen U-100 Insulin) insulin lispro 100 unit/mL 50 unit subcut AMPM 07/12/22 09/05/22 History subcutaneous pen (Humalog KwikPen (U-100) Insulin) metformin 500 mg tablet,extended 1,000 mg PO QPM 07/12/22 09/05/22 History release 24 hr cyanocobalamin (vitamin B-12) 1,000 mcg PO QAM 07/14/22 09/05/22 History 1,000 mcg tablet (Vitamin B-12) duloxetine 60 mg capsule,delayed 60 mg PO QPM #30 caps 07/20/22 09/05/22 Rx release Trulicity 1.5 mg/0.5 mL 1.5 mg (0.5 mL) subcut WEEKLY 90 07/25/22 09/05/22 Rx subcutaneous pen injector days #6 mL (dulaglutide) atorvastatin 20 mg tablet (Lipitor) 20 mg PO HS #90 tabs 08/25/22 09/05/22 Rx benazepril 20 mg tablet (Lotensin) 20 mg PO BID #180 tabs 08/25/22 09/05/22 Rx gabapentin 400 mg capsule 400 mg PO TID #90 caps 08/25/22 09/05/22 Rx Patient History Medical History (Updated 09/05/22 @ 18:10 by Fernando Jansen MD) Anemia hx Chronic kidney disease, stage III (moderate) Degenerative disc disease hx Depression Diabetes mellitus, type 2 IDDM Diverticular disease Falls with neuropathy per pt, last fall 05/2022, denies LOC/hitting head GERD (gastroesophageal reflux disease) controlled Gout remote hx Headache History of frequent urinary tract infections remote hx resulting in sepsis (most recent early 2018) History of hepatitis possible as child/jaundiced/no formal dx Hyperlipidemia Hypertension controlled, stable per pt Kidney stone Muscle pain Peptic ulcer disease remote hx Peripheral neuropathy b/l feet Surgical History History of appendectomy History of colonoscopy diverticuli, random colon biopsies (benign/no pathological findings) last in 2020 History of discectomy lumbar area History of esophagogastroduodenoscopy (EGD) (~03/2018) gastric ulcer History of left knee replacement 06/22/18: SAB at L3-L4 1 attempt + PNB. History of lithotripsy X2; Left ESW[place]: 02[place]07[place] [facility] [place]oscopy with ureteral stent placement X 3 S/P epidural steroid injection Family History Mother Family history of diabetes mellitus Breast cancer Hypertension Hyperlipidemia Stroke Father Coronary heart disease Other Heart disease No family history of adverse response to anesthesia No family history of bleeding disorder Denies family history of Ovarian cancer Prostate cancer Myocardial infarction Colorectal cancer Social History Smoking Status: Never smoker Second Hand Exposure: No; Do You Dip or Chew Tobacco: No; Tobacco Cessation Education Requested by Patient: No Hx Alcohol Use: No Hx Substance Use: No Preferred Language: Portuguese Communication Ability: Effective Visual Impairment: No Limitations Hearing Ability: Normal Director Client Required: No Beliefs That Will Affect Care: None marital status: / Current Living Situation: Alone Current Living Situation Comment: Daughters live close. Able to assist w/care as needed. current occupational status: retired Other Information That Helps Us Care for You: No Feels Safe at Home: Yes Safety Concerns: Feels Safe At This Time Dental Care, Regularly: Yes Physical Activity Frequency: Does not Exercise Seatbelt Use: always Sunscreen Use: No Assistive Devices: Denture - Upper and Glasses Review of Systems Review of Systems: Mild distress and fatigue no headache, no visual changes no speech or swallowing issues no chest pain, pressure or palpitations no shortness of breath, cough or wheezes no abdominal pain, nausea or vomiting, diarrhea or constipation no dysuria, hematuria or frequency no focal joint pain or swelling post operative back pain is controlled no bruising, bleeding or rashes no focal signs of weakness or numbness or altered sensation no complaints of anxiety or depression.. Physical Exam Physical Exam: The patient appeared well nourished and normally developed. Vital signs as documented. Head exam is normocephalic atraumatic Neck is without JVD, thyromegaly, or carotid bruits. Lungs are clear to auscultation, no focal loss of breath sounds Cardiac exam, Rhythm is regular.. No murmurs, rubs or gallops. Abdominal exam reveals normal bowel sounds, soft non tender, no masses Extremities are nonedematous and both pedal pulses are present Neurologic exam is alert and oriented, no focal loss of strength has baseline neuropathy Skin is without bruises or rashes Psychologically is without concerns for anxiety or depression.. Results & Data Results & [facility] ([facility]) Vital Signs (Past 12 Hours) Vital Signs Temp Pulse Pulse Resp BP Pulse Ox O2 Del Method 09/05/22 17:50 97.7 F 101 H 16 148/76 H 95 Nasal Cannula 09/05/22 16:47 98.1 F 97 H 18 134/76 95 Nasal Cannula 09/05/22 16:15 97.9 F 95 H 18 145/80 H 93 Nasal Cannula 09/05/22 15:10 94 H 16 129/84 94 Nasal Cannula 09/05/22 14:40 97 H 15 144/89 H 97 Nasal Cannula 09/05/22 14:25 98 H 17 127/80 94 Nasal Cannula 09/05/22 14:15 98 H 22 135/76 94 Nasal Cannula 09/05/22 14:05 97.3 F L 98 H 12 136/79 94 Nasal Cannula 09/05/22 13:55 96 H 15 122/80 92 Nasal Cannula 09/05/22 13:45 96 H 12 152/91 H 92 Nasal Cannula 09/05/22 13:35 96 H 20 148/83 H 95 Nasal Cannula 09/05/22 13:25 96 H 18 156/89 H 93 Room Air 09/05/22 13:15 97.3 F L 94 H 17 158/91 H 94 Room Air 09/05/22 13:05 95 H 19 146/93 H 94 Oxymask 09/05/22 12:55 95 H 12 167/91 H 95 Oxymask 09/05/22 12:45 95 H 17 149/88 H 95 Oxymask 09/05/22 12:35 95 H 15 191/94 H 96 Oxymask 09/05/22 12:25 97.3 F L 94 H 14 178/104 H 95 Oxymask 09/05/22 09:09 98.2 F 77 20 168/94 H 96 Room Air O2 Flow Rate 09/05/22 17:50 2 09/05/22 16:47 2 09/05/22 16:15 2 09/05/22 15:10 3 09/05/22 14:40 3 09/05/22 14:25 3 09/05/22 14:15 3 09/05/22 14:05 3 09/05/22 13:55 3 09/05/22 13:45 3 09/05/22 13:35 3 09/05/22 13:25 3 09/05/22 13:15 09/05/22 13:05 4 09/05/22 12:55 5 09/05/22 12:45 6 09/05/22 12:35 10 09/05/22 12:25 15 09/05/22 09:09 PG Care Time/CCT Total # of Minutes Spent Total Time Spent with Patient: Total time spent is greater than 50% in coordination of care (as documented) at patient's floor/unit and/or counseling patient: Coding Level of Care Code 19224 Inpt Consult Level 3 Diagnoses Neurogenic claudication due to lumbar spinal stenosis M48.062 Controlled type 2 diabetes mellitus, with long-term current use of insulin E11.9; Z79.4 Depression F32.9 Chronic kidney disease, stage III (moderate) N18.3 Hypertension I10 Hyperlipidemia E78.5
[2022-09-05] MEDS: oxyCODONE HCL IR 5 MG TAB (IMMEDIATE RELEASE) PO PRN (18:28)
[2022-09-05] MEDS: ATORVASTATIN 20 MG TAB PO SCH (21:37)
[2022-09-05] MEDS: DULoxetine HCL 60 MG CAP PO SCH (21:38)
[2022-09-05] MEDS: ENALAPRIL MALEATE 10 MG TAB PO SCH (21:38)
[2022-09-05] MEDS: DOCUSATE SODIUM/SENNA 50/8.6MG TAB PO SCH (22:00)
[2022-09-05] MEDS: LORazepam 0.5 MG TAB PO PRN (22:52)
[2022-09-06] MEDS: ceFAZolin 2000MG 2,000 MG/15 ML SYR IV SCH (01:54)
[2022-09-06] MEDS: SODIUM CHLORIDE 0.9% 1000ML 1,000 ML IV SCH ×2 (02:21→12:18)
[2022-09-06] MEDS: INSULIN ASPART PER UNIT SC SCH ×5 (04:08→21:27)
[2022-09-06] MEDS: POLYETHYLENE (MIRALAX) 17 GM PACK PO SCH ×4 (04:13→23:26)
[2022-09-06 07:10] LABS: Basophils # (auto) 0.02 K/uL (0-0.2); Basophils % (auto) 0.2 %; Hematocrit (blood only) 32.4 % (34.1-44.9); Hemoglobin 10.5 g/dl (12.0-16.0); Immature Granulocytes # (auto) 0.15 K/uL (0.00-0.02); Immature Granulocytes % (auto) 1.1 %; Lymphocytes # (auto) 0.82 K/uL (1.2-3.4); Lymphocytes % (auto) 6.2 %; Mean Corpuscular Hemoglobin 29.3 pg (25.0-34.0); Mean Corpuscular Hgb Conc 32.4 g/dL (32.0-36.0); Mean Corpuscular Volume 90.5 fL (80.0-100.0); Mean Platelet Volume 10.7 fL (9.4-12.3); Monocytes % (auto) 11.3 %; Neutrophils # (auto) 10.79 K/uL (1.4-6.5); Neutrophils % (auto) 81.2 %; Platelet Count 217 K/uL (130-400); RDW Coefficient of Variation 17.3 % (11.5-14.5); RDW Standard Deviation 56.9 fL (36.4-46.3); Red Blood Count 3.58 M/uL (3.93-5.22); White Blood Count 13.28 K/ul (4.8-10.8)
[2022-09-06 07:32] LABS: Calcium 8.7 mg/dl (8.5-10.1); Creatinine Clr Calc Pharmacy 52.4 ml/min; Est GFR (African American) 67.9 ml/min; Est GFR (Non-African American) 58.6 ml/min; Potassium 4.6 mmol/L (3.5-5.1)
--- NOTE | 2022-09-06 08:01 | Hospitalist Progress Note ---
Date of Service September 06, 2022 Assessment & Plan (1) Neurogenic claudication due to lumbar spinal stenosis: Plan: POD# 1 s/p Revision decompression with bilateral medial facetectomies and foraminotomies L3-L4, L4-5 and L5-S1. #2 posterior spinal fusion L4-S1. #3 p lacement posterior instrumentation L4-S1. #4 interbody fusion L4-L5. #5 placement of Spira 13 x 26 mm at L4-5 per #6 placement locally harvested morselized autograft in the posterior gutters. #7 placement of I factor model V toss interbody space and posterior lateral gutters. with Dr Pérez on 09/05 EBL 150cc WBC 13.2k post operatively, likely from stress/steroids H/h 12/38.8 --> 10.5/32.4 -- acute blood loss anemia from surgery as well as dilutional from IVF which have been continued post-operatively Pain control/bowel regimen/PT/OT per primary service DVT prophylaxis with SCDs/ana maria hose -- chemical contraindicated in back surgery Checking B12 in am given baseline neuropathy, prior increased metformin use. Also with cramping sensation at times, prior low magnesium, will add to AM labs Will hold this evenings enalapril for some minimal/mild dehydration on exam and borderline low BPs Hospitalist service will follow along in AM but suspect if able to push PO fluids/check/replacement of mag/B12 if deficient would be able to sign off after tomorrow's labs. (2) Controlled type 2 diabetes mellitus, with long-term current use of insulin: Plan: A1c 8.4 in June On Trulicity and metformin outpatient, held while inpatient and glycemic management consulted Also on gabapentin for neuropathy. Will check B12 in am while on metformin to ensure not contributing, also checking mag BSGs acceptable elevated to 230/340 last night but improved this morning, likely from decadron for surgery Monitor (3) Depression: Plan: Patient is on Cymbalta, also for her fibromyalgia/neuropathy mood stable currently, but does report some anxiety but likely from the decadron given after surgery and she reports therapy told her she didn't do as well as she thought. Encouragement provided (4) Chronic kidney disease, stage III (moderate): Plan: Cr stable post op 0.95 Enalapril 20mg BID substituted for her benazepril Remains on IVF per primary service through this morning, since discontinued . BPs borderline and will hold for this evening and monitor BPs/labs in am (5) Hypertension: Plan: Continue on enalapril as a substitute for benazepril as mentioned --> placed on hold for this evening as outlined. Monitor (6) Hyperlipidemia: Plan: Remains on atorvastatin Plan continued inpatient stay monitor mag/B12 levels and replacement to be ordered if deficient Thank you for allowing hospitalist service to participate in the care of Ms Smith. Will follow along in am. Please call with any questions/concerns. Admission and Anticipated Discharge Date Admission Date: September 05, 2022 Subjective Patient evaluated this morning. Doing ok, she thinks she did ok with therapy but they didn't think she did well.. Pain controlled with ordered medications. Does have some anxiety at baseline. Prior on metformin 1g BID, decreased to 500mg once daily. Does have issues with memory/brain fog/neuropathy at baseline, discussed checking B12 with AM labs as I do suspect also contributing. Follows with Francheska/Jessica at [facility]. Does have a slight headache but just got back into bed after working with therapy. Mouth dry, encouraged PO intake. She states she had two pitchers of water. Review of Systems Review of Systems: All systems reviewed & are unremarkable except as noted in HPI & below Physical Exam Physical Exam: General: WD/WN obese female laying flat in bed, NAD but reporting fatigue getting back in bed after working with therapy HEENT: head normocephalic, atraumatic, mm slightly dry (improved with sip of water), trachea midline without deviation, +thick neck Resp: CTAB, diminished in the bases, no w/c, on room air CV: RRR, no m/r/g, no pitting edema/calf tenderness GI: +BS, obese, nontender : henson draining yellow urine MSK/Neuro: follows commands, no focal deficit, no slurred speech, dressing c/d/i, ASHOK drain bloody drainage b/l neuropathy strength intact b/l LE , equal, pulses palpable Psych: AOX3, reports forgetfulness/memory issues at baseline Results & Data Results & Data ([facility]) Vital Signs (Past 12 Hours) Vital Signs Temp Pulse Resp BP Pulse Ox O2 Del Method 09/06/22 07:48 36.8 C 77 16 112/70 96 09/06/22 03:00 36.5 C 87 17 119/69 91 Room Air 09/05/22 23:46 37.1 C 97 H 18 147/66 H 93 Room Air Laboratory Results 09/06/22 09/06/22 09/06/22 Range/Units 12:17 08:18 06:37 WBC (4.8-10.8) K/ul RBC (3.93-5.22) M/uL Hgb (12.0-16.0) g/dl Hct (34.1-44.9) % MCV (80.0-100.0) fL MCH (25.0-34.0) pg MCHC (32.0-36.0) g/dL RDW Std Deviation (36.4-46.3) fL RDW Coeff of Meghann (11.5-14.5) % Plt Count (130-400) K/uL MPV (9.4-12.3) fL Immature Gran % (Auto) % Neut % (Auto) % Lymph % (Auto) % [place]isher % (Auto) % Eos % (Auto) % Baso % (Auto) % Neut # (Auto) (1.4-6.5) K/uL Lymph # (Auto) (1.2-3.4) K/uL [place] # (Auto) (0.24-0.82) K/uL Eos # (Auto) (0-0.50) K/uL Baso # (Auto) (0-0.2) K/uL Immature Gran # (Auto) (0.00-0.02) K/uL Sodium 138 (136-145) mmol/L Potassium 4.6 (3.5-5.1) mmol/L Chloride 107 (98-107) mmol/L Carbon Dioxide 25 (21-32) mmol/L Anion Gap 6 (3-11) BUN 19 (6-23) mg/dl Creatinine 0.95 (0.6-1.2) mg/dl Est Cr Clr Drug Dosing 52.4 ml/min Est GFR ( Amer) 67.9 ml/min Est GFR (Non-Af Amer) 58.6 ml/min BUN/Creatinine Ratio 20.0 (10-20) Glucose 138 H (70-99(Fasting)) mg/dl POC Glucose 134 H 130 H (70-99) mg/dl Calcium 8.7 (8.5-10.1) mg/dl 09/06/22 09/06/22 09/05/22 Range/Units 06:37 04:05 23:54 WBC 13.28 H (4.8-10.8) K/ul RBC 3.58 L (3.93-5.22) M/uL Hgb 10.5 L (12.0-16.0) g/dl Hct 32.4 L (34.1-44.9) % MCV 90.5 (80.0-100.0) fL MCH 29.3 (25.0-34.0) pg MCHC 32.4 (32.0-36.0) g/dL RDW Std Deviation 56.9 H (36.4-46.3) fL RDW Coeff of Meghann 17.3 H (11.5-14.5) % Plt Count 217 (130-400) K/uL MPV 10.7 (9.4-12.3) fL Immature Gran % (Auto) 1.1 % Neut % (Auto) 81.2 % Lymph % (Auto) 6.2 % Kingfisher % (Auto) 11.3 % Eos % (Auto) 0.0 % Baso % (Auto) 0.2 % Neut # (Auto) 10.79 H (1.4-6.5) K/uL Lymph # (Auto) 0.82 L (1.2-3.4) K/uL Kingfisher # (Auto) 1.50 H (0.24-0.82) K/uL Eos # (Auto) 0.00 (0-0.50) K/uL Baso # (Auto) 0.02 (0-0.2) K/uL Immature Gran # (Auto) 0.15 H (0.00-0.02) K/uL Sodium (136-145) mmol/L Potassium (3.5-5.1) mmol/L Chloride (98-107) mmol/L Carbon Dioxide (21-32) mmol/L Anion Gap (3-11) BUN (6-23) mg/dl Creatinine (0.6-1.2) mg/dl Est Cr Clr Drug Dosing ml/min Est GFR ( Amer) ml/min Est GFR (Non-Af Amer) ml/min BUN/Creatinine Ratio (10-20) Glucose (70-99(Fasting)) mg/dl POC Glucose 157 H 231 H (70-99) mg/dl Calcium (8.5-10.1) mg/dl 09/05/22 09/05/22 Range/Units 20:18 17:15 WBC (4.8-10.8) K/ul RBC (3.93-5.22) M/uL Hgb (12.0-16.0) g/dl Hct (34.1-44.9) % MCV (80.0-100.0) fL MCH (25.0-34.0) pg MCHC (32.0-36.0) g/dL RDW Std Deviation (36.4-46.3) fL RDW Coeff of Meghann (11.5-14.5) % Plt Count (130-400) K/uL MPV (9.4-12.3) fL Immature Gran % (Auto) % Neut % (Auto) % Lymph % (Auto) % [place] % (Auto) % Eos % (Auto) % Baso % (Auto) % Neut # (Auto) (1.4-6.5) K/uL Lymph # (Auto) (1.2-3.4) K/uL [place] # (Auto) (0.24-0.82) K/uL Eos # (Auto) (0-0.50) K/uL Baso # (Auto) (0-0.2) K/uL Immature Gran # (Auto) (0.00-0.02) K/uL Sodium (136-145) mmol/L Potassium (3.5-5.1) mmol/L Chloride (98-107) mmol/L Carbon Dioxide (21-32) mmol/L Anion Gap (3-11) BUN (6-23) mg/dl Creatinine (0.6-1.2) mg/dl Est Cr Clr Drug Dosing ml/min Est GFR ( Amer) ml/min Est GFR (Non-Af Amer) ml/min BUN/Creatinine Ratio (10-20) Glucose (70-99(Fasting)) mg/dl POC Glucose 243 H 250 H (70-99) mg/dl Calcium (8.5-10.1) mg/dl Diagnostic Findings Lumbar Spine X-Ray 09/05/22 10:05 FL lumbar spine 2-3V CLINICAL HISTORY: L4-S1 DFI COMPARISON STUDY: None. FLUOROSCOPY TIME: 25 seconds. FINDINGS: 2 fluoroscopic spot images of the lumbar spine demonstrate posterior decompression and fusion from L4 through S1 with pedicle screws and rods. There is also a disc spacer at L4-L5. The hardware appears intact. IMPRESSION: Fluoroscopic assistance provided for L4-S1 posterior decompression and fusion. ACT 112: Negative or not required by law. Electronically signed by: Cristobal Ambrose M.D. 09/05/2022 1:43 PM PG Care Time/CCT Total # of Minutes Spent Total Time Spent with Patient: Total time spent is greater than 50% in coordination of care (as documented) at patient's floor/unit and/or counseling patient: Coding Level of Care Code 48857 Subseq Hosp Care Lvl 3 Diagnoses Neurogenic claudication due to lumbar spinal stenosis M48.062 Controlled type 2 diabetes mellitus, with long-term current use of insulin E11.9; Z79.4 Depression F32.9 Chronic kidney disease, stage III (moderate) N18.3 Hypertension I10 Hyperlipidemia E78.5
--- NOTE | 2022-09-06 08:06 | Orthopedic Progress Note ---
Date of Service September 06, 2022 Assessment & Plan (1) Neurogenic claudication due to lumbar spinal stenosis: Plan: At this time we will begin physical therapy as well as occupational therapy. We will assess her progress to determine disposition. Admission and Anticipated Discharge Date Admission Date: September 05, 2022 Subjective Back pain controlled leg symptoms improved Physical Exam Physical Exam: Patient is alert and oriented. She is cooperative. Is good strength testing. Results & Data ([facility]) Vital Signs (Past 12 Hours) Vital Signs Temp Pulse Resp BP Pulse Ox O2 Del Method 09/06/22 07:48 36.8 C 77 16 112/70 96 09/06/22 03:00 36.5 C 87 17 119/69 91 Room Air 09/05/22 23:46 37.1 C 97 H 18 147/66 H 93 Room Air
[2022-09-06] MEDS: ENALAPRIL MALEATE 10 MG TAB PO SCH (08:26)
[2022-09-06] MEDS: GABAPENTIN 400 MG CAP PO SCH ×3 (08:26→19:51)
[2022-09-06] MEDS: oxyCODONE HCL IR 5 MG TAB (IMMEDIATE RELEASE) PO PRN ×2 (08:37→16:28)
[2022-09-06] MEDS: ACETAMINOPHEN 500 MG TAB PO PRN (12:34)
--- NOTE | 2022-09-06 13:43 | Pharmacy Report ---
Pharmacy Glycemic Short Note 2 - Date of Service September 06, 2022 - Glycemic Short BSG Results (Last 24 hours): 09/05/22 09/05/22 09/05/22 17:15 20:18 23:54 Glucose POC Glucose 250 H 243 H 231 H 09/06/22 09/06/22 09/06/22 04:05 06:37 08:18 Glucose 138 H POC Glucose 157 H 130 H 09/06/22 12:17 Glucose POC Glucose 134 H OUTPATIENT ANTIDIABETIC REGIMEN: * Lantus 40 units HS * Metformin 1000 * Trulicity ASSESSMENT: * Ms Smith is a 77 y/o F with a PMH of T2DM who presents for spinal stenosis and is s/p surgery. * Patient received dexamethasone during surgery - 8 mg IV. * Patient's BSGs yesterday were 160-166-250 (at dinnertime and when Lantus given)-243 mg/dL and overnight were 231-157 mg/dL. * Patient received 60 units of insulin yesterday (40 units of basal and 20 units of bolus) + additional 7 units overnight. * Today's BSGs are 130-134 mg/dL. * Continue Lantus 40 units HS as fasting within goal range. Steroid effects are wearing off. * Loosen Novolog since lunch BSG stable. * Restart metformin 09/07/22. PLAN FOR INPATIENT GLYCEMIC CONTROL: * Hold outpatient oral diabetes medications- restart metformin 09/07/22 * Basal insulin * Lantus 40 units SQ HS * Bolus insulin * NovoLog per scale ACHS or Q6hrs while NPO * Goal Range: Low 110 mg/dL - High 140 mg/dL * Correction Factor: 20 mg/dL/unit * Nutritional / Prandial insulin per carb ratio of 1 unit per 6 grams CHO consumed
[2022-09-06] MEDS: DOCUSATE SODIUM/SENNA 50/8.6MG TAB PO SCH (19:51)
[2022-09-06] MEDS: ATORVASTATIN 20 MG TAB PO SCH (19:51)
[2022-09-06] MEDS: DULoxetine HCL 60 MG CAP PO SCH (19:51)
[2022-09-06] MEDS: LANTUS PER UNIT CHARGE SQ SCH (21:27)
[2022-09-07] MEDS: oxyCODONE HCL IR 5 MG TAB (IMMEDIATE RELEASE) PO PRN ×2 (03:34→22:55)
[2022-09-07] MEDS: POLYETHYLENE (MIRALAX) 17 GM PACK PO SCH ×2 (05:22→12:19)
[2022-09-07 06:04] LABS: Hematocrit (blood only) 30.8 % (34.1-44.9); Mean Corpuscular Hemoglobin 29.5 pg (25.0-34.0); Mean Corpuscular Hgb Conc 32.5 g/dL (32.0-36.0); Mean Corpuscular Volume 90.9 fL (80.0-100.0); Mean Platelet Volume 10.6 fL (9.4-12.3); Platelet Count 181 K/uL (130-400); RDW Coefficient of Variation 17.7 % (11.5-14.5); RDW Standard Deviation 58.6 fL (36.4-46.3); Red Blood Count 3.39 M/uL (3.93-5.22); White Blood Count 8.55 K/ul (4.8-10.8)
[2022-09-07 06:36] LABS: BUN Creatinine Ratio 24.7 (10-20); Calcium 8.7 mg/dl (8.5-10.1); Creatinine Clr Calc Pharmacy 53.5 ml/min; Est GFR (African American) 69.7 ml/min; Est GFR (Non-African American) 60.1 ml/min; Potassium 4.3 mmol/L (3.5-5.1)
[2022-09-07] MEDS: GABAPENTIN 400 MG CAP PO SCH ×3 (08:06→19:37)
[2022-09-07] MEDS: LORazepam 0.5 MG TAB PO PRN ×2 (08:06→16:08)
[2022-09-07] MEDS: ACETAMINOPHEN 500 MG TAB PO PRN ×2 (08:06→16:08)
[2022-09-07] MEDS: INSULIN ASPART PER UNIT SC SCH ×4 (09:04→20:47)
--- NOTE | 2022-09-07 10:16 | Orthopedic Progress Note ---
Date of Service September 07, 2022 Assessment & Plan (1) Neurogenic claudication due to lumbar spinal stenosis: Plan: This time and like to continue physical therapy occupational therapy as tolerated. She does require occasional Ativan for spasms and anxiety. Were ho ping for rehab placement in the next day or so. Admission and Anticipated Discharge Date Admission Date: September 05, 2022 Subjective Patient complaining of some back spasms last night. It seems to be resolved this morning. She is tolerating physical therapy. Physical Exam Physical Exam: Patient is in the chair at the bedside. Is good strength testing. Is comfortable at this time. Results & Data ([facility]) Vital Signs (Past 12 Hours) Vital Signs Temp Pulse Resp BP Pulse Ox O2 Del Method 09/07/22 07:39 36.6 C 78 18 147/85 H 93 Room Air
--- NOTE | 2022-09-07 10:34 | Pharmacy Report ---
Pharmacy Glycemic Short Note 2 - Date of Service September 07, 2022 - Glycemic Short BSG Results (Last 24 hours): 09/06/22 09/06/22 09/06/22 12:17 15:03 17:49 Glucose POC Glucose 134 H 142 H 149 H 09/06/22 09/06/22 09/07/22 20:36 21:18 05:50 Glucose 160 H POC Glucose 151 H 143 H 09/07/22 08:11 Glucose POC Glucose 140 H OUTPATIENT ANTIDIABETIC REGIMEN: * Lantus 40 units HS * Metformin 1000 * Trulicity HbA1c: 8.4% (07/22/22) ASSESSMENT: 09/07/22: * BSGs very well controlled yesterday, ranging 134-151 mg/dL * Received 72 units of insulin (40 units of Lantus and 32 units of Novolog) * No ongoing steroids * Plan to continue current insulin regimen + metformin this evening 09/06/22: * Ms Smith is a 77 y/o F with a PMH of T2DM who presents for spinal stenosis and is s/p surgery. * Patient received dexamethasone during surgery - 8 mg IV. * Patient's BSGs yesterday were 160-166-250 (at dinnertime and when Lantus given)-243 mg/dL and overnight were 231-157 mg/dL. * Patient received 60 units of insulin yesterday (40 units of basal and 20 units of bolus) + additional 7 units overnight. * Today's BSGs are 130-134 mg/dL. * Continue Lantus 40 units HS as fasting within goal range. Steroid effects are wearing off. * Loosen Novolog since lunch BSG stable. * Restart metformin 09/07/22. PLAN FOR INPATIENT GLYCEMIC CONTROL: * Metformin 1000 mg PO daily with dinner * Basal insulin * Lantus 40 units SQ HS * Bolus insulin * NovoLog per scale ACHS or Q6hrs while NPO * Goal Range: Low 110 mg/dL - High 140 mg/dL * Correction Factor: 20 mg/dL/unit * Nutritional / Prandial insulin per carb ratio of 1 unit per 6 grams CHO consumed
--- NOTE | 2022-09-07 11:24 | Hospitalist Progress Note ---
Date of Service September 07, 2022 Assessment & Plan (1) Neurogenic claudication due to lumbar spinal stenosis: Plan: POD#2 s/p Revision decompression and fusion with Dr. Pérez - Hgb 12 --> 10 secondary to mild acute blood loss anemia from surgery as well as dilutional from IVF which have been continued post-operatively - Pain control/bowel regimen/PT/OT per primary service - DVT prophylaxis with SCDs/ana maria hose -- chemical contraindicated in back surgery (2) Controlled type 2 diabetes mellitus, with long-term current use of insulin: Plan: A1c 8.4 in June - On Trulicity and metformin outpatient, held while inpatient and glycemic management consulted - Also on gabapentin for neuropathy. Vit B12 & mag level WNL (3) Depression: Plan: - Continue Cymbalta, also for her fibromyalgia/neuropathy (4) Chronic kidney disease, stage III (moderate): Plan: Cr stable post op 0.95 (5) Hypertension: Plan: Continue on enalapril as a substitute for benazepril, held 09/06 d/t borderline- low BP, resume today (09/07) (6) Hyperlipidemia: Plan: Remains on atorvastatin Plan Patient is doing well post operatively. I have no further recommendations as she is medically stable for d/c when primary orthopedic service feels that she is appropriate from their standpoint. Thank you for allowing us to participate in the care of your patient, will sign off but please feel free to notify us via [employer] if any issues should arise while she remains in house. Plan d/w Dr. Ba. Admission and Anticipated Discharge Date Admission Date: September 05, 2022 Subjective Patient seen on daily rounds this morning while ambulating halls with PT. Pt reports being briefly confused this morning, reportedly thought she was in an [facility] house but recognizes that she was confused and this has since resolved. Notified by RN that she was anxious and having some back spasms which have now resolved. She is voiding w/o issue and is passing gas. She denies cp or dyspnea. Review of Systems Review of Systems: All systems reviewed and are unremarkable except as noted in HPI and below. Denies fever, chills, fatigue, headache, nasal congestion, sore throat, cough, chest pain, shortness of breath, palpitations, orthopnea, PND, abdominal pain, n/v/d, constipation, dysuria, hematuria, frequency, joint pain or swelling, easy bruising or bleeding, skin lesions or rashes. Physical Exam Physical Exam: GENERAL: 77 yo Well-developed, well-nourished WF. NAD. LUNGS: Clear to auscultation bilaterally. No W/R/R. CARDIOVASCULAR: Regular rate and rhythm. ABDOMEN: Soft, non-tender and non-distended. BS normoactive x 4 quad. EXTREMITIES: No edema. Non-tender. Peripheral pulses +2/4. NEUROLOGIC: A&O x3. Nonfocal PSYCHIATRIC: Cooperative. Appropriate mood and affect. SKIN: Warm, dry, intact. No rashes or lesions. Results & Data Results & Data ([facility]) Vital Signs (Past 12 Hours) Vital Signs Temp Pulse Resp BP Pulse Ox O2 Del Method 09/07/22 07:39 36.6 C 78 18 147/85 H 93 Room Air Laboratory Results 09/07/22 05:50 09/07/22 05:50 PG Care Time/CCT Total # of Minutes Spent Total Time Spent with Patient: Total time spent is greater than 50% in coordination of care (as documented) at patient's floor/unit and/or counseling patient: Coding Level of Care Code 67652 Subseq Hosp Care Lvl 2 Diagnoses Neurogenic claudication due to lumbar spinal stenosis M48.062 Controlled type 2 diabetes mellitus, with long-term current use of insulin E11.9; Z79.4 Depression F32.9 Chronic kidney disease, stage III (moderate) N18.3 Hypertension I10 Hyperlipidemia E78.5
[2022-09-07] MEDS: metFORMIN HCL 500 MG TAB PO SCH (16:08)
[2022-09-07] MEDS: ATORVASTATIN 20 MG TAB PO SCH (19:37)
[2022-09-07] MEDS: ENALAPRIL MALEATE 10 MG TAB PO SCH (19:37)
[2022-09-07] MEDS: DOCUSATE SODIUM/SENNA 50/8.6MG TAB PO SCH (19:38)
[2022-09-07] MEDS: DULoxetine HCL 60 MG CAP PO SCH (19:38)
[2022-09-07] MEDS: LANTUS PER UNIT CHARGE SQ SCH (20:47)
[2022-09-08] MEDS: ACETAMINOPHEN 500 MG TAB PO PRN ×2 (07:41→17:37)
[2022-09-08] MEDS: LORazepam 0.5 MG TAB PO PRN ×2 (07:41→17:37)
--- NOTE | 2022-09-08 08:37 | Orthopedic Progress Note ---
Date of Service September 08, 2022 Assessment & Plan (1) Neurogenic claudication due to lumbar spinal stenosis: Plan: We did discuss today possible rehab placement. I think this would be her best option as she does live alone. Also assess her for UTI. If she is accepted to rehab tomorrow would be reasonable. Admission and Anticipated Discharge Date Admission Date: September 05, 2022 Subjective Patient complaining of some right buttock spasms at night but is asymptomatic at this time. Physical Exam Physical Exam: On exam she is cooperative. There is no tenderness palpation of the musculature. Testing sciatic notch tenderness on the right. She has excellent strength testing. Results & Data ([facility]) Vital Signs (Past 12 Hours) Vital Signs Temp Pulse Pulse Resp BP Pulse Ox O2 Del Method 09/08/22 07:56 36.8 C 78 12 167/68 H 97 Nasal Cannula 09/07/22 21:50 37.1 C 83 16 131/74 93 Room Air O2 Flow Rate 09/08/22 07:56 2 09/07/22 21:50
[2022-09-08] MEDS: GABAPENTIN 400 MG CAP PO SCH ×3 (10:00→21:27)
[2022-09-08] MEDS: ENALAPRIL MALEATE 10 MG TAB PO SCH ×2 (10:00→21:27)
[2022-09-08] MEDS: INSULIN ASPART PER UNIT SC SCH ×4 (10:01→21:24)
[2022-09-08 12:42] LABS: Appearance Urine Cloudy (Clear); Bacteria Urine Automated 4+ (Negative); Bilirubin Urine Negative (Negative); Blood Urine 1+ (Negative); Color Urine Yellow; Epithelial Cell Urine Auto 0-5 /lpf (0-5); Glucose Urine UA Negative (Negative); Ketones Urine Negative (Negative); Leukocyte Esterase Urine 3+ (Negative); Nitrite Urine Positive (Negative); Specific Gravity Urine 1.016 (1.000-1.030); Urobilinogen Urine Negative (Negative); WBC Urine Automated >30 /hpf (0-5); pH Urine 7.5 (4.5-7.5)
[2022-09-08 12:43] LABS: Protein Urine 1+ (Negative)
[2022-09-08] MEDS: oxyCODONE HCL IR 5 MG TAB (IMMEDIATE RELEASE) PO PRN (13:38)
--- NOTE | 2022-09-08 15:09 | Pharmacy Report ---
Pharmacy Glycemic Short Note 2 - Date of Service September 08, 2022 - Glycemic Short BSG Results (Last 24 hours): 09/07/22 09/07/22 09/08/22 17:20 20:28 07:23 POC Glucose 95 166 H 108 H 09/08/22 11:11 POC Glucose 111 H OUTPATIENT ANTIDIABETIC REGIMEN: * Lantus 40 units HS * Metformin 1000 * Trulicity HbA1c: 8.4% (07/22/22) ASSESSMENT: 09/08/22: * Patient received 66 units of SQ insulin yesterday. BSGs well controlled. Trending downward since addition of metformin yesterday. * Fasting BSG of 108 mg/dL (decreased from 140 mg/dL on 09/07. Will decrease basal insulin ~12%. * Loosen novolog CF and CR 09/07/22: * BSGs very well controlled yesterday, ranging 134-151 mg/dL * Received 72 units of insulin (40 units of Lantus and 32 units of Novolog) * No ongoing steroids * Plan to continue current insulin regimen + metformin this evening 09/06/22: * Ms Smith is a 77 y/o F with a PMH of T2DM who presents for spinal stenosis and is s/p surgery. * Patient received dexamethasone during surgery - 8 mg IV. * Patient's BSGs yesterday were 160-166-250 (at dinnertime and when Lantus given)-243 mg/dL and overnight were 231-157 mg/dL. * Patient received 60 units of insulin yesterday (40 units of basal and 20 units of bolus) + additional 7 units overnight. * Today's BSGs are 130-134 mg/dL. * Continue Lantus 40 units HS as fasting within goal range. Steroid effects are wearing off. * Loosen Novolog since lunch BSG stable. * Restart metformin 09/07/22. PLAN FOR INPATIENT GLYCEMIC CONTROL: * Metformin 1000 mg PO daily with dinner * Basal insulin * Lantus 35-40 units SQ HS (35 units for BSG < 140) * Bolus insulin * NovoLog per scale ACHS or Q6hrs while NPO * Goal Range: Low 110 mg/dL - High 140 mg/dL * Correction Factor: 25 mg/dL/unit * Nutritional / Prandial insulin per carb ratio of 1 unit per 8 grams CHO consumed
[2022-09-08] MEDS: metFORMIN HCL 500 MG TAB PO SCH (17:33)
[2022-09-08] MEDS ORDERED: LANTUS PER UNIT CHARGE SQ SCH (21:00)
[2022-09-08] MEDS: DULoxetine HCL 60 MG CAP PO SCH (21:27)
[2022-09-08] MEDS: ATORVASTATIN 20 MG TAB PO SCH (21:27)
[2022-09-08] MEDS: DOCUSATE SODIUM/SENNA 50/8.6MG TAB PO SCH (21:29)
[2022-09-09] MEDS: ACETAMINOPHEN 500 MG TAB PO PRN (00:30)
[2022-09-09] MEDS ORDERED: cefTRIAXone SODIUM 2,000 MG in DEXTROSE 5% 50 ML IV STA (08:08)
--- NOTE | 2022-09-09 08:38 | Communication Note ---
Date of Service: September 09, 2022 Notified by RN on 09/08 that patient had an episode of incontinence, was concerned that she may have a UTI. UA and urine Cx collected. UA reviewed this A M (09/09) and appears c/w with an acute UTI, given her post operative status, will initiate abx. Will give a dose of Rocephin 1g IV x1 and I have sent rx to preferred pharmacy for Cefdinir 300mg BID x 4 days (for total of 5 day course). Will follow up with her urine cx results and notify pt if I should need to change her abx. Dr. Ba updated on aforementioned.
[2022-09-09] MEDS: INSULIN ASPART PER UNIT SC SCH ×2 (08:53→12:55)
[2022-09-09] MEDS: oxyCODONE HCL IR 5 MG TAB (IMMEDIATE RELEASE) PO PRN ×2 (09:00→14:23)
[2022-09-09] MEDS: ENALAPRIL MALEATE 10 MG TAB PO SCH (09:02)
[2022-09-09] MEDS: GABAPENTIN 400 MG CAP PO SCH ×2 (09:02→13:11)
--- NOTE | 2022-09-09 10:01 | Discharge Summary ---
Date of Service September 09, 2022 Admission HPI Per Admitting Provider This is a 76-year-old female who presents with chronic persistent back and leg pain after failing course of nonoperative care she is here for surgical invention. Principal Diagnosis Lumbar spinal stenosis with neurogenic claudication Discharge Data Allergies Allergy/AdvReac Type Severity Reaction Status Date / Time tramadol AdvReac Severe itchy Verified 09/05/22 09:15 Consultations 09/05/22 16:15 Consult Hospitalist Routine Procedures Performed Operation Date: 09/05/22 10:05 Actual Procedures p L4-S1 Decompression and Fusion, Cage at L4-L5, Spinal Cord Monitoring(Not Applicable) - Myke Pérez DO Ordered Studies 09/05/22 10:05 FL lumbar spine 2-3V Routine Hospital Course (1) Neurogenic claudication due to lumbar spinal stenosis: Patient 1 lumbar decompression fusion tolerated this well was taken to orthopedic for postoperative. Postop day 1 she was up and ambulating progressed to postop day #2 and 3 ASHOK drain decreasing probably. Pain improving. Subsequently discharged to rehab. Discharge orders instructions found in chart for further review. Total Time Total Time Spent Total Time Spent (In Minutes): 20 minutes Discharge Plan Discharge Items Patient Disposition: Transfer Inpatient Rehab Fac Reason For Visit: Spinal stenosis, Lumbar Region with Neurogenic Cla Discharge Diagnosis: Lumbar spinal stenosis with neurogenic medication Activity: As commented below Non-emergency contact: Primary Care Provider Call non-emergency contact if: you have any medication questions Follow-up/Referrals: Gloria Valentine CRNP [Primary Care Provider] - Diet: Regular Addtl Attending Provider Instructions: ACTIVITY RECOMMENDATIONS: SELF CARE INSTRUCTIONS AFTER THORACIC/LUMBAR FUSIONS 1. You may walk to your tolerance. It is good exercise for your legs and back. Expect some back and intermittent leg aches and pains. 2. You may perform "counter-top" level activities (make a sandwich, roger with a project, etc.). 3. No bending or lifting of more than 10 pounds or back twisting of any nature (roll like a log when turning in bed). 4. You may ride in a car for 20-30 minutes at a time. No driving until after your first visit with your doctor. 5. Frequent changes of position and restricting sitting to 30 minutes at a time will help limit the amount of back spasms and stiffness you may experience. 6. You may discontinue the use of ambulatory aids (cane, crutches, etc.) once your strength and confidence allow. 7. You may insurance verification rep the shower and let water strike your incision when you arrive home at least once daily. Do not take a tub bath, sit in a hot tub or go into a swimming pool until after your first recheck in the office. SPECIAL CARE INSTRUCTIONS: VERY IMPORTANT TO READ AND REVIEW A. Your surgical incision has been closed with a cosmetic suture under the skin that will dissolve in about 6 weeks. In 14 days, you can use a pair of clean scissors and cut the suture that is left outside of the skin at the ends of your incision. 1. The small skin tapes can be removed 7 days after surgery if they have not fallen off by that point. 2. You may keep the wound open to air as much as possible to promote healing after post-op day number 5 unless told otherwise by your doctor. 3. If you think the wound looks like it is becoming infected (redness or worsening drainage) and/or you are experiencing fever, chill or worsening back pain and muscle spasms, contact the office so that we may evaluate you as soon as possible. B. Complications are uncommon, but please contact us if you have any signs or symptoms of: 1. wound infection (fever higher than 102.5 degrees F, redness, separation of wound, drainage, or increasing pain from the incision) 2. blood clots in legs (pain, swelling, redness and warmth in legs) 3. urinary tract infection (fever higher than 102.5 degrees F, burning upon urination or increased frequency of urination) 4. nerve problems (inability to walk on your toes or heels, numbness, loss of bowel or bladder control) 5. any other symptoms that concern you C. Please call the office at if you have any concerns or questions about your operation or recovery. D. No smoking! Smoking drastically decreases the chance of a solid fusion. E. Do not take any anti-inflammatory medications (Indocin, Advil, Motrin, Aspirin, Naprosyn, etc.) as these may inhibit the chance of a solid fusion. Tylenol is okay to take for pain. MANAGING PAIN AFTER SPINAL SURGERY 1. Narcotic medication is intended for short-term use and will be provided for surgical pain. Surgical pain usually lasts for a period of 4-6 weeks. Narcotic medication includes Percocet, Vicodin, Darvocet, Tylenol #3 or Lortab. 2. Longer-term pain is more appropriately treated with non-narcotic medication such as Tylenol ES. 3. Muscle spasm is not appropriately treated with narcotics. Muscle relaxers such as Soma, Flexeril or Skelaxin can be used along with Tylenol ES. 4. Remember that we all live with some "aches and pains". This is not unusual or uncommon after an injury or as we get older. a. Back pain is expected and may include muscle spasms for 4 to 6 weeks after surgery. The pain should gradually improve. If the pain worsens for no apparent reason, please contact the office. b. Intermittent leg pain may also be experienced and should not be concerned about unless it worsens for no apparent reason. If so, please contact the office. 5. We will provide appropriate medication within the normal guidelines of their prescribed use. We will also be very cautious and aware of potential abuse and extended duration of patients' medication needs. a. Pain medications are for your comfort and to assist with sleep and rest so that the tissue can heal. They are not provided in order to return to normal activity and should not be used through the day. To do so or worsening pain at night can result from ongoing tissue damage and development of tolerance to the prescribed medicine. 6. Please allow 2-3 days to process refills. Prescriptions will not be mailed but must be picked up at the office. FOLLOW UP VISIT: Keep your scheduled follow-up appointment. Any questions, please call the office at . Addtl Assistant Nurse Manager Provider Instructions: You were found to have a urinary tract infection during your stay. You were treated with a dose of Rocephin on 09/09 and a script for Cefdinir 300mg to be taken twice a day for the next 4 days was sent to your pharmacy on file. Your next dose is due on 09/10/22 in the morning. Pending Studies at Discharge: No Stand-Alone Forms: My [facility] Skilled Items Patient informed of condition?: Yes DNR: No Discharge Level of Care: Acute rehab Communicable Disease: No Discharge Prognosis: Improving Lines: None Urinary Catheter: No Medications and DC Order Prescriptions: New oxycodone 5 mg tablet 5 mg PO Q6H PRN (Reason: pain, severe) Qty: 30 0RF cefdinir 300 mg capsule 300 mg PO BID Qty: 8 0RF Continued duloxetine 60 mg capsule,delayed release(DR/EC) 60 mg PO QPM Qty: 30 5RF Trulicity 1.5 mg/0.5 mL pen injector 1.5 mg subcut WEEKLY 90 Days Qty: 6 3RF Label Comments: monday Rx Instructions: saturdays (DME) Dexcom G6 Sensor Device See Rx Instructions .ROUTE .MEDSUPPLY Qty: 3 Rx Instructions: change sensors every 10 days atorvastatin [Lipitor] 20 mg tablet 20 mg PO HS Qty: 90 3RF benazepril [Lotensin] 20 mg tablet 20 mg PO BID Qty: 180 1RF gabapentin 400 mg capsule 400 mg PO TID Qty: 90 5RF insulin lispro [Humalog KwikPen Insulin] 100 unit/mL insulin pen 50 unit SUBCUT AMPM insulin glargine [Basaglar KwikPen U-100 Insulin] 100 unit/mL (3 mL) insulin pen 40 unit subcut PM metformin 500 mg tablet extended release 24 hr 1,000 mg PO QPM Rx Instructions: take with supper cyanocobalamin (vitamin B-12) [Vitamin B-12] 1,000 mcg Tablet 1,000 mcg PO QAM Discharge Orders: Discharge Order (Routine); Ordered 09/09/22 Ordered By: Myke Pérez Admission Data Admit Date/Time: 09/05/22 12:08 Attending Provider: Myke Pérez Admit Provider: Myke Pérez Primary Care Provider: Gloria Valentine Other Providers: Fernando Jansen ; [facility]
== END 2022-09-09 14:45 | DRG 454 ==
LOC: ASU 08:31 → PACUINP 12:08 → 3E 15:58
DX: E11.40 Type 2 diabetes mellitus with diabetic neuropathy, unspecified; M48.062 Spinal stenosis, lumbar region with neurogenic claudication; Z88.5 Allergy status to narcotic agent; Z79.4 Long term (current) use of insulin; D62 Acute posthemorrhagic anemia; E78.5 Hyperlipidemia, unspecified; F32.A Depression, unspecified; N18.30 Chronic kidney disease, stage 3 unspecified; Z68.35 Body mass index [BMI] 35.0-35.9, adult; Z79.899 Other long term (current) drug therapy; Z79.84 Long term (current) use of oral hypoglycemic drugs; E11.22 Type 2 diabetes mellitus with diabetic chronic kidney disease